=== PATIENT | male | born 1955 | race Caucasian/White ===

== ENCOUNTER → 2018-05-28 08:39 | Outpatient (CLI) | payer OTHER, SELFPAY | PROVIDERS: Family Provider Internal Medicine; PCP Internal Medicine; Visit Provider Internal Medicine Pulmonary Disease | DX: R05 Cough (principal) | CPT/HCPCS: 71250 ==

== ENCOUNTER 2018-07-12 17:26 | Emergency (ER) | payer OTHER, SELFPAY ==
[2018-07-12 17:28] VITALS: BP 160/82; PULSE 84; RESP 18; TEMP 36.7; O2SAT 93; BMI 40.1
[2018-07-12] MEDS: Lidocaine/Epi/Tetracaine 50 ML 1 APPLIC TOPICAL (17:43)
--- NOTE | 2018-07-12 17:54 | RAD_ITS ---
STUDY: X-RAY - LEFT FOOT CLINICAL: Male, 62 years old. Trauma TECHNIQUE: 3 view(s) of the foot. COMPARISON: Previous study of 04/28/2016 FINDINGS: Normal talus, calcaneus, and tarsal bones. Normal visualized subtalar, talonavicular, calcaneocuboid, tarsal and tarsometatarsal articulations. There is cortical thickening of the distal second metatarsal shaft consistent with old injury. Normal metatarsophalangeal joint of the great toe. Normal tibial and fibular sesamoid bones. Normal interphalangeal joint of the great toe. Normal phalanges of the great toe. Normal second through fifth metatarsophalangeal joints. There is a nondisplaced oblique chip fracture of the medial base of the fifth proximal phalanx. The fracture involves the fifth metatarsophalangeal joint space. The soft tissue structures are unremarkable. RAD/Foot min 3 Views IMPRESSION: Chip fracture of the medial base of the fifth proximal phalanx involving the fifth metatarsophalangeal joint space. Cortical thickening of the distal shaft of the second metatarsal consistent with old injury, stable in the interval. Electronically Signed: Eric Osorio MD at 18:17 EDT , Service support ,
--- NOTE | 2018-07-12 19:11 | ED.VISSUMM ---
- ER Visit Summary Date of Service: 07/12/18 Chief Complaint: Left foot injury History of Present Illness: The patient is a 62 M who caught his left small toe on the corner of the coffee table. He has a laceration between his fourth and fifth toes. Physical Examination: Vital signs significant only for a pressure of 160/82. Patient sitting upright in bed no acute distress. Lower extremity examination is significant for a 1 similar laceration to the webspace between the left fourth and fifth toes. Bleeding is well controlled. There is tenderness throughout the fifth toe. He has normal cap refill and sensation. There is no pain over the medical tarsals. Test Results: Left foot x-rays reveal chip fracture to the medial base of the fifth proximal phalanx. Emergency Department Course and Treatment: Let is applied to the wound. Wound is cleansed and Dermabond is applied over the skin. His fourth and fifth toes are charmaine taped. Patient did review his records from [facility] and his tetanus is up-to-date. He will be treated with Keflex to prevent infection. Treatment Plan: [] Disposition: Discharge Impression: 1. Left fifth toe fracture 2. Left foot laceration status post Dermabond This note was generated with icomasoft dictation software. It may contain incorrect words, spelling, and punctuation that were not noted in review of the chart prior to signing ED Disposition - Plan for ED Patient: Disposition: Home or Assisted Living Chief Complaint: Lower Extremity Injury Instructions: ED Fx Foot, ED Laceration Foot Prescriptions: Cephalexin [Keflex] 500 mg PO Q6 #40 capsule Referrals: Bipin Sanchez MD [Primary Care Provider] - 1 Week
[2018-07-12] MEDS: Cephalexin 250 MG Capsule 500 MG PO (19:13)
--- NOTE | 2018-07-12 19:14 | DCINST.ED_ITS ---
ED Disposition - Plan for ED Patient: Disposition: Home or Assisted Living Chief Complaint: Lower Extremity Injury Instructions: ED Fx Foot, ED Laceration Foot Prescriptions: Cephalexin [Keflex] 500 mg PO Q6 #40 capsule Referrals: Bipin Sanchez MD [Primary Care Provider] - 1 Week
[2018-07-12 19:20] VITALS: BP 136/76; PULSE 88; RESP 16; O2SAT 98
== END 2018-07-12 19:20 | disposition home or self-care (01) ==
PROVIDERS: Emergency Provider Emergency Medicine; Family Provider Internal Medicine; PCP Internal Medicine
DX: S92.912A Unspecified fracture of left toe(s), initial encounter for closed fracture (principal); S91.312A Laceration without foreign body, left foot, initial encounter; W22.03XA Walked into furniture, initial encounter; Y93.9 Activity, unspecified; Y92.89 Other specified places as the place of occurrence of the external cause; Y99.9 Unspecified external cause status; I10 Essential (primary) hypertension; E78.00 Pure hypercholesterolemia, unspecified; J44.9 Chronic obstructive pulmonary disease, unspecified; Z87.891 Personal history of nicotine dependence; Z86.718 Personal history of other venous thrombosis and embolism
CPT/HCPCS: 12001; 73630; 99283

== ENCOUNTER → 2018-10-18 07:42 | Outpatient (CLI) | payer OTHER, SELFPAY ==
[2018-10-11 13:53] VITALS: BMI 39.6
--- NOTE | 2018-10-18 07:45 | ECHOD_ITS ---
Reason For Study: ARRHYHTMIA Procedure This was a 2D Doppler, Color Flow transthoracic echocardiogram. Exam performed in department. Left Ventricle Mildly dilated left ventricle. The estimated ejection fraction is 55 %. Paced septal motion. There is mild global hypokinesis of the left ventricle. Right Ventricle Moderately dilated right ventricle. ICD or pacer leads identified within the right ventricle. Normal systolic function. Atria The left atrium is severely enlarged. The right atrium is moderately enlarged. ICD or pacer leads identified within the right atrium. Normal atrial septum. Mitral Valve Mild diffuse mitral valve thickening. Trivial mitral valve insufficiency. Tricuspid Valve Normal tricuspid valve. Mild (1+) tricuspid valve insufficiency. Right ventricular systolic pressure estimated to be 45 mmHg. Mild pulmonary hypertension. Aortic Valve Trisinus/trileaflet aortic valve. Mild focal aortic valve thickening. Pulmonic Valve Normal pulmonic valve. Great Vessels Normal aortic root. Mild atherosclerosis of the aortic arch. Normal inferior vena cava. Inferior vena cava collapse with sniff. Pericardium/Pleural No pericardial effusion. MMode/2D Measurements & Calculations LVIDd: 5.6 cm IVSd: 1.1 cm Ao root diam: 3.8 cm LVIDs: 3.8 cm LVPWd: 1.2 cm RVDd: 4.8 cm FS: 32.0 % LAV(MOD-bp): 116.4 ml LVAd ap4: 44.7 cm2 SV(MOD-sp4): 124.7 ml LAV(MOD-bp) Indexed: 51.9 ml/m2 EDV(MOD-sp4): 183.1 ml LAV(MOD-sp2): 112.3 ml EDV(sp4-el): 187.3 ml LAV(MOD-sp4): 116.9 ml LVAs ap4: 22.8 cm2 ESV(MOD-sp4): 58.3 ml ESV(sp4-el): 60.5 ml EF(MOD-sp4): 68.1 % EF(sp4-el): 67.7 % SV(sp4-el): 126.8 ml LA A4 area: 31.4 cm2 LA dimension(2D): 5.0 cm RA A4 area: 26.2 cm2 Time Measurements MV dec time: 0.20 sec Doppler Measurements & Calculations MV E max el: 112.0 cm/sec Ao V2 max: 167.3 cm/sec LV V1 max: 118.3 cm/sec MV A max el: 98.9 cm/sec Ao max P.2 mmHg LV V1 max P.6 mmHg MV E/A: 1.1 TR max el: 323.3 cm/sec TR max P.8 mmHg Interpretation Summary Mildly dilated left ventricle. The estimated ejection fraction is 55 %. There is mild global hypokinesis of the left ventricle. Moderately dilated right ventricle. The left atrium is severely enlarged. The right atrium is moderately enlarged. Trivial mitral valve insufficiency. Mild (1+) tricuspid valve insufficiency. Right ventricular systolic pressure estimated to be 45 mmHg. Mild pulmonary hypertension. Compared to echo report dated 04/28/2016, LV function has remained the same, but RVSP has increased from 30 to 45 mm Hg. Ordering Physician: Acosta^Epifanio^^^ Referring Physician: BRI URRUTIA Performed By: Marbella Harrison, DYLON, RVT
== END ==
PROVIDERS: Family Provider Internal Medicine; PCP Internal Medicine; Referring Provider Internal Medicine Cardiovascular Disease; Visit Provider Internal Medicine Cardiovascular Disease
DX: G47.33 Obstructive sleep apnea (adult) (pediatric) (principal); I49.5 Sick sinus syndrome; Z95.0 Presence of cardiac pacemaker
CPT/HCPCS: 93306

== ENCOUNTER → 2018-11-01 09:25 | Outpatient (CLI) | payer OTHER, SELFPAY ==
[2018-10-11 13:53] VITALS: BMI 39.6
--- NOTE | 2018-11-01 09:30 | STEWCON_ITS ---
Reason For Study: DYSPNEA, SOB Stress Results Protocol: Stress Echocardiogram Maximum Predicted HR: 156 bpm Target HR: 133 bpm % Maximum Predicted HR: 83 % DurationHeart Rate Stage (mm:ss) (bpm) BP Comment BASELINE 85 168/86DILUTED DEFINITY 3 CC USED DURING STRESS, PO 95% JOSE PROTOCOL0 STAGE 1 3:00 110 160/74PO 83% JOSE PROTOCOL- STAGE 2 2:50 129 164/80PO 86% RECOVERY 94 128/70PO 96% Stress Duration: 5:50 mm:ss Maximum Stress HR: 129 bpm Baseline Echocardiogram Findings The estimated ejection fraction is 65 %. Stress Echo Wall motion Data Resting WM Intermediate WM Stress WM Resting Wall Motion Wall Motion Stress No regional wall motion No regional wall motion abnormalities noted. abnormalities noted. EKG Data The baseline ECG displays normal sinus rhythm. The patient exercised according to the regular Jose protocol for a total duration of 5:50. The maximum heart rate attained was 129 beats per minute. This was 82% of maximum predicted heart rate. The patient exercised into stage 2 of the Jose protocol. During stress, there were no ST or T wave changes noted to suggest ischemia. No arrhythmias noted. Interpretation Summary The estimated ejection fraction is 65 %. Normal, adequate, treadmill echocardiogram. Negative for ischemia by EKG and echocardiographic criteria. No anginal symptoms noted. Rare PVC noted. Appropriate blood pressure response to exercise. Below average exercise capacity for age. Test terminated due to dyspnea. Decreased sensitivity due to poor echo windows requiring Definity agent and left bundle branch block. Final LVEF is 75%. Test terminated due to dyspnea. No complications. The study was technically difficult. Contrast injection was performed. Ordering Physician: Epifanio Shane MD Referring Physician: Epifanio Shane Performed By:
--- OUTSIDE RECORDS SUMMARY | 2018-12-25 16:35 | XMS RPT_ITS ---
:1955 Author Organization OHIP Support Name Relationship Address Phone ALEJANDRA BORGES Unavailable [address] + [place] [address] [facility] Unavailable [address] + [place] [address] KATERINA ALEJANDRA Unavailable [address] + [place] [address] [facility] Unavailable [address] + [place] [address] KATERINA ALEJANDRA Unavailable [address] + [place] [address] [facility] Unavailable [address] + [place] [address] KATERINA, ALEJANDRA Unavailable [address] + [place] [address] [facility] Unavailable [address] + [place] [address] KATERINA, ALEJANDRA Unavailable [address] + [place] [address] [facility] Unavailable [address] + [place] [address] KATERINA, ALEJANDRA Unavailable [address] + [place] [address] [facility] Unavailable [address] + [place] [address] KATERINA ALEJANDRA Unavailable [address] [phone] [place] [address] [facility] Unavailable [address] + [place] [address] KATERINA ALEJANDRA Unavailable [address] + [place] [address] [facility] Unavailable [address] + [place] [address] Care Team Providers Name Role Phone Epifanio Shane Attending Unavailable Bipin Urrutia Referring Unavailable Ceci Sexton Attending Unavailable Bipin Urrutia Referring Unavailable Epifanio Shane Attending Unavailable Epifanio Shane Referring Unavailable Daniel, Bipin Primary Care Unavailable Epifanio Shane Attending Unavailable Epifanio Shane Referring Unavailable Daniel, Bipin Primary Care Unavailable Epifanio Shane Consulting Unavailable Rain Alexander Attending Unavailable Ceci Sexton Attending Unavailable Daniel, Bipin Referring Unavailable Urrutia, Bipin Primary Care Unavailable Sibilia, Jarrett Attending Unavailable SibiliaJarrett Referring Unavailable Urrutia, Bipin Primary Care Unavailable Urrutia, Bipin Primary Care Unavailable Belen Stafford Attending Unavailable CHARLIE, JOSSELYN Iglesias Referring Unavailable URRUTIABIPIN ARNETT Attending Unavailable BIPIN URRUTIA H Referring Unavailable AGUSTO HANNAH Referring Unavailable CAROLYN SPARROW Referring Unavailable AGUSTO HANNAH Attending Unavailable AGUSTO HANNAH Referring Unavailable [place] AGUSTO E Referring Unavailable AGUSTO HANNAH E Referring Unavailable AGUSTO HANNAH E Referring Unavailable DOLLY SEGUNDO ([facility]) Attending Unavailable DANIEL, JAMIE Referring Unavailable CHARLIE, AYMAN A Referring Unavailable CHARLIE, AYMAN A Referring Unavailable CHARLIE, AYMAN A Attending Unavailable CHARLIE, AYMAN A Referring Unavailable CHARLIE, AYMAN A Referring Unavailable CHARLIE, AYMAN A Admitting Unavailable CHARLIE, AYMAN A Attending Unavailable CHARLIE, AYMAN A Referring Unavailable AGUSTO HANNAH E Attending Unavailable CAM[place] AGUSTO E Referring Unavailable AGUSTO HANNAH Attending Unavailable AGUSTO HANNAH Referring Unavailable Bipin Urrutia MD Primary Care Unavailable AGUSTO HANNAH Attending Unavailable AGUSTO HANNAH Referring Unavailable Daniel HONG, Bipin Primary Care Unavailable PROBLEMS PROBLEMS DATE TYPE CONDITION / CODE ATTENDING STATUS SOURCE 10/19/2018 Unknown G47.33 - Obstructive Epifanio Shane Active [place] sleep apnea (adult) Community (pediatric) / Hospital G47.33(ICD-10) Repository 10/19/2018 Unknown I49.5 - Sick sinus Epifanio Shane Active [place] syndrome / Community I49.5(ICD-10) Hospital Repository 10/19/2018 Unknown Z95.0 - Presence of Epifanio Shane Active [place] cardiac pacemaker / Community Z95.0(ICD-10) Hospital Repository 10/11/2018 Unknown I10 - Essential Epifanio Shane Active [place] (primary) Community hypertension / Hospital I10(ICD-10) Repository 10/11/2018 Unknown J44.9 - Chronic Epifanio Shane Active [place] obstructive pulmonary Community disease, unspecified Hospital / J44.9(ICD-10) Repository 10/11/2018 Unknown Z87.898 - Personal Epifanio Shane Active [facility] history of other Community specified conditions Hospital / Z87.898(ICD-10) Repository 10/11/2018 Unknown R06.09 - Other forms Epifanio Shane Active [place] of dyspnea / Community R06.09(ICD-10) Hospital Repository 08/22/2018 Active Syncope and collapse JOSSELYN DAVIS Active [place] / R55(ICD-10) A [facility] [place] Repository 08/22/2018 Active Other mechanical JOSSELYN DAVIS Active [place] complication of A [facility] cardiac electrode, [place] initial encounter / Repository T82.190A(ICD-10) 12/22/2016 Active Atrioventricular NA Active [place] block, complete / Clinic Main I44.2(ICD-10) [place] Repository 07/02/2018 Active Atherosclerotic heart NA Active [place] disease of enterprise [facility] coronary artery [place] without angina Repository pectoris / I25.10(ICD-10) 07/02/2018 Active Essential (primary) NA Active [place] hypertension / Clinic Main I10(ICD-10) [place] Repository 06/21/2018 Active Ventricular NA Active [place] tachycardia / Clinic Main I47.2(ICD-10) [place] Repository 06/21/2018 Active Breakdown NA Active [place] (mechanical) of [facility] cardiac pulse [place] generator (battery), Repository initial encounter / T82.111A(ICD-10) 03/15/2018 Active Unknown / NA Active [place] UNK(Unknown) [facility] [place] Repository 12/21/2017 Admitting Unknown / [place], Active [facility] diagnosis UNK(Unknown) [facility] Repository PROCEDURES PROCEDURES No Procedure Records FoundRESULTS RESULTS ECHOCARDIOGRAM COMPLETE Observed: 10/19/2018 Status: F Source: [place] 4:04 PM [facility] RE[facility] Cardiovascular Services [address] [place] [address] Echo Complete 10/18/18 0801 MR#: [id number] Acct: [id number] Name: MARKELL BORGES Jr. Rep #: [id number] : 1955 63 From: Epifanio Shane MD Attending Dr: Epifanio Shane MD Status: REG CLI Ordering Dr: Epifanio Shane MD Date: 10/18/18 Location: [facility] Sex: M C Admitted: Reason For Study: ARRHYHTMIA Procedure This was a 2D Doppler, Color Flow transthoracic echocardiogram. Exam performed in department. Left Ventricle Mildly dilated left ventricle. The estimated ejection fraction is 55 %. Paced septal motion. There is mild global hypokinesis of the left ventricle. Right Ventricle Moderately dilated right ventricle. ICD or pacer leads identified within the right ventricle. Normal systolic function. Atria The left atrium is severely enlarged. The right atrium is moderately enlarged. ICD or pacer leads identified within the right atrium. Normal atrial septum. Mitral Valve Mild diffuse mitral valve thickening. Trivial mitral valve insufficiency. Tricuspid Valve Normal tricuspid valve. Mild (1+) tricuspid valve insufficiency. Right ventricular systolic pressure estimated to be 45 mmHg. Mild pulmonary hypertension. Aortic Valve Trisinus/trileaflet aortic valve. Mild focal aortic valve thickening. Pulmonic Valve Normal pulmonic valve. Great Vessels Normal aortic root. Mild atherosclerosis of the aortic arch. Normal inferior vena cava. Inferior vena cava collapse with sniff. Pericardium/Pleural No pericardial effusion. MMode/2D Measurements AND Calculations LVIDd: 5.6 cm IVSd: 1.1 cm Ao root diam: 3.8 cm LVIDs: 3.8 cm LVPWd: 1.2 cm RVDd: 4.8 cm FS: 32.0 % LAV(MOD-bp): 116.4 ml LVAd ap4: 44.7 cm2 SV(MOD-sp4): 124.7 ml LAV(MOD-bp) Indexed: 51.9 ml/m2 EDV(MOD-sp4): 183.1 ml LAV(MOD-sp2): 112.3 ml EDV(sp4-el): 187.3 ml LAV(MOD-sp4): 116.9 ml LVAs ap4: 22.8 cm2 ESV(MOD-sp4): 58.3 ml ESV(sp4-el): 60.5 ml EF(MOD-sp4): 68.1 % EF(sp4-el): 67.7 % SV(sp4-el): 126.8 ml LA A4 area: 31.4 cm2 LA dimension(2D): 5.0 cm RA A4 area: 26.2 cm2 Time Measurements MV dec time: 0.20 sec Doppler Measurements AND Calculations MV E max le: 112.0 cm/sec Ao V2 max: 167.3 cm/sec LV V1 max: 118.3 cm/sec MV A max el: 98.9 cm/sec Ao max P.2 mmHg LV V1 max P.6 mmHg MV E/A: 1.1 TR max el: 323.3 cm/sec TR max P.8 mmHg Interpretation Summary Mildly dilated left ventricle. The estimated ejection fraction is 55 %. There is mild global hypokinesis of the left ventricle. Moderately dilated right ventricle. The left atrium is severely enlarged. The right atrium is moderately enlarged. Trivial mitral valve insufficiency. Mild (1+) tricuspid valve insufficiency. Right ventricular systolic pressure estimated to be 45 mmHg. Mild pulmonary hypertension. Compared to echo report dated 04/28/2016, LV function has remained the same, but RVSP has increased from 30 to 45 mm Hg. Ordering Physician: Ac[place] Referring Physician: BIPIN URRUTIA Performed By: Marbella Harrison, DYLON, RVT 10/19/18 1604 Date Epifanio Shane MD CC: Epifanio Shane MD; Bipin Urrutia MD Date Dictated: 10/18/18 0801 Date Transcribed: 10/19/18 1604 School Bus Inspector: Signed PACEMAKER CHECK Observed: 10/12/2018 Status: F Source: [place] 4:00 PM [facility] HOSPITAL REPOSITORY [facility] [address] [place] [address] Pacemaker Check Date of Service: 10/11/18 1400 MR#: [id number] Acct: [id number] Name: MARKELL BORGES Jr. Rep #: [id number] : 1955 From: Ceci Darshan Age/Sex: 63/M Location: [facility] Status: Signed Billing Codes PM Device Codes: PM Dev Prog Eval, Dual 10/11/18 1405 <Electronically signed by Ceci Sexton > Date Ceci Sexton 10/12/18 1600<Electronically signed by Epifanio Shane MD> Cosigner Signature: Date (if applicable) Epifanio Shane MD CC: CARDIOLOGY VISIT Observed: 10/11/2018 Status: F Source: [place] REPORT 2:47 PM [facility] REPOSITORY [facility] [address] [place] [address] OFFICE VISIT Date of Service: 10/11/18 MR#: [id number] Acct: [id number] Name: MARKELL BORGES JR Rep #: [id number] : 1955 Provider: Epifanio Shane MD Age/Sex: 63/M Location[place] [facility] Status: Signed HPI HPI Chief Complaint: Cardiac eval/transfer of care Details: MARKELL BORGES JR, is a 63 M who presents to the office today for cardiac evaluation and transfer of cardiac care. Patient is a former patient of Dr. Fragoso. Patient has a history of hypertension, former smoker about 3 packs/day for 20 years, quit in 1996, positive alcohol use about 10-1/2 ounces per week in the form of 7 cans of beer. Patient has obstructive sleep apnea and is compliant with his BiPAP. He also is a history of reportedly coronary artery disease although he is never had a catheterization, COPD/asthma, and AV block which required permanent pacemaker on 04/30/16, followed by revision of his atrial leads at the [facility] in August 2018. His most recent echocardiogram dated 04/30/16 demonstrated an EF of 55 percent with evidence of inferior, posterior and inferoseptal hypokinesis mildly dilated right ventricle, unable to quantitate RVSP. Previous RVSP in 2011 was 43 mmHg. Patient has never had a catheterization. His most recent stress test on 07/08/16 was a pharmacologic nuclear stress test which was negative for inducible ischemia. On further history the patient states that he has dyspnea on exertion and shortness of breath which he attributes to his COPD/emphysema. He is currently on MDI therapy. Patient states that his dyspnea on exertion has worsened over the last several months, but has no associated angina or chest pain. He is also reportedly had worsening lower extremity edema which she treats with compression stockings. In our office today's blood pressure is 112/62, pulse is 76 and regular. His physical exam demonstrates clear lungs bilaterally, regular rate and rhythm, normal S1/S2, no murmurs are detected. He has 1-2+ bilateral lower extremity edema. EKG dated 08/23/18 shows normal sinus rhythm with first-degree AV block, left anterior hemiblock and intraventricular conduction delay. His lipids as of 04/29/16 showed LDL of 75 and HDL of 59. Repeat lipids are pending. Patient's pacer was interrogated today with results pending Intake Vital Signs10/11/18 Height 5 ft 8 in 10/11/18 Weight: 261 lb 10/11/18 Body Mass Index (BMI) 39.6 10/11/18 Blood Pressure 112/62 10/11/18 Blood Pressure Location Lt brachial Intake Visit Reasons: Switching from [place] / [place] 1:30 Maintenance And Operations Supervisor Required: No Accompanied by: None Is patient in pain?: No Allergies ibuprofen Allergy (Severe, Verified 10/11/18 14:00) ANAPHYLAXIS Medications Albuterol Inhaler [Ventolin Hfa (SP)] 1 - 2 puff INHALATION Q4H PRN PRN 04/28/16 [History Confirmed 10/06/18] Amitriptyline HCl 50 mg PO DAILY 04/28/16 [History Confirmed 10/06/18] Amlodipine [Norvasc] 5 mg PO DAILY 04/28/16 [History Confirmed 10/06/18] Aspirin [Aspirin, Baby] 81 mg PO DAILY@0800 04/28/16 [History Confirmed 10/06/18] Citalopram Hydrobromide [Citalopram HBr] 20 mg PO DAILY 04/28/16 [History Confirmed 10/06/18] Nitroglycerin [Nitrostat] 0.4 mg SUBLINGUAL Q5M PRN 04/28/16 [History Confirmed 10/06/18] [place]-3 Fatty Acids/Dha/Epa [Ovega-3 Softgel] 1 ea PO DAILY 04/28/16 [History Confirmed 10/06/18] Pravastatin [Pravachol] 40 mg PO DAILY 04/28/16 [History Confirmed 10/06/18] buspirone 30 mg tablet 30 mg PO BID tab 10/11/18 [History Confirmed 10/11/18] fluticasone 500 mcg-salmeterol 50 mcg/dose blistr powdr for inhalation 1 inh INHALATION BID 10/11/18 [History Confirmed 10/11/18] furosemide 20 mg tablet 20 mg PO DAILY #30 tab 10/11/18 [Rx Confirmed 10/11/18] montelukast 10 mg tablet 10 mg PO DAILY 10/11/18 [History Confirmed 10/06/18] Ejection fraction %: 55 to 59 PFSH Medical History History of syncope (Chronic) Obstructive sleep apnea (Chronic) COPD with asthma (Chronic) Sick sinus syndrome (Chronic) Hypertension (Chronic) Hyperlipidemia (Chronic) History of DVT (deep vein thrombosis) (Chronic 06/2012) 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) Syncope (Resolved) Surgical History H/O umbilical hernia repair (Chronic 12/11/09) Presence of cardiac pacemaker (Chronic 04/30/16) Family History Mother CVA (cerebral vascular accident), Onset Age: 65 Anxiety Father CAD (coronary artery disease), Onset Age: 61 Brother CAD (coronary artery disease) Obesity Social History Smoking Status: Former smoker quit date: 10/04/96 pack-years: 60 alcohol intake: current alcohol intake frequency: 0-2 drinks per day Alcohol type: beer caffeine: Yes Type: coffee Number of servings: 1 ROS Const Const: Negative for fatigue, frequent falls, weakness, excessive sweating, headache(s) or difficulty sleeping Eyes Eyes: Negative for loss of peripheral vision, transient loss of vision, double vision, blurry vision or tunnel vision ENT ENT: Negative for headache(s), dizziness, Nosebleed/epistaxis or balance problems Cardio Chest Pain: No Palpitations: No Edema: None, Bilateral (wears compression stockings) Muscle aches with walking: None Resp Respiratory: Negative for SOB with activity, SOB at rest, SOB orthopnea\SOB lying down, Cough or paroxysmal nocturnal dyspnea GI GI: Negative nausea, vomiting, heartburn or black,tarry stools : Negative for hematuria Musc Musc: Negative for balance problems, muscle aches/ myalgia, muscle weakness or joint pain Skin Skin: Negative non-healing lesions, rash or unusual bruising Neuro Neuro: Negative for frequent falls, weakness, headache(s), double vision, blurry vision, dizziness, lightheadedness, near syncope, syncope or lack of coordination Isiah Hematologic/Lymphatic: Negative for easy bruising or easy bleeding Endo Endo: Negative for fatigue, excessive sweating or increased thirst/drinking Psych Psych: Positive for anxiety and depression Allergy Allergy/Immunology: Negative for rash, Negative for hives Cardiology Exam Const Appearance: cooperative, healthy appearing and no acute distress Nutritional Appearance: well nourished Orientation: alert, oriented x3 and oriented to person Head Head: normal to inspection, atraumatic and normocephalic Nose: external nose normal Face and Sinus: face symmetric Mouth: oral mucosae normal Eyes General: appearance normal, both eyes and all related structures Eyelids: eyelids normal Conjunctivae: conjunctivae normal Pupils: PERRL and normal by confrontation EOM: EOM intact bilaterally Neck Neck: normal visual inspection and full ROM Carotids: normal carotid upstroke Chest Chest inspection: normal inspection of the chest Auscultation: Bilateral: Clear to Auscultation Cardio Palpation: normal PMI Rate: regular rate Rhythm: regular rhythm Heart sounds: S1 normal and S2 normal GI GI: normal to inspection, no hepatosplenomegaly and bowel sounds present Neuro General: alert, oriented x3, awake, CN's II-XI intact bilaterally and moves all extremities Skin Skin: no rashes or lesions noted Extremities Pulses: Normal: Right Femoral Pulse, Left Femoral Pulse, Right Dorsalis Pedis Pulse, Left Dorsalis Pedis Pulse, Right Posterior Tibial Pulse, Left Posterior Tibial Pulse, Right Radial Pulse, Left Radial Pulse Lower Extremity Edema: None: Bilateral Psych Psychological: normal affect Assessment AND Plan 1. Dyspnea on exertion R06.09 Plan 1. Dyspnea on exertion: Although the patient was a smoker, he reports that his dyspnea on exertion has worsened over the last several months, and his lower extremity edema has also been present for some time. Given his risk factors, dyspnea on exertion, lower extremity edema, evidence of pulmonary hypertension as related to his sleep apnea, I recommended he undergo a treadmill echocardiogram to evaluate for possible ischemic source of his dyspnea on exertion. This will also help assess his blood pressure response to exercise. If this is grossly abnormal, the patient may require diagnostic coronary angiogram. In addition I recommend adding Lasix 20 mg p.o. daily to his baby aspirin and amlodipine to assist with lower extremity edema. I also recommend repeat echocardiogram to monitor and track his pulmonary hypertension. Patient had elevated pulmonary pressures of 43 mmHg by echocardiogram several years ago. 2. Hyperlipidemia: We are awaiting a repeat lipid profile. Continue Pravachol for now. 3. Obstructive sleep apnea: Encouraged the patient to continue using his BiPAP therapy to assist with pulmonary pressures. Patient has been compliant and agrees to do so. 4. Return office in 6 months. This note was generated using a voice recognition system and there may be incorrect words, spelling or punctuation that were not noted when reviewing the office note prior to saving. Plan Detail Other Orders Orders: Other Medications New: Follow Up +6M (Ac[place]) Coding Level of Care Code Off vis,new,level 4 Diagnoses Dyspnea on exertion R06.09 Coding Level of Care Code Off vis,new,level 4 Diagnoses Dyspnea on exertion R06.09 Supplemental Info Supplemental Information Labs LDL Cholesterol 75 mg/dL (0-130) 04/29/16 HDL Cholesterol 59 mg/dL (40-) 04/29/16 Triglycerides 71 mg/dL (-199) 04/29/16 VLDL Cholesterol 14 mg/dL (5-40) 04/29/16 Diagnostics Electrocardiogram 04/28/16 Pacemaker Check 10/11/18 Chest X-Ray 10/20/17 10/11/18 4149 <Electronically signed by Epifanio Shane MD> Date Epifanio Shane MD Cosigner Signature: Date (if applicable) CC: Bipin Urrutia MD PROGRESS Observed: 08/23/2018 Status: COMPLETED Source: [place] 11:02 AM [facility] REPOSITORY HNO ID: [id number] Author: Tor Zamora (Fel) Service: Cardiovascular Medicine Author Type: Fellow Type: Progress Notes Filed: 08/23/2018 11:03 AM Note Text: POD #1 from RA lead extraction/Reimplantation - No issues overnight - Pocket without evidence of hematoma and no superficial bleeding - CXR without evidence of pneumothorax. Device and leads appear in appropriate position with an acceptable amount of slack in the leads - Post implant ECG shows NSR, -VS - Telemetry demonstrates Same - Device check shows acceptable capture thresholds, sensing thresholds and impedance - Plan for D/C today - Wound care instructions outlined in the patient's discharge instructions Tor Zamora MD Fellow, Electrophysiology, PGY-7 Pager: [phone] August 23, 2018 11:03 AM EKG1 Observed: 08/23/2018 Status: F Source: [place] 8:13 AM [facility] REPOSITORY NAME : MARKELL BORGES PID : [id number] : 1955 Gender : Male Race : ORD : Procedure Date : Aug 23 2018 08:13:25 Edit Date : Aug 24 2018 14:34:48 Diagnosis:SINUS RHYTHM WITH 1ST DEGREE AV BLOCK COMPLETE RIGHT BUNDLE BRANCH BLOCK LEFT ANTERIOR FASCICULAR BLOCK BIFASCICULAR BLOCK LEFT VENTRICULAR HYPERTROPHY WITH REPOLARIZATION ABNORMALITY ABNORMAL ECG Confirmed by MD KAMALA, PhD, AARON ([id number]) on 08/24/2018 2:34:45 PM Ventricular Rate : 69 BPM Atrial Rate : 69 BPM P-R Interval : 214 ms QRS Duration : 190 ms Q-T Interval : 444 ms QTC Calculation(Bezet) : 475 ms P Alger : 30 degrees R Alger : -70 degrees T Alger : 60 degrees Test Reason : Location : 549 : Q5NS Overread By : MD KAMALA, PhD,AARON Edited By : MD KAMALA, PhD,AARON Referred By : , Acquired by : [id number], HEMATOCRIT Collected: 08/23/2018 Status: F Source: [place] 4:50 AM [facility] REPOSITORY TYPE CODE TESTS RESULT OUT OF REFERENCE UNITS RANGE LAB HCT 39.0-51.0 % Hematocrit 44.3 Performed By: #### HCT, HGB #### [facility] [address] [place], [place] [address] HEMOGLOBIN Collected: 08/23/2018 Status: F Source: [place] 4:50 AM [facility] REPOSITORY TYPE CODE TESTS RESULT OUT OF REFERENCE UNITS RANGE LAB HGB 13.0-17.0 g/dL Hemoglobin 13.9 Performed By: #### HCT, HGB #### [facility] [address] [place], [place] [address] EKG1 Observed: 08/22/2018 Status: F Source: [place] 12:58 PM [facility] REPOSITORY NAME : MARKELL BORGES PID : [id number] : 1955 Gender : Male Race : ORD : Procedure Date : Aug 22 2018 12:58:03 Edit Date : Aug 24 2018 15:02:37 Diagnosis:SINUS RHYTHM WITH 1ST DEGREE AV BLOCK COMPLETE RIGHT BUNDLE BRANCH BLOCK LEFT AXIS DEVIATION LEFT VENTRICULAR HYPERTROPHY ABNORMAL ECG Confirmed by MD SIMENTAL TAMANNA ([id number]) on 08/24/2018 3:02:34 PM Ventricular Rate : 65 BPM Atrial Rate : 65 BPM P-R Interval : 234 ms QRS Duration : 182 ms Q-T Interval : 432 ms QTC Calculation(Bezet) : 449 ms P Alger : 44 degrees R Alger : -67 degrees T Alger : 23 degrees Test Reason : ADMIT Location : 549 : [place] [address] Overread By : MD SIMENTAL TAMANNA Edited By : MD SIMENTAL TAMANNA Referred By : , Acquired by : [id number], XR CHEST 1V FRONTAL Observed: 08/22/2018 Status: F Source: [place] 11:41 AM [facility] REPOSITORY * * *Final Report* * * DATE OF EXAM: Aug 22 2018 11:41AM JIX [id number] - XR CHEST 1V FRONTAL PORT / PROCEDURE REASON: Shortness of breath * * * * Physician Interpretation * * * * EXAMINATION: CHEST RADIOGRAPH (PORTABLE SINGLE VIEW AP) Exam Date/Time: 08/22/2018 11:41 AM Clinical History: Shortness of breath, MQ: [id number] Comparison: 06/21/2018 RESULT: See impression. IMPRESSION: Lines, tubes, and devices: Stable left-sided dual-chamber pacemaker with leads in the right atrium and right ventricle. Lungs and pleura: No airspace consolidations. No evidence of pulmonary alveolar edema. Minimal upper lobar venous distention in both lungs. Mild atelectasis in the left base. No pleural effusion or pneumothorax. Cardiomediastinal silhouette: Stable cardiomediastinal silhouette. Other: . School Bus Inspector: FARRAH Transcribe Date/Time: Aug 22 2018 1:27P Dictated by : FARZAD JAMES MD This examination was interpreted and the report reviewed and electronically signed by: FARZAD JAMES MD on Aug 22 2018 1:28PM EST [id number] PROCEDURE Observed: 08/22/2018 Status: COMPLETED Source: [place] 10:31 AM [facility] REPOSITORY HNO ID: [id number] Author: Senthil Harris (Fel) Service: Cardiovascular Medicine Author Type: Fellow Type: Procedures Filed: 08/22/2018 10:32 AM Note Text: BRIEF PROCEDURE NOTE: Procedure: RA Lead extraction, implantation of new RA lead Outcome: Successful Access: L Subclavian Vein Complications: None Plan: - Bedrest for 4 hours - Pressure dressings for 24 hours - Please keep pressure dressing in place until seen by our team tomorrow - Please no IV heparin products after device implant (for the next 48-72 hours) - Post-procedure CXR and device check have been ordered - No changes to outpatient medications upon discharge Full report to follow in [facility] (Under Chart Review -> Cardiac) Senthil Harris MD PGY-5 Computer Repair Instructor ANES POST Observed: 08/22/2018 Status: COMPLETED Source: [place] 9:32 AM [facility] REPOSITORY HNO ID: [id number] Author: Cisco Tilley Service: Anesthesiology Author Type: Anesthesiologist Type: Anesthesia PostOp Filed: 08/22/2018 4:43 PM Note Text: POST ANESTHESIA EVALUATION NOTE SERVICE DATE: 08/22/2018 SERVICE TIME: 4:43 PM : 1955 Vitals: 08/22/18 1101 08/22/18 1250 Temp: 37.2 ?C (99 ?F) (!) 63.7 ?C (146.7 ?F) 08/22/18 1215 08/22/18 1230 08/22/18 1250 08/22/18 1300 Arterial BP 1: 135/59 126/47 BP: 112/64 123/67 116/63 116/63 08/22/18 1520 08/22/18 1540 08/22/18 1600 08/22/18 1616 Pulse: 63 80 67 73 08/22/18 1215 08/22/18 1230 08/22/18 1250 08/22/18 1616 Resp: 16 22 20 18 08/22/18 1230 08/22/18 1250 08/22/18 1300 08/22/18 1616 SpO2: 96% 95% 95% 96% Validated Vital Signs: Yes POST ANES STATUS: No apparent anesthetic complications. The patient is appropriately hydrated with stable respiratory and cardiovascular status. Patient has safe and adequate airway control. The patient has appropriate pain relief and no significant post operative nausea or vomiting. The patient has achieved baseline mental status. Intra-Operative Events: No Significant Anesthesia Events Further assessment by Anesthesia Service: None Other Remarks: SIGNATURE: Cisco Tilley MD PATIENT NAME: Markell Borges Jr. DATE: August 22, 2018 TIME: 4:43 PM PAGER/CONTACT #: [phone] Observed: 08/22/2018 Status: F Source: [place] TISSUE CULT / STAIN 9:30 AM [facility] REPOSITORY Sp. Request/Comment: - Specimen received in sterile container. Smear Result - No organisms seen No Polymorphonuclear Leukocytes Culture Result - One colony. Staphylococcus saccharolyticus --> ABNORMAL ALERT Susceptibility testing on Staphylococcus saccharolyticus not performed due to lack of standardized method for this organ ism. --> ABNORMAL ALERT One colony. --> ABNORMAL ALERT Cutibacterium (Propionibacterium) acnes --> ABNORMAL ALERT Susceptibility testing on C. acnes not performed due to predictable susceptibil ity to penicillin. C. acnes is intrinsically resistant to metronidazole. --> ABNORMAL ALERT (NOTE) Identification by MALDI TOF mass spectrometry (MS) was developed and its performance characteristics determined by [facility]'s [facility] [place] ( [facility]). MALDI TOF MS identification of this organism has not been approved by the FDA. [facility] is regul ated under CLIA as qualified to perform high complexity testing. This identification is used for clinical purposes, it should not be regarded as investigational or for research. Positive result called t o and read back by:Dr. Madison Cordova 08/27/18 10:22 Emi Edmond Performed By: #### TISCUL #### [facility] [address] [place], [place] [address] BASIC METABOLIC PANL Collected: 08/22/2018 Status: F Source: [place] 6:30 AM [facility] REPOSITORY TYPE CODE TESTS RESULT OUT OF REFERENCE UNITS RANGE LAB GLU 74-99 mg/dL High Glucose 100 Result Comment: The [place] [employer] (ADA) provides guidance for cutoff values for fasting glucose and random glucose. The ADA defines fasting as no caloric intake for at least 8 hours. Fas ting plasma glucose results between 100 to 125 mg/dL indicate increased risk for diabetes (prediabetes). Fasting plasma glucose results greater than or equal to 126 mg/dL meet the criteria for diagnosis of diabetes. In the absence of unequivocal hyperglycemia, results should be confirmed by repeat testing. In a patient with classic symptoms of hyperglycemia or hyperglycemic crisis, random plasma glucose results greater than or equal to 200 mg/dL meet the criteria for diagnosis of diabetes. Reference: Standards of Medical Care in Diabetes 2016, [place] [employer]. Diabetes Care. 2016.39(Suppl 1). LAB BUN 9-24 mg/dL BUN 17 LAB CRET 0.73-1.22 mg/dL Creatinine 1.19 LAB NA 136-144 mmol/L Sodium 140 LAB K 3.7-5.1 mmol/L Potassium 4.2 LAB CL 97-105 mmol/L Chloride 103 LAB CO2 22-30 mmol/L CO2 27 LAB AGAP 9-18 mmol/L Anion Gap 10 LAB CA 8.5-10.2 mg/dL Calcium, Total 9.1 LAB GFRAA eGFR- Amer. >60 LAB GFRNAA . eGFR-All Other Races >60 Result Comment: eGFR (Estimated GFR) Units of measure: mL/min/1.73 meters squared eGFR is derived from the reexpressed MDRD Study equation using the following parameters: serum creatinine, age, gender and race. The creatinine assay has been calibrated to be traceable to IDMS. An eGFR <60 mL/min/1.73m2 for >3 months is consistent with chronic kidney disease. Refer to KDOQI guidelines for clinical interpretation. In patients with unstable renal function, e.g. those with acute kidney injury, the eGFR may not accurately reflect actual GFR. Performed By: #### BMP, CBC #### [facility] [address] [place], [place] [address] CBC Collected: 08/22/2018 Status: F Source: [place] 6:30 AM [facility] REPOSITORY TYPE CODE TESTS RESULT OUT OF REFERENCE UNITS RANGE LAB WBC 3.70-11.00 k/uL WBC 4.61 LAB RBC 4.20-6.00 m/uL RBC 4.81 LAB HGB 13.0-17.0 g/dL Hemoglobin 14.1 LAB HCT 39.0-51.0 % Hematocrit 45.5 LAB MCV 80.0-100.0 fL MCV 94.6 LAB MCH 26.0-34.0 pG MCH 29.3 LAB MCHC 30.5-36.0 g/dL MCHC 31.0 LAB RDWCV 11.5-15.0 % RDW-CV High 15.5 LAB PLTCT 150-400 k/uL Low Platelet Count 135 Result Comment: Result checked and verified No clot detected. LAB MPV 9.0-12.7 fL MPV 9.9 LAB ABSNUC <0.01 k/uL Absolute nRBC <0.01 Performed By: #### BMP, CBC #### [facility] [address] [id number] TYPE AND SCREEN Collected: 08/22/2018 Status: F Source: [place] 6:30 AM [facility] REPOSITORY TYPE CODE TESTS RESULT OUT OF REFERENCE UNITS RANGE LAB %ABR A ABO/RH(D) POSITIVE LAB % Antibody NEG Screen Performed By: #### TSCR #### [address] [place], [place] [address] SURGICAL PATHOLOGY Observed: 08/19/2018 Status: F Source: [place] 2:52 PM [facility] REPOSITORY Specimen originated from [facility] Specimen #: [id number] Submitting Physician: JOSSELYN DAVIS FINAL DIAGNOSIS Right atrium, lead wire removal - Grossly unremarkable segment of insulated pacemaker lead wire (gross diagnosis only). MANAGER SPECIALTY/dcr 08/23/2018 Ciro Ying ([id number]) (Electronic Signature) SPECIMEN SUBMITTED A: RA LEAD -MEDTRONIC 5076 CLINICAL DATA n/a GROSS DESCRIPTION A. Received in formalin labeled as Medtronic RA lead is a 45 cm piece of insulated pacemaker lead wire with a connector end, screw tip and tissue anchor. No tissue is present. The following is inscribed on the specimen [id number]. No sections are submitted. The specimen is shown to Dr. Ying. MT/dcr 08/23/2018 Gross examination performed at [facility], [address] [place] [address] Date of Report: 08/24/2018 Date of Procedure: 08/19/2018 Date of Receipt: 08/22/2018 Submitted by: JOSSELYN DAVIS Location: F26 Diagnostic interpretation performed at [facility], [address] [place] [address]. CNCNPATED Observed: 08/19/2018 Status: COMPLETED Source: [place] 12:00 AM [facility] REPOSITORY Education (EPSMN) MARKELL BORGES JR. ([id number]) 1955 M Date Time Provider Department 08/19/18 JOSSELYN DAVIS EPSMN Reason for Visit: Patient Education [91] Visit Notes: >> Kelsey (Rn) ERIC Mcclelland WedAug 19, 2018 3:42 PM Status: Signed THE FOLLOWING WAS EVALUATED Motivation To Learn: Interested Family/Significant Other Support: Unable to assess - Family not present Cognitive Ability: Alert and oriented Patient Learns Best By: Verbal Instruction The Following Influencing Factors Were Barriers To This Education Session: None The Following Physical Limitations Were Barriers To This Education Session: None Instruction Provided To: Patient Procedure: Pacemaker Lead Extraction and Reimplant Pre-procedure information reviewed: Patient ID verified Procedure verified Physician verified Explanation of procedure Sedation level during procedure MD medication instructions from EP lab request Hold all medications the morning of the procedure. Travel instructions/restrictions Scheduling information Possible same day discharge versus overnight hospital stay Check out time Family waiting area Physician contact with family after procedure Post Procedure Expectations reviewed: Inpatient hospital stay Post procedure antiarrhythmics and anticoagulation will be discussed with Physician, nurse practitioner or Physician speech and language assistant upon discharge Instructions for transmitting EKG to Monitoring Center 3 month follow up instructions Contact number for information and questions Patient Evaluation: Verbalizes understanding Follow Up Plan: Follow up as directed by MD. Supplemental Material Given: Written Material Patient education regarding radiation exposure. Instructed By Kelsey Mcclelland RN. In Department of CARDIOLOGY. During your visit today, we recorded the following information about you: Allergies As of Date: 08/19/2018 Noted Allergy Reaction IBUPROFEN 08/26/2009 10 - Anaphylaxis Comments: states caused throat to swell up and he became short of breat Date Reviewed: 08/01/2018 Reviewed by: Josselyn Davis - Fully Assessed Prescriptions as of 08/19/2018 Sig: CITALOPRAM 20 MG TABLET TAKE 1 TABLET BY MOUTH EVERY * FLUTICASONE 500 MCG-SALMETERO* Inhale 1 Puff as instructed t* NITROGLYCERIN 0.4 MG SUBLINGU* Dissolve 1 tablet under the t* AMITRIPTYLINE 50 MG TABLET Take 1 tablet by mouth daily * BUSPIRONE 30 MG TABLET TAKE 1 TABLET BY MOUTH TWICE * MONTELUKAST 10 MG TABLET TAKE 1 TABLET BY MOUTH DAILY * IPRATROPIUM-ALBUTEROL 0.5 MG-* Inhale 3 mL as instructed as * AMLODIPINE 5 MG TABLET TAKE 1 TABLET BY MOUTH ONCE D* PRAVASTATIN 40 MG TABLET TAKE 1 TABLET BY MOUTH DAILY * PROAIR HFA 90 MCG/ACTUATION A* INHALE 2 PUFFS INSTRUCTED * COMPOUNDED PRESCRIPTION THIGH HIGH COMPRESSION STOCKI* OMEGA-3 FATTY ACIDS-VITAMIN E* Take 1 capsule by mouth once * ASPIRIN 81 MG TABLET Take 1 tablet by mouth once d* COMPOUNDED PRESCRIPTION BIPAP setting 15/10 cm water * Encounter Status:Closed by KELSEY HAWTHORNE on 08/19/18 CNCO Observed: 08/08/2018 Status: COMPLETED Source: [place] 12:00 AM [facility] REPOSITORY Letter Text DEPARTMENT OF CARDIOLOGY SECTION OF PACING AND ELECTROPHYSIOLOGY Dr. Josselyn Davis [phone] Your Physician has scheduled you for an elective procedure at [facility]. You will be scheduled in the Electrophysiology Laboratory at Desk J2-1 EP PROCEDURE Procedure Date: August 22, 2018 1) It is extremely important that you call [facility] at [phone] or and ask for the EP Scheduling Nurse, Pager #[phone] between the hours of 3:00 p.m. - 5:00 p.m. Wednesday through Wednesday, the day before the procedure date. The scheduling nurse will give you the report-in time for your procedure, discuss fasting instructions, and medication instructions. - If your procedure is Wednesday, please call the Wednesday before. - If your procedure is after a hol, please call the EP Scheduling Nurse the day before the holiday. Arrival time for your procedure is based on an approximate start time. While we attempt to give you an accurate time, emergency circumstances beyond our control may disrupt the existing schedule. We apologize ahead of time for any inconvenience that this may cause you. 2) Do not have anything to eat or drink after midnight the night before your procedure. 3) On the day of your procedure, please report to Desk J1- 1(Admitting) of the [facility] in the [facility] [place], to review your admission paper work. You will then need to proceed to Desk J2-1 on the second floor of the [facility] for your procedure. 4) If you are admitted after your procedure, you will go to a hospital floor after your procedure. You should be discharged at approximately 11:00am the day following your procedure. 5) It is important for you to call as soon as possible if you should need to cancel your scheduled procedure. If you have any further questions regarding your procedure, please contact your physician?s office : Dr. Josselyn Davis [phone] 6) Medication instructions: Continue medication as prescribed 7) If you are female of childbearing age, we will request your permission for a test (blood work) prior to the procedure. 8) If you have any insurance concerns regarding this procedure, please contact our pre-certification office at or [phone] 9) If you are traveling from out of town and need overnight accommodations, please contact our lodging coordinator at ext [phone] or ext [phone] or visit our website at [email or web address] Observed: 08/08/2018 Status: COMPLETED Source: [place] 12:00 AM [facility] REPOSITORY Patient:Markell Borges Jr. MRN: <[id number]> Height:5' 8(1.727 m) Weight:259 lb (117.482 kg) Outpatient Medications as of 08/22/18: citalopram (CELEXA) 20 mg tablet fluticasone-salmeterol (ADVAIR DISKUS) 500-50 mcg/dose dsdv nitroglycerin sublingual (NITROQUICK) 0.4 mg SL tablet amitriptyline (ELAVIL) 50 mg tablet busPIRone HCl 30 mg tablet montelukast (SINGULAIR) 10 mg tablet ipratropium-albuterol (DUONEB) 0.5 mg-3 mg(2.5 mg base)/3 mL nebu amLODIPine (NORVASC) 5 mg tablet pravastatin (PRAVACHOL) 40 mg tablet PROAIR HFA 90 mcg/actuation inhaler COMPOUNDED PRESCRIPTION [place]-3 Fatty Acids-Vitamin E (FISH OIL) 1,000 mg cap Aspirin 81 mg Tab COMPOUNDED PRESCRIPTION Admission/Clinic Administered Medications as of 08/22/18: busPIRone 30 mg tab(s) (BUSPAR) pravastatin 40 mg tab(s) (PRAVACHOL) albuterol HFA 90 mcg/actuation 2 Puff (PROVENTIL HFA, VENTOLIN HFA) ipratropium-albuterol 3 mL nebulizer solution (DUONEB) fluticasone-salmeterol 500-50 mcg/dose 1 Puff (ADVAIR) amLODIPine 5 mg tab(s) (NORVASC) montelukast 10 mg tab(s) (SINGULAIR) citalopram 20 mg tab(s) (CeleXA) amitriptyline 50 mg tab(s) (ELAVIL) nitroglycerin sublingual 0.4 mg tab(s) (NITROQUICK) lactated ringers infusion fentaNYL 50 mcg/mL 25-50 mcg injection (SUBLIMAZE) fentaNYL 50 mcg/mL 50 mcg injection (SUBLIMAZE) hydrALAZINE 5 mg injection (APRESOLINE) albuterol 2.5 mg /3 mL (0.083 %) 2.5 mg (PROVENTIL) Problem List: Hyperlipidemia [E78.5] Panic disorder without agoraphobia [F41.0] 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] Other cirrhosis of liver (HCC) [K74.69] Pacemaker lead malfunction [T82.110A] Pacemaker reprogramming/check [Z45.018] Bifascicular block [I45.2] Allergies: Ibuprofen Date Verified: 08/22/18 Lab Values Lab Value Units Date High Low POTA* 4.2 mmol/L 08/22/2018 5.1 3.7 ISIAH* 45.5 % 08/22/2018 51.0 39.0 Progress Notes ([facility]): Rosalba Kimble LPN 08/08/2018 11:22 AM Signed Patient has been identified by name and date of : Yes Pharmacy phones for refill(s): Pending Prescriptions Disp Refills CITALOPRAM 20 MG TABLET 90 tablet 0 Sig: TAKE 1 TABLET BY MOUTH EVERY DAY JACLYN: Yes Date of last office visit in primary care: 07/07/2018 Follow-up scheduled w/PCP: 01/05/2019 Rosalba Kimble LPN Progress Notes ([facility]): Katerina Ashley RN 08/01/2018 5:16 PM Signed ----- Message from Josselyn Davis sent at 08/01/2018 10:03 AM EDT ----- Please schedule lead extraction with addition of new atrial lead with me. PHYLLIS No need to hold any meds. Thank you AH Katerina Ashley RN 08/01/2018 5:17 PM Signed The date of 08-22-[address] Davis offered AND accepted by patient. PROGRESS Observed: 07/29/2018 Status: COMPLETED Source: [place] 3:03 PM [facility] REPOSITORY HNO ID: [id number] Author: Josselyn Davis Service: (none) Author Type: Physician Type: Progress Notes Filed: 08/01/2018 10:05 AM Note Text: [facility] [place] [facility] Department of Cardiovascular Medicine SECTION OF CARDIAC PACING and ELECTROPHYSIOLOGY OUTPATIENT VISIT DATE July 29, 2018 OUTPATIENT VISIT TYPE ESTABLISHED PRIMARY CARE PHYSICIAN: Bipin Urrutia MD [address] [place] [address] NURSING INTAKE HISTORY: Markell Borges Jr. Is a 62 year old male who presents today for follow up for device management. His medical history is significant for COPD, CAD, DVT, anxiety, sleep apnea, hypertension, and CHB with syncope s/p PPM (04/2016). He underwent PPM implant in April 2016. Overall he reports feeling well. He is unaware of any arrhythmias. He endorses SOB/SERRANO at baseline which he attributes to COPD. He denies palpitations, chest pain, lightheadedness, dizziness, near syncope, or syncope. PAST MEDICAL HISTORY Diagnosis Date - AV block, complete ([facility]) 04/30/2016 - CAD (coronary artery disease) 03/08/2013 - Complete tear of rotator cuff 04/30/2015 right - COPD with asthma ([facility]) 11/03/2005 - Dilated pupil, left, chronic. 08/24/2016 - DVT, lower extremity ([facility]) 06/2012 right, peroneal soleal- provoked- admission for septic knee - Dysmetabolic syndrome X 08/04/2005 - Generalized anxiety disorder 09/2005 - Hyperlipidemia 08/04/2005 - Obesity, unspecified - GENE (obstructive sleep apnea) on BiPAP 06/17/2011 - Other cirrhosis of liver (HCC) 05/30/[address] of chest - Panic disorder without agoraphobia 09/2005 Panic disorder - Septic joint of right knee joint (HCC) 06/07/2012 - Syncope 04/30/2016 Intermittent CHB. S/p DDD-PM 04/30. RV pacing 100% currently. EF 60% - CXR and device interrogation normal - Discharge today - Umbilical hernia 12/2009 - Unspecified asthma(493.90) 07/23/2008 - Unspecified essential hypertension 10/20/2011 PAST SURGICAL HISTORY Procedure Laterality Date - INSER BOOTHE PACER XVENOUS ATRIAL 04/2016 Perm pacemaker insert - PAST SURGICAL HISTORY OF 06/07/2012 I and D of right knee - REPAIR UMBILICAL TRIPP,5+Y/O,REDUC 12/11/2009 SOCIAL HISTORY Social History Substance Use Topics - Smoking status: Former Smoker Packs/day: 3.00 Years: 20.00 Types: Cigarettes Quit date: 10/04/1996 - Smokeless tobacco: Never Used - Alcohol use 10.5 oz/week 7 Cans of Beer (12oz) per week Comment: Recovered since 1996. Still has 1 beer daily FAMILY HISTORY Problem Relation Age of Onset - Stroke Mother 65 - other (anxiety) Mother - Heart Father age 61 - Heart Brother - Obesity Brother - None Brother ALLERGIES: ALLERGIES Allergen Reactions - Ibuprofen Anaphylaxis states caused throat to swell up and he became short of breat MEDICATIONS: fluticasone-salmeterol (ADVAIR DISKUS) 500-50 mcg/dose dsdv Inhale 1 Puff as instructed twice daily. Rinse and gargle mouth with water after use. nitroglycerin sublingual (NITROQUICK) 0.4 mg SL tablet Dissolve 1 tablet under the tongue as needed. for chest pain,every 5 min x3 amitriptyline (ELAVIL) 50 mg tablet Take 1 tablet by mouth daily at bedtime. citalopram (CELEXA) 20 mg tablet Take 1 tablet by mouth once daily. busPIRone HCl 30 mg tablet TAKE 1 TABLET BY MOUTH TWICE DAILY. montelukast (SINGULAIR) 10 mg tablet TAKE 1 TABLET BY MOUTH DAILY AT BEDTIME. ipratropium-albuterol (DUONEB) 0.5 mg-3 mg(2.5 mg base)/3 mL nebu Inhale 3 mL as instructed as needed. amLODIPine (NORVASC) 5 mg tablet TAKE 1 TABLET BY MOUTH ONCE DAILY. pravastatin (PRAVACHOL) 40 mg tablet TAKE 1 TABLET BY MOUTH DAILY AT BEDTIME. PROAIR HFA 90 mcg/actuation inhaler INHALE 2 PUFFS INSTRUCTED FOUR TIMES DAILY NEEDED FOR WHEEZING/SHORTNESS OF BREATH. COMPOUNDED PRESCRIPTION THIGH HIGH COMPRESSION STOCKINGS. 18-30 MM HG PRESSURE. 1 PAIR. Diagnosis: I87.093. [place]-3 Fatty Acids-Vitamin E (FISH OIL) 1,000 mg cap Take 1 capsule by mouth once daily. Aspirin 81 mg Tab Take 1 tablet by mouth once daily. Take with food. COMPOUNDED PRESCRIPTION BIPAP setting 15/10 cm water with heated humidification before titration mask (per patient preference) and lifetime supplies. DX GENE 327.23 Belen Coombs RN PHYSICAL EXAMINATION: BP 158/92 Pulse 80 Ht 172.7 cm (5' 8) Wt 117.5 kg (259 lb) BMI 39.38 kg/m? General: Well appearing, in no acute distress. Skin: No clubbing, no cyanosis. Eyes: Extra ocular movements intact Neck: No jugular venous distention. Lungs: Clear to auscultation bilaterally, no wheezing or rhonchi. Heart: Regular rhythm, PMI not displaced, S1, S2 normal, no S3, no S4, no heaves, no rub and no murmur. Abdomen: Soft, nontender, bowel sounds normal, no palpable organomegaly. Extremities: No peripheral edema . Grade 2/4 distal pulses bilaterally. Neuro: Oriented to person, place and time, alert, cooperative, gait coordinated. CHIEF COMPLAINT: Pacemaker lead malfunction HISTORY OF PRESENT ILLNESS: Mr. Borges is a 62 year old male who presents today for follow- up visit for device management. His medical history is significant for COPD, CAD, DVT, anxiety, sleep apnea, hypertension, and CHB with syncope s/p PPM (04/2016). He underwent PPM implant in April 2016. Overall he reports feeling well. He is unaware of any arrhythmias. He endorses SOB/SERRANO at baseline which he attributes to COPD. He denies palpitations, chest pain, lightheadedness, dizziness, near syncope, or syncope. I personally reviewed and interpreted the following: ECG today shows sinus rhythm with bifascicular block Device check 07/29/18: UNDERLYING RHYTHM: Normal Sinus Rhythm BATTERY STATUS: Normal and shows no significant depletion. COUNTERS SINCE 06/19/18: ATRIAL ARRHYTHMIAS: ATR triggered episodes of atrial high rates with EGMs showing atrial lead noise. Atrial lead polarity switch to unipolar occured. Atrial lead impedance trending showed measurement > 3000ohms on 06/14/18 resulting in polarity switch. Second time atrial lead polarity switch has occurred for high impedance. VENTRICULAR ARRHYTHMIAS: 6 VHR triggered events EGM's showing SVT. Patient did have NSVT recorded event lasting approx 35 beats dated 06/06/18 that was documented on remote transmission. LEAD MEASUREMENTS: Capture and sensing are appropriate. The pacing outputs maintain safety margin. IMPLANT SITE/ SYMPTOMS: The incision and pocket are pain-free (0/10), well healed and without signs of erosion or infection. No arm swelling, syncope, pre-syncope or device related pocket stimulation. OTHER DIAGNOSTICS: RV pacing 4%. PROGRAMMING CHANGES MADE TODAY: Atrial lead polarity switch back to bipolar. IMPRESSION, PLAN AND RECOMMENDATIONS: Details as noted above. History of syncope with heart block status post pacemaker. currently with sinus rhythm with bifascicular block and first degree AV block. No recurrence of syncope. There is evidence of atrial lead malfunction with noise and impedance spikes. He will need a new RA lead. Discussed abandonment vs extraction. His lead is a 5076 and is 2 years old. He is also young. I favor lead extraction and he agrees. The risks and benefits were dicussed in details and he would like to proceed. Will make procedure arrangements with the EP Lab I personally interviewed, confirmed and edited the above information as obtained by others. CONTACT INFORMATION: Josselyn Davis MD CNOV Observed: 07/29/2018 Status: COMPLETED Source: [place] 3:00 PM [facility] REPOSITORY Office Visit (CARDMN) MARKELL BORGES JR. ([id number]) 1955 M Date Time Provider Department 07/29/18 3:00 PM JOSSELYN DAVIS During your visit today, we recorded the following information about you: Pulse Blood pressure Weight Height 80/minute 158/92 117.5 kg 1.727 m Josselyn Davis MD 08/01/2018 10:05 AM Signed [facility] [place] [facility] Department of Cardiovascular Medicine SECTION OF CARDIAC PACING and ELECTROPHYSIOLOGY OUTPATIENT VISIT DATE July 29, 2018 OUTPATIENT VISIT TYPE ESTABLISHED PRIMARY CARE PHYSICIAN: Bipin Urrutia MD [address] [place] [address] NURSING INTAKE HISTORY: Markell Borges Jr. Is a 62 year old male who presents today for follow up for device management. His medical history is significant for COPD, CAD, DVT, anxiety, sleep apnea, hypertension, and CHB with syncope s/p PPM (04/2016). He underwent PPM implant in April 2016. Overall he reports feeling well. He is unaware of any arrhythmias. He endorses SOB/SERRANO at baseline which he attributes to COPD. He denies palpitations, chest pain, lightheadedness, dizziness, near syncope, or syncope. PAST MEDICAL HISTORY Diagnosis Date - AV block, complete ([facility]) 04/30/2016 - CAD (coronary artery disease) 03/08/2013 - Complete tear of rotator cuff 04/30/2015 right - COPD with asthma ([facility]) 11/03/2005 - Dilated pupil, left, chronic. 08/24/2016 - DVT, lower extremity ([facility]) 06/2012 right, peroneal soleal- provoked- admission for septic knee - Dysmetabolic syndrome X 08/04/2005 - Generalized anxiety disorder 09/2005 - Hyperlipidemia 08/04/2005 - Obesity, unspecified - GENE (obstructive sleep apnea) on BiPAP 06/17/2011 - Other cirrhosis of liver ([facility]) 05/30/[address] of chest - Panic disorder without agoraphobia 09/2005 Panic disorder - Septic joint of right knee joint ([facility]) 06/07/2012 - Syncope 04/30/2016 Intermittent CHB. S/p DDD-PM 04/30. RV pacing 100% currently. EF 60% - CXR and device interrogation normal - Discharge today - Umbilical hernia 12/2009 - Unspecified asthma(493.90) 07/23/2008 - Unspecified essential hypertension 10/20/2011 PAST SURGICAL HISTORY Procedure Laterality Date - INSER BOOTHE PACER XVENOUS ATRIAL 04/2016 Perm pacemaker insert - PAST SURGICAL HISTORY OF 06/07/2012 I and D of right knee - REPAIR UMBILICAL TRIPP,5+Y/O,REDUC 12/11/2009 SOCIAL HISTORY Social History Substance Use Topics - Smoking status: Former Smoker Packs/day: 3.00 Years: 20.00 Types: Cigarettes Quit date: 10/04/1996 - Smokeless tobacco: Never Used - Alcohol use 10.5 oz/week 7 Cans of Beer (12oz) per week Comment: Recovered since 1996. Still has 1 beer daily FAMILY HISTORY Problem Relation Age of Onset - Stroke Mother 65 - other (anxiety) Mother - Heart Father age 61 - Heart Brother - Obesity Brother - None Brother ALLERGIES: ALLERGIES Allergen Reactions - Ibuprofen Anaphylaxis states caused throat to swell up and he became short of breat MEDICATIONS: fluticasone-salmeterol (ADVAIR DISKUS) 500-50 mcg/dose dsdv Inhale 1 Puff as instructed twice daily. Rinse and gargle mouth with water after use. nitroglycerin sublingual (NITROQUICK) 0.4 mg SL tablet Dissolve 1 tablet under the tongue as needed. for chest pain,every 5 min x3 amitriptyline (ELAVIL) 50 mg tablet Take 1 tablet by mouth daily at bedtime. citalopram (CELEXA) 20 mg tablet Take 1 tablet by mouth once daily. busPIRone HCl 30 mg tablet TAKE 1 TABLET BY MOUTH TWICE DAILY. montelukast (SINGULAIR) 10 mg tablet TAKE 1 TABLET BY MOUTH DAILY AT BEDTIME. ipratropium-albuterol (DUONEB) 0.5 mg-3 mg(2.5 mg base)/3 mL nebu Inhale 3 mL as instructed as needed. amLODIPine (NORVASC) 5 mg tablet TAKE 1 TABLET BY MOUTH ONCE DAILY. pravastatin (PRAVACHOL) 40 mg tablet TAKE 1 TABLET BY MOUTH DAILY AT BEDTIME. PROAIR HFA 90 mcg/actuation inhaler INHALE 2 PUFFS INSTRUCTED FOUR TIMES DAILY NEEDED FOR WHEEZING/SHORTNESS OF BREATH. COMPOUNDED PRESCRIPTION THIGH HIGH COMPRESSION STOCKINGS. 18-30 MM HG PRESSURE. 1 PAIR. Diagnosis: I87.093. Milbridge-3 Fatty Acids-Vitamin E (FISH OIL) 1,000 mg cap Take 1 capsule by mouth once daily. Aspirin 81 mg Tab Take 1 tablet by mouth once daily. Take with food. COMPOUNDED PRESCRIPTION BIPAP setting 15/10 cm water with heated humidification before titration mask (per patient preference) and lifetime supplies. DX GENE 327.23 Belen Coombs RN PHYSICAL EXAMINATION: BP 158/92 Pulse 80 Ht 172.7 cm (5' 8) Wt 117.5 kg (259 lb) BMI 39.38 kg/m? General: Well appearing, in no acute distress. Skin: No clubbing, no cyanosis. Eyes: Extra ocular movements intact Neck: No jugular venous distention. Lungs: Clear to auscultation bilaterally, no wheezing or rhonchi. Heart: Regular rhythm, PMI not displaced, S1, S2 normal, no S3, no S4, no heaves, no rub and no murmur. Abdomen: Soft, nontender, bowel sounds normal, no palpable organomegaly. Extremities: No peripheral edema . Grade 2/4 distal pulses bilaterally. Neuro: Oriented to person, place and time, alert, cooperative, gait coordinated. CHIEF COMPLAINT: Pacemaker lead malfunction HISTORY OF PRESENT ILLNESS: Mr. Borges is a 62 year old male who presents today for follow- up visit for device management. His medical history is significant for COPD, CAD, DVT, anxiety, sleep apnea, hypertension, and CHB with syncope s/p PPM (04/2016). He underwent PPM implant in April 2016. Overall he reports feeling well. He is unaware of any arrhythmias. He endorses SOB/SERRANO at baseline which he attributes to COPD. He denies palpitations, chest pain, lightheadedness, dizziness, near syncope, or syncope. I personally reviewed and interpreted the following: ECG today shows sinus rhythm with bifascicular block Device check 07/29/18: UNDERLYING RHYTHM: Normal Sinus Rhythm BATTERY STATUS: Normal and shows no significant depletion. COUNTERS SINCE 06/19/18: ATRIAL ARRHYTHMIAS: ATR triggered episodes of atrial high rates with EGMs showing atrial lead noise. Atrial lead polarity switch to unipolar occured. Atrial lead impedance trending showed measurement > 3000ohms on 06/14/18 resulting in polarity switch. Second time atrial lead polarity switch has occurred for high impedance. VENTRICULAR ARRHYTHMIAS: 6 VHR triggered events EGM's showing SVT. Patient did have NSVT recorded event lasting approx 35 beats dated 06/06/18 that was documented on remote transmission. LEAD MEASUREMENTS: Capture and sensing are appropriate. The pacing outputs maintain safety margin. IMPLANT SITE/ SYMPTOMS: The incision and pocket are pain-free (0/10), well healed and without signs of erosion or infection. No arm swelling, syncope, pre-syncope or device related pocket stimulation. OTHER DIAGNOSTICS: RV pacing 4%. PROGRAMMING CHANGES MADE TODAY: Atrial lead polarity switch back to bipolar. IMPRESSION, PLAN AND RECOMMENDATIONS: Details as noted above. History of syncope with heart block status post pacemaker. currently with sinus rhythm with bifascicular block and first degree AV block. No recurrence of syncope. There is evidence of atrial lead malfunction with noise and impedance spikes. He will need a new RA lead. Discussed abandonment vs extraction. His lead is a 5076 and is 2 years old. He is also young. I favor lead extraction and he agrees. The risks and benefits were dicussed in details and he would like to proceed. Will make procedure arrangements with the EP Lab I personally interviewed, confirmed and edited the above information as obtained by others. CONTACT INFORMATION: Josselyn Davis MD Referring Provider: JOSSELYN DAVIS [[id number]] Allergies As of Date: 07/29/2018 Noted Allergy Reaction IBUPROFEN 08/26/2009 10 - Anaphylaxis Comments: states caused throat to swell up and he became short of breat Date Reviewed: 07/29/2018 Reviewed by: Belen (Rn) ERIC Coombs - Fully Assessed Reason for Visit: Permanent Pacemaker [1364] Primary Visit Diagnosis:Pacemaker lead malfunction, initial encounter [T82.110A] Other Visit Diagnoses:AV block, complete (HCC) [I44.2] Pacemaker reprogramming/check [Z45.018] Bifascicular block [I45.2] Prescriptions as of 07/29/2018 Sig: FLUTICASONE 500 MCG-SALMETERO* Inhale 1 Puff as instructed t* NITROGLYCERIN 0.4 MG SUBLINGU* Dissolve 1 tablet under the t* AMITRIPTYLINE 50 MG TABLET Take 1 tablet by mouth daily * CITALOPRAM 20 MG TABLET Take 1 tablet by mouth once d* BUSPIRONE 30 MG TABLET TAKE 1 TABLET BY MOUTH TWICE * MONTELUKAST 10 MG TABLET TAKE 1 TABLET BY MOUTH DAILY * IPRATROPIUM-ALBUTEROL 0.5 MG-* Inhale 3 mL as instructed as * AMLODIPINE 5 MG TABLET TAKE 1 TABLET BY MOUTH ONCE D* PRAVASTATIN 40 MG TABLET TAKE 1 TABLET BY MOUTH DAILY * PROAIR HFA 90 MCG/ACTUATION A* INHALE 2 PUFFS INSTRUCTED * COMPOUNDED PRESCRIPTION THIGH HIGH COMPRESSION STOCKI* OMEGA-3 FATTY ACIDS-VITAMIN E* Take 1 capsule by mouth once * ASPIRIN 81 MG TABLET Take 1 tablet by mouth once d* COMPOUNDED PRESCRIPTION BIPAP setting 15/10 cm water * Problem List As Of Date 07/29/2018 Noted Resolved Hyperlipidemia [E78.5] INVALID FOR* Dysmetabolic syndrome X [E88.81] INVALID FOR*12/03/2014 Panic disorder without agoraphobia [F41.0] Generalized anxiety disorder [F41.1] 12/03/2014 More... 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 Nontraumatic rupture of tendons of biceps (long*INVALID FOR*12/03/2014 Nonspecific elevation of levels of transaminase*INVALID FOR*12/03/2014 Other hammer toe (acquired) [M20.40] INVALID FOR*12/03/2014 More... Skin lesion [L98.9] INVALID FOR*12/03/2014 Umbilical hernia without mention of obstruction*INVALID FOR*08/15/2015 GENE (obstructive sleep apnea) on BiPAP [G47.33] INVALID FOR* Unspecified essential hypertension [I10] INVALID FOR*12/03/2014 Septic prepatellar bursitis of right knee [M71.*INVALID FOR*12/03/2014 History of DVT in adulthood [Z86.718] INVALID FOR*08/24/2016 Hypertension [I10] INVALID FOR*01/28/2016 Shortness of breath [R06.02] INVALID FOR*12/03/2014 Edema [R60.9] INVALID FOR*08/15/2015 CAD (coronary artery disease) [I25.10] INVALID FOR* Complete tear of rotator cuff [M75.120] INVALID FOR* BMI 38.0-38.9,adult [Z68.38] INVALID FOR* Essential hypertension [I10] INVALID FOR* AV block, complete (HCC) [I44.2] INVALID FOR* More... 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 Follow-up and Disposition History Recorded Letter Text Josselyn Davis MD Cardiac Pacing and Electrophysiology [facility] Department of Cardiovascular Medicine [address] [place] [address] August 05, 2018 Bipin Urrutia MD [address] [place] [id number] RE: PATIENT NAME: Markell Borges Jr. DATE OF : 1955 CLINIC NUMBER: [id number] Dear Dr. Urrutia: It was a pleasure to see your patient, Markell Borges Jr., on 07/29/2018 in the Cardiac Pacing and Electrophysiology outpatient clinic. Attached is an office note from the visit. HISTORY OF PRESENT ILLNESS: Mr. Borges is a 62 year old male who presents today for follow- up visit for device management. His medical history is significant for COPD, CAD, DVT, anxiety, sleep apnea, hypertension, and CHB with syncope s/p PPM (04/2016). He underwent PPM implant in April 2016. Overall he reports feeling well. He is unaware of any arrhythmias. He endorses SOB/SERRANO at baseline which he attributes to COPD. He denies palpitations, chest pain, lightheadedness, dizziness, near syncope, or syncope. I personally reviewed and interpreted the following: ECG today shows sinus rhythm with bifascicular block Device check 07/29/18: UNDERLYING RHYTHM: Normal Sinus Rhythm BATTERY STATUS: Normal and shows no significant depletion. COUNTERS SINCE 06/19/18: ATRIAL ARRHYTHMIAS: ATR triggered episodes of atrial high rates with EGMs showing atrial lead noise. Atrial lead polarity switch to unipolar occured. Atrial lead impedance trending showed measurement > 3000ohms on 06/14/18 resulting in polarity switch. Second time atrial lead polarity switch has occurred for high impedance. VENTRICULAR ARRHYTHMIAS: 6 VHR triggered events EGM's showing SVT. Patient did have NSVT recorded event lasting approx 35 beats dated 06/06/18 that was documented on remote transmission. LEAD MEASUREMENTS: Capture and sensing are appropriate. The pacing outputs maintain safety margin. IMPLANT SITE/ SYMPTOMS: The incision and pocket are pain-free (0/10), well healed and without signs of erosion or infection. No arm swelling, syncope, pre-syncope or device related pocket stimulation. OTHER DIAGNOSTICS: RV pacing 4%. PROGRAMMING CHANGES MADE TODAY: Atrial lead polarity switch back to bipolar. IMPRESSION, PLAN AND RECOMMENDATIONS: Details as noted above. History of syncope with heart block status post pacemaker. currently with sinus rhythm with bifascicular block and first degree AV block. No recurrence of syncope. There is evidence of atrial lead malfunction with noise and impedance spikes. He will need a new RA lead. Discussed abandonment vs extraction. His lead is a 5076 and is 2 years old. He is also young. I favor lead extraction and he agrees. The risks and benefits were dicussed in details and he would like to proceed. Will make procedure arrangements with the EP Lab I would like to thank you for allowing me to participate in Markell Borges Jr.'s care. Please feel free to call me with any further questions regarding his arrhythmia. Sincerely, Josselyn Davis MD Electronically signed to expedite mailing Encounter Status:Closed by JOSSELYN DAVIS MD on 08/01/18 ECG COMPLETE W Observed: 07/29/2018 Status: F Source: [facility] 1:28 PM [facility] REPOSITORY NAME : MARKELL BORGES PID : [id number] : 1955 Gender : Male Race : ORD : [id number] Procedure Date : Jul 29 2018 13:28:00 Edit Date : Aug 01 2018 16:50:53 Diagnosis:SINUS RHYTHM WITH 1ST DEGREE AV BLOCK COMPLETE RIGHT BUNDLE BRANCH BLOCK LEFT ANTERIOR FASCICULAR BLOCK BIFASCICULAR BLOCK LEFT VENTRICULAR HYPERTROPHY WITH REPOLARIZATION ABNORMALITY ABNORMAL ECG Confirmed by MD KAMALA, PhD, AARON ([id number]) on 08/01/2018 4:50:52 PM Ventricular Rate : 80 BPM Atrial Rate : 80 BPM P-R Interval : 250 ms QRS Duration : 184 ms Q-T Interval : 416 ms QTC Calculation(Bezet) : 479 ms P Alger : 39 degrees R Alger : -71 degrees T Alger : 65 degrees Test Reason : Location : 314 : J14 Overread By : MD KAMALA, PhD,ARAON Edited By : MD KAMALA, PhD,AARON Referred By : JOSSELYN DAVIS Acquired by : [facility] Observed: 07/13/2018 Status: F Source: [place] SUMMARY 2:49 AM [facility] REPOSIT[facility] Medical Records Department [address] [place] [address] Emergency Department Summary 07/12/18 191 MR#: [id number] Acct: [id number] Name: MARKELL BORGES JR Rep #: [id number] : 1955 62 From: Belen Stafford MD PCP: Bipin Urrutia MD Status: DEP ER - ER Visit Summary Date of Service: 07/12/18 Chief Complaint: Left foot injury History of Present Illness: The patient is a 62 M who caught his left small toe on the corner of the coffee table. He has a laceration between his fourth and fifth toes. Physical Examination: Vital signs significant only for a pressure of 160/82. Patient sitting upright in bed no acute distress. Lower extremity examination is significant for a 1 similar laceration to the webspace between the left fourth and fifth toes. Bleeding is well controlled. There is tenderness throughout the fifth toe. He has normal cap refill and sensation. There is no pain over the medical tarsals. Test Results: Left foot x-rays reveal chip fracture to the medial base of the fifth proximal phalanx. Emergency Department Course and Treatment: Let is applied to the wound. Wound is cleansed and Dermabond is applied over the skin. His fourth and fifth toes are charmaine taped. Patient did review his records from [facility] and his tetanus is up-to-date. He will be treated with Keflex to prevent infection. Treatment Plan: [] Disposition: Discharge Impression: 1. Left fifth toe fracture 2. Left foot laceration status post Dermabond This note was generated with A2B dictation software. It may contain incorrect words, spelling, and punctuation that were not noted in review of the chart prior to signing ED Disposition - Plan for ED Patient: Disposition: Home or Assisted Living Chief Complaint: Lower Extremity Injury Instructions: ED Fx Foot, ED Laceration Foot Prescriptions: Cephalexin [Keflex] 500 mg PO Q6 #40 capsule Referrals: Bipin Urrutia MD [Primary Care Provider] - 1 Week What to do if you have Problems For any increased pain, shortness of breath, bleeding, nausea or vomiting, chest pain, or any unexpected problems, contact your Primary Care Provider. Call [facility] ([phone]) or report to the closest Emergency Room. Call 911 if necessary. 07/13/18248 <Electronically signed by Belen Stafford MD> Date Belen Stafford MD Cosigner Signature (If Indicated): Date CC: Bipin Urrutia MD DISCHARGE INSTRUCTION Observed: 07/12/2018 Status: F Source: [place] 7:14 PM [facility] REPOS[facility]ORY [facility] Medical Records Department [address] [place] [id number] Discharge Instruction 07/12/181910 MR#: [id number] Acct: [id number] Name: MARKELL BORGES JR Rep #: [id number] : 1955 62 From: Belen Stafford MD PCP: Bipin Urrutia MD Status: REG ER ED Disposition - Plan for ED Patient: Disposition: Home or Assisted Living Chief Complaint: Lower Extremity Injury Instructions: ED Fx Foot, ED Laceration Foot Prescriptions: Cephalexin [Keflex] 500 mg PO Q6 #40 capsule Referrals: Bipin Urrutia MD [Primary Care Provider] - 1 Week What to do if you have Problems For any increased pain, shortness of breath, bleeding, nausea or vomiting, chest pain, or any unexpected problems, contact your Primary Care Provider. Call [facility] ([phone]) or report to the closest Emergency Room. Call 911 if necessary. 07/12/181913 <Electronically signed by Belen Stafford MD> Date Belen Stafford MD Cosigner Signature (If Indicated): Date CC: Bipin Urrutia MD FOOT MIN 3 VIEWS Observed: 07/12/2018 Status: F Source: [place] 5:42 PM [facility]POS[facility] Imaging Services [address] [place] [address] Foot min 3 Views MR#: [id number] Acct: [id number] Name: MARKELL BORGES JR Rep #: [id number] : 1955 M 62 From: Eric Osorio MD PCP: Bipin Urrutia MD Status: REG ER Study: Foot min 3 Views Date of Exam: 07/12/18 Exam# [id number] Ordering Dr: Belen Stafford MD STUDY: X-RAY - LEFT FOOT CLINICAL: Male, 62 years old. Trauma TECHNIQUE: 3 view(s) of the foot. COMPARISON: Previous study of 04/28/2016 FINDINGS: Normal talus, calcaneus, and tarsal bones. Normal visualized subtalar, talonavicular, calcaneocuboid, tarsal and tarsometatarsal articulations. There is cortical thickening of the distal second metatarsal shaft consistent with old injury. Normal metatarsophalangeal joint of the great toe. Normal tibial and fibular sesamoid bones. Normal interphalangeal joint of the great toe. Normal phalanges of the great toe. Normal second through fifth metatarsophalangeal joints. There is a nondisplaced oblique chip fracture of the medial base of the fifth proximal phalanx. The fracture involves the fifth metatarsophalangeal joint space. The soft tissue structures are unremarkable. RAD/Foot min 3 Views IMPRESSION: Chip fracture of the medial base of the fifth proximal phalanx involving the fifth metatarsophalangeal joint space. Cortical thickening of the distal shaft of the second metatarsal consistent with old injury, stable in the interval. Electronically Signed: Eric Osorio MD at 18:17 EDT , Service support , CC: Belen Stafford MD; Bipin Urrutia MD School Bus Inspector: Signed PROGRESS Observed: 07/07/2018 Status: COMPLETED Source: [place] 2:42 PM [facility] [place] REPOSITORY HNO ID: [id number] Author: Dolly (Rivet Maker) Older Service: (none) Author Type: Nurse Practitioner Type: Progress Notes Filed: 07/07/2018 3:53 PM Note Text: CC: Patient presents with: Imm/Inj: Flu Vaccine HPI Markell Borges Jr. is a 62 year old male who presents today for routine follow-up. Denies any concerns or issues today. COPD exacerbation recently. Treated by clinical rehab specialist Dr. Bill with Prednisone, nebulizer and antibiotics. Was not hospitalized. Advair dose increased. Wearing bipap nightly. HTN/CAD/Pacmaker: Does not check BP at home. Taking all medications as prescribed, no side effects. Recently evaluated by tv host due to findings of V tach on pacemaker check of which he was asymptomatic. Fractured coil on atrial lead found. Given prescription for Nitro, has not needed. REVIEW OF SYSTEMS General: no fevers, no chills, no night sweats, no change in appetite, no change in energy and no significant changes in weight Cardiovascular: no chest pain, no chest pressure, no palpitations and no swelling GI: Negative for abdominal discomfort, blood in stools or black stools, change in bowel habit : No difficulty urinating, nocturia > 1 time per night or hematuria PAST MEDICAL HISTORY Diagnosis Date - AV block, complete ([facility]) 04/30/2016 - CAD (coronary artery disease) 03/08/2013 - Complete tear of rotator cuff 04/30/2015 right - COPD with asthma ([facility]) 11/03/2005 - Dilated pupil, left, chronic. 08/24/2016 - DVT, lower extremity ([facility]) 06/2012 right, peroneal soleal- provoked- admission for septic knee - Dysmetabolic syndrome X 08/04/2005 - Generalized anxiety disorder 09/2005 - Hyperlipidemia 08/04/2005 - Obesity, unspecified - GENE (obstructive sleep apnea) on BiPAP 06/17/2011 - Other cirrhosis of liver (HCC) 05/30/[address] of chest - Panic disorder without agoraphobia 09/2005 Panic disorder - Septic joint of right knee joint (HCC) 06/07/2012 - Syncope 04/30/2016 Intermittent CHB. S/p DDD-PM 04/30. RV pacing 100% currently. EF 60% - CXR and device interrogation normal - Discharge today - Umbilical hernia 12/2009 - Unspecified asthma(493.90) 07/23/2008 - Unspecified essential hypertension 10/20/2011 PAST SURGICAL HISTORY Procedure Laterality Date - INSER BOOTHE PACER XVENOUS ATRIAL 04/2016 Perm pacemaker insert - PAST SURGICAL HISTORY OF 06/07/2012 I and D of right knee - REPAIR UMBILICAL TRIPP,5+Y/O,REDUC 12/11/2009 ALLERGIES Ibuprofen MEDICATIONS fluticasone-salmeterol (ADVAIR DISKUS) 500-50 mcg/dose dsdv Inhale 1 Puff as instructed twice daily. Rinse and gargle mouth with water after use. nitroglycerin sublingual (NITROQUICK) 0.4 mg SL tablet Dissolve 1 tablet under the tongue as needed. for chest pain,every 5 min x3 amitriptyline (ELAVIL) 50 mg tablet Take 1 tablet by mouth daily at bedtime. citalopram (CELEXA) 20 mg tablet Take 1 tablet by mouth once daily. busPIRone HCl 30 mg tablet TAKE 1 TABLET BY MOUTH TWICE DAILY. montelukast (SINGULAIR) 10 mg tablet TAKE 1 TABLET BY MOUTH DAILY AT BEDTIME. ipratropium-albuterol (DUONEB) 0.5 mg-3 mg(2.5 mg base)/3 mL nebu Inhale 3 mL as instructed as needed. amitriptyline (ELAVIL) 50 mg tablet Take 1 tablet by mouth daily at bedtime. amLODIPine (NORVASC) 5 mg tablet TAKE 1 TABLET BY MOUTH ONCE DAILY. pravastatin (PRAVACHOL) 40 mg tablet TAKE 1 TABLET BY MOUTH DAILY AT BEDTIME. PROAIR HFA 90 mcg/actuation inhaler INHALE 2 PUFFS INSTRUCTED FOUR TIMES DAILY NEEDED FOR WHEEZING/SHORTNESS OF BREATH. COMPOUNDED PRESCRIPTION THIGH HIGH COMPRESSION STOCKINGS. 18-30 MM HG PRESSURE. 1 PAIR. Diagnosis: I87.093. Aspirin 81 mg Tab Take 1 tablet by mouth once daily. Take with food. COMPOUNDED PRESCRIPTION BIPAP setting 15/10 cm water with heated humidification before titration mask (per patient preference) and lifetime supplies. DX GENE 327.23 Milbridge-3 Fatty Acids-Vitamin E (FISH OIL) 1,000 mg cap Take 1 capsule by mouth once daily. FAMILY HISTORY Problem Relation Age of Onset - Stroke Mother 65 - other (anxiety) Mother - Heart Father age 61 - Heart Brother - Obesity Brother - None Brother Social History Substance Use Topics - Smoking status: Former Smoker Packs/day: 3.00 Years: 20.00 Types: Cigarettes Quit date: 10/04/1996 - Smokeless tobacco: Never Used - Alcohol use 10.5 oz/week 7 Cans of Beer (12oz) per week Comment: Recovered since 1996. Still has 1 beer daily PHYSICAL EXAM BP 130/88 Pulse 80 Temp 37.5 ?C (99.5 ?F) (Temporal Artery) Resp 14 Wt 121.6 kg (268 lb) SpO2 93% BMI 41.97 kg/m? General Appearance: well appearing, in no acute distress, alert Neck: Thyroid normal size and symmetric without palpable nodules, Neck supple, No adenopathy Lungs: Lungs clear to auscultation. No wheezing, rhonchi, rales Heart: RRR without murmur, gallop, or rubs. No ectopy Ext: no edema in LE bilaterally, good distal pulses BP CONTROLLED (<130/80) due on 1972 INFLUENZA(1) due on 06/04/2018 FECAL OCCULT BLOOD due on 06/24/2018 STATIN MED ADHERENCE due on 08/04/2018 STEROID INHALER ADHERENCE due on 08/04/2018 ANNUAL PCP TEAM CHRONIC DISEASE VISIT due on 12/22/2018 LDL CHOLESTEROL due on 07/02/2019 DIABETES SCREEN due on 07/02/2021 LIPID SCREEN due on 07/02/2023 DTAP,TDAP,TD(4 - Td) due on 08/15/2025 PROSTATE CANCER SCREENING DISCUSSION Completed HEPATITIS C SCREENING Completed Component Latest Ref Rng AND Units 07/02/2018 Glucose 74 - 99 mg/dL 92 BUN 9 - 24 mg/dL 18 Creatinine 0.73 - 1.22 mg/dL 1.21 Sodium 136 - 144 mmol/L 141 Potassium 3.7 - 5.1 mmol/L 4.4 Chloride 97 - 105 mmol/L 101 CO2 22 - 30 mmol/L 28 Anion Gap 9 - 18 mmol/L 12 Calcium 8.5 - 10.2 mg/dL 8.9 eGFR- >60 eGFR-All Other Races . >60 Cholesterol, Total <200 mg/dL 163 Triglyceride <150 mg/dL 45 HDL Cholesterol >39 mg/dL 79 LDL Cholesterol <100 mg/dL 75 Non HDL Cholesterol <130 mg/dL 84 Fasting Time hrs 12 VLDL Cholesterol <30 mg/dL 9 TC:HDL Ratio <5.10 2.06 LDL:HDL Ratio <2.54 0.95 ASSESSMENT/PLAN: 1. Hyperlipidemia, unspecified hyperlipidemia type - ICD9: 272.4, ICD10: E78.5 (primary diagnosis) - good control - Continue current medication. - Follow up in 6 months. 2. Coronary artery disease involving enterprise heart without angina pectoris, unspecified vessel or lesion type - ICD9: 414.01, ICD10: I25.10 Follow-up with cardiology as advised 3. Essential hypertension - ICD9: 401.9, ICD10: I10 - good control - Continue current medication(s) 4. COPD with asthma (HCC) - ICD9: 493.20, ICD10: J44.9 Stable - Continue current meds - Follow-up with pulmonology as scheduled 5. GENE (obstructive sleep apnea) on BiPAP - ICD9: 327.23, ICD10: G47.33 Stable 6. Need for vaccination - ICD9: V05.9, ICD10: Z23 - INFLUENZA VACCINE QUADRIVALENT AGE 3 YRS PLUS + IM Prescription instructions reviewed with patient as applicable. Potential red flag symptoms discussed with the patient. Reviewed appropriate action plan to take if red flag symptoms occur. Patient agreeable to treatment plan. Dolly Segundo APRN.SUMAN CNOV Observed: 07/07/2018 Status: COMPLETED Source: [place] 2:40 PM [facility] REPOSITORY Office Visit (INTMWS) MARKELL BORGES JR. ([id number]) 1955 M Date Time Provider Department 07/07/18 2:40 PM OLDER, DOLLY (FLAME CUTTING MACHINE OPERATOR HELPER) INTMWS During your visit today, we recorded the following information about you: Temperature Pulse Respiration Blood pressure 99.5 degrees 80/minute 14/minute 130/88 Weight 121.6 kg Shelbie Pablo [facility] 07/07/2018 3:53 PM Signed 62 year old male here for INACTIVATED INFLUENZA VACCINE. 7699-3886 Season Patient is identified by name and date of : Yes [] CONTRAINDICATIONS color enhanced section Age less than 6 months? No Allergy to eggs, chicken, chicken feathers, or chicken dander? No Allergy to thimerosal (a preservative) or formaldehyde, gelatin? No History of severe reaction to any vaccine component or a previous dose of influenza vaccination? No History of Guillain-Midway Syndrome within 6 weeks after a previous influenza vaccine? No Patient is not moderately or severely ill? No Current temperature greater or equal to 100.4F? No History of Bone Marrow Transplant prior 6 months or solid organ transplant in the past 3 months ? No History of fainting after a prior injection or medical procedure? No- ? If patient has fainted in the past, the CDC recommends sitting or lying down for 15 minutes after the vaccination. [] VERIFICATION color enhanced section Was the answer Yes for any of the above contraindications? No contraindications present. Acceptable to proceed with vaccine. Patient/guardian agrees the above answers are true to the best of their knowledge? Yes Flu vaccine information sheet given? Yes See immunization activity in [facility] for details of immunizations adminstered today. Patient age: [age] year old For The 9307-3575 Flu Season 6-35 months old: Fluzone 0.25 ml - IM (Preservative Free) 3 years of age: Fluzone 0.5 ml - IM (Preservative Free) 3 years and older: Fluzone 0.5 ml- IM-(with Preservatives) 65+ years old: 2-49 years old Fluzone High-Dose 0.5 ml - IM (Preservative Free) FLUMIST- intranasal REMEMBER: If patient is less than 9 years of age and this is the first vaccine of Influenza to be received in any flu season, they should receive a second dose in one months time. Dolly Segundo, JAIL MANAGER.FLAME CUTTING MACHINE OPERATOR HELPER 07/07/2018 3:53 PM Signed CC: Patient presents with: Imm/Inj: Flu Vaccine HPI Markell Borges Jr. is a 62 year old male who presents today for routine follow-up. Denies any concerns or issues today. COPD exacerbation recently. Treated by clinical rehab specialist Dr. Bill with Prednisone, nebulizer and antibiotics. Was not hospitalized. Advair dose increased. Wearing bipap nightly. HTN/CAD/Pacmaker: Does not check BP at home. Taking all medications as prescribed, no side effects. Recently evaluated by tv host due to findings of V tach on pacemaker check of which he was asymptomatic. Fractured coil on atrial lead found. Given prescription for Nitro, has not needed. REVIEW OF SYSTEMS General: no fevers, no chills, no night sweats, no change in appetite, no change in energy and no significant changes in weight Cardiovascular: no chest pain, no chest pressure, no palpitations and no swelling GI: Negative for abdominal discomfort, blood in stools or black stools, change in bowel habit : No difficulty urinating, nocturia > 1 time per night or hematuria PAST MEDICAL HISTORY Diagnosis Date - AV block, complete ([facility]) 04/30/2016 - CAD (coronary artery disease) 03/08/2013 - Complete tear of rotator cuff 04/30/2015 right - COPD with asthma ([facility]) 11/03/2005 - Dilated pupil, left, chronic. 08/24/2016 - DVT, lower extremity ([facility]) 06/2012 right, peroneal soleal- provoked- admission for septic knee - Dysmetabolic syndrome X 08/04/2005 - Generalized anxiety disorder 09/2005 - Hyperlipidemia 08/04/2005 - Obesity, unspecified - GENE (obstructive sleep apnea) on BiPAP 06/17/2011 - Other cirrhosis of liver (HCC) 05/30/[address] of chest - Panic disorder without agoraphobia 09/2005 Panic disorder - Septic joint of right knee joint (HCC) 06/07/2012 - Syncope 04/30/2016 Intermittent CHB. S/p DDD-PM 04/30. RV pacing 100% currently. EF 60% - CXR and device interrogation normal - Discharge today - Umbilical hernia 12/2009 - Unspecified asthma(493.90) 07/23/2008 - Unspecified essential hypertension 10/20/2011 PAST SURGICAL HISTORY Procedure Laterality Date - INSER BOOTHE PACER XVENOUS ATRIAL 04/2016 Perm pacemaker insert - PAST SURGICAL HISTORY OF 06/07/2012 I and D of right knee - REPAIR UMBILICAL TRIPP,5+Y/O,REDUC 12/11/2009 ALLERGIES Ibuprofen MEDICATIONS fluticasone-salmeterol (ADVAIR DISKUS) 500-50 mcg/dose dsdv Inhale 1 Puff as instructed twice daily. Rinse and gargle mouth with water after use. nitroglycerin sublingual (NITROQUICK) 0.4 mg SL tablet Dissolve 1 tablet under the tongue as needed. for chest pain,every 5 min x3 amitriptyline (ELAVIL) 50 mg tablet Take 1 tablet by mouth daily at bedtime. citalopram (CELEXA) 20 mg tablet Take 1 tablet by mouth once daily. busPIRone HCl 30 mg tablet TAKE 1 TABLET BY MOUTH TWICE DAILY. montelukast (SINGULAIR) 10 mg tablet TAKE 1 TABLET BY MOUTH DAILY AT BEDTIME. ipratropium-albuterol (DUONEB) 0.5 mg-3 mg(2.5 mg base)/3 mL nebu Inhale 3 mL as instructed as needed. amitriptyline (ELAVIL) 50 mg tablet Take 1 tablet by mouth daily at bedtime. amLODIPine (NORVASC) 5 mg tablet TAKE 1 TABLET BY MOUTH ONCE DAILY. pravastatin (PRAVACHOL) 40 mg tablet TAKE 1 TABLET BY MOUTH DAILY AT BEDTIME. PROAIR HFA 90 mcg/actuation inhaler INHALE 2 PUFFS INSTRUCTED FOUR TIMES DAILY NEEDED FOR WHEEZING/SHORTNESS OF BREATH. COMPOUNDED PRESCRIPTION THIGH HIGH COMPRESSION STOCKINGS. 18-30 MM HG PRESSURE. 1 PAIR. Diagnosis: I87.093. Aspirin 81 mg Tab Take 1 tablet by mouth once daily. Take with food. COMPOUNDED PRESCRIPTION BIPAP setting 15/10 cm water with heated humidification before titration mask (per patient preference) and lifetime supplies. DX GENE 327.23 [place]-3 Fatty Acids-Vitamin E (FISH OIL) 1,000 mg cap Take 1 capsule by mouth once daily. FAMILY HISTORY Problem Relation Age of Onset - Stroke Mother 65 - other (anxiety) Mother - Heart Father age 61 - Heart Brother - Obesity Brother - None Brother Social History Substance Use Topics - Smoking status: Former Smoker Packs/day: 3.00 Years: 20.00 Types: Cigarettes Quit date: 10/04/1996 - Smokeless tobacco: Never Used - Alcohol use 10.5 oz/week 7 Cans of Beer (12oz) per week Comment: Recovered since 1996. Still has 1 beer daily PHYSICAL EXAM BP 130/88 Pulse 80 Temp 37.5 ?C (99.5 ?F) (Temporal Artery) Resp 14 Wt 121.6 kg (268 lb) SpO2 93% BMI 41.97 kg/m? General Appearance: well appearing, in no acute distress, alert Neck: Thyroid normal size and symmetric without palpable nodules, Neck supple, No adenopathy Lungs: Lungs clear to auscultation. No wheezing, rhonchi, rales Heart: RRR without murmur, gallop, or rubs. No ectopy Ext: no edema in LE bilaterally, good distal pulses BP CONTROLLED (<130/80) due on 1972 INFLUENZA(1) due on 06/04/2018 FECAL OCCULT BLOOD due on 06/24/2018 STATIN MED ADHERENCE due on 08/04/2018 STEROID INHALER ADHERENCE due on 08/04/2018 ANNUAL PCP TEAM CHRONIC DISEASE VISIT due on 12/22/2018 LDL CHOLESTEROL due on 07/02/2019 DIABETES SCREEN due on 07/02/2021 LIPID SCREEN due on 07/02/2023 DTAP,TDAP,TD(4 - Td) due on 08/15/2025 PROSTATE CANCER SCREENING DISCUSSION Completed HEPATITIS C SCREENING Completed Component Latest Ref Rng AND Units 07/02/2018 Glucose 74 - 99 mg/dL 92 BUN 9 - 24 mg/dL 18 Creatinine 0.73 - 1.22 mg/dL 1.21 Sodium 136 - 144 mmol/L 141 Potassium 3.7 - 5.1 mmol/L 4.4 Chloride 97 - 105 mmol/L 101 CO2 22 - 30 mmol/L 28 Anion Gap 9 - 18 mmol/L 12 Calcium 8.5 - 10.2 mg/dL 8.9 eGFR- >60 eGFR-All Other Races . >60 Cholesterol, Total <200 mg/dL 163 Triglyceride <150 mg/dL 45 HDL Cholesterol >39 mg/dL 79 LDL Cholesterol <100 mg/dL 75 Non HDL Cholesterol <130 mg/dL 84 Fasting Time hrs 12 VLDL Cholesterol <30 mg/dL 9 TC:HDL Ratio <5.10 2.06 LDL:HDL Ratio <2.54 0.95 ASSESSMENT/PLAN: 1. Hyperlipidemia, unspecified hyperlipidemia type - ICD9: 272.4, ICD10: E78.5 (primary diagnosis) - good control - Continue current medication. - Follow up in 6 months. 2. Coronary artery disease involving enterprise heart without angina pectoris, unspecified vessel or lesion type - ICD9: 414.01, ICD10: I25.10 Follow-up with cardiology as advised 3. Essential hypertension - ICD9: 401.9, ICD10: I10 - good control - Continue current medication(s) 4. COPD with asthma (HCC) - ICD9: 493.20, ICD10: J44.9 Stable - Continue current meds - Follow-up with pulmonology as scheduled 5. GENE (obstructive sleep apnea) on BiPAP - ICD9: 327.23, ICD10: G47.33 Stable 6. Need for vaccination - ICD9: V05.9, ICD10: Z23 - INFLUENZA VACCINE QUADRIVALENT AGE 3 YRS PLUS + IM Prescription instructions reviewed with patient as applicable. Potential red flag symptoms discussed with the patient. Reviewed appropriate action plan to take if red flag symptoms occur. Patient agreeable to treatment plan. DONNA Grace APRN.CNP 07/07/2018 2:58 PM Signed Start Fluticasone nasal spray, follow directions on bottle. Follow-up with ENT if symptoms do not improve in 4 weeks. Referring Provider: BIPIN URRUTIA [[id number]] Allergies As of Date: 07/07/2018 Noted Allergy Reaction IBUPROFEN 08/26/2009 10 - Anaphylaxis Comments: states caused throat to swell up and he became short of breat Date Reviewed: 07/07/2018 Reviewed by: Shelbie Pablo Bi Specialist - Fully Assessed Reason for Visit: Imm/Inj [58] Cmt: Flu Vaccine Primary Visit Diagnosis:Hyperlipidemia, unspecified hyperlipidemia type [E78.5] Other Visit Diagnoses:Coronary artery disease involving enterprise heart without angina pectoris, unspecified vessel or lesion type [I25.10] Essential hypertension [I10] COPD with asthma (HCC) [J44.9] GENE (obstructive sleep apnea) on BiPAP [G47.33] Need for vaccination [Z23] Order(s):INFLUENZA VACCINE QUADRIVALENT AGE 3 YRS PLUS + IM [[id number]] Order #: [id number] Prescriptions as of 07/07/2018 Sig: FLUTICASONE 500 MCG-SALMETERO* Inhale 1 Puff as instructed t* NITROGLYCERIN 0.4 MG SUBLINGU* Dissolve 1 tablet under the t* AMITRIPTYLINE 50 MG TABLET Take 1 tablet by mouth daily * CITALOPRAM 20 MG TABLET Take 1 tablet by mouth once d* BUSPIRONE 30 MG TABLET TAKE 1 TABLET BY MOUTH TWICE * MONTELUKAST 10 MG TABLET TAKE 1 TABLET BY MOUTH DAILY * IPRATROPIUM-ALBUTEROL 0.5 MG-* Inhale 3 mL as instructed as * AMLODIPINE 5 MG TABLET TAKE 1 TABLET BY MOUTH ONCE D* PRAVASTATIN 40 MG TABLET TAKE 1 TABLET BY MOUTH DAILY * PROAIR HFA 90 MCG/ACTUATION A* INHALE 2 PUFFS INSTRUCTED * COMPOUNDED PRESCRIPTION THIGH HIGH COMPRESSION STOCKI* ASPIRIN 81 MG TABLET Take 1 tablet by mouth once d* COMPOUNDED PRESCRIPTION BIPAP setting 15/10 cm water * OMEGA-3 FATTY ACIDS-VITAMIN E* Take 1 capsule by mouth once * Problem List As Of Date 07/07/2018 Noted Resolved Hyperlipidemia [E78.5] INVALID FOR* Dysmetabolic syndrome X [E88.81] INVALID FOR*12/03/2014 Panic disorder without agoraphobia [F41.0] Generalized anxiety disorder [F41.1] 12/03/2014 More... 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 Nontraumatic rupture of tendons of biceps (long*INVALID FOR*12/03/2014 Nonspecific elevation of levels of transaminase*INVALID FOR*12/03/2014 Other hammer toe (acquired) [M20.40] INVALID FOR*12/03/2014 More... Skin lesion [L98.9] INVALID FOR*12/03/2014 Umbilical hernia without mention of obstruction*INVALID FOR*08/15/2015 GENE (obstructive sleep apnea) on BiPAP [G47.33] INVALID FOR* Unspecified essential hypertension [I10] INVALID FOR*12/03/2014 Septic prepatellar bursitis of right knee [M71.*INVALID FOR*12/03/2014 History of DVT in adulthood [Z86.718] INVALID FOR*08/24/2016 Hypertension [I10] INVALID FOR*01/28/2016 Shortness of breath [R06.02] INVALID FOR*12/03/2014 Edema [R60.9] INVALID FOR*08/15/2015 CAD (coronary artery disease) [I25.10] INVALID FOR* Complete tear of rotator cuff [M75.120] INVALID FOR* BMI 38.0-38.9,adult [Z68.38] INVALID FOR* Essential hypertension [I10] INVALID FOR* AV block, complete (HCC) [I44.2] INVALID FOR* More... 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 Other instructions from your clinician: Start Fluticasone nasal spray, follow directions on bottle. Follow-up with ENT if symptoms do not improve in 4 weeks. Medications Discontinued During This Encounter fluticasone-salmeterol (ADVAIR DISKU* 0 04/01/2015 07/07/2018 Class: Med Update Route: INHALATION Sig: Inhale 1 Puff as instructed twice daily. Rinse and gargle mouth after use with water. Disc: Course of therapy completed Cosign accepted by RASHMI ANDRADE MD[[id number]] on 04/01/2015 10:38 AM amitriptyline (ELAVIL) 50 mg tablet 12/22/2017 07/07/2018 Class: Med Update Route: ORAL Sig: Take 1 tablet by mouth daily at bedtime. Disc: Duplicate Entry Disposition: Return in about 6 months (around 01/05/2019) for annual physical. Follow-up and Disposition History Recorded Encounter Status:Closed by DOLLY SEGUNDO CNP on 07/07/18 PROGRESS Observed: 07/07/2018 Status: COMPLETED Source: [place] 2:35 PM [facility] REPOSITORY HNO ID: [id number] Author: Shelbie Pablo Bi Specialist Service: (none) Author Type: (none) Type: Progress Notes Filed: 07/07/2018 3:53 PM Note Text: 62 year old male here for INACTIVATED INFLUENZA VACCINE. 9696-3969 Season Patient is identified by name and date of : Yes [] CONTRAINDICATIONS color enhanced section Age less than 6 months? No Allergy to eggs, chicken, chicken feathers, or chicken dander? No Allergy to thimerosal (a preservative) or formaldehyde, gelatin? No History of severe reaction to any vaccine component or a previous dose of influenza vaccination? No History of Guillain-Midway Syndrome within 6 weeks after a previous influenza vaccine? No Patient is not moderately or severely ill? No Current temperature greater or equal to 100.4F? No History of Bone Marrow Transplant prior 6 months or solid organ transplant in the past 3 months ? No History of fainting after a prior injection or medical procedure? No- ? If patient has fainted in the past, the CDC recommends sitting or lying down for 15 minutes after the vaccination. [] VERIFICATION color enhanced section Was the answer Yes for any of the above contraindications? No contraindications present. Acceptable to proceed with vaccine. Patient/guardian agrees the above answers are true to the best of their knowledge? Yes Flu vaccine information sheet given? Yes See immunization activity in [facility] for details of immunizations adminstered today. Patient age: [age] year old For The 5903-7140 Flu Season 6-35 months old: Fluzone 0.25 ml - IM (Preservative Free) 3 years of age: Fluzone 0.5 ml - IM (Preservative Free) 3 years and older: Fluzone 0.5 ml- IM-(with Preservatives) 65+ years old: 2-49 years old Fluzone High-Dose 0.5 ml - IM (Preservative Free) FLUMIST- intranasal REMEMBER: If patient is less than 9 years of age and this is the first vaccine of Influenza to be received in any flu season, they should receive a second dose in one months time. BASIC METABOLIC PANL Collected: 07/02/2018 Status: F Source: [place] 7:38 AM [facility] REPOSITORY TYPE CODE TESTS RESULT OUT OF REFERENCE UNITS RANGE LAB GLU 74-99 mg/dL Glucose 92 Result Comment: The [place] Diabetes [employer] (ADA) provides guidance for cutoff values for fasting glucose and random glucose. The ADA defines fasting as no caloric intake for at least 8 hours. Fas ting plasma glucose results between 100 to 125 mg/dL indicate increased risk for diabetes (prediabetes). Fasting plasma glucose results greater than or equal to 126 mg/dL meet the criteria for diagnosis of diabetes. In the absence of unequivocal hyperglycemia, results should be confirmed by repeat testing. In a patient with classic symptoms of hyperglycemia or hyperglycemic crisis, random plasma glucose results greater than or equal to 200 mg/dL meet the criteria for diagnosis of diabetes. Reference: Standards of Medical Care in Diabetes 2016, [place] [employer]. Diabetes Care. 2016.39(Suppl 1). LAB BUN 9-24 mg/dL BUN 18 LAB CRET 0.73-1.22 mg/dL Creatinine 1.21 LAB NA 136-144 mmol/L Sodium 141 LAB K 3.7-5.1 mmol/L Potassium 4.4 LAB CL 97-105 mmol/L Chloride 101 LAB CO2 22-30 mmol/L CO2 28 LAB AGAP 9-18 mmol/L Anion Gap 12 LAB CA 8.5-10.2 mg/dL Calcium, Total 8.9 LAB GFRAA eGFR- Amer. >60 LAB GFRNAA . eGFR-All Other Races >60 Result Comment: eGFR (Estimated GFR) Units of measure: mL/min/1.73 meters squared eGFR is derived from the reexpressed MDRD Study equation using the following parameters: serum creatinine, age, gender and race. The creatinine assay has been calibrated to be traceable to IDMS. An eGFR <60 mL/min/1.73m2 for >3 months is consistent with chronic kidney disease. Refer to KDOQI guidelines for clinical interpretation. In patients with unstable renal function, e.g. those with acute kidney injury, the eGFR may not accurately reflect actual GFR. Performed By: #### BMP, LIPB #### [facility] [address] [place], [place] [address] LIPID PANEL, BASIC Collected: 07/02/2018 Status: F Source: [place] 7:38 AM [facility] REPOSITORY TYPE CODE TESTS RESULT OUT OF REFERENCE UNITS RANGE LAB CHOL <200 mg/dL Cholesterol 163 Result Comment: <200 mg/dL, Desirable 200-239 mg/dL, Borderline high >239 mg/dL, High LAB TRIGLY <150 mg/dL Triglyceride 45 Result Comment: <150 mg/dL, Normal 150-199 mg/dL, Borderline high 200-499 mg/dL, High >499 mg/dL, Very high LAB HDL >39 mg/dL HDL-Cholesterol 79 Result Comment: 40-59 mg/dL, Acceptable >59 mg/dL, High: Negative risk factor for coronary heart disease <40 mg/dL, Low: Positive risk factor for coronary heart disease LAB LDL <100 mg/dL LDL-Cholesterol 75 Result Comment: <100 mg/dL, Optimal 100-129 mg/dL, Near optimal/above optimal 130-159 mg/dL, Borderline high 160-189 mg/dL, High >189 mg/dL, Very high Secondary prevention optimal LDL Cholesterol levels are recommended to be < 70 mg/dL LAB NONHDL <130 mg/dL Non HDL Cholesterol 84 Result Comment: <130 mg/dL, Optimal 130-159 mg/dL, Near optimal/above optimal 160-189 mg/dL, Borderline high 190-219 mg/dL, High >219 mg/dL, Very high Secondary prevention optimal non HDL Cholesterol levels are recommended to be < 100 mg/dL LAB FT hrs Fasting Time 12 LAB VLDL <30 mg/dL VLDL Cholesterol 9 LAB TCHDL <5.10 TC:HDL Ratio 2.06 LAB LDLHDL <2.54 LDL:HDL Ratio 0.95 Result Comment: Reference: 1. National Cholesterol Education Program ATP III Guideline At-A-Glance Quick Desk Reference: National Heart, Lung, and Blood [place]. National Institutes of Health. 2001: NIH Publication No. 01-3305. 2. An International Atherosclerosis Society position paper: global recommendations for the management of dyslipidemia: executive summary, Atherosclerosis. 2014: 232(2):410-413. Performed By: #### BMP, LIPB #### [facility] [address] [place], [place] [address] BMP PLUS [facility] Collected: 06/21/2018 Status: F Source: [place] 1:54 PM [facility] REPOSITORY TYPE CODE TESTS RESULT OUT OF REFERENCE UNITS RANGE LAB NA 128-145 mmol/L Sodium 139 LAB K 3.6-5.1 mmol/L Potassium 4.0 LAB CL 98-108 mmol/L Chloride 101 LAB CO2 18-33 mmol/L CO2 30 LAB CRET 0.6-1.2 mg/dL Creatinine 1.00 LAB BUN 7-22 mg/dL BUN 12 LAB GLU 73-118 mg/dL Glucose 97 LAB CA 8.0-10.3 mg/dL Calcium, Total 9.0 LAB MG 1.6-2.3 mg/dL Magnesium 2.0 LAB AGAP 9-18 mmol/L Low Anion Gap 8 LAB GFRAA eGFR- >60 Amer. LAB GFRNAA . eGFR-All Other Races >60 Result Comment: eGFR (Estimated GFR) Units of measure: mL/min/1.73 meters squared eGFR is derived from the reexpressed MDRD Study equation using the following parameters: serum creatinine, age, gender and race. The creatinine assay has been calibrated to be traceable to IDMS. An eGFR <60 mL/min/1.73m2 for >3 months is consistent with chronic kidney disease. Refer to KDOQI guidelines for clinical interpretation. In patients with unstable renal function, e.g. those with acute kidney injury, the eGFR may not accurately reflect actual GFR. PROGRESS Observed: 06/21/2018 Status: COMPLETED Source: [place] 1:50 PM [facility] REPOSITORY HNO ID: [id number] Author: Dayanara JohnRt) Jeferson Jones Service: (none) Author Type: Cotton Picking Machine Operator Type: Progress Notes Filed: 06/21/2018 1:50 PM Note Text: Radiology Service Progress Note PATIENT NAME: Markell Borges JrZay DATE OF SERVICE: June 21, 2018 TIME: 1:50 PM PATIENT IDENTITY VERIFICATION COMPLETED USING TWO (2) METHODS: ID Band . PATIENT GENDER DATA: Male PATIENT RELEVANT IMPLANT DATA REVIEWED: Not Applicable RADIOLOGY DEPARTMENT: General X-ray: Exam(s) Completed: Chest X-Ray PERIPHERAL IV DATA: Not applicable SIGNED BY: RT Levy June 21, 2018 1:50 PM XR CHEST 2V FRONTAL/LAT Observed: 06/21/2018 Status: F Source: [place] 1:49 PM [facility] REPOSITORY * * *Final Report* * * DATE OF EXAM: Jun 21 2018 1:49PM WRX [id number] - XR CHEST 2V FRONTAL/LAT / PROCEDURE REASON: multiple diagnoses * * * * Physician Interpretation * * * * EXAMINATION: CHEST RADIOGRAPH (2 VIEW FRONTAL and LATERAL) CLINICAL HISTORY: Ventricular tachycardia Breakdown (mechanical) of cardiac pulse generator (battery), initial encounter MQ: [id number]_5 Comparison: 11/29/2016. RESULT: Lines, tubes, and devices: Unchanged left pacemaker/pacing device. Lungs and pleura: No consolidation. No lung mass. No pleural effusion. Cardiomediastinal silhouette: Normal cardiomediastinal silhouette. Other: No acute osseous pathology. IMPRESSION: No acute radiographic abnormality. No significant change. School Bus Inspector: PSCConchis Transcribe Date/Time: Jun 21 2018 4:10P Dictated by : SAVAGE LEON MD This examination was interpreted and the report reviewed and electronically signed by: SAVAGE LEON MD on Jun 21 2018 4:10PM EST [id number] PROGRESS Observed: 06/21/2018 Status: COMPLETED Source: [place] 1:32 PM [facility] REPOSITORY HNO ID: [id number] Author: Agusto Hannah Service: (none) Author Type: Physician Type: Progress Notes Filed: 06/21/2018 5:37 PM Note Text: PERTINENT CARDIAC HISTORY ASHD - single vessel by stress, medical rx HTN HL RBBB GENE - BiPAP Syncope - AV block, PPM / DVT - post op PAF - rare, C-V 1, monitor by PM check ADHERENCE TO GUIDELINES AMADEO-I or ARB for HF with prior LVEF<40 (NQF 0081) - N/A ASA or Plavix for ASHD (NQF 0067) - met Beta ana for ASHD with prior PA or prior LVEF<40 (NQF 0070) - N/A Beta ana for HF with prior LVEF<40 (NQF 0083) - N/A AMADEO-I or ARB for ASHD with DM or prior LVEF<40 (NQF 0066) - N/A Statin therapy for ASHD or FHL or DM - met BMI documented and plan if >25 (NQF 0421) - lifestyle recommendation form Tobacco use screening and referral (NQF 0028) - lifestyle recommendation form Recommendation for whole food, plant based diet - lifestyle recommendation form CLINICAL IMPRESSION/PLAN: Markell Borges Jr. has stable exercise tolerance and no indication of progressive coronary disease. His most recent stress test negative for ischemia. The episode of nonsustained VT is likely benign. He apparently has a fractured coil on his atrial lead. He is now pacing and sensing unipolar. He will be referred back to Dr. Davis for evaluation. I've asked him to continue his calcium ana. His blood pressure was slightly high today and I've asked him to check his vital signs daily and contact me next week. Up titration of his calcium ana may help. It is not clear whether this is an RVOT focus of his tachycardia. It may be responsive to a higher dose of calcium ana. He has significant obstructive airways disease and probably cannot tolerate long-acting beta ana. He uses his rescue inhaler fairly frequently. Basic profile and magnesium will be done today. X-ray will be done to assess lead integrity , but has relatively low sensitivity. I will see him as scheduled. If he has increased palpitations or progressive exercise intolerance, he has been advised to contact me promptly. I gave him a new prescription for nitroglycerin today. Written and verbal health teaching given to patient, patient verbalizes understanding and agrees with treatment plan. DIAGNOSIS FOR VISIT: Pacemaker malfunction NSVT HISTORY OF PRESENT ILLNESS Markell Borges Jr. returns for discussion of recent findings on his pacemaker check. Last month, he was noted to have had a switch in his atrial lead polarity due to noise. The lead was set back to bipolar, but has flipped again to unipolar because of a high impedance. In addition, he was noted to have 2 runs of nonsustained ventricular tachycardia, up to 37 beats at a rate of up to 190. These occurred in the morning when he was working and were apparently asymptomatic. He's had no recent chest discomfort. He reports stable exercise tolerance. He has been very active. He denies edema, syncope, TIAs, amaurosis and claudication. He has had rare sensation of palpitations, lasting seconds and not correlated with the observed arrhythmia. 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 In addition, he has been coughing a lot lately due to an episode of pneumonia. ALLERGIES: ALLERGIES Allergen Reactions - Ibuprofen Anaphylaxis states caused throat to swell up and he became short of breat CURRENT OUTPATIENT MEDICATIONS: amitriptyline (ELAVIL) 50 mg tablet Take 1 tablet by mouth daily at bedtime. citalopram (CELEXA) 20 mg tablet Take 1 tablet by mouth once daily. busPIRone HCl 30 mg tablet TAKE 1 TABLET BY MOUTH TWICE DAILY. montelukast (SINGULAIR) 10 mg tablet TAKE 1 TABLET BY MOUTH DAILY AT BEDTIME. ipratropium-albuterol (DUONEB) 0.5 mg-3 mg(2.5 mg base)/3 mL nebu Inhale 3 mL as instructed as needed. amitriptyline (ELAVIL) 50 mg tablet Take 1 tablet by mouth daily at bedtime. amLODIPine (NORVASC) 5 mg tablet TAKE 1 TABLET BY MOUTH ONCE DAILY. pravastatin (PRAVACHOL) 40 mg tablet TAKE 1 TABLET BY MOUTH DAILY AT BEDTIME. PROAIR HFA 90 mcg/actuation inhaler INHALE 2 PUFFS INSTRUCTED FOUR TIMES DAILY NEEDED FOR WHEEZING/SHORTNESS OF BREATH. COMPOUNDED PRESCRIPTION THIGH HIGH COMPRESSION STOCKINGS. 18-30 MM HG PRESSURE. 1 PAIR. Diagnosis: I87.093. fluticasone-salmeterol (ADVAIR DISKUS) 250-50 mcg/dose dsdv Inhale 1 Puff as instructed twice daily. Rinse and gargle mouth after use with water. Milbridge-3 Fatty Acids-Vitamin E (FISH OIL) 1,000 mg cap Take 1 capsule by mouth once daily. Aspirin 81 mg Tab Take 1 tablet by mouth once daily. Take with food. COMPOUNDED PRESCRIPTION BIPAP setting 15/10 cm water with heated humidification before titration mask (per patient preference) and lifetime supplies. DX GENE 327.23 PHYSICAL EXAMINATION: VITAL SIGNS: BP 154/89 Pulse 80 Ht 5' 7 (1.70m) Wt 270 lb (122.5kg) BMI 42.28 kg/(m2). Chest: Clear to auscultation. Trachea is midline. Air entry is equal. Cardiac: Regular rhythm. S1 and S2 are normal. PMI is nondisplaced. There are no murmurs, rubs or gallops. Carotids are brisk without bruits. JVP is less than 10 cm. Abdomen: Soft and nontender. There are no pulsatile masses or bruits. No liver enlargement. Bowel sounds are active. Extremities: No edema. Pulses are intact and symmetrical. Remote pacemaker evaluation is as noted. I reviewed the electrograms and agree that this was a run of nonsustained V. tach. Stress test done 07/19 showed no evidence of ischemia. Ejection fraction is normal. Electronically Signed: Agusto Hannah MD June 21, 2018 1:32 PM CC: Bipin Urrutia MD CNOV Observed: 06/21/2018 Status: COMPLETED Source: [place] 1:00 PM [facility] REPOSITORY Office Visit ([facility]) MARKELL BORGES JR. ([id number]) 1955 M Date Time Provider Department 06/21/18 1:00 PM AGUSTO HANNAH [facility] During your visit today, we recorded the following information about you: Pulse Blood pressure Weight Height 80/minute 154/89 122.5 kg 1.702 m Agusto Hannah MD 06/21/2018 5:37 PM Signed PERTINENT CARDIAC HISTORY ASHD - single vessel by stress, medical rx HTN HL RBBB GENE - BiPAP Syncope - AV block, PPM 04/18 DVT - post op PAF - rare, C-V 1, monitor by PM check ADHERENCE TO GUIDELINES AMADEO-I or ARB for HF with prior LVEF<40 (NQF 0081) - N/A ASA or Plavix for ASHD (NQF 0067) - met Beta ana for ASHD with prior PA or prior LVEF<40 (NQF 0070) - N/A Beta ana for HF with prior LVEF<40 (NQF 0083) - N/A AMADEO-I or ARB for ASHD with DM or prior LVEF<40 (NQF 0066) - N/A Statin therapy for ASHD or FHL or DM - met BMI documented and plan if >25 (NQF 0421) - lifestyle recommendation form Tobacco use screening and referral (NQ 0028) - lifestyle recommendation form Recommendation for whole food, plant based diet - lifestyle recommendation form CLINICAL IMPRESSION/PLAN: Markell Borges Jr. has stable exercise tolerance and no indication of progressive coronary disease. His most recent stress test negative for ischemia. The episode of nonsustained VT is likely benign. He apparently has a fractured coil on his atrial lead. He is now pacing and sensing unipolar. He will be referred back to Dr. Davis for evaluation. I've asked him to continue his calcium ana. His blood pressure was slightly high today and I've asked him to check his vital signs daily and contact me next week. Up titration of his calcium ana may help. It is not clear whether this is an RVOT focus of his tachycardia. It may be responsive to a higher dose of calcium ana. He has significant obstructive airways disease and probably cannot tolerate long-acting beta ana. He uses his rescue inhaler fairly frequently. Basic profile and magnesium will be done today. X-ray will be done to assess lead integrity , but has relatively low sensitivity. I will see him as scheduled. If he has increased palpitations or progressive exercise intolerance, he has been advised to contact me promptly. I gave him a new prescription for nitroglycerin today. Written and verbal health teaching given to patient, patient verbalizes understanding and agrees with treatment plan. DIAGNOSIS FOR VISIT: Pacemaker malfunction NSVT HISTORY OF PRESENT ILLNESS Markell Borges Jr. returns for discussion of recent findings on his pacemaker check. Last month, he was noted to have had a switch in his atrial lead polarity due to noise. The lead was set back to bipolar, but has flipped again to unipolar because of a high impedance. In addition, he was noted to have 2 runs of nonsustained ventricular tachycardia, up to 37 beats at a rate of up to 190. These occurred in the morning when he was working and were apparently asymptomatic. He's had no recent chest discomfort. He reports stable exercise tolerance. He has been very active. He denies edema, syncope, TIAs, amaurosis and claudication. He has had rare sensation of palpitations, lasting seconds and not correlated with the observed arrhythmia. 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 In addition, he has been coughing a lot lately due to an episode of pneumonia. ALLERGIES: ALLERGIES Allergen Reactions - Ibuprofen Anaphylaxis states caused throat to swell up and he became short of breat CURRENT OUTPATIENT MEDICATIONS: amitriptyline (ELAVIL) 50 mg tablet Take 1 tablet by mouth daily at bedtime. citalopram (CELEXA) 20 mg tablet Take 1 tablet by mouth once daily. busPIRone HCl 30 mg tablet TAKE 1 TABLET BY MOUTH TWICE DAILY. montelukast (SINGULAIR) 10 mg tablet TAKE 1 TABLET BY MOUTH DAILY AT BEDTIME. ipratropium-albuterol (DUONEB) 0.5 mg-3 mg(2.5 mg base)/3 mL nebu Inhale 3 mL as instructed as needed. amitriptyline (ELAVIL) 50 mg tablet Take 1 tablet by mouth daily at bedtime. amLODIPine (NORVASC) 5 mg tablet TAKE 1 TABLET BY MOUTH ONCE DAILY. pravastatin (PRAVACHOL) 40 mg tablet TAKE 1 TABLET BY MOUTH DAILY AT BEDTIME. PROAIR HFA 90 mcg/actuation inhaler INHALE 2 PUFFS INSTRUCTED FOUR TIMES DAILY NEEDED FOR WHEEZING/SHORTNESS OF BREATH. COMPOUNDED PRESCRIPTION THIGH HIGH COMPRESSION STOCKINGS. 18-30 MM HG PRESSURE. 1 PAIR. Diagnosis: I87.093. fluticasone-salmeterol (ADVAIR DISKUS) 250-50 mcg/dose dsdv Inhale 1 Puff as instructed twice daily. Rinse and gargle mouth after use with water. Milbridge-3 Fatty Acids-Vitamin E (FISH OIL) 1,000 mg cap Take 1 capsule by mouth once daily. Aspirin 81 mg Tab Take 1 tablet by mouth once daily. Take with food. COMPOUNDED PRESCRIPTION BIPAP setting 15/10 cm water with heated humidification before titration mask (per patient preference) and lifetime supplies. DX GENE 327.23 PHYSICAL EXAMINATION: VITAL SIGNS: BP 154/89 Pulse 80 Ht 5' 7 (1.70m) Wt 270 lb (122.5kg) BMI 42.28 kg/(m2). Chest: Clear to auscultation. Trachea is midline. Air entry is equal. Cardiac: Regular rhythm. S1 and S2 are normal. PMI is nondisplaced. There are no murmurs, rubs or gallops. Carotids are brisk without bruits. JVP is less than 10 cm. Abdomen: Soft and nontender. There are no pulsatile masses or bruits. No liver enlargement. Bowel sounds are active. Extremities: No edema. Pulses are intact and symmetrical. Remote pacemaker evaluation is as noted. I reviewed the electrograms and agree that this was a run of nonsustained V. tach. Stress test done 07/19 showed no evidence of ischemia. Ejection fraction is normal. Electronically Signed: Agusto Hannah MD June 21, 2018 1:32 PM CC: MD Agusto Redd MD 06/21/2018 1:33 PM Signed LIFESTYLE CHANGE A healthy lifestyle is the most important component of your overall treatment plan. 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 EAT A WHOLE FOOD, PLANT BASED DIET The nutrition your body gets is more important than the medicine you take. What matters most is the overall way you eat. We encourage you to minimize the use of animal products (which include dairy and all meats except fatty fish) and use whole, unprocessed plant foods to provide your protein, vitamins and other nutrients. We have a lot of information to share with you on this topic. This is not a diet. It is a way of life that you will keep with you. EXERCISE REGULARLY It is not important to spend hours in the gym, lifting weights and perspiring heavily. A total of 2-3 hours per week of aerobic (causing you to be moderately short of breath) exercise is sufficient to improve your health. Talk to us before you begin a new exercise program, if you have heart disease or experience shortness of breath or chest pain. REDUCE STRESS Chronic emotional and physical stress leads to disease. Ways of reducing stress include meditation, visualization, prayer, yoga and other forms of relaxation therapy. Consistency is the burton. Find a technique that works for you and do it every day. CULTIVATE RELATIONSHIPS Loneliness and isolation have a major negative impact on health. Seek out others who can love, care for and nurture you. Avoid hurtful relationships. MAINTAIN IDEAL BODY WEIGHT The best way to do this is to do all the things above. Our bodies naturally find the right weight if we keep moving and feed ourselves the right food. If your BMI is greater than 25, we strongly recommend a referral to a weight management program. Please speak to us or your family physician about available programs. AVOID NICOTINE IN ALL FORMS This includes all tobacco products, whether chewed, smoked, vaped, or rubbed on the skin. Smoking cessation programs, which can make use of tobacco substitutes, medications to suppress cravings and behavior management, are available. Please contact your family physician about programs in your area. Referring Provider: AGUSTO HANNAH [[id number]] Allergies As of Date: 06/21/2018 Noted Allergy Reaction IBUPROFEN 08/26/2009 10 - Anaphylaxis Comments: states caused throat to swell up and he became short of breat Date Reviewed: 12/22/2017 Reviewed by: Rosalba Kimble LPN - Fully Assessed Primary Visit Diagnosis:NSVT (nonsustained ventricular tachycardia) ([facility]) [I47.2] Other Visit Diagnosis:Malfunction of cardiac pacemaker, initial encounter [T82.111A] Order(s):[facility] [[id number]] Order #: [id number] FUTURE XR CHEST 2V FRONTAL/LAT [[id number]] Order #: [id number] FUTURE nitroglycerin sublingual (NITROQUICK) 0.4 mg SL tabletDissolve 1 tablet under the tongue as needed. for chest pain,every 5 min x3Disp: 1 Bottle of 25Rfl: 3 Prescriptions as of 06/21/2018 Sig: NITROGLYCERIN 0.4 MG SUBLINGU* Dissolve 1 tablet under the t* AMITRIPTYLINE 50 MG TABLET Take 1 tablet by mouth daily * CITALOPRAM 20 MG TABLET Take 1 tablet by mouth once d* BUSPIRONE 30 MG TABLET TAKE 1 TABLET BY MOUTH TWICE * MONTELUKAST 10 MG TABLET TAKE 1 TABLET BY MOUTH DAILY * IPRATROPIUM-ALBUTEROL 0.5 MG-* Inhale 3 mL as instructed as * AMITRIPTYLINE 50 MG TABLET Take 1 tablet by mouth daily * AMLODIPINE 5 MG TABLET TAKE 1 TABLET BY MOUTH ONCE D* PRAVASTATIN 40 MG TABLET TAKE 1 TABLET BY MOUTH DAILY * PROAIR HFA 90 MCG/ACTUATION A* INHALE 2 PUFFS INSTRUCTED * COMPOUNDED PRESCRIPTION THIGH HIGH COMPRESSION STOCKI* FLUTICASONE 250 MCG-SALMETERO* Inhale 1 Puff as instructed t* OMEGA-3 FATTY ACIDS-VITAMIN E* Take 1 capsule by mouth once * ASPIRIN 81 MG TABLET Take 1 tablet by mouth once d* COMPOUNDED PRESCRIPTION BIPAP setting 15/10 cm water * Problem List As Of Date 06/21/2018 Noted Resolved Hyperlipidemia [E78.5] INVALID FOR* Dysmetabolic syndrome X [E88.81] INVALID FOR*12/03/2014 Panic disorder without agoraphobia [F41.0] Generalized anxiety disorder [F41.1] 12/03/2014 More... 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 Nontraumatic rupture of tendons of biceps (long*INVALID FOR*12/03/2014 Nonspecific elevation of levels of transaminase*INVALID FOR*12/03/2014 Other hammer toe (acquired) [M20.40] INVALID FOR*12/03/2014 More... Skin lesion [L98.9] INVALID FOR*12/03/2014 Umbilical hernia without mention of obstruction*INVALID FOR*08/15/2015 GENE (obstructive sleep apnea) on BiPAP [G47.33] INVALID FOR* Unspecified essential hypertension [I10] INVALID FOR*12/03/2014 Septic prepatellar bursitis of right knee [M71.*INVALID FOR*12/03/2014 History of DVT in adulthood [Z86.718] INVALID FOR*08/24/2016 Hypertension [I10] INVALID FOR*01/28/2016 Shortness of breath [R06.02] INVALID FOR*12/03/2014 Edema [R60.9] INVALID FOR*08/15/2015 CAD (coronary artery disease) [I25.10] INVALID FOR* Complete tear of rotator cuff [M75.120] INVALID FOR* BMI 38.0-38.9,adult [Z68.38] INVALID FOR* Essential hypertension with goal blood pressure*INVALID FOR* AV block, complete (HCC) [I44.2] INVALID FOR* More... 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 Other instructions from your clinician: LIFESTYLE CHANGE A healthy lifestyle is the most important component of your overall treatment plan. Please give serious thought to the following areas and commit to making intermediate changes. EAT A WHOLE FOOD, PLANT BASED DIET The nutrition your body gets is more important than the medicine you take. What matters most is the overall way you eat. We encourage you to minimize the use of animal products (which include dairy and all meats except fatty fish) and use whole, unprocessed plant foods to provide your protein, vitamins and other nutrients. We have a lot of information to share with you on this topic. This is not a diet. It is a way of life that you will keep with you. EXERCISE REGULARLY It is not important to spend hours in the gym, lifting weights and perspiring heavily. A total of 2-3 hours per week of aerobic (causing you to be moderately short of breath) exercise is sufficient to improve your health. Talk to us before you begin a new exercise program, if you have heart disease or experience shortness of breath or chest pain. REDUCE STRESS Chronic emotional and physical stress leads to disease. Ways of reducing stress include meditation, visualization, prayer, yoga and other forms of relaxation therapy. Consistency is the burton. Find a technique that works for you and do it every day. CULTIVATE RELATIONSHIPS Loneliness and isolation have a major negative impact on health. Seek out others who can love, care for and nurture you. Avoid hurtful relationships. MAINTAIN IDEAL BODY WEIGHT The best way to do this is to do all the things above. Our bodies naturally find the right weight if we keep moving and feed ourselves the right food. If your BMI is greater than 25, we strongly recommend a referral to a weight management program. Please speak to us or your family physician about available programs. AVOID NICOTINE IN ALL FORMS This includes all tobacco products, whether chewed, smoked, vaped, or rubbed on the skin. Smoking cessation programs, which can make use of tobacco substitutes, medications to suppress cravings and behavior management, are available. Please contact your family physician about programs in your area. Prescriptions ordered this encounter Disp Refills Start End NITROGLYCERIN 0.4 MG SUBLINGUAL TABL* 1 [place]* 3 06/21/2018 Route: SUBLINGUAL Sig: Dissolve 1 tablet under the tongue as needed. for chest pain,every 5 min x3 Follow-up and Disposition History Recorded Encounter Status:Closed by AGUSTO HANNAH MD on 06/21/18 PROGRESS Observed: 06/13/2018 Status: COMPLETED Source: [place] 10:19 AM [facility] REPOSITORY HNO ID: [id number] Author: Meg Espinoza [facility] Service: (none) Author Type: (none) Type: Progress Notes Filed: 06/13/2018 10:19 AM Note Text: Reminder mailed to patient. PROGRESS Observed: 06/13/2018 Status: COMPLETED Source: [place] 10:18 AM [facility] REPOSITORY HNO ID: [id number] Author: Meg Espinoza [facility] Service: (none) Author Type: (none) Type: Progress Notes Filed: 06/13/2018 10:19 AM Note Text: [facility] CARE GAP REGISTRY DOCUMENTATION (OUTSIDE TEAMLET) Provider Action/FYI: PSR Action/FYI: Send appointment/lab reminder for upcoming appointment (labs ordered) Patient identified by name and date of . Last BP/Labs: Blood Pressure: Last 3 Encounter BP Readings: Date: BP: 12/22/2017 148/85 12/21/2017 148/86 06/24/2017 122/78 Lipids: Cholesterol, Total (mg/dL) Date Value 06/19/2017 165 06/27/2016 145 HDL Cholesterol (mg/dL) Date Value 06/19/2017 78 06/27/2016 66 LDL Cholesterol (mg/dL) Date Value 06/19/2017 79 06/27/2016 71 Triglyceride (mg/dL) Date Value 06/19/2017 42 06/27/2016 38 HGB A1C: Lab Results Component Value Date HBA1C 4.8 06/19/2017 HBA1C 5.0 05/01/2016 TSH: TSH (uU/mL) Date Value 05/01/2016 0.951 ) ? Patient has the following care gap registry disease diagnosis:Asthma ? HTN ? COPD ? CAD ? Patient has the following open care gaps: Health Maintenance Due: BP CONTROLLED (<130/80) due on 1972 INFLUENZA(1) due on 06/04/2018 LDL CHOLESTEROL due on 06/19/2018 - ordered ? Last office visit: 12/22/2017 ? Future office visit:upcoming appointment 07/07/2018 with labs prior ? Send appointment/lab reminder to patient Meg Espinoza [facility] CNPTOUTREACH Observed: 06/13/2018 Status: COMPLETED Source: [place] 12:00 AM [facility] [place] REPOSITORY Patient Outreach ([facility]) MARKELL BORGES JR. ([id number]) 1955 M Date Time Provider Department 06/13/18 MEG ESPINOZA ([facility]) [facility] During your visit today, we recorded the following information about you: Meg Espinoza Bi Specialist 06/13/2018 10:19 AM Signed [facility] CARE GAP REGISTRY DOCUMENTATION (OUTSIDE TEAMLET) Provider Action/FYI: PSR Action/FYI: Send appointment/lab reminder for upcoming appointment (labs ordered) Patient identified by name and date of . Last BP/Labs: Blood Pressure: Last 3 Encounter BP Readings: Date: BP: 12/22/2017 148/85 12/21/2017 148/86 06/24/2017 122/78 Lipids: Cholesterol, Total (mg/dL) Date Value 06/19/2017 165 06/27/2016 145 HDL Cholesterol (mg/dL) Date Value 06/19/2017 78 06/27/2016 66 LDL Cholesterol (mg/dL) Date Value 06/19/2017 79 06/27/2016 71 Triglyceride (mg/dL) Date Value 06/19/2017 42 06/27/2016 38 HGB A1C: Lab Results Component Value Date HBA1C 4.8 06/19/2017 HBA1C 5.0 05/01/2016 TSH: TSH (uU/mL) Date Value 05/01/2016 0.951 ) ? Patient has the following care gap registry disease diagnosis:Asthma ? HTN ? COPD ? CAD ? Patient has the following open care gaps: Health Maintenance Due: BP CONTROLLED (<130/80) due on 1972 INFLUENZA(1) due on 06/04/2018 LDL CHOLESTEROL due on 06/19/2018 - ordered ? Last office visit: 12/22/2017 ? Future office visit:upcoming appointment 07/07/2018 with labs prior ? Send appointment/lab reminder to patient Meg Espinoza Bi Specialist 06/13/2018 10:19 AM Signed Reminder mailed to patient. Allergies As of Date: 06/13/2018 Noted Allergy Reaction IBUPROFEN 08/26/2009 10 - Anaphylaxis Comments: states caused throat to swell up and he became short of breat Date Reviewed: 12/22/2017 Reviewed by: Rosalba Kimble LPN - Fully Assessed Reason for Visit: PHMA/Care Gap Outreach [[id number]] Prescriptions as of 06/13/2018 Sig: AMITRIPTYLINE 50 MG TABLET Take 1 tablet by mouth daily * CITALOPRAM 20 MG TABLET Take 1 tablet by mouth once d* BUSPIRONE 30 MG TABLET TAKE 1 TABLET BY MOUTH TWICE * MONTELUKAST 10 MG TABLET TAKE 1 TABLET BY MOUTH DAILY * IPRATROPIUM-ALBUTEROL 0.5 MG-* Inhale 3 mL as instructed as * AMITRIPTYLINE 50 MG TABLET Take 1 tablet by mouth daily * AMLODIPINE 5 MG TABLET TAKE 1 TABLET BY MOUTH ONCE D* PRAVASTATIN 40 MG TABLET TAKE 1 TABLET BY MOUTH DAILY * PROAIR HFA 90 MCG/ACTUATION A* INHALE 2 PUFFS INSTRUCTED * COMPOUNDED PRESCRIPTION THIGH HIGH COMPRESSION STOCKI* FLUTICASONE 250 MCG-SALMETERO* Inhale 1 Puff as instructed t* OMEGA-3 FATTY ACIDS-VITAMIN E* Take 1 capsule by mouth once * ASPIRIN 81 MG TABLET Take 1 tablet by mouth once d* COMPOUNDED PRESCRIPTION BIPAP setting 15/10 cm water * Problem List As Of Date 06/13/2018 Noted Resolved Hyperlipidemia [E78.5] INVALID FOR* Dysmetabolic syndrome X [E88.81] INVALID FOR*12/03/2014 Panic disorder without agoraphobia [F41.0] Generalized anxiety disorder [F41.1] 12/03/2014 More... 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 Nontraumatic rupture of tendons of biceps (long*INVALID FOR*12/03/2014 Nonspecific elevation of levels of transaminase*INVALID FOR*12/03/2014 Other hammer toe (acquired) [M20.40] INVALID FOR*12/03/2014 More... Skin lesion [L98.9] INVALID FOR*12/03/2014 Umbilical hernia without mention of obstruction*INVALID FOR*08/15/2015 GENE (obstructive sleep apnea) on BiPAP [G47.33] INVALID FOR* Unspecified essential hypertension [I10] INVALID FOR*12/03/2014 Septic prepatellar bursitis of right knee [M71.*INVALID FOR*12/03/2014 History of DVT in adulthood [Z86.718] INVALID FOR*08/24/2016 Hypertension [I10] INVALID FOR*01/28/2016 Shortness of breath [R06.02] INVALID FOR*12/03/2014 Edema [R60.9] INVALID FOR*08/15/2015 CAD (coronary artery disease) [I25.10] INVALID FOR* Complete tear of rotator cuff [M75.120] INVALID FOR* BMI 38.0-38.9,adult [Z68.38] INVALID FOR* Essential hypertension with goal blood pressure*INVALID FOR* AV block, complete (HCC) [I44.2] INVALID FOR* More... 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 Encounter Status:Closed by MEG ESPINOZA CMA on 06/13/18 CHEST WITHOUT Observed: 05/28/2018 Status: F Source: [place] 8:46 AM [facility] REPOSITORY [facility] Imaging Services [address] [place], [place] [address] [address] Chest without Contrast MR#: [id number] Acct: [id number] Name: MARKELL BORGES JR Rep #: [id number] : 1955 M 62 From: Blanquita Pacheco MD PCP: Bipin Urrutia MD Status: REG CLI Study: Chest without Contrast Date of Exam: 05/28/18 Exam# [id number] Ordering Dr: Jarrett Bill MD STUDY: CT CHEST WITHOUT CONTRAST REASON FOR EXAM: Male, 62 years old. Cough, COPD RADIATION DOSAGE (If Supplied By Facility): CTDIvol = ( 20.14 ) mGy, DLP = ( 739.82 ) mGycm TECHNIQUE: Transaxial 2.5 mm imaging was performed without the administration of intravenous contrast material. Multiplanar coronal and sagittal images were reformatted. This examination is limited for the evaluation of gastrointestinal, solid organs and vascular structures due to the lack of intravenous contrast. Individualized dose optimization techniques were used for this CT. COMPARISON: CT chest 04/28/2016 FINDINGS: Anterior chest wall left subclavian approach pacer with lead tips in the right atrium and right ventricle, mild streak artifact. The lungs are hyperexpanded, there is a focal septated pulmonary cyst in the medial right middle lobe without change. Minimal peripheral right middle, lower lateral interstitial changes, mild left lower lobe peribronchial thickening and minimal opacification, likely stable atelectasis/scarring in the lingula. There is no demonstrated pleural abnormality. Normal heart and pericardium. There are calcifications of the coronary arteries. Normal mediastinum. Normal hilar regions. Normal unenhanced pulmonary arteries. There is minimal atherosclerotic calcification of the aortic arch and descending thoracic aorta. Age-appropriate osseous structures. Hepatic cirrhosis with splenorenal and gastrosplenic varices. CT/Chest without Contrast IMPRESSION: Mild interstitial inflammation more focal in the left lower lobe with peribronchial cuffing. Cirrhosis and varices. Atherosclerosis. Electronically Signed: Blanquita Pacheco MD at 4:56 EDT , Service support , CC: Jarrett Bill MD; Bipin Urrutia MD School Bus Inspector: Signed CNCO Observed: 05/23/2018 Status: COMPLETED Source: [place] 12:00 AM [facility] REPOSITORY Letter Text Markell Borges Jr. [address] [facility] [address] 05/23/2018 [facility] #: [id number] Dear , Due to a change in the provider's schedule it has been necessary to reschedule your Appointment. Your original appointment was scheduled for July 07, 2018 at 2:40 PM with Bipin Urrutia M.D. Your new appointment is now scheduled on July 07, 2018 at 2:40 PM with EMMA Grace. If this new appointment is not convenient for you, please contact our office at [phone]. Thank you for choosing the [facility] as your Healthcare Provider . Sincerely, Internal Medicine Appointment Office PACEMAKER CHECK Observed: 01/25/2018 Status: F Source: [place] 8:48 AM [facility] REPOSITORY [facility] [address] [place] [address] Pacemaker Check Date of Service: 01/12/18 1442 MR#: [id number] Acct: [id number] Name: MARKELL BORGES JR Rep #: [id number] : 1955 From: Ceci Sexton Age/Sex: 62/M Location: [facility] Status: Signed Comments Summary Comments: Dual Chamber Pacemaker Evaluation: New enrollee from Dr. Hannah's office. Interrogation shows 10 MS episodes, 3.1% and 8 SVT episodes and 13 NSVT episodes since 06/15/16. Presenting rhythm shows NSR @ 70 bpm. ARCHEOLOGIST CLASSICAL=<1%. Battery longevity approx 8.5 yrs. Lead impedances, sensing and pace/sense thresholds remain stable. No parameter changes made, Counters cleared. Pt has PPM followed remotely at [facility]. Scheduled for 1 yrs f/u appt. Report faxed to Dr. Hannah. MV sensor ATR only. Device or Lead Warnings or Advisories: Notification for intermittent oversensing of MV sensor signal that may cause presyncope or syncope due to periods of paing inhibition if pt PPM dependent. Device Device Date Interviewed: 01/12/18 Follow-up Location: in office Interview Reason: scheduled follow up Duster Tender: Property Place Name: Robinson Model: [id number] Serial #: [id number] Implant Date: 04/30/16 Year(s): 1 Patient Characteristics Atrial Indication: sick sinus syndrome Underlying rhythm: Sinus rhythm Pacemaker Dependent: No Device Characteristics Device: Dual Chamber Type: Pacemaker Remote Follow-Up: No Device Physical Exam Yes Incision well healed Leads Lead #1 Duster Tender Lead 1: Guidant Position Lead 1: RA Lead #2 Duster Tender Lead 2: Guidant Position Lead 2: RV Diagnostics Pacing % RA Pacin % RV Pacin Mode Switching Total # Episodes: 10 % Mode switched: 3.1 Arrhythmias Non-Sust Episodes: 13 Measurements Battery Magnet Rate (bmp): 100 Battery Status: SAUL Predicted Remaining Longevity (months or years): 8.5 years RA Measurements Signal Amplitude (mV): 4.7 Impedance (Ohms): 592 Threshold Voltage: 0.7 @ PW(ms): 0.5 RV Measurements Signal Amplitude (mV): 11.3 Impedance (Ohms): 528 Threshold Voltage: 0.7 @ PW(ms): 0.5 Billing Codes PM Device Codes: PM Dev Prog Eval, Dual Assessment AND Plan Problems 1. Presence of cardiac pacemaker Z95.0 2. Sick sinus syndrome I49.5 3. Syncope R55 01/24/18 1017 <Electronically signed by Ceci Sexton > Date Ceci Sexton 01/25/18 0848<Electronically signed by Fabrizio Maria MD> Cosignanna Signature: Date (if applicable) Fabrizio Maria MD CC: PROGRESS Observed: 12/22/2017 Status: COMPLETED Source: [place] 9:09 AM [facility] REPOSITORY O ID: [id number] Author: Bipin Urrutia Service: (none) Author Type: Physician Type: Progress Notes Filed: 12/22/2017 9:41 AM Note Text: This note was created using 51fanliter. Subjective Markell Borges Jr. is a 62 year old male was here for an annual physical. He had a white coat syndrome component to his blood pressure. His home readings were in the normotensive to stage 1 range. He just saw cardiology and no medication changes were made. PAST MEDICAL HISTORY Diagnosis Date - AV block, complete ([facility]) 04/30/2016 - CAD (coronary artery disease) 03/08/2013 - Complete tear of rotator cuff 04/30/2015 right - COPD with asthma ([facility]) 11/03/2005 - Dilated pupil, left, chronic. 08/24/2016 - DVT, lower extremity ([facility]) 06/2012 right, peroneal soleal- provoked- admission for septic knee - Dysmetabolic syndrome X 08/04/2005 - Generalized anxiety disorder 09/2005 - Hyperlipidemia 08/04/2005 - Obesity, unspecified - GENE (obstructive sleep apnea) on BiPAP 06/17/2011 - Panic disorder without agoraphobia 09/2005 Panic disorder - Septic joint of right knee joint ([facility]) 06/07/2012 - Syncope 04/30/2016 Intermittent CHB. S/p DDD-PM 04/30. RV pacing 100% currently. EF 60% - CXR and device interrogation normal - Discharge today - Umbilical hernia 12/2009 - Unspecified asthma(493.90) 07/23/2008 - Unspecified essential hypertension 10/20/2011 PAST SURGICAL HISTORY Procedure Laterality Date - INSER BOOTHE PACER XVENOUS ATRIAL 04/2016 Perm pacemaker insert - PAST SURGICAL HISTORY OF 06/07/2012 I and D of right knee - REPAIR UMBILICAL TRIPP,5+Y/O,REDUC 12/11/2009 FAMILY HISTORY Problem Relation Age of Onset - Stroke Mother 65 - anxiety [OTHER] Mother - Heart Father age 61 - Heart Brother - Obesity Brother - None Brother Social History Marital status: Spouse name: Alejandra Years of education: Number of children: 2 Occupational History Occupation Employer Comment [employer]* Social History Main Topics Smoking status: Former Smoker Packs/day: 3.00 Years: 20.00 Types: Cigarettes Quit date: 10/04/1996 Smokeless status: Never Used Alcohol use: Yes 10.5 oz/week 7 Cans of Beer (12oz) per week Comment: Recovered since 1996. 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 pravastatin (PRAVACHOL) 40 mg tablet TAKE 1 TABLET BY MOUTH DAILY AT BEDTIME. citalopram (CELEXA) 20 mg tablet TAKE 1 TABLET BY MOUTH ONCE DAILY. amitriptyline (ELAVIL) 50 mg tablet TAKE 1-2 TABLETS BY MOUTH DAILY AT BEDTIME. montelukast (SINGULAIR) 10 mg tablet Take 1 tablet by mouth daily at bedtime. busPIRone HCl 30 mg tablet Take 1 tablet by mouth twice daily. PROAIR HFA 90 mcg/actuation inhaler INHALE 2 PUFFS INSTRUCTED FOUR TIMES DAILY NEEDED FOR WHEEZING/SHORTNESS OF BREATH. COMPOUNDED PRESCRIPTION THIGH HIGH COMPRESSION STOCKINGS. 18-30 MM HG PRESSURE. 1 PAIR. Diagnosis: I87.093. fluticasone-salmeterol (ADVAIR DISKUS) 250-50 mcg/dose dsdv Inhale 1 Puff as instructed twice daily. Rinse and gargle mouth after use with water. Milbridge-3 Fatty Acids-Vitamin E (FISH OIL) 1,000 mg cap Take 1 capsule by mouth once daily. Aspirin 81 mg Tab Take 1 tablet by mouth once daily. Take with food. COMPOUNDED PRESCRIPTION BIPAP setting 15/10 cm water with heated humidification before titration mask (per patient preference) and lifetime supplies. DX GENE 327.23 ipratropium-albuterol (DUONEB) 0.5 mg-3 mg(2.5 mg base)/3 mL nebu Inhale 3 mL as instructed as needed. No current facility-administered medications for this visit. Review of Systems Constitutional: Negative. HENT: Negative. Eyes: Negative. Respiratory: Negative. Cardiovascular: Positive for leg swelling. Negative for chest pain and palpitations. Gastrointestinal: Negative. Genitourinary: Negative. Musculoskeletal: Positive for arthralgias and myalgias. Knees. Neurological: Negative. Psychiatric/Behavioral: Negative. Negative for dysphoric mood and sleep disturbance. The patient is not nervous/anxious. Objective BP 148/85 (BP Site: Left Arm, BP Position: Sitting, BP Cuff Size: Regular Adult) Pulse 76 Temp 36.5 ?C (97.7 ?F) (Left Tympanic) Resp 20 Ht 171.5 cm (5' 7.5) Wt 121.1 kg (267 lb) BMI 41.2 kg/m2 Physical Exam Constitutional: He appears well-nourished. No distress. HENT: Head: Normocephalic. Nose: Nose normal. Mouth/Throat: Oropharynx is clear and moist. Eyes: Conjunctivae and EOM are normal. Pupils are equal, round, and reactive to light. Neck: No JVD present. Carotid bruit is not present. Cardiovascular: Normal rate, regular rhythm, S1 normal and S2 normal. Pulmonary/Chest: No respiratory distress. He has wheezes. He has no rales. He exhibits no tenderness. Abdominal: Soft. He exhibits no mass. There is no tenderness. Musculoskeletal: He exhibits edema. He exhibits no tenderness or deformity. Right shoulder: He exhibits decreased range of motion. Trace edema. Lymphadenopathy: He has no cervical adenopathy. Neurological: He is alert. No cranial nerve deficit. He exhibits normal muscle tone. Coordination normal. Psychiatric: He has a normal mood and affect. His behavior is normal. Thought content normal. Assessment and Plan ASSESSMENT/PLAN: 1. Routine general medical examination at a health care facility - ICD9: V70.0, ICD10: Z00.00 (primary diagnosis) - Colon cancer screening reviewed and colonoscopy recommended. Patient prefers IFOBT for now. - Recommended regular aerobic exercise. - Discussed need and benefit for weight loss. BMI 41.20 kg/(m2) - Wellness form signed and given to patient. 2. Essential hypertension with goal blood pressure less than 140/90 - ICD9: 401.9, ICD10: I10 - suboptimal control - Continue current medication(s) - Encouraged dietary sodium restriction/DASH diet - Recommended regular aerobic exercise. - Discussed need and benefit for weight loss. - BP recheck ordered. 3. Hyperlipidemia, unspecified hyperlipidemia type - ICD9: 272.4, ICD10: E78.5 - to be determined upon return of lab results - Continue current medication. 4. Panic disorder without agoraphobia - ICD9: 300.01, ICD10: F41.0 Controlled. He was only taking one amitriptyline at bedtime. 5. COPD with asthma ([facility]) - ICD9: 493.20, ICD10: J44.9 Mild persistent Asthma stable - Continue current meds 6. GENE (obstructive sleep apnea) on BiPAP - ICD9: 327.23, ICD10: G47.33 Controlled, compliant with BiPAP 7. BMI 40.0-44.9, adult ([facility]) - ICD9: V85.41, ICD10: Z68.41 Discussed low carb diet. 8. Hearing loss due to cerumen impaction, right - ICD9: 389.8, 380.4, ICD10: H61.21 - PERS [facility]TH MGMT EAR WAX REMOVA 9. Screening for colon cancer - ICD9: V76.51, ICD10: Z12.11 - FECAL OCCULT BLOOD TEST Bipin Urrutia MD CNOV Observed: 12/22/2017 Status: COMPLETED Source: [place] 8:40 AM [facility] REPOSITORY Office Visit (INTMWS) MARKELL BORGES JR. ([id number]) 1955 M Date Time Provider Department 12/22/17 8:40 AM BIPIN URRUTIA IN[facility] During your visit today, we recorded the following information about you: Temperature Pulse Respiration Blood pressure 97.7 degrees 76/minute 20/minute 148/85 Weight Height 121.1 kg 1.715 m Bipin Urrutia MD 12/22/2017 9:41 AM Signed This note was created using [email or web address]. Subjective Markell Borges Jr. is a 62 year old male was here for an annual physical. He had a white coat syndrome component to his blood pressure. His home readings were in the normotensive to stage 1 range. He just saw cardiology and no medication changes were made. PAST MEDICAL HISTORY Diagnosis Date - AV block, complete ([facility]) 04/30/2016 - CAD (coronary artery disease) 03/08/2013 - Complete tear of rotator cuff 04/30/2015 right - COPD with asthma ([facility]) 11/03/2005 - Dilated pupil, left, chronic. 08/24/2016 - DVT, lower extremity ([facility]) 06/2012 right, peroneal soleal- provoked- admission for septic knee - Dysmetabolic syndrome X 08/04/2005 - Generalized anxiety disorder 09/2005 - Hyperlipidemia 08/04/2005 - Obesity, unspecified - GENE (obstructive sleep apnea) on BiPAP 06/17/2011 - Panic disorder without agoraphobia 09/2005 Panic disorder - Septic joint of right knee joint (HCC) 06/07/2012 - Syncope 04/30/2016 Intermittent CHB. S/p DDD-PM 04/30. RV pacing 100% currently. EF 60% - CXR and device interrogation normal - Discharge today - Umbilical hernia 12/2009 - Unspecified asthma(493.90) 07/23/2008 - Unspecified essential hypertension 10/20/2011 PAST SURGICAL HISTORY Procedure Laterality Date - INSER BOOTHE PACER XVENOUS ATRIAL 04/2016 Perm pacemaker insert - PAST SURGICAL HISTORY OF 06/07/2012 I and D of right knee - REPAIR UMBILICAL TRIPP,5+Y/O,REDUC 12/11/2009 FAMILY HISTORY Problem Relation Age of Onset - Stroke Mother 65 - anxiety [OTHER] Mother - Heart Father age 61 - Heart Brother - Obesity Brother - None Brother Social History Marital status: Spouse name: Alejandra Years of education: Number of children: 2 Occupational History Occupation Employer Comment [employer]* Social History Main Topics Smoking status: Former Smoker Packs/day: 3.00 Years: 20.00 Types: Cigarettes Quit date: 10/04/1996 Smokeless status: Never Used Alcohol use: Yes 10.5 oz/week 7 Cans of Beer (12oz) per week Comment: Recovered since 1996. 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 pravastatin (PRAVACHOL) 40 mg tablet TAKE 1 TABLET BY MOUTH DAILY AT BEDTIME. citalopram (CELEXA) 20 mg tablet TAKE 1 TABLET BY MOUTH ONCE DAILY. amitriptyline (ELAVIL) 50 mg tablet TAKE 1-2 TABLETS BY MOUTH DAILY AT BEDTIME. montelukast (SINGULAIR) 10 mg tablet Take 1 tablet by mouth daily at bedtime. busPIRone HCl 30 mg tablet Take 1 tablet by mouth twice daily. PROAIR HFA 90 mcg/actuation inhaler INHALE 2 PUFFS INSTRUCTED FOUR TIMES DAILY NEEDED FOR WHEEZING/SHORTNESS OF BREATH. COMPOUNDED PRESCRIPTION THIGH HIGH COMPRESSION STOCKINGS. 18-30 MM HG PRESSURE. 1 PAIR. Diagnosis: I87.093. fluticasone-salmeterol (ADVAIR DISKUS) 250-50 mcg/dose dsdv Inhale 1 Puff as instructed twice daily. Rinse and gargle mouth after use with water. Milbridge-3 Fatty Acids-Vitamin E (FISH OIL) 1,000 mg cap Take 1 capsule by mouth once daily. Aspirin 81 mg Tab Take 1 tablet by mouth once daily. Take with food. COMPOUNDED PRESCRIPTION BIPAP setting 15/10 cm water with heated humidification before titration mask (per patient preference) and lifetime supplies. DX GENE 327.23 ipratropium-albuterol (DUONEB) 0.5 mg-3 mg(2.5 mg base)/3 mL nebu Inhale 3 mL as instructed as needed. No current facility-administered medications for this visit. Review of Systems Constitutional: Negative. HENT: Negative. Eyes: Negative. Respiratory: Negative. Cardiovascular: Positive for leg swelling. Negative for chest pain and palpitations. Gastrointestinal: Negative. Genitourinary: Negative. Musculoskeletal: Positive for arthralgias and myalgias. Knees. Neurological: Negative. Psychiatric/Behavioral: Negative. Negative for dysphoric mood and sleep disturbance. The patient is not nervous/anxious. Objective BP 148/85 (BP Site: Left Arm, BP Position: Sitting, BP Cuff Size: Regular Adult) Pulse 76 Temp 36.5 ?C (97.7 ?F) (Left Tympanic) Resp 20 Ht 171.5 cm (5' 7.5ANDquot;) Wt 121.1 kg (267 lb) BMI 41.2 kg/m2 Physical Exam Constitutional: He appears well-nourished. No distress. HENT: Head: Normocephalic. Nose: Nose normal. Mouth/Throat: Oropharynx is clear and moist. Eyes: Conjunctivae and EOM are normal. Pupils are equal, round, and reactive to light. Neck: No JVD present. Carotid bruit is not present. Cardiovascular: Normal rate, regular rhythm, S1 normal and S2 normal. Pulmonary/Chest: No respiratory distress. He has wheezes. He has no rales. He exhibits no tenderness. Abdominal: Soft. He exhibits no mass. There is no tenderness. Musculoskeletal: He exhibits edema. He exhibits no tenderness or deformity. Right shoulder: He exhibits decreased range of motion. Trace edema. Lymphadenopathy: He has no cervical adenopathy. Neurological: He is alert. No cranial nerve deficit. He exhibits normal muscle tone. Coordination normal. Psychiatric: He has a normal mood and affect. His behavior is normal. Thought content normal. Assessment and Plan ASSESSMENT/PLAN: 1. Routine general medical examination at a health care facility - ICD9: V70.0, ICD10: Z00.00 (primary diagnosis) - Colon cancer screening reviewed and colonoscopy recommended. Patient prefers IFOBT for now. - Recommended regular aerobic exercise. - Discussed need and benefit for weight loss. BMI 41.20 kg/(m2) - Wellness form signed and given to patient. 2. Essential hypertension with goal blood pressure less than 140/90 - ICD9: 401.9, ICD10: I10 - suboptimal control - Continue current medication(s) - Encouraged dietary sodium restriction/DASH diet - Recommended regular aerobic exercise. - Discussed need and benefit for weight loss. - BP recheck ordered. 3. Hyperlipidemia, unspecified hyperlipidemia type - ICD9: 272.4, ICD10: E78.5 - to be determined upon return of lab results - Continue current medication. 4. Panic disorder without agoraphobia - ICD9: 300.01, ICD10: F41.0 Controlled. He was only taking one amitriptyline at bedtime. 5. COPD with asthma (HCC) - ICD9: 493.20, ICD10: J44.9 Mild persistent Asthma stable - Continue current meds 6. GENE (obstructive sleep apnea) on BiPAP - ICD9: 327.23, ICD10: G47.33 Controlled, compliant with BiPAP 7. BMI 40.0-44.9, adult (HCC) - ICD9: V85.41, ICD10: Z68.41 Discussed low carb diet. 8. Hearing loss due to cerumen impaction, right - ICD9: 389.8, 380.4, ICD10: H61.21 - PERS HLTH MGMT EAR WAX REMOVA 9. Screening for colon cancer - ICD9: V76.51, ICD10: Z12.11 - FECAL OCCULT BLOOD TEST Bipin Urrutia MD Referring Provider: BIIPN URRUTIA [[id number]] Allergies As of Date: 12/22/2017 Noted Allergy Reaction IBUPROFEN 08/26/2009 10 - Anaphylaxis Comments: states caused throat to swell up and he became short of breat Date Reviewed: 12/22/2017 Reviewed by: Rosalba Kimble LPN - Fully Assessed Reason for Visit: Yearly Exam [187] Primary Visit Diagnosis:Routine general medical examination at a health care facility [Z00.00] Other Visit Diagnoses:Essential hypertension with goal blood pressure less than 140/90 [I10] Hyperlipidemia, unspecified hyperlipidemia type [E78.5] Panic disorder without agoraphobia [F41.0] COPD with asthma (HCC) [J44.9] GENE (obstructive sleep apnea) on BiPAP [G47.33] BMI 40.0-44.9, adult (HCC) [Z68.41] Hearing loss due to cerumen impaction, right [H61.21] Screening for colon cancer [Z12.11] Order(s):amitriptyline (ELAVIL) 50 mg tabletTake 1 tablet by mouth daily at bedtime.Disp: Rfl: [facility]ERS [facility] MGMT EAR WAX REMOVA [[id number]] Order #: [id number] FECAL OCCULT BLOOD TEST [SQIFOBT] Order #: [id number] FUTURE Prescriptions as of 12/22/2017 Sig: AMITRIPTYLINE 50 MG TABLET Take 1 tablet by mouth daily * AMLODIPINE 5 MG TABLET TAKE 1 TABLET BY MOUTH ONCE D* PRAVASTATIN 40 MG TABLET TAKE 1 TABLET BY MOUTH DAILY * CITALOPRAM 20 MG TABLET TAKE 1 TABLET BY MOUTH ONCE D* MONTELUKAST 10 MG TABLET Take 1 tablet by mouth daily * BUSPIRONE 30 MG TABLET Take 1 tablet by mouth twice * PROAIR HFA 90 MCG/ACTUATION A* INHALE 2 PUFFS INSTRUCTED * COMPOUNDED PRESCRIPTION THIGH HIGH COMPRESSION STOCKI* FLUTICASONE 250 MCG-SALMETERO* Inhale 1 Puff as instructed t* OMEGA-3 FATTY ACIDS-VITAMIN E* Take 1 capsule by mouth once * ASPIRIN 81 MG TABLET Take 1 tablet by mouth once d* COMPOUNDED PRESCRIPTION BIPAP setting 15/10 cm water * IPRATROPIUM-ALBUTEROL 0.5 MG-* Inhale 3 mL as instructed as * Medication notes this encounter OMEGA-3 FATTY ACIDS-VITAMIN E 1,000 MG CAPSULE >> Rosalba Matt Womacker SORTING SUPERVISOR 12/22/2017 8:53 AM >> SHYANNE ROSALBA E SORTING SUPERVISOR WedDec 22, 2017 8:53 AM Taking 1 tablet twice daily. GUAIFENESIN ER 600 MG TABLET, EXTENDED RELEASE 12 HR >> Rosalba E Shyanne SORTING SUPERVISOR 12/22/2017 8:53 AM >> SHYANNE, ROSALBA E SORTING SUPERVISOR WedDec 22, 2017 8:53 AM Not taking. PREDNISONE 20 MG TABLET >> Rosalba E Shyanne SORTING SUPERVISOR 12/22/2017 8:53 AM >> SHYANNE, ROSALBA E SORTING SUPERVISOR WedDec 22, 2017 8:53 AM Course completed. Problem List As Of Date 12/22/2017 Noted Resolved Hyperlipidemia [E78.5] INVALID FOR* Dysmetabolic syndrome X [E88.81] INVALID FOR*12/03/2014 Panic disorder without agoraphobia [F41.0] Generalized anxiety disorder [F41.1] 12/03/2014 More... 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 Nontraumatic rupture of tendons of biceps (long*INVALID FOR*12/03/2014 Nonspecific elevation of levels of transaminase*INVALID FOR*12/03/2014 Other hammer toe (acquired) [M20.40] INVALID FOR*12/03/2014 More... Skin lesion [L98.9] INVALID FOR*12/03/2014 Umbilical hernia without mention of obstruction*INVALID FOR*08/15/2015 GENE (obstructive sleep apnea) on BiPAP [G47.33] INVALID FOR* Unspecified essential hypertension [I10] INVALID FOR*12/03/2014 Septic prepatellar bursitis of right knee [M71.*INVALID FOR*12/03/2014 History of DVT in adulthood [Z86.718] INVALID FOR*08/24/2016 Hypertension [I10] INVALID FOR*01/28/2016 Shortness of breath [R06.02] INVALID FOR*12/03/2014 Edema [R60.9] INVALID FOR*08/15/2015 CAD (coronary artery disease) [I25.10] INVALID FOR* Complete tear of rotator cuff [M75.120] INVALID FOR* BMI 38.0-38.9,adult [Z68.38] INVALID FOR* Essential hypertension with goal blood pressure*INVALID FOR* AV block, complete (HCC) [I44.2] INVALID FOR* More... 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 [H57.04] INVALID FOR* Post-phlebitic dermatosis of both lower legs [I*INVALID FOR* Prescriptions ordered this encounter Disp Refills Start End AMITRIPTYLINE 50 MG TABLET 12/22/2017 Class: Med Update Route: ORAL Sig: Take 1 tablet by mouth daily at bedtime. Medications Discontinued During This Encounter guaiFENesin (MUCINEX) 600 mg 12 hr t* 28 t* 0 10/11/2017 12/22/2017 Route: ORAL Sig: Take 2 tablets by mouth twice daily. Disc: Reason for discontinue is not on file. predniSONE (DELTASONE) 20 mg tablet 10 t* 0 10/11/2017 12/22/2017 Sig: Take (2) two tablets by mouth daily for 5 days. Disc: Reason for discontinue is not on file. amitriptyline (ELAVIL) 50 mg tablet 180 * 3 06/08/2017 12/22/2017 Sig: TAKE 1-2 TABLETS BY MOUTH DAILY AT BEDTIME. Disc: Reason for discontinue is not on file. Disposition: Return in about 6 months (around 06/24/2018). Follow-up and Disposition History Recorded Encounter Status:Closed by BIPIN URRUTIA MD on 12/22/17 PROGRESS Observed: 12/21/2017 Status: COMPLETED Source: [facility] 9:02 AM CLINIC OTHER CAMPUS REPOSITORY O ID: [id number] Author: Agusto Hannah Service: (none) Author Type: Physician Type: Progress Notes Filed: 12/21/2017 1:05 PM Note Text: PERTINENT CARDIAC HISTORY ASHD - single vessel by stress, medical rx HTN HL RBBB GENE - BiPAP Syncope - AV block, PPM 04/18 DVT - post op PAF - rare, C-V 1, monitor by PM check ADHERENCE TO GUIDELINES AMADEO-I or ARB for HF with prior LVEF<40 (NQF 0081) - N/A ASA or Plavix for ASHD (NQF 0067) - met Beta ana for ASHD with prior PA or prior LVEF<40 (NQF 0070) - N/A Beta ana for HF with prior LVEF<40 (NQF 0083) - N/A AMADEO-I or ARB for ASHD with DM or prior LVEF<40 (NQF 0066) - N/A Statin therapy for ASHD or FHL or DM - met BMI documented and plan if >25 (NQF 0421) - lifestyle recommendation form Tobacco use screening and referral (NQF 0028) - lifestyle recommendation form Recommendation for whole food, plant based diet - lifestyle recommendation form CLINICAL IMPRESSION/PLAN: Markell Borges Jr. has stable ischemic heart disease. His blood pressure at home has been well-controlled. he's been advised to watch this closely. AMADEO inhibitor can be added if he requires additional antihypertensive therapy. He will undergo pacemaker clinic check at [facility]. He will continue his remote checks through [facility]. We discussed the potential indication for anticoagulation. We will continue to monitor for atrial fibrillation. He had intolerable side effects to warfarin but is willing to consider a DOAC when the time comes. For now, his Chads-Vasc score is 1 and his episodes of atrial fib are quite rare. I will see him in 8 months or as needed. Written and verbal health teaching given to patient, patient verbalizes understanding and agrees with treatment plan. This note was generated using A2B voice recognition system, and there may be some incorrect words, spellings, and punctuation that were not noted in checking the note before saving. DIAGNOSIS FOR VISIT: ASHD Hypertension HISTORY OF PRESENT ILLNESS Markell Borges Jr. returns for follow-up of his coronary disease and hypertension. He reports stable exercise tolerance. 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 He's had minimal edema. He denies syncope, palpitations, TIAs, amaurosis and claudication. blood pressures at home have been in the 120/80 range. ALLERGIES: ALLERGIES Allergen Reactions - Ibuprofen Anaphylaxis states caused throat to swell up and he became short of breat CURRENT OUTPATIENT MEDICATIONS: amLODIPine (NORVASC) 5 mg tablet TAKE 1 TABLET BY MOUTH ONCE DAILY. pravastatin (PRAVACHOL) 40 mg tablet TAKE 1 TABLET BY MOUTH DAILY AT BEDTIME. citalopram (CELEXA) 20 mg tablet TAKE 1 TABLET BY MOUTH ONCE DAILY. amitriptyline (ELAVIL) 50 mg tablet TAKE 1-2 TABLETS BY MOUTH DAILY AT BEDTIME. montelukast (SINGULAIR) 10 mg tablet Take 1 tablet by mouth daily at bedtime. busPIRone HCl 30 mg tablet Take 1 tablet by mouth twice daily. PROAIR HFA 90 mcg/actuation inhaler INHALE 2 PUFFS INSTRUCTED FOUR TIMES DAILY NEEDED FOR WHEEZING/SHORTNESS OF BREATH. COMPOUNDED PRESCRIPTION THIGH HIGH COMPRESSION STOCKINGS. 18-30 MM HG PRESSURE. 1 PAIR. Diagnosis: I87.093. fluticasone-salmeterol (ADVAIR DISKUS) 250-50 mcg/dose dsdv Inhale 1 Puff as instructed twice daily. Rinse and gargle mouth after use with water. [place]-3 Fatty Acids-Vitamin E (FISH OIL) 1,000 mg cap Take 1 capsule by mouth once daily. Aspirin 81 mg Tab Take 1 tablet by mouth once daily. Take with food. COMPOUNDED PRESCRIPTION BIPAP setting 15/10 cm water with heated humidification before titration mask (per patient preference) and lifetime supplies. DX GENE 327.23 guaiFENesin (MUCINEX) 600 mg 12 hr tablet Take 2 tablets by mouth twice daily. predniSONE (DELTASONE) 20 mg tablet Take (2) two tablets by mouth daily for 5 days. PHYSICAL EXAMINATION: VITAL SIGNS: BP 148/86 Pulse 82 Ht 5' 8 (1.73m) Wt 270 lb 6.4 oz (122.7kg) BMI 41.12 kg/(m2). Chest: Clear to percussion and auscultation. Trachea is midline. Air entry is equal. Cardiac: Regular rhythm. S1 and S2 are normal. PMI is nondisplaced. There is a soft systolic ejection murmur. Carotids are brisk without bruits. JVP is less than 10 cm. Abdomen: Soft and nontender. There are no pulsatile masses or bruits. No liver enlargement. Bowel sounds are active. Extremities: Trace edema. Pulses are intact and symmetrical. EKG shows sinus rhythm with first degree AV block. There is right bundle branch block and left anterior fascicular block. Recent labs were reviewed. LDL was 79. Renal function is normal. Most recent pacemaker check showed evidence of one episode of atrial fibrillation lasting 4 hours. There was no documented ventricular arrhythmia. Electronically Signed: Agusto Hannah MD December 21, 2017 9:02 AM CC: Bipin Urruita MD CNOV Observed: 12/21/2017 Status: COMPLETED Source: [facility] 8:30 AM CLINIC OTHER CAMPUS REPOSITORY Office Visit (AGCARDWST) MARKELL BORGES JR. ([id number]) 1955 M Date Time Provider Department 12/21/17 8:30 AM AGUSTO HANNAH During your visit today, we recorded the following information about you: Pulse Blood pressure Weight Height 82/minute 148/86 122.7 kg 1.727 m Agusto Hannah MD 12/21/2017 1:05 PM Signed PERTINENT CARDIAC HISTORY ASHD - single vessel by stress, medical rx HTN HL RBBB GENE - BiPAP Syncope - AV block, PPM 04/18 DVT - post op PAF - rare, C-V 1, monitor by PM check ADHERENCE TO GUIDELINES AMADEO-I or ARB for HF with prior LVEFANDlt;40 (NQF 0081) - N/A ASA or Plavix for ASHD (NQF 0067) - met Beta ana for ASHD with prior PA or prior LVEFANDlt;40 (NQF 0070) - N/A Beta ana for HF with prior LVEFANDlt;40 (NQF 0083) - N/A AMADEO-I or ARB for ASHD with DM or prior LVEFANDlt;40 (NQF 0066) - N/A Statin therapy for ASHD or FHL or DM - met BMI documented and plan if ANDgt;25 (NQF 0421) - lifestyle recommendation form Tobacco use screening and referral (NQF 0028) - lifestyle recommendation form Recommendation for whole food, plant based diet - lifestyle recommendation form CLINICAL IMPRESSION/PLAN: Markell Borges Jr. has stable ischemic heart disease. His blood pressure at home has been well-controlled. he's been advised to watch this closely. AMADEO inhibitor can be added if he requires additional antihypertensive therapy. He will undergo pacemaker clinic check at [facility]. He will continue his remote checks through main campus. We discussed the potential indication for anticoagulation. We will continue to monitor for atrial fibrillation. He had intolerable side effects to warfarin but is willing to consider a DOAC when the time comes. For now, his Chads-Vasc score is 1 and his episodes of atrial fib are quite rare. I will see him in 8 months or as needed. Written and verbal health teaching given to patient, patient verbalizes understanding and agrees with treatment plan. This note was generated using A2B voice recognition system, and there may be some incorrect words, spellings, and punctuation that were not noted in checking the note before saving. DIAGNOSIS FOR VISIT: ASHD Hypertension HISTORY OF PRESENT ILLNESS Markell Borges Jr. returns for follow-up of his coronary disease and hypertension. He reports stable exercise tolerance. 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 He's had minimal edema. He denies syncope, palpitations, TIAs, amaurosis and claudication. blood pressures at home have been in the 120/80 range. ALLERGIES: ALLERGIES Allergen Reactions - Ibuprofen Anaphylaxis states caused throat to swell up and he became short of breat CURRENT OUTPATIENT MEDICATIONS: amLODIPine (NORVASC) 5 mg tablet TAKE 1 TABLET BY MOUTH ONCE DAILY. pravastatin (PRAVACHOL) 40 mg tablet TAKE 1 TABLET BY MOUTH DAILY AT BEDTIME. citalopram (CELEXA) 20 mg tablet TAKE 1 TABLET BY MOUTH ONCE DAILY. amitriptyline (ELAVIL) 50 mg tablet TAKE 1-2 TABLETS BY MOUTH DAILY AT BEDTIME. montelukast (SINGULAIR) 10 mg tablet Take 1 tablet by mouth daily at bedtime. busPIRone HCl 30 mg tablet Take 1 tablet by mouth twice daily. PROAIR HFA 90 mcg/actuation inhaler INHALE 2 PUFFS INSTRUCTED FOUR TIMES DAILY NEEDED FOR WHEEZING/SHORTNESS OF BREATH. COMPOUNDED PRESCRIPTION THIGH HIGH COMPRESSION STOCKINGS. 18-30 MM HG PRESSURE. 1 PAIR. Diagnosis: I87.093. fluticasone-salmeterol (ADVAIR DISKUS) 250-50 mcg/dose dsdv Inhale 1 Puff as instructed twice daily. Rinse and gargle mouth after use with water. Milbridge-3 Fatty Acids-Vitamin E (FISH OIL) 1,000 mg cap Take 1 capsule by mouth once daily. Aspirin 81 mg Tab Take 1 tablet by mouth once daily. Take with food. COMPOUNDED PRESCRIPTION BIPAP setting 15/10 cm water with heated humidification before titration mask (per patient preference) and lifetime supplies. DX GENE 327.23 guaiFENesin (MUCINEX) 600 mg 12 hr tablet Take 2 tablets by mouth twice daily. predniSONE (DELTASONE) 20 mg tablet Take (2) two tablets by mouth daily for 5 days. PHYSICAL EXAMINATION: VITAL SIGNS: BP 148/86 Pulse 82 Ht 5' 8ANDquot; (1.73m) Wt 270 lb 6.4 oz (122.7kg) BMI 41.12 kg/(m2). Chest: Clear to percussion and auscultation. Trachea is midline. Air entry is equal. Cardiac: Regular rhythm. S1 and S2 are normal. PMI is nondisplaced. There is a soft systolic ejection murmur. Carotids are brisk without bruits. JVP is less than 10 cm. Abdomen: Soft and nontender. There are no pulsatile masses or bruits. No liver enlargement. Bowel sounds are active. Extremities: Trace edema. Pulses are intact and symmetrical. EKG shows sinus rhythm with first degree AV block. There is right bundle branch block and left anterior fascicular block. Recent labs were reviewed. LDL was 79. Renal function is normal. Most recent pacemaker check showed evidence of one episode of atrial fibrillation lasting 4 hours. There was no documented ventricular arrhythmia. Electronically Signed: Agusto Hannah MD December 21, 2017 9:02 AM CC: MD Agusto Redd MD 12/21/2017 9:06 AM Signed LIFESTYLE CHANGE A healthy lifestyle is the most important component of your overall treatment plan. Please give serious thought to the following areas and commit to making intermediate changes. EAT A WHOLE FOOD, PLANT BASED DIET The nutrition your body gets is more important than the medicine you take. What matters most is the overall way you eat. We encourage you to minimize the use of animal products (which include dairy and all meats except fatty fish) and use whole, unprocessed plant foods to provide your protein, vitamins and other nutrients. We have a lot of information to share with you on this topic. We also hold Shared Medical Appointments, where you can come visit with Dr. Hannah in the company of other patients and spend over an hour talking about the challenges of changing the way you eat. This is not a ANDquot;dietANDquot;. It is a way of life that you will keep with you. EXERCISE REGULARLY It is not important to spend hours in the gym, lifting weights and perspiring heavily. A total of 2-3 hours per week of aerobic (causing you to be moderately short of breath) exercise is sufficient to improve your health. Talk to us before you begin a new exercise program, if you have heart disease or experience shortness of breath or chest pain. REDUCE STRESS Chronic emotional and physical stress leads to disease. Ways of reducing stress include meditation, visualization, prayer, yoga and other forms of relaxation therapy. Consistency is the burton. Find a technique that works for you and do it every day. CULTIVATE RELATIONSHIPS Loneliness and isolation have a major negative impact on health. Seek out others who can love, care for and nurture you. Avoid hurtful relationships. MAINTAIN IDEAL BODY WEIGHT The best way to do this is to do all the things above. Our bodies naturally find the right weight if we keep moving and feed ourselves the right food. If your BMI is greater than 25, we strongly recommend a referral to a weight management program. Please speak to us or your family physician about available programs. AVOID NICOTINE IN ALL FORMS This includes all tobacco products, whether chewed, smoked, vaped, or rubbed on the skin. Smoking cessation programs, which can make use of tobacco substitutes, medications to suppress cravings and behavior management, are available. Please contact your family physician about programs in your area. Referring Provider: AGUSTO HANNAH [[id number]] Allergies As of Date: 12/21/2017 Noted Allergy Reaction IBUPROFEN 08/26/2009 10 - Anaphylaxis Comments: states caused throat to swell up and he became short of breat Date Reviewed: 12/21/2017 Reviewed by: Berenice Tavares - Fully Assessed Reason for Visit: Follow Up [171] Primary Visit Diagnosis:ASHD (arteriosclerotic heart disease) [I25.10] Other Visit Diagnosis:Essential hypertension [I10] Order(s):ECG B/O W INTERP (MED OFFICE) [ECG06] Order #: [id number] CONSULT TO DEVICE CLINIC () [1773376] Order #: [id number]: 1 LIPID PANEL BASIC [SQLIPB] Order #: [id number] FUTURE BASIC METABOLIC PNL [SQBMP] Order #: [id number] FUTURE Prescriptions as of 12/21/2017 Sig: AMLODIPINE 5 MG TABLET TAKE 1 TABLET BY MOUTH ONCE D* PRAVASTATIN 40 MG TABLET TAKE 1 TABLET BY MOUTH DAILY * CITALOPRAM 20 MG TABLET TAKE 1 TABLET BY MOUTH ONCE D* AMITRIPTYLINE 50 MG TABLET TAKE 1-2 TABLETS BY MOUTH KIERSTEN* MONTELUKAST 10 MG TABLET Take 1 tablet by mouth daily * BUSPIRONE 30 MG TABLET Take 1 tablet by mouth twice * PROAIR HFA 90 MCG/ACTUATION A* INHALE 2 PUFFS INSTRUCTED * COMPOUNDED PRESCRIPTION THIGH HIGH COMPRESSION STOCKI* FLUTICASONE 250 MCG-SALMETERO* Inhale 1 Puff as instructed t* OMEGA-3 FATTY ACIDS-VITAMIN E* Take 1 capsule by mouth once * ASPIRIN 81 MG TABLET Take 1 tablet by mouth once d* COMPOUNDED PRESCRIPTION BIPAP setting 15/10 cm water * GUAIFENESIN ER 600 MG TABLET,* Take 2 tablets by mouth twice* PREDNISONE 20 MG TABLET Take (2) two tablets by mouth* Medication notes this encounter GUAIFENESIN ER 600 MG TABLET, EXTENDED RELEASE 12 HR >> Berenice Tavares MA 12/21/2017 8:41 AM >> BERENICE TAVARES MA Dec 21, 2017 8:41 AM Not taking PREDNISONE 20 MG TABLET >> Berenice Tavares MA 12/21/2017 8:41 AM >> BERENICE TAVARES MA Dec 21, 2017 8:41 AM Course of therapy completed. Problem List As Of Date 12/21/2017 Noted Resolved Hyperlipidemia [E78.5] INVALID FOR* Dysmetabolic syndrome X [E88.81] INVALID FOR*12/03/2014 Panic disorder without agoraphobia [F41.0] Generalized anxiety disorder [F41.1] 12/03/2014 More... 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 Nontraumatic rupture of tendons of biceps (long*INVALID FOR*12/03/2014 Nonspecific elevation of levels of transaminase*INVALID FOR*12/03/2014 Other hammer toe (acquired) [M20.40] INVALID FOR*12/03/2014 More... Skin lesion [L98.9] INVALID FOR*12/03/2014 Umbilical hernia without mention of obstruction*INVALID FOR*08/15/2015 GENE (obstructive sleep apnea) on BiPAP [G47.33] INVALID FOR* Unspecified essential hypertension [I10] INVALID FOR*12/03/2014 Septic prepatellar bursitis of right knee [M71.*INVALID FOR*12/03/2014 History of DVT in adulthood [Z86.718] INVALID FOR*08/24/2016 Hypertension [I10] INVALID FOR*01/28/2016 Shortness of breath [R06.02] INVALID FOR*12/03/2014 Edema [R60.9] INVALID FOR*08/15/2015 CAD (coronary artery disease) [I25.10] INVALID FOR* Complete tear of rotator cuff [M75.120] INVALID FOR* BMI 38.0-38.9,adult [Z68.38] INVALID FOR* Essential hypertension with goal blood pressure*INVALID FOR* AV block, complete (HCC) [I44.2] INVALID FOR* More... 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 EAT A WHOLE FOOD, PLANT BASED DIET The nutrition your body gets is more important than the medicine you take. What matters most is the overall way you eat. We encourage you to minimize the use of animal products (which include dairy and all meats except fatty fish) and use whole, unprocessed plant foods to provide your protein, vitamins and other nutrients. We have a lot of information to share with you on this topic. We also hold Shared Medical Appointments, where you can come visit with Dr. Hannah in the company of other patients and spend over an hour talking about the challenges of changing the way you eat. This is not a diet. It is a way of life that you will keep with you. EXERCISE REGULARLY It is not important to spend hours in the gym, lifting weights and perspiring heavily. A total of 2-3 hours per week of aerobic (causing you to be moderately short of breath) exercise is sufficient to improve your health. Talk to us before you begin a new exercise program, if you have heart disease or experience shortness of breath or chest pain. REDUCE STRESS Chronic emotional and physical stress leads to disease. Ways of reducing stress include meditation, visualization, prayer, yoga and other forms of relaxation therapy. Consistency is the burton. Find a technique that works for you and do it every day. CULTIVATE RELATIONSHIPS Loneliness and isolation have a major negative impact on health. Seek out others who can love, care for and nurture you. Avoid hurtful relationships. MAINTAIN IDEAL BODY WEIGHT The best way to do this is to do all the things above. Our bodies naturally find the right weight if we keep moving and feed ourselves the right food. If your BMI is greater than 25, we strongly recommend a referral to a weight management program. Please speak to us or your family physician about available programs. AVOID NICOTINE IN ALL FORMS This includes all tobacco products, whether chewed, smoked, vaped, or rubbed on the skin. Smoking cessation programs, which can make use of tobacco substitutes, medications to suppress cravings and behavior management, are available. Please contact your family physician about programs in your area. Follow-up and Disposition History Recorded Encounter Status:Closed by AGUSTO HANNAH MD on 12/21/17 ALLERGIES ALLERGIES DATE TYPE / CODE NAME / CODE REACTION SEVERITY SOURCE 10/11/2018 Drug ibuprofen/[id number] Anaphylaxis [facility] Allergy/416 2377(RXNORM) [facility] 177154([facility] ED CT) Repository 08/26/2009 DRUG IBUPROFEN ANAPHYLAXIS [facility] INGREDI/419 [facility] [id number](SN Repository ED CT) [id number] IBUPROFEN [facility] [facility] Repository ENCOUNTERS ENCOUNTERS ADMIT/DISCHARGE ACCOUNT NUMBER ADMITTING ENCOUNTER LOCATION SOURCE CLASS 10/18/2018 [id number] Ambulatory BMSBuilding: [place] BMS.CF[facility] Repository 10/18/2018 [id number] Ambulatory General acute hospital ding:[facility] Repository 10/11/2018/10/11/19 [id number] Ambulatory BMSBuilding: [place] 19 BMS.[facility] Repository 10/11/2018/10/11/19 [id number] Ambulatory BMSBuilding: [place] 19 BMS[facility] Repository 08/23/2018/08/24/20 [id number] Ambulatory [address] [place] Repository 08/23/2018 [id number] Ambulatory [facility] MEDICAL Repository CENTERBuildi ng:[facility] 08/22/2018/08/23/20 [id number] CHARLIE, Ambulatory [address] [place] Repository 08/22/2018/08/22/20 [id number] Ambulatory [address] [place] Repository 07/29/2018/07/29/20 [id number] Ambulatory [address] [place] Repository 07/29/2018/07/29/20 [id number] Ambulatory [address] [place] Repository 07/29/2018/07/29/20 [id number] Ambulatory [address] [facility] [place] Repository 07/12/2018/07/12/20 [id number] Emergency [address] ding:ED Repository 07/07/2018/07/08/20 [id number] Ambulatory [address] [place] Repository 07/02/2018/07/02/20 [id number] Ambulatory [address] [place] Repository 06/21/2018/06/22/20 [id number] Ambulatory [address] [place] Repository 06/21/2018/06/21/20 [id number] Ambulatory [address] [place] Repository 06/21/2018/06/22/20 [id number] Ambulatory [address] [place] Repository 05/28/2018 [id number] Ambulatory General acute hospital ding:[facility] Repository 05/26/2018/05/26/20 [id number] Ambulatory [address] [place] Repository 03/15/2018/03/15/20 [id number] Ambulatory [address] [place] Repository 01/12/2018/01/13/20 [id number] Ambulatory BMSBuilding: [place] [facility] BMS.[facility] Repository 01/12/2018 [id number] Ambulatory BMSBuilding: [place] BMS.[facility] Repository 12/22/2017/12/23/19 [id number] Ambulatory [address] Repository 12/21/2017/12/22/19 [id number] Ambulatory [address] [place] Repository 12/21/2017/12/22/19 [id number] Ambulatory [address] MEDICAL Repository CENTERBuildi ng:CAGWS 12/14/2017/12/15/19 [id number] Ambulatory [address] Repository PAYERS PAYERS ENCOUNTER GUARANTOR PAYER SUBSCRIBER SOURCE 10/18/2018 MARKELL A BORGES Primary MARKELL A BORGES [place] Jr.2029 DAVID Insurance:MEDICAL Jr.: [facility] [id number] Hospital [address]Nyu: (330) Number: Repository [phone] () [id number] Date:[id number] [address]WP: 10/18/2018 Secondary NOT GIVENUNK Shanna Insurance:SELF PAY [facility] Number: Effective Repository Date:2018-10-18 10/18/2018 MARKELL BORGES Primary MARKELL BORGES [place] Jr.2030 DAVID Insurance:MEDICAL Jr.: [facility] [id number] [facility] [address]Jsr: (330) Number: Repository [phone] () [id number] Date:3547-90-87RQKe[place] [id number]: 10/18/2018 Secondary NOT GIVENUNK Shanna Insurance:SELF PAY [facility] Number: Effective Repository Date:2018-10-11 10/11/2018 MARKELL BORGES Primary MARKELL BORGES [place] [id number] DAVID Insurance:MEDICAL JRDOB: [facility] [id number] Hospital [address]Qzt: (330) Number: Repository [phone] () [id number] Date:[id number] [address]RP: 10/11/2018 Secondary NOT GIVENUNK Shanna Insurance:SELF PAY [facility] Number: Effective Repository Date:2018-10-11 10/11/2018 MARKELL A BORGES Primary MARKELL A BORGES [place] Jr.2030 DAVID Insurance:MEDICAL Jr.: [facility] [id number] Hospital [address]Dvi: (807) Number: Repository [phone] () [id number] Date:[id number] [address]EU: 10/11/2018 Secondary NOT GIVENUNK Shanna Insurance:SELF PAY [facility] Number: Effective Repository Date:2018-10-11 08/23/2018 MARKELL LAURENON Primary Insurance:[facility] MARKELL Kelsie KATERINA [facility] JR.: [facility] JR.: Health System Number: [id number] Repository [place] [id number] [place] Date: [address]Yzy: () 07/12/2018 MARKELL A BORGES Primary MARKELL A BORGES [place] [id number] DAVID Insurance:MEDICAL JRDOB: [facility] [id number] Hospital [address]Mrf: (330) Number: Repository [phone] () [id number] Date:[id number] [address]OT: 07/12/2018 Secondary NOT GIVENUNK Shanna Insurance:SELF PAY [facility] Number: Effective Repository Date:2018-07-12 05/28/2018 MARKELL A BORGES Primary MARKELL A BORGES [place] [id number] DAVID Insurance:MEDICAL JRDOB: [facility] [id number] [facility] [address]Jkw: (490) Number: Repository [phone] () [id number] Date:[id number] [address] [address]XD: 05/28/2018 Secondary NOT GIVENUNK [place] Insurance:SELF PAY [facility] Number: Effective Repository Date:2018-05-17 01/12/2018 MARKELL A BORGES Primary MARKELL A BORGES [place] [id number] DAVID Insurance:MEDICAL JRDOB: [facility] [id number] Hospital [address]Wwh: (343) Number: Repository [phone] () [id number] Date:1261-10-75ZV[address] [address]JT: 01/12/2018 Secondary NOT GIVENUNK Shanna Insurance:SELF PAY [facility] Number: Effective Repository Date:2018-01-12 01/12/2018 MARKELL A BORGES Primary MARKELL A KATERINA [place] [id number] DAVID Insurance:MEDICAL JRDOB: [facility] [id number] Hospital [address]Lez: (049) Number: Repository [phone] () [id number] Date:[id number] [address]YG: 01/12/2018 Secondary NOT GIVENUNK Shanna Insurance:SELF PAY [facility] Number: Effective Repository Date:2018-01-12 12/21/2017 MARKELL A BORGES Primary Insurance:MMO MARKELL BORGES [facility] [place] Number: [id number] Repository DAVID [id number] [place] Date: [address]Qgu: ()
== END ==
PROVIDERS: Family Provider Internal Medicine; PCP Internal Medicine; Referring Provider Internal Medicine Cardiovascular Disease; Visit Provider Internal Medicine Cardiovascular Disease
DX: I10 Essential (primary) hypertension (principal); J44.9 Chronic obstructive pulmonary disease, unspecified; Z87.898 Personal history of other specified conditions
CPT/HCPCS: 93017; 93350; Q9957; C8928

== ENCOUNTER → 2019-01-25 12:02 | Outpatient (CLI) | payer OTHER, SELFPAY ==
[2018-10-11 13:53] VITALS: BMI 39.6
[2019-01-25 14:10] LABS: Hemoglobin 13.7 g/dl (13.0-16.5); Mean Corp Hgb Conc 31.9 g/gl (32-36); Mean Corpuscular Hgb 29.8 pg (27.0-32.0); Mean Corpuscular Volume 93.5 fL (80-94); Mean Platelet Vol. 9.4 fl (6.2-12.0); Platelet Count 135 K/mm3 (150-450); RBC Distribution Width CV 15.9 % (11.6-14.6); RBC Distribution Width SD 54.8 fl (35.1-43.9); White Blood Count 4.8 K/mm3 (4.4-11.0)
[2019-01-25 14:14] LABS: Scan Indicated on CBC? Y/N NO
[2019-01-25 14:23] LABS: AST(SGOT) 51 U/L (15-37); Alanine Aminotransfer ALT/SGPT 61 U/L (16-61); Albumin, Serum 3.8 g/dL (3.2-5.0); Alkaline Phosphatase 118 U/L (45-117); Bilirubin, Direct 0.28 mg/dL (0.00-0.30); Ferritin 64 ng/mL (26-388); GGTP 110 U/L (15-85); Globulin 3.6 g/dL (2.2-4.2); Protein, Total 7.4 g/dL (6.4-8.2)
[2019-01-25 14:27] LABS: Prothrombin Time (Protime)PT. 13.4 SECONDS (11.7-14.9)
[2019-01-25 14:28] LABS: Partial Thromboplast Time 35.7 Seconds (24.1-36.2)
[2019-01-26 08:59] LABS: AFP, Tumor Marker 2.1 ng/mL (0.0-8.3); HEPATITIS B SURFACE AG Negative (Negative); Hep C Antibodies <0.1 s/co ratio (0.0-0.9)
== END ==
PROVIDERS: Family Provider Internal Medicine; PCP Internal Medicine; Referring Provider Internal Medicine Gastroenterology; Visit Provider Internal Medicine Gastroenterology
DX: K74.60 Unspecified cirrhosis of liver (principal)
CPT/HCPCS: 36415; 80076; 82105; 82728; 82977; 85027; 85610; 85730; 86803; 87340

== ENCOUNTER → 2019-07-03 08:02 | Outpatient (CLI) | payer OTHER, SELFPAY ==
[2019-04-25 13:01] VITALS: BMI 38.2
--- NOTE | 2019-07-03 08:21 | RAD_ITS ---
STUDY: X-RAY CHEST REASON FOR EXAM: Male, 63 years old. Sniff test. TECHNIQUE: PA and lateral views of the chest. COMPARISON: Comparison is made with prior study dated October 20, 2017. FINDINGS: There is elevation of the right hemidiaphragm. This is new as compared to prior study. Mild right basilar atelectasis. There is no demonstrated pleural abnormality. There is mild cardiac enlargement. A left-sided dual-chamber pacemaker is seen. Normal mediastinum and mario. Normal visualized pulmonary arteries. There is atherosclerotic calcification of the aortic arch with tortuosity. Normal visualized thoracic spine. Normal visualized ribs, clavicles, and shoulders. There is no demonstrated abnormality of the visualized soft tissue structures of the upper abdomen. RAD/Chest PA and Lateral IMPRESSION: Elevation of the right hemidiaphragm. Mild right basilar atelectasis. This is new as compared to prior study. Electronically Signed: Felipe Workman, at 9:22 EDT , Service support ,
--- NOTE | 2019-07-03 08:23 | RAD_ITS ---
PROCEDURE: Sniff test. DATE OF EXAMINATION: July 03, 2019. INDICATION: Male, 63 years old. Diaphragmatic paralysis. FLUOROSCOPY TIME (if supplied): (0:20) minutes/seconds There is no movement of the right hemidiaphragm. There is elevation of the right hemidiaphragm. RAD/Chest Sniff Test Fluoro Only IMPRESSION: Elevation of the right hemidiaphragm. No movement of the right hemidiaphragm during inspiration and expiration. Electronically Signed: Felipe Workman, at 12:48 EDT , Service support ,
== END ==
PROVIDERS: Family Provider Internal Medicine; PCP Internal Medicine; Referring Provider Internal Medicine Pulmonary Disease; Visit Provider Internal Medicine Pulmonary Disease
DX: J44.9 Chronic obstructive pulmonary disease, unspecified (principal); J98.6 Disorders of diaphragm
CPT/HCPCS: 71046; 76000

== ENCOUNTER → 2019-11-14 12:55 | Outpatient (CLI) | payer MEDICARE, OTHER, SELFPAY ==
[2019-11-06 09:22] VITALS: BMI 38.6
--- NOTE | 2019-11-14 12:56 | ECHOD_ITS ---
Reason For Study: DYSPNEA/SOB Procedure This was a 2D Doppler, Color Flow transthoracic echocardiogram. Exam performed in department. Left Ventricle Moderately dilated left ventricle. The estimated ejection fraction is 65 %. Stage 1 diastolic dysfunction. Paced septal motion. No regional wall motion abnormalities noted. Right Ventricle Mildly dilated right ventricle. ICD or pacer leads identified within the right ventricle. Normal systolic function. Atria The left atrium is severely enlarged. Normal right atrium. ICD or pacer leads identified within the right atrium. Normal atrial septum. Mitral Valve The mitral valve is structurally normal. No prolapse or stenosis seen. Trivial mitral valve insufficiency. Tricuspid Valve Normal tricuspid valve. Mild (1+) eccentric tricuspid valve insufficiency. Right ventricular systolic pressure estimated to be 55 mmHg. Moderate pulmonary hypertension. Aortic Valve Normal aortic valve. Trisinus/trileaflet aortic valve. Pulmonic Valve Normal pulmonic valve. Great Vessels Normal aortic root. Normal arch. Normal inferior vena cava. Inferior vena cava collapse with sniff. Pericardium/Pleural No pericardial effusion. MMode/2D Measurements & Calculations LVIDd: 5.7 cm IVSd: 1.1 cm Ao root diam: 3.6 cm LVIDs: 3.4 cm LVPWd: 1.1 cm RVDd: 4.1 cm FS: 40.0 % LAV(MOD-bp): 104.2 ml LA A4 area: 29.6 cm2 LA dimension(2D): 4.8 cm LAV(MOD-bp) Indexed: 46.4 ml/m2 LAV(MOD-sp2): 92.9 ml LAV(MOD-sp4): 110.2 ml RA A4 area: 17.1 cm2 Time Measurements MV dec time: 0.21 sec Doppler Measurements & Calculations MV E max el: 102.7 cm/sec Ao V2 max: 158.2 cm/sec LV V1 max: 91.8 cm/sec MV A max el: 105.9 cm/sec Ao max P.0 mmHg LV V1 max P.4 mmHg MV E/A: 0.97 Ao V2 mean: 107.5 cm/sec Ao mean P.2 mmHg Ao V2 VTI: 27.3 cm PA V2 max: 140.9 cm/sec TR max le: 343.0 cm/sec TR max P.1 mmHg Interpretation Summary The estimated ejection fraction is 65 %. Moderately dilated left ventricle. Stage 1 diastolic dysfunction. Mildly dilated right ventricle. The left atrium is severely enlarged. Trivial mitral valve insufficiency. Mild (1+) eccentric tricuspid valve insufficiency. Right ventricular systolic pressure estimated to be 55 mmHg. Moderate pulmonary hypertension. Compared to echo report dated 10/18/2018, LV function has remained the same, but RVSP has increased from 45 to 55 mmHg. Ordering Physician: Epifanio Shane Referring Physician: Bipin Fuentes Performed By: Belkys Grimes RDCS, RVT
== END ==
PROVIDERS: PCP Internal Medicine; Referring Provider Internal Medicine Cardiovascular Disease; Visit Provider Internal Medicine Cardiovascular Disease
DX: I51.7 Cardiomegaly (principal); R06.09 Other forms of dyspnea; R06.02 Shortness of breath
CPT/HCPCS: 93306

== ENCOUNTER → 2019-11-21 10:22 | Outpatient (CLI) | payer MEDICARE, OTHER, SELFPAY ==
[2019-11-06 09:22] VITALS: BMI 38.6
--- NOTE | 2019-11-21 10:24 | STEWCON_ITS ---
Reason For Study: Dyspnea Stress Results Protocol: Wesley Protocol WITH DEFINITY Maximum Predicted HR: 155 bpm Target HR: 132 bpm % Maximum Predicted HR: 80 % Heart Stage Duration Rate BP Comment (mm:ss) (bpm) Baseline 88 158/82No Chest Pain; 6 ML Diluted Definity Given Wesley Protocol Stage I 3:00 110 174/80No Chest Pain; Mild Dyspnea Wesley Protocol Stage II 3:00 124 180/72No Chest Pain; Moderate to Severe Dyspnea No Chest Pain; No Dyspnea; SPO2 88% Upon Returning for Images; Recovery 95 142/80Increased to 93% After Sitting and Taking Deep Breaths Stress Duration: 6:00 mm:ss Maximum Stress HR: 124 bpm METS: 7 Baseline Echocardiogram Findings The estimated ejection fraction is 65 %. Stress Echo Wall motion Data Resting WM Intermediate WM Stress WM Resting Wall Motion Wall Motion Stress No regional wall motion Infero-Basal: Mildly hypokinetic. abnormalities noted. Posterior-Basal: Mildly hypokinetic. EKG Data The baseline ECG displays normal sinus rhythm. The patient exercised according to the regular Wesley protocol for a total duration of 6:00. The maximum heart rate attained was 127 beats per minute. This was 81% of maximum predicted heart rate. The patient exercised into stage 3 of the Wesley protocol. During stress, there were no ST or T wave changes noted to suggest ischemia. No arrhythmias noted. No clinical angina was noted. Interpretation Summary The estimated ejection fraction is 65 %. Infero-Basal: Mildly hypokinetic Posterior-Basal: Mildly hypokinetic Abnormal, adequate, treadmill echocardiogram. Positive for ischemia by echocardiographic criteria. Patient appeared to develop mild inferior posterior basal hypokinesis superimposed on severe dyspnea at peak exercise. Although the patient did not reach target heart rate, his rate pressure product of 21,240 demonstrated an adequate test. Final LVEF of 65%. Patient had baseline left bundle branch block making EKG and echocardiographic interpretation somewhat problematic. Test terminated due to severe dyspnea. No complications. The study was technically difficult. Contrast injection was performed. Ordering Physician: Epifanio Shane Referring Physician: Bipin Sanchez Performed By: Marbella Harrison, DYLON, RVT
== END ==
PROVIDERS: PCP Internal Medicine; Referring Provider Internal Medicine Cardiovascular Disease; Visit Provider Internal Medicine Cardiovascular Disease
DX: R06.00 Dyspnea, unspecified (principal); R06.02 Shortness of breath; G47.33 Obstructive sleep apnea (adult) (pediatric); Z95.0 Presence of cardiac pacemaker
CPT/HCPCS: 93017; 93350; Q9957; A4216; C8928

== ENCOUNTER → 2019-11-23 12:07 | Outpatient (CLI) | payer MEDICARE, OTHER, SELFPAY ==
[2019-11-23 08:50] VITALS: BMI 38.1
[2019-11-23 12:38] LABS: Absolute Neutrophil Count 3.5 X10^3/uL (2.0-7.7); Basophil# 0.03 X10^3/uL; Basophil% 0.6 % (0-1); Eosinophils% 1.8 % (0-5); Hematocrit 48.4 % (40-54); Hemoglobin 15.2 g/dL (13.0-16.5); Lymphocyte % 22.2 % (19-41); Mean Corp Hgb Conc 31.4 g/dL (32-36); Mean Corpuscular Hgb 28.8 pg (27.0-32.0); Mean Corpuscular Volume 91.8 fL (80-94); Mean Platelet Vol. 9.5 fl (6.2-12.0); Monocyte# 0.54 X10^3/uL; NRBC Flagged by Analyzer 0 % (0-5); Neutrophil # 3.53 X10^3/uL (2.7-7.7); Neutrophil % 65.2 % (47-70); Platelet Count 148 K/mm3 (150-450); RBC Distribution Width CV 15.7 % (11.6-14.6); RBC Distribution Width SD 52.8 fl (35.1-43.9); Red Blood Count 5.27 M/mm3 (4.6-6.2); White Blood Count 5.4 K/mm3 (4.4-11.0)
[2019-11-26 03:06] LABS: Alternaria tenuis <0.10 kU/L (Class 0); Ash, White <0.10 kU/L (Class 0); Aspergillus fumigatus <0.10 kU/L (Class 0); Bermuda Grass <0.10 kU/L (Class 0); Birch <0.10 kU/L (Class 0); Black Walnut <0.10 kU/L (Class 0); Cat Hair / Dander,Stand <0.10 kU/L (Class 0); Cedar, Mountain <0.10 kU/L (Class 0); Cladosporium herbarum <0.10 kU/L (Class 0); Cockroach, American <0.10 kU/L (Class 0); Cottonwood <0.10 kU/L (Class 0); D farinae Mite <0.10 kU/L (Class 0); D pteronyssinus <0.10 kU/L (Class 0); Dog Epithelia <0.10 kU/L (Class 0); Elm, American White <0.10 kU/L (Class 0); Immunoglobulin E 50 IU/mL (6-495); Maple/Box Elder <0.10 kU/L (Class 0); Mulberry, White <0.10 kU/L (Class 0); Oak, White <0.10 kU/L (Class 0); Pecan <0.10 kU/L (Class 0); Penicillium Notatum <0.10 kU/L (Class 0); Pigweed, Rough <0.10 kU/L (Class 0); Ragweed, Short/Common <0.10 kU/L (Class 0); Russian Thistle <0.10 kU/L (Class 0); Sheep Sorrel <0.10 kU/L (Class 0); Sycamore, American <0.10 kU/L (Class 0); Timothy Grass <0.10 kU/L (Class 0)
[2019-11-26 09:10] LABS: Mouse Urine <0.10 kU/L (Class 0)
[2019-11-26 16:20] LABS: Immunoglobulin E 42 IU/mL (6-495)
== END ==
PROVIDERS: PCP Internal Medicine; Referring Provider Internal Medicine Critical Care Medicine; Visit Provider Internal Medicine Critical Care Medicine
DX: J45.909 Unspecified asthma, uncomplicated (principal); I50.30 Unspecified diastolic (congestive) heart failure
CPT/HCPCS: 36415; 82785; 85025; 86003

== ENCOUNTER 2019-11-29 07:00 | Day surgery (SDC) | payer MEDICARE, OTHER, SELFPAY ==
[2019-11-06 09:22] VITALS: BMI 38.6
--- NOTE | 2019-11-22 10:17 | RAD_ITS ---
HISTORY: for heart cath, SOB, COPD ADDITIONAL HISTORY: None provided. COMPARISON: 07/03/2019 TECHNIQUE: Frontal and lateral chest radiographs. Number of images including paperwork: 2 FINDINGS: LUNGS AND PLEURA: No consolidation, mass or pleural effusion. Minimal right basilar atelectasis versus scarring. Elevated right hemidiaphragm. CARDIAC SILHOUETTE: Stable. MEDIASTINUM AND MINDI: Aortic calcification and tortuosity. UPPER ABDOMEN: Unremarkable. SKELETON AND SOFT TISSUES: No acute findings. Degenerative changes. OTHER DEVICES AND HARDWARE: Pacemaker with left-sided generator. RAD/Chest PA and Lateral IMPRESSION: Minimal right basilar atelectasis versus scarring. at 0516 Reported and signed by: Adri Solorzano MD Electronically Signed: Adri Solorzano MD at 5:15 EST Tel , Service support ,
[2019-11-22 11:28] LABS: Hematocrit 48.5 % (40-54); Hemoglobin 15.2 g/dL (13.0-16.5); Mean Corp Hgb Conc 31.3 g/dL (32-36); Mean Corpuscular Hgb 28.8 pg (27.0-32.0); Mean Platelet Vol. 9.3 fl (6.2-12.0); Platelet Count 141 K/mm3 (150-450); RBC Distribution Width CV 15.9 % (11.6-14.6); RBC Distribution Width SD 53.2 fl (35.1-43.9); Red Blood Count 5.27 M/mm3 (4.6-6.2); White Blood Count 5.6 K/mm3 (4.4-11.0)
[2019-11-22 11:49] LABS: Prothrombin Time (Protime)PT. 13.4 SECONDS (11.7-14.9)
[2019-11-22 11:50] LABS: Partial Thromboplast Time 33.7 Seconds (24.1-36.2)
[2019-11-22 11:52] LABS: AST(SGOT) 49 U/L (15-37); Alanine Aminotransfer ALT/SGPT 67 U/L (16-61); Albumin, Serum 3.6 g/dL (3.2-5.0); Alkaline Phosphatase 127 U/L (45-117); Anion Gap 3 (5-15); BUN 21 mg/dL (7-18); BUN/Creat Ratio 20.2 RATIO (10-20); Calcium,Total 8.9 mg/dL (8.5-10.1); Chloride 102 mmol/L (98-107); Creatinine, Serum 1.04 mg/dL (0.70-1.30); EST Glomerular Filtration Rate 76 mL/min (>60); Est Glom Filt Rate - Afr Amer 92 mL/min (>60); Globulin 4.3 g/dL (2.2-4.2); Glucose 76 mg/dL (74-106); Potassium 3.8 mmol/L (3.5-5.1); Protein, Total 7.9 g/dL (6.4-8.2); Sodium Level 138 mmol/L (136-145)
[2019-11-23 08:50] VITALS: BMI 38.1
[2019-11-28 08:00] VITALS: BMI 38.6
--- NOTE | 2019-11-28 12:55 | PCM.HP.BLA ---
History and Physical Date of Admission: 11/29/19 History of Present Illness Details: Details: AILYN BORGES JR, is a 64 M who presents to the office today for cardiac f/u. Patient is a former patient of Dr. Fragoso. Patient has a history of hypertension, former smoker about 3 packs/day for 20 years, quit in 1996, positive alcohol use about 10 to 12 ounces per week in the form of 7 cans of beer. Patient has obstructive sleep apnea and is compliant with his BiPAP. He also is a history of reportedly coronary artery disease although he is never had a catheterization, COPD/asthma, and AV block which required permanent pacemaker on 04/30/16, followed by revision of his atrial leads at the [facility] in August 2018. His most recent echocardiogram dated 04/30/16 demonstrated an EF of 55 percent with evidence of inferior, posterior and inferoseptal hypokinesis mildly dilated right ventricle, unable to quantitate RVSP. Previous RVSP in 2011 was 43 mmHg. Patient has never had a catheterization. His previous stress test on 07/08/16 was a pharmacologic nuclear stress test which was negative for inducible ischemia. On further history the patient states that he had dyspnea on exertion and shortness of breath which he attributes to his COPD/emphysema. He is currently on MDI therapy. Patient was supposed be referred to Dr. Gupta, but apparently never made the appointment. Patient wishes to consolidate his cardio pulmonary care. He is compliant with his BiPAP. He reports that his last pulmonary function tests were done about a year ago. In order to better evaluate his dyspnea on exertion he underwent a stress echocardiogram on 11/01/18 which was negative for inducible ischemia. Echocardiogram dated 10/18/18 was as follows: Interpretation Summary Mildly dilated left ventricle. The estimated ejection fraction is 55 %. There is mild global hypokinesis of the left ventricle. Moderately dilated right ventricle. The left atrium is severely enlarged. The right atrium is moderately enlarged. Trivial mitral valve insufficiency. Mild (1+) tricuspid valve insufficiency. Right ventricular systolic pressure estimated to be 45 mmHg. Mild pulmonary hypertension. Compared to echo report dated 04/28/2016, LV function has remained the same, but RVSP has increased from 30 to 45 mm Hg. From a cardiac standpoint he denies any exertional chest pain. Patient does continue to complain of dyspnea on exertion and shortness of breath which may be slightly worse than 1 year ago. The patient verbally retired early from his job. He does not formally exercise. He gets his pacemaker remotely checked with [facility]. In our office on 11/06/2019 blood pressure is 140/70, pulse is 80 and regular. His physical exam demonstrates clear lungs bilaterally, regular rate and rhythm, normal S1/S2, no murmurs are detected. He has 1-2+ bilateral lower extremity edema. EKG dated 08/23/18 shows normal sinus rhythm with first-degree AV block, left anterior hemiblock and intraventricular conduction delay. His lipids as of 04/29/16 showed LDL of 75 and HDL of 59. Repeat lipids are pending. He underwent a stress echocardiogram on 11/21/2019 that was considered to be an abnormal, adequate, tried echocardiogram positive for ischemia by echocardiographic criteria. Patient appeared to develop mild inferior posterior basal hypokinesis superimposed on severe dyspnea at peak exercise. Because of this, he will proceed with left heart catheterization. 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) Syncope (Resolved) Surgical History H/O umbilical hernia repair (Chronic 12/11/09) Presence of cardiac pacemaker (Chronic 04/30/16) Family History Mother CVA (cerebral vascular accident), Onset Age: 65 Anxiety Father CAD (coronary artery disease), Onset Age: 61 Brother CAD (coronary artery disease) Obesity Social History (Updated 11/06/19 @ 09:45 by Epifanio Shane MD) Smoking Status: Former smoker quit date: 10/04/96 pack-years: 60 alcohol intake: current alcohol intake frequency: 0-2 drinks per day Alcohol type: beer caffeine: Yes Type: coffee Number of servings: 1 ROS Const Const: Negative for fatigue, weakness, body ache, fever(s), headache(s), chills, frequent falls, night sweats, daytime sleepiness, difficulty sleeping, excessive sweating, weight gain, weight loss, increased appetite, poor appetite, anorexia or other Eyes Eyes: Negative for blind spots, loss of peripheral vision, transient loss of vision, blurry vision, change in vision, double vision, floaters, tunnel vision or other ENT ENT: Negative for headache(s), dizziness, hearing loss, tinnitus, Nosebleed/epistaxis, balance problems, post nasal drip, lip swelling, tongue swelling, bleeding gums, hoarseness, neck pain, dry mouth or other Cardio Chest Pain: No Resp Respiratory: Negative for SOB with activity, SOB at rest, SOB orthopnea\SOB lying down, Coughing up blood/hemoptysis, chest congestion, pain on inspiration, snoring, stridor, wheezing, crackles, paroxysmal nocturnal dyspnea or other GI GI: Negative nausea, vomiting, heartburn, constipation, belching, bloating, cramping, vomiting blood/hematemesis, bright, red blood in stools, black,tarry stools, loose stools, Difficulty Swallowing or other : Negative for hematuria, frequent nighttime urination/ nocturia, erectile dysfunction or abnormal vaginal bleeding Musc Musc: Negative for muscle aches/ myalgia, muscle weakness, joint pain or balance problems Skin Skin: Negative redness, non-healing lesions, rash, unusual bruising, skin ulcer, wounds, jaundice or other Neuro Neuro: Negative for dizziness, lightheadedness, near syncope, syncope, orthostatic symptoms, frequent falls, headache(s), weakness, confusion, memory loss, restless legs, blurry vision, double vision, vertigo, seizures, lack of coordination or other Isiah Hematologic/Lymphatic: Negative for easy bleeding, easy bruising, enlarged lymph nodes or other Endo Endo: Negative for fatigue, cold intolerance, heat intolerance, excessive sweating, flushing, increased thirst/drinking, increased hunger, hair loss, hair growth or other Psych Psych: Negative for anxiety, depression, thoughts of harming anyone, thoughts of harming yourself, visual hallucinations, panic attacks or audible hallucinations Allergy Allergy/Immunology: Negative for throat swelling, Negative for tongue swelling, Negative for hives, Negative for rash, Negative for lip swelling Cardiology Exam Const Appearance: cooperative, healthy appearing and no acute distress Nutritional Appearance: well nourished Orientation: alert, oriented x3 and oriented to person Head Head: normal to inspection, normocephalic and atraumatic Nose: external nose normal Face and Sinus: face symmetric Mouth: oral mucosae normal Eyes General: appearance normal, both eyes and all related structures Eyelids: eyelids normal Conjunctivae: conjunctivae normal Pupils: PERRL and normal by confrontation EOM: EOM intact bilaterally Neck Neck: normal visual inspection and full ROM Carotids: normal carotid upstroke Chest Chest inspection: normal inspection of the chest Auscultation: Bilateral: Clear to Auscultation Cardio Palpation: normal PMI Rate: regular rate Rhythm: regular rhythm Heart sounds: S1 normal and S2 normal GI GI: normal to inspection, no hepatosplenomegaly and bowel sounds present Neuro General: alert, awake, oriented x3, CN's II-XI intact bilaterally and moves all extremities Skin Skin: no rashes or lesions noted Extremities Pulses: Normal: Right Femoral Pulse, Left Femoral Pulse, Right Dorsalis Pedis Pulse, Left Dorsalis Pedis Pulse, Right Posterior Tibial Pulse, Left Posterior Tibial Pulse, Right Radial Pulse, Left Radial Pulse Lower Extremity Edema: None: Bilateral Psych Psychological: normal affect Assessment & Plan 1. Secondary pulmonary hypertension RVSP went from 30 to 45 mm hg per echo Oct 2018 Plan 1. Pulmonary hypertension: The patient has dyspnea on exertion which may be slightly worse than a year ago. I recommended the patient have a repeat echocardiogram to monitor his pulmonary pressures, as well as a treadmill echocardiogram to determine if he has any concomitant coronary occlusive disease that may explain his dyspnea on exertion. If this is grossly abnormal, the patient may require diagnostic coronary angiogram. In the meantime we will continue baby aspirin, amlodipine, Lasix. 2. Presence of cardiac pacemaker Z95.0 [employer] model L101 [employer] CAL[employer], serial number [id number] Plan 2. Status post pacemaker: The patient will follow-up with [facility] going forward. 3. Hyperlipidemia E78.5 Plan 3. Hyperlipidemia: We are awaiting a repeat lipid profile with Dr. Sanchez. Continue Pravachol and omega-3 fatty acid. 4. COPD with asthma J44.9 Plan 4. COPD: The patient wishes to consolidate his cardiopulmonary care here at [facility], and I recommended he be referred to Dr. Gupta for evaluation of his COPD and monitoring and treatment of his obstructive sleep apnea with BiPAP therapy. Patient is currently on inhaler therapy. He may require repeat pulmonary function test for an up-to-date analysis of his pulmonary function. 5. Return office in 6 months. This note was generated using a voice recognition system and there may be incorrect words, spelling or punctuation that were not noted when reviewing the office note prior to saving.
--- NOTE | 2019-11-29 08:31 | PCM.HP.BLA ---
Problem List (1) Abnormal stress echo Status: Acute (2) CHD (coronary heart disease) Status: Acute (3) Dyspnea on exertion Status: Acute (4) Secondary pulmonary hypertension Status: Chronic Comment: RVSP went from 30 to 45 mm hg per echo Oct 2018 (5) Presence of cardiac pacemaker Status: Resolved Comment: Epoqe model L101 Robinson CALERO, serial number [id number] History and Physical Date of Admission: 11/29/19 [facility] Medical Records Department [address] [place] [address] History and Physical 11/28/19 1255 MR#: [id number] Acct: [id number] Name: AILYN BORGES Jr. Rep #: [id number] : 1955 64 From: Yung BYRNES PCP: Bipin Sanchez MD Status: REG SD Y Location: [facility] History and Physical Date of Admission: 11/29/19 History of Present Illness Details: Details: AILYN BORGES JR, is a 64 M who presents to the office today for cardiac f/u. Patient is a former patient of Dr. Fragoso. Patient has a history of hypertension, former smoker about 3 packs/day for 20 years, quit in 1996, positive alcohol use about 10 to 12 ounces per week in the form of 7 cans of beer. Patient has obstructive sleep apnea and is compliant with his BiPAP. He also is a history of reportedly coronary artery disease although he is never had a catheterization, COPD/asthma, and AV block which required permanent pacemaker on 04/30/16, followed by revision of his atrial leads at the [facility] in August 2018. His most recent echocardiogram dated 04/30/16 demonstrated an EF of 55 percent with evidence of inferior, posterior and inferoseptal hypokinesis mildly dilated right ventricle, unable to quantitate RVSP. Previous RVSP in 2011 was 43 mmHg. Patient has never had a catheterization. His previous stress test on 07/08/16 was a pharmacologic nuclear stress test which was negative for inducible ischemia. On further history the patient states that he had dyspnea on exertion and shortness of breath which he attributes to his COPD/emphysema. He is currently on MDI therapy. Patient was supposed be referred to Dr. Gupta, but apparently never made the appointment. Patient wishes to consolidate his cardio pulmonary care. He is compliant with his BiPAP. He reports that his last pulmonary function tests were done about a year ago. In order to better evaluate his dyspnea on exertion he underwent a stress echocardiogram on 11/01/18 which was negative for inducible ischemia. Echocardiogram dated 10/18/18 was as follows: Interpretation Summary Mildly dilated left ventricle. The estimated ejection fraction is 55 %. There is mild global hypokinesis of the left ventricle. Moderately dilated right ventricle. The left atrium is severely enlarged. The right atrium is moderately enlarged. Trivial mitral valve insufficiency. Mild (1+) tricuspid valve insufficiency. Right ventricular systolic pressure estimated to be 45 mmHg. Mild pulmonary hypertension. Compared to echo report dated 04/28/2016, LV function has remained the same, but RVSP has increased from 30 to 45 mm Hg. From a cardiac standpoint he denies any exertional chest pain. Patient does continue to complain of dyspnea on exertion and shortness of breath which may be slightly worse than 1 year ago. The patient verbally retired early from his job. He does not formally exercise. He gets his pacemaker remotely checked with [facility]. In our office on 11/06/2019 blood pressure is 140/70, pulse is 80 and regular. His physical exam demonstrates clear lungs bilaterally, regular rate and rhythm, normal S1/S2, no murmurs are detected. He has 1-2+ bilateral lower extremity edema. EKG dated 08/23/18 shows normal sinus rhythm with first-degree AV block, left anterior hemiblock and intraventricular conduction delay. His lipids as of 04/29/16 showed LDL of 75 and HDL of 59. Repeat lipids are pending. He underwent a stress echocardiogram on 11/21/2019 that was considered to be an abnormal, adequate, tried echocardiogram positive for ischemia by echocardiographic criteria. Patient appeared to develop mild inferior posterior basal hypokinesis superimposed on severe dyspnea at peak exercise. Because of this, he will proceed with left heart catheterization. 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) Syncope (Resolved) Surgical History H/O umbilical hernia repair (Chronic 12/11/09) Presence of cardiac pacemaker (Chronic 04/30/16) Family History Mother CVA (cerebral vascular accident), Onset Age: 65 Anxiety Father CAD (coronary artery disease), Onset Age: 61 Brother CAD (coronary artery disease) Obesity Social History (Updated 11/06/19 @ 09:45 by Epifanio Shane MD) Smoking Status: Former smoker quit date: 10/04/96 pack-years: 60 alcohol intake: current alcohol intake frequency: 0-2 drinks per day Alcohol type: beer caffeine: Yes Type: coffee Number of servings: 1 ROS Const Const: Negative for fatigue, weakness, body ache, fever(s), headache(s), chills, frequent falls, night sweats, daytime sleepiness, difficulty sleeping, excessive sweating, weight gain, weight loss, increased appetite, poor appetite, anorexia or other Eyes Eyes: Negative for blind spots, loss of peripheral vision, transient loss of vision, blurry vision, change in vision, double vision, floaters, tunnel vision or other ENT ENT: Negative for headache(s), dizziness, hearing loss, tinnitus, Nosebleed/epistaxis, balance problems, post nasal drip, lip swelling, tongue swelling, bleeding gums, hoarseness, neck pain, dry mouth or other Cardio Chest Pain: No Resp Respiratory: Negative for SOB with activity, SOB at rest, SOB orthopnea\SOB lying down, Coughing up blood/hemoptysis, chest congestion, pain on inspiration, snoring, stridor, wheezing, crackles, paroxysmal nocturnal dyspnea or other GI GI: Negative nausea, vomiting, heartburn, constipation, belching, bloating, cramping, vomiting blood/hematemesis, bright, red blood in stools, black,tarry stools, loose stools, Difficulty Swallowing or other : Negative for hematuria, frequent nighttime urination/ nocturia, erectile dysfunction or abnormal vaginal bleeding Musc Musc: Negative for muscle aches/ myalgia, muscle weakness, joint pain or balance problems Skin Skin: Negative redness, non-healing lesions, rash, unusual bruising, skin ulcer, wounds, jaundice or other Neuro Neuro: Negative for dizziness, lightheadedness, near syncope, syncope, orthostatic symptoms, frequent falls, headache(s), weakness, confusion, memory loss, restless legs, blurry vision, double vision, vertigo, seizures, lack of coordination or other Isiah Hematologic/Lymphatic: Negative for easy bleeding, easy bruising, enlarged lymph nodes or other Endo Endo: Negative for fatigue, cold intolerance, heat intolerance, excessive sweating, flushing, increased thirst/drinking, increased hunger, hair loss, hair growth or other Psych Psych: Negative for anxiety, depression, thoughts of harming anyone, thoughts of harming yourself, visual hallucinations, panic attacks or audible hallucinations Allergy Allergy/Immunology: Negative for throat swelling, Negative for tongue swelling, Negative for hives, Negative for rash, Negative for lip swelling Cardiology Exam Const Appearance: cooperative, healthy appearing and no acute distress Nutritional Appearance: well nourished Orientation: alert, oriented x3 and oriented to person Head Head: normal to inspection, normocephalic and atraumatic Nose: external nose normal Face and Sinus: face symmetric Mouth: oral mucosae normal Eyes General: appearance normal, both eyes and all related structures Eyelids: eyelids normal Conjunctivae: conjunctivae normal Pupils: PERRL and normal by confrontation EOM: EOM intact bilaterally Neck Neck: normal visual inspection and full ROM Carotids: normal carotid upstroke Chest Chest inspection: normal inspection of the chest Auscultation: Bilateral: Clear to Auscultation Cardio Palpation: normal PMI Rate: regular rate Rhythm: regular rhythm Heart sounds: S1 normal and S2 normal GI GI: normal to inspection, no hepatosplenomegaly and bowel sounds present Neuro General: alert, awake, oriented x3, CN's II-XI intact bilaterally and moves all extremities Skin Skin: no rashes or lesions noted Extremities Pulses: Normal: Right Femoral Pulse, Left Femoral Pulse, Right Dorsalis Pedis Pulse, Left Dorsalis Pedis Pulse, Right Posterior Tibial Pulse, Left Posterior Tibial Pulse, Right Radial Pulse, Left Radial Pulse Lower Extremity Edema: None: Bilateral Psych Psychological: normal affect Assessment & Plan 1. Secondary pulmonary hypertension RVSP went from 30 to 45 mm hg per echo Oct 2018 Plan 1. Pulmonary hypertension: The patient has dyspnea on exertion which may be slightly worse than a year ago. I recommended the patient have a repeat echocardiogram to monitor his pulmonary pressures, as well as a treadmill echocardiogram to determine if he has any concomitant coronary occlusive disease that may explain his dyspnea on exertion. If this is grossly abnormal, the patient may require diagnostic coronary angiogram. In the meantime we will continue baby aspirin, amlodipine, Lasix. 2. Presence of cardiac pacemaker Z95.0 [employer] model L101 Robinson CALERO, serial number [id number] Plan 2. Status post pacemaker: The patient will follow-up with [facility] going forward. 3. Hyperlipidemia E78.5 Plan 3. Hyperlipidemia: We are awaiting a repeat lipid profile with Dr. Sanchez. Continue Pravachol and omega-3 fatty acid. 4. COPD with asthma J44.9 Plan 4. COPD: The patient wishes to consolidate his cardiopulmonary care here at [facility], and I recommended he be referred to Dr. Gupta for evaluation of his COPD and monitoring and treatment of his obstructive sleep apnea with BiPAP therapy. Patient is currently on inhaler therapy. He may require repeat pulmonary function test for an up-to-date analysis of his pulmonary function. 5. Return office in 6 months. This note was generated using a voice recognition system and there may be incorrect words, spelling or punctuation that were not noted when reviewing the office note prior to saving. 11/29/19 0759 <Electronically signed by Yung BYRNES> Date Yung BYRNES Cosigner Signature: Date (if applicable) CC: FITZ Lopez; Epifanio Shane MD; Bipin Sanchez MD ~ ISied Interventional cardiology addendum: Patient seen and examined prior to catheterization. The risk/benefits of the procedure were thoroughly explained to patient including specific attention to lack of onsite surgical backup, the patient agrees to proceed. Cardiac catheterization to follow.
--- NOTE | 2019-11-29 09:15 | CL.D_ITS ---
Patient Name: AILYN BORGES Study Date: 11/29/2019 Performing: Epifanio Shane MD Ht: 68.11 inches 173 cm : 1955 Wt: 253.53 lbs 115 kg Age: 64 Gender: male BSA: 2.26 PROCEDURE(S) PERFORMED SA24-UCA/LHC/COR/LV CLINICAL PROFILE AND INDICATIONS Indications: Suspected CAD, LV Dysfunction Heart Failure: NYHA Class: 2, Newly Diagnosed: Yes, Heart Failure Type: Systolic Stress/Imaging Date: 11/21/2019Stress Echocardiogram: Positive Low Risk Angina Classification Anginal Classification w/in 2 Weeks: Anginal Equivalent Dyspnea CAD Presentations: Other: Dyspnea on exertion Comorbidities/Risk Factors: Hypertension Dyslipidemia Prior CHF Chronic Lung Disease CONCLUSIONS Non obstructive coronary arteries Global LV systolic dysfunction- Mild LVEF: by LV gram 45-50 % Normal Left Ventricular End Diastolic Pressure The patient has pulmonary hypertension which is mild. Pt's SERRANO is most likely predominantly from pulmonary component False positive stress test. RECOMMENDATIONS Management as per referring Health And Wellness Coach d/c plavix, cont baby asa, start coreg 3.125 mg po bid, start imdur 30mg po daily. BP CHECK in 2 wee ks. Manual sheath removal. BP Check in 2 weeks. DESCRIPTION OF PROCEDURE The patient arrived to the procedure lab. The risks and benefits of the procedure as well as a full d escription of our services here and current unavailability of surgical backup were fully explained to the patient and/or their significant other prior to the catheterization. The Timeout was completed, verifying the correct patient and procedure. The patient's procedural site was prepped and draped in the usual fashion. Local anesthetic was given subcutaneously to right groin region with Lidocaine 2%. Using a modified Seldinger technique, arterial access was obtained via the right femoral artery, a 4 Fr sheath was inserted Venous access was obtained via the right femoral vein, a 7Fr sheath was insert ed. A 7Fr thermal dilution catheter was inserted and right heart pressures were recorded, it was then advanced to PA position for cardiac outputs. Thermal dilution cardiac outputs were then recorded. O2 saturations were then obtained. Simultaneous pressures were then recorded. The Thermal dilution catheter was then removed. Left Ventriculography was performed in BENITEZ projection using a 4 F r. Pigtail catheter. LV to AO pullback pressures were then recorded. Left Coronary Artery selective a ngiography was performed in multiple views using a 4 Fr. JL5 catheter. Right Coronary Artery selectiv e angiography was then performed in multiple views using a 4 Fr. 3DRC catheter.The arterial sheath wa s pulled and manual compression applied until hemostasis is achieved. CORONARY ANGIOGRAPHY DOMINANCE: Right Dominant LEFT HEART ASSESSMENT Left Ventricular Ejection Fraction: by LV Gram 45 % Global Hypokinesis - Mild Depressed Left Ventricular systolic function LVEDP: 10 mmHg Normal Left Ventricular End Diastolic Pressure RIGHT HEART ASSESSMENT Thermal CO: 8.7 Thermal CI: 3.85 Abraham CO: 13.22 Abraham CI: 5.85 PW: PA: RV: 45/2 9 RA: 05/12 6 PVR: 120 SVR: 837 Pulmonary Hypertension Mild LEFT MAIN: Angiographically normal LEFT ANTERIOR DESCENDING ARTERY: MID LAD: Mild luminal irregularities less than 30% CIRCUMFLEX ARTERY: Mild luminal irregularities less than 30% RIGHT CORONARY ARTERY: MID RCA: Mild luminal irregularities less than 30% COMPLICATIONS No Complications PROCEDURE MEDICATIONS Versed 1 mg IV Versed 1 mg IV Baby Aspirin (81mg) 1 Tabs PO @ 11/29/2019 07:17:44 Nitro Paste 1 in on left deltoid 11/29/2019 09:08:36 Plavix 75 mg PO 11/29/2019 07:17:48 SUMMARY OF HEMODYNAMIC DATA Time AIR REST ECG 07:29:52 RA 05/12 (6) SV 08:47:08 RV 45/2, 9 08:47:19 PW (13) PV 08:47:53 PA (26) PA 08:48:11 LV 120/-7, 11 08:52:25 LV 121/-6, 11 08:52:57 PW (13) 08:52:57 LV 119/-7, 11 08:53:05 PW (14) 08:53:05 LV 117/-7, 10 08:53:27 RV 44/3, 10 08:53:27 LV 121/-6, 11 08:53:36 RV 44/4, 12 08:53:36 LV 121/-2, 14 08:54:52 LV 123/-4, 13 08:54:58 LVp 126/-4, 13 08:55:04 AOp 127/65 (91) 08:55:09 AO 121/75 (97) SA 08:56:35 Type SV CO (l/m) CI (l/m/ HR Time AIR REST Thermal 100.00 8.70 3.85 87 07:29:52 Abraham 152.00 13.22 5.85 87 07:29:52 Label % O2 Pres/Loc Time AIR REST AO 76 PV 09:04:16 PA 65 PA 09:04:22 Signed By Epifanio Shane MD On 11/29/2019 09:15:26 Epifanio Shane MD
[2019-11-29 09:31] LABS: Blood Gas Specimen Type VEN; VBG BASE EXCESS 4 mmol/L (-1.0-3.5); VBG Bicarbonate 30 mmol/L (22-26); VBG Oxygen Content 32 mmol/L (23-33); VBG PO2 37 mmHg (25-40); VBG SO2 65 % (50-70); VBG pCO2 55.4 mmHg (41-51); VBG pH 7.34 (7.32-7.42)
[2019-11-29 09:31] LABS: Blood Gas Specimen Type VEN; VBG BASE EXCESS 6 mmol/L (-1.0-3.5); VBG Bicarbonate 31 mmol/L (22-26); VBG Oxygen Content 33 mmol/L (23-33); VBG PO2 38 mmHg (25-40); VBG SO2 68 % (50-70); VBG pCO2 55.3 mmHg (41-51); VBG pH 7.36 (7.32-7.42)
[2019-11-29 09:31] LABS: Base Excess -8 mmol/L (-2 to +2); Bicarbonate 20.9 mmol/L (22-26); Blood Gas Specimen Type ART; PO2 53 mmHG (75-100); SO2 76 % (95-99); Total Carbon Dioxide 23 mmol/L; pCO2 58.9 mmHg (35-45); pH 7.16 (7.35-7.45)
== END 2019-11-29 13:50 | disposition home or self-care (01) ==
PROVIDERS: PCP Internal Medicine; Referring Provider Internal Medicine Cardiovascular Disease; Visit Provider Internal Medicine Cardiovascular Disease
DX: I27.29 Other secondary pulmonary hypertension (principal); R94.39 Abnormal result of other cardiovascular function study; I25.10 Atherosclerotic heart disease of native coronary artery without angina pectoris; I11.0 Hypertensive heart disease with heart failure; I50.9 Heart failure, unspecified; G47.33 Obstructive sleep apnea (adult) (pediatric); Z87.891 Personal history of nicotine dependence; Z95.0 Presence of cardiac pacemaker; J44.9 Chronic obstructive pulmonary disease, unspecified; E78.5 Hyperlipidemia, unspecified; Z86.718 Personal history of other venous thrombosis and embolism; Z72.89 Other problems related to lifestyle
CPT/HCPCS: 36415; 71046; 80048; 80076; 82803; 85027; 85610; 85730; 93460; 99152; 99153; J7040; Q9967; C1751; C1769; C1894

== ENCOUNTER → 2020-03-08 12:26 | Outpatient (CLI) | payer MEDICARE, OTHER, SELFPAY ==
[2019-11-28 08:00] VITALS: BMI 38.6
[2020-03-08 14:13] VITALS: PULSE 86; PULSE 89; PULSE 90; PULSE 91; PULSE 93; O2SAT 83; O2SAT 88; O2SAT 89; O2SAT 90; O2SAT 92; O2SAT 95
--- NOTE | 2020-03-08 14:20 | CPS ---
had to quit work could not breathe adequately with a mask on. We had to remove his mask to improve his SPO2 with mask on it was 88-90% with mask off 93-95%. Started to walk him at 2 mins had to put on @2 LPM O2. Resumed walking at 3 1/2 mins and finished his walk with 2 LPM. Notified office that I sent him home and they will get ahold of him later.
--- NOTE | 2020-03-11 07:41 | PCM.PSN.6M ---
PSN 6 Minute Walk Test - 6 Minute Walk Test 6 Minute Walk Test: 6 Minute Walk Test PSN:6-Minute Walk Test Start: 03/08/20 13:04 Freq: Status: Active Protocol: RESP.6MINW Document 03/08/20 14:13 FR (Rec: 03/08/20 14:30 FR [id number]) 6 Minute Walk Test Date Performed 03/08/20 Time Performed 12:30 Height 5 ft 8 in Weight: 255 lb Weight in Pounds 255.[address]: Stevie SANCHEZ/ Assistive device used: None Pre-test Oxygen Delivery Method Room Air Pulse Ox (%) 95 Pulse Rate (60-100 beats/min) 86 Dyspnea Whitney Scale (0-10) 2 Exertion Whitney Scale (6-20) 8 1st minute Oxygen Delivery Method Room Air Pulse Ox (%) 89 Pulse Rate (60-100 beats/min) 89 2nd minute Oxygen Delivery Method Room Air Pulse Ox (%) 83 Pulse Rate (60-100 beats/min) 91 Reported Symptoms Increased Work of Breathing 3rd minute Oxygen Flow Rate (L/min) (L/min) 2 Oxygen Delivery Method Nasal Cannula Pulse Ox (%) 92 Pulse Rate (60-100 beats/min) 90 4th minute Oxygen Flow Rate (L/min) (L/min) 2 Oxygen Delivery Method Nasal Cannula Pulse Ox (%) 90 Pulse Rate (60-100 beats/min) 90 5th minute Oxygen Flow Rate (L/min) (L/min) 2 Oxygen Delivery Method Nasal Cannula Pulse Ox (%) 90 Pulse Rate (60-100 beats/min) 93 Reported Symptoms Increased Work of Breathing 6th minute Oxygen Flow Rate (L/min) (L/min) 2 Oxygen Delivery Method Nasal Cannula Pulse Ox (%) 88 Pulse Rate (60-100 beats/min) 90 Dyspnea Whitney Scale (0-10) 4 Exertion Whitney Scale (6-20) 10 Reported Symptoms Increased Work of Breathing Post-test Oxygen Flow Rate (L/min) (L/min) 2 Oxygen Delivery Method Nasal Cannula Pulse Ox (%) 95 Pulse Rate (60-100 beats/min) 86 Full Laps Walked 18 Partial Lap, Number of Tiles Walked 18 Total Distance Walked (ft) 1080 03/08/20 14:20 Cardiopulmonary Services by Melina Fang had to quit work could not breathe adequately with a mask on. We had to remove his mask to improve his SPO2 with mask on it was 88-90% with mask off 93-95%. Started to walk him at 2 mins had to put on @2 LPM O2. Resumed walking at 3 1/2 mins and finished his walk with 2 LPM. Notified office that I sent him home and they will get ahold of him later. Initialized on 03/08/20 14:20 - END OF NOTE - Interpretation Interpretation: The patient ambulated 1080 feet over the course of 6 minutes beginning on room air without assistive devices or breaks. Pretesting oxygen saturation was noted to be 95% on room air. With ambulation, the cata oxygen saturation was 83%. The patient was subsequently placed on 2 L/min of supplemental oxygen and was able to complete the remainder of the test while maintaining appropriate saturations. - Recommendations Recommendations: 2 L/min of supplemental oxygen should be utilized with exertion.
== END ==
PROVIDERS: PCP Internal Medicine; Referring Provider Nurse Practitioner Acute Care; Visit Provider Nurse Practitioner Acute Care
DX: J44.9 Chronic obstructive pulmonary disease, unspecified (principal)
CPT/HCPCS: 94618

== ENCOUNTER → 2020-03-11 12:52 | Outpatient (CLI) | payer MEDICARE, OTHER, SELFPAY ==
[2019-11-28 08:00] VITALS: BMI 38.6
--- NOTE | 2020-03-11 15:07 | PFTCOMP_ITS ---
COMPLETE PULMONARY FUNCTION TEST INTERPRETATION Brief HPI: Patient is a 64 year old male, currently under the care of Dr. Mishra, who presents to [facility] for complete pulmonary function tests secondary to diagnosis of COPD. Respiratory therapist reports good effort and reproducible results. Interpretation: Forced expiration spirometry shows a mild large airways obstructive ventilatory defect with an FEV1 of 75% predicted. There is no significant bronchodilator response by strict ATS criteria. Spirograms are of good quality and plateau slowly, indicating slowly emptying areas of the lungs. The respiratory flow volume loop shows decreased expiratory flow rates at all lung volumes consistent with airway obstruction. Lung volumes by body plethysmography show a normal total lung capacity at 4.44 L, 120% predicted. FRC and RV are elevated out of proportion. Lung volume measurements are consistent with hyperinflation and air-trapping. Diffusion capacity by carbon monoxide is decreased at 68% predicted. The airway resistance is normal. No previous pulmonary function tests were available for review. Impression: Irreversible mild large airways obstructive ventilatory defect with a symmetric reduction diffusing capacity, resulting in air trapping with hyperinflation.
== END ==
PROVIDERS: PCP Internal Medicine; Referring Provider Nurse Practitioner Acute Care; Visit Provider Nurse Practitioner Acute Care
DX: J44.9 Chronic obstructive pulmonary disease, unspecified (principal)
CPT/HCPCS: 94060; 94726; 94729

== ENCOUNTER 2020-08-22 10:15 | Inpatient (IN) | payer MEDICARE, OTHER, SELFPAY ==
[2020-07-30 08:16] VITALS: BMI 40.8
[2020-08-22] VITALS (16 sets, daily range): BP systolic 118–150; BP diastolic 67–89; PULSE 65–86; RESP 14–20; TEMP 36.8–37.9; O2SAT 88–97; BMI 39.5
--- NOTE | 2020-08-22 10:37 | EKG12_ITS ---
Test Reason : SOB Blood Pressure : / mmHG Vent. Rate : 074 BPM Atrial Rate : 074 BPM P-R Int : 228 ms QRS Dur : 190 ms QT Int : 420 ms P-R-T Axes : 034 -63 070 degrees QTc Int : 466 ms Sinus rhythm with 1st degree A-V block Right bundle branch block Left anterior fascicular block Bifascicular block Left ventricular hypertrophy with repolarization abnormality Abnormal ECG Confirmed by RAE HONG, ISRRAEL ([id number]), assistant production editor YESSENIA PINZON ([id number]) on 08/23/2020 10:51:52 AM Referred By: GERALD Confirmed By:ISRRAEL MCBRIDE MD
--- NOTE | 2020-08-22 10:37 | RAD_ITS ---
STUDY: X-RAY CHEST REASON FOR EXAM: Male, 65 years old. COUGH, INCREASED SOB, FEVER, HEADACHE TECHNIQUE: Single AP portable view of the chest. COMPARISON: Comparison is made with prior study dated 11/22/2019. FINDINGS: EKG electrodes are seen. Elevation of the right hemidiaphragm. Atelectasis and/or infiltrate at the right lung base with blunting of the right costophrenic angle. Increased markings in the left perihilar region as well as in the left upper lobe suggestive of early infiltrate. There is moderate cardiac enlargement. A left-sided dual-chamber pacemaker is seen. Normal mediastinum and mario. Normal visualized pulmonary arteries. Normal visualized aortic arch and descending thoracic aorta. Normal visualized thoracic spine. Normal visualized ribs, clavicles, and shoulders. There is no demonstrated abnormality of the visualized soft tissue structures of the upper abdomen. RAD/Chest 1 View (Portable) IMPRESSION: Atelectasis and/or infiltrate at the right lung base with blunting of the right costophrenic angle. Findings suggestive of early left perihilar infiltrate and left upper lobe. Follow-up is recommended. Electronically Signed: Felipe Workman, at 11:28 EST , Service support ,
[2020-08-22] MEDS: dexAMETHasone 10 MG/ML Vial IV (10:52)
--- NOTE | 2020-08-22 10:52 | ED.DCSUM_ITS ---
- ER Visit Summary Date of Service: 08/22/20 Chief Complaint: Shortness of breath History of Present Illness: The patient is a 65 M who presents with shortness of breath that has been getting worse over the past week. Patient was recently diagnosed with COVID-19. Patient states he has a salty taste in his mouth but denies any loss of smell. Patient admits to some cough with clear sputum. Patient states his breathing is worse with any exertion and with any panicking. Patient states his chest feels raw.Patient states he has been increasing his oxygen at home from 2 L to 4 L with no improvement. Patient states he has been taking his inhalers and aerosols at home with no improvement. Physical Examination: Vital signs are stable. Patient has a temperature of 100.3 here. Patient is in no acute distress. Oral mucosa is pink and moist. Neck is supple. Trachea is midline. There is no JVD. Heart was regular rate and rhythm. Lungs showed diffuse wheezing and bibasilar rales. There is good respiratory effort noted. Abdomen is soft. Bowel sounds are normal. There is no tenderness. Cranial nerves II through XII are intact. There are no focal motor or sensory deficits. Extremities are intact. There is no calf tenderness or edema. Test Results: EKG shows normal sinus rhythm with a rate of 74. There is a right bundle branch block and a left anterior fascicular block. This was unchanged compared to previous EKG dated 08/23/2018. Portable chest x-ray was obtained. There is a right pleural effusion. There is also infiltrate in the right lung base and left perihilar and left upper lobe infiltrates are also noted. There is no cardiomegaly. Bony thorax is normal. This was interpreted by myself. Radiologist also interpreted the x-rays and agrees. CBC shows a white blood cell count of 4.0. Platelets were 112. Comprehensive metabolic profile was essentially within normal limits. BNP was normal at 22. Troponin was normal. Emergency Department Course and Treatment: Patient was given a dose of Decadron here in the emergency department. Patient was given albuterol inhaler with 6 puffs. Patient was given a dose of Lasix here. Case was discussed with the hospitalist. He will admit the patient to the Covid unit. Patient understood and was agreeable with the plan. All questions were answered. Disposition: Admit to hospital Impression: 1. Right pleural effusion 2. COVID-19 3. Pneumonia This note was generated with [employer] dictation software. It may contain incorrect words, spelling, and punctuation that were not noted in review of the chart prior to signing ED Disposition - Plan for ED Patient: Disposition: Acute Care Hospital [facility] Diagnosis: Pleural effusion, right, COVID-19, Pneumonia Referrals: Bipin Sanchez MD [Primary Care Provider] -
[2020-08-22 11:00] LABS: Absolute Lymphocyte Count 0.79 X10^3/uL (0.83-4.51); Absolute Neutrophil Count 2.8 X10^3/uL (2.0-7.7); Hemoglobin 13.5 g/dL (13.0-16.5); Lymphocyte # 0.79 X10^3/ul (4.0); Mean Corp Hgb Conc 32.1 g/dL (32-36); Mean Corpuscular Hgb 30.4 pg (27.0-32.0); Mean Corpuscular Volume 94.6 fL (80-94); Mean Platelet Vol. 9.5 fl (6.2-12.0); Monocyte# 0.34 X10^3/uL; Monocyte% 8.6 % (0-10); NRBC Flagged by Analyzer 0 % (0-5); Neutrophil # 2.81 X10^3/uL (2.7-7.7); Neutrophil % 71.1 % (47-70); Platelet Count 112 K/mm3 (150-450); RBC Distribution Width CV 14.8 % (11.6-14.6); RBC Distribution Width SD 52.1 fl (35.1-43.9); Red Blood Count 4.44 M/mm3 (4.6-6.2)
[2020-08-22 11:17] LABS: ALB/GLOB Ratio 0.7 RATIO (0.9-2.4); AST(SGOT) 41 U/L (15-37); Alanine Aminotransfer ALT/SGPT 60 U/L (16-61); Alkaline Phosphatase 93 U/L (45-117); Anion Gap 2 (5-15); BUN 17 mg/dL (7-18); BUN/Creat Ratio 18.6 RATIO (10-20); Calcium,Total 8.4 mg/dL (8.5-10.1); Chloride 102 mmol/L (98-107); Creatinine, Serum 0.92 mg/dL (0.70-1.30); EST Glomerular Filtration Rate 88 mL/min (>60); Est Glom Filt Rate - Afr Amer 106 mL/min (>60); Estimated Creatinine Clearance 76.41 ml/min; Globulin 4.2 g/dL (2.2-4.2); Glucose 95 mg/dL (74-106); Potassium 3.6 mmol/L (3.5-5.1); Protein, Total 7.2 g/dL (6.4-8.2); Sodium Level 137 mmol/L (136-145)
[2020-08-22 11:30] LABS: Lactic Acid 0.9 mmol/L (0.4-1.9)
--- NOTE | 2020-08-22 12:00 | HP.PCM_ITS ---
Problem List (1) Dyspnea on exertion Status: Acute (2) Pleural effusion, right Status: Acute (3) COVID-19 Status: Acute (4) Pneumonia Status: Acute (5) Atherosclerosis of [place] coronary artery of [place] heart without angina pectoris Status: Chronic Comment: Nonobstructive in November 2019; (6) BMI 38.0-38.9,adult Status: Chronic (7) History of right and left heart catheterization Status: Chronic Comment: Non obstructive coronary arteries; Global LV systolic dysfunction- Mild LVEF: by LV gram 45-50 %; Normal Left Ventricular End Diastolic Pressure The patient has pulmonary hypertension which is mild. Pt's SERRANO is most likely predominantly from pulmonary component False positive stress test. 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 (16) History of incision and drainage Status: Chronic Comment: right knee, septic (17) H/O umbilical hernia repair Status: Resolved (18) Dysmetabolic syndrome X Status: Chronic (19) Panic disorder without agoraphobia Status: Chronic (20) Generalized anxiety disorder Status: Chronic (21) Obesity Status: Chronic (22) Obstructive sleep apnea Status: Chronic (23) COPD with asthma Status: Chronic (24) Sick sinus syndrome Status: Chronic (25) Presence of cardiac pacemaker Status: Resolved Comment: [employer] model L101 [employer] CALERO, serial number [id number] (26) Hypertension Status: Chronic Qualifiers: Hypertension type: essential hypertension Qualified Code(s): I10 - Essential (primary) hypertension (27) COPD (chronic obstructive pulmonary disease) Status: Chronic (28) History of rotator cuff tear Status: Chronic (29) Hyperlipidemia Status: Chronic Qualifiers: Hyperlipidemia type: unspecified Qualified Code(s): E78.5 - Hyperlipidemia, unspecified (30) History of DVT (deep vein thrombosis) Status: Chronic Comment: right, peroneal soleal-provoked- admission for septic knee History of Present Illness Date of Admission: 08/22/20 Chief Complaint: Shortness of breath The patient is a 65 year old M diagnosed with Covid on 08/16/2020 he was being managed at home on oxygen. Patient however was found to have oxygen saturation of 75% at home by his COVID-19 team from [facility] patient reports increasing fatigue since being diagnosed with COVID-19. He has noticed easy fatigability as well as progressive shortness of breath with minimal activity. He was sent to the ED in view of his significant low oxygen saturation. Imaging studies obtained in the ED demonstrated Atelectasis and/or infiltrate at the right lung base with blunting of the right costophrenic angle. Findings suggestive of early left perihilar infiltrate and left upper lobe. Assessment of acute COVID-19 infection with superimposed pneumonia made admitted to a monitored bed for further management Past Medical History Past Medical History (Chronic Problems): Chronic Problems (Last Reviewed 08/22/20 @ 14:[address] Joaquin Mccall MD) Atherosclerosis of [place] coronary artery of [place] heart without angina pectoris (Chronic) Nonobstructive in November 2019; BMI 38.0-38.9,adult (Chronic) History of right and left heart catheterization (Chronic 11/29/19) Non obstructive coronary arteries; Global LV systolic dysfunction- Mild LVEF: by LV gram 45-50 %; Normal Left Ventricular End Diastolic Pressure The patient has pulmonary hypertension which is mild. Pt's SERRANO is most likely predominantly from pulmonary component False positive stress test. Per R&LHC done 11/29/2019 per DJN @ [facility] CHD (coronary heart disease) (Chronic) Asthma (Chronic) 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) Bilateral enlargement of atria (Chronic) Per echo Oct 2018 Nonrheumatic tricuspid (valve) insufficiency (Chronic) Mild (1+) per echo Oct 2018 Secondary pulmonary hypertension (Chronic) RVSP went from 30 to 45 mm hg per echo Oct 2018 History of syncope (Chronic) Pt discovered to have complete heart block and pacemaker was placed. History of incision and drainage (Chronic 06/07/12) right knee, septic Dysmetabolic syndrome X (Chronic) Panic disorder without agoraphobia (Chronic) Generalized anxiety disorder (Chronic) Obesity (Chronic) Obstructive sleep apnea (Chronic) COPD with asthma (Chronic) Sick sinus syndrome (Chronic) Hypertension (Chronic) COPD (chronic obstructive pulmonary disease) (Chronic) History of rotator cuff tear (Chronic) Hyperlipidemia (Chronic) History of DVT (deep vein thrombosis) (Chronic 06/2012) right, peroneal soleal-provoked- admission for septic knee Medical History: Medical History (Last Reviewed 08/22/20 @ 14:[address] 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 Obstructive sleep apnea (Chronic) G47.33 COPD with asthma (Chronic) J44.9 Sick sinus syndrome (Chronic) I49.5 Hypertension (Chronic) I10 Hyperlipidemia (Chronic) E78.5 History of DVT (deep vein thrombosis) (Chronic) Onset Date: 06/2012 Z86.718 right, peroneal soleal-provoked- admission for septic knee Syncope (Resolved) R55 Allergies ibuprofen Allergy (Severe, Verified 08/22/20 10:16) ANAPHYLAXIS isosorbide Adverse Reaction (Intermediate, Verified 08/22/20 10:16) severe headaches/migraine Home Medications: Ambulatory Orders Medication Instructions Recorded Amitriptyline HCl 50 mg PO DAILY 04/28/16 Aspirin [Aspirin, Baby] 81 mg PO DAILY@0800 04/28/16 Citalopram Hydrobromide 20 mg PO DAILY 04/28/16 [Citalopram HBr] Nitroglycerin (INPATIENT USE) 0.4 mg SUBLINGUAL Q5M PRN 04/28/16 [Nitrostat] Armona-3 Fatty Acids/Dha/Epa 1 ea PO DAILY 04/28/16 [Ovega-3 Softgel] Pravastatin [Pravachol] 40 mg PO DAILY 04/28/16 furosemide 20 mg tablet 20 mg PO DAILY #30 tab 10/11/18 montelukast 10 mg tablet 10 mg PO DAILY 10/11/18 carvedilol 3.125 mg tablet 3.125 mg PO BID #60 tab 11/29/19 budesonide-formoterol HFA 160 2 puff INHALATION BID #3 ea 12/26/19 mcg-4.5 mcg/actuation aerosol inhaler azelastine 137 mcg (0.1 %) nasal 2 spray INTRANASAL BID #30 ml 03/26/20 spray aerosol fluticasone propionate 50 2 spray INTRANASAL QDAY #1 ea 03/26/20 mcg/actuation nasal spray,suspension albuterol sulfate 2.5 mg INHALATION Q6H PRN #3 ml 06/19/20 albuterol sulfate 90 mcg/actuation 1 - 2 puff INHALATION Q6H PRN #18 g 06/24/20 aerosol inhaler amlodipine 5 mg tablet 5 mg PO DAILY tab 06/27/20 buspirone 30 mg tablet 15 mg PO BID tab 06/27/20 Surgical History: Surgical History (Last Reviewed 07/30/20 @ 08:36 by Annia Gao TIPPING MACHINE OPERATOR, TIPPING MACHINE OPERATOR-C) History of right and left heart catheterization (Chronic) Onset Date: 11/29/19 Z98.890 Non obstructive coronary arteries; Global LV systolic dysfunction- Mild LVEF: by LV gram 45-50 %; Normal Left Ventricular End Diastolic Pressure The patient has pulmonary hypertension which is mild. Pt's SERRANO is most likely predominantly from pulmonary component False positive stress test. Per R&LHC done 11/29/2019 per [facility] @ [facility] H/O umbilical hernia repair (Resolved) Onset Date: 12/11/09 Z98.890, Z87.19 Presence of cardiac pacemaker (Resolved) Onset Date: 04/30/16 Z95.0 [employer] model L101 [employer] CALERO, serial number [id number] Surgical History: - - hernia surgery Smoking Status: Former smoker - *Family History Maternal Family History: Family History (Last Reviewed 08/22/20 @ 14:[address] Joaquin Mccall MD) Mother CVA (cerebral vascular accident), Onset Age: 65 Anxiety Father CAD (coronary artery disease), Onset Age: 61 Myocardial infarction Brother CAD (coronary artery disease) Obesity History Items: Stroke Paternal Family History: Family History (Last Reviewed 08/22/20 @ 14:[address] Joaquin Mccall MD) Mother CVA (cerebral vascular accident), Onset Age: 65 Anxiety Father CAD (coronary artery disease), Onset Age: 61 Myocardial infarction Brother CAD (coronary artery disease) Obesity History Items: Heart Disease Review of Systems Constitutional: Reports: Anorexia, Fever, Malaise, Weakness, Fatigue HEENT: Reports: Head Aches. Denies: Sinus Congestion, Sinus Drainage Cardiovascular: Denies: Chest Pain, Orthopnea, Palpitations, Paroxysmal Noc. Dyspnea Respiratory: Reports: Cough, Shortness of Breath Gastrointestinal: Denies: Abdominal Pain, Hematemesis, Hematochezia, Nausea, Melena, Vomiting Genitourinary: Denies: Dysuria, Frequency, Hematuria, Urgency Musculoskeletal: Denies: Joint Pain, Joint Tenderness Skin: Denies: Rash Neurological: Denies: Focal weakness, Numbness, Tingling Psychiatric: Denies: Homicidal Ideations, Suicidal Ideations Hematologic/ Lymphatic: Denies: Easy Bruising, Easy Bleeding VTE Information - Inpt Only VTE Present on Admission: No VTE Mechan Device Prophylaxis: None VTE Pharm Prophylaxis ordered?: Yes Patient Problems: Active and Suspected Problems (Last Reviewed 08/22/20 @ 14:[address] Joaquin Mccall MD) Pleural effusion, right (Acute) COVID-19 (Acute) Pneumonia (Acute) Dyspnea on exertion (Acute) Objective: GENERAL: cooperative dyspneic at rest HEENT: Atraumatic; EYES; Anicteric, Normal Conjunctiva NECK; supple, normal thyroid, RESPIRATORY: Diminished to auscultation CARDIOVASCULAR: Regular S1 S2, GI: soft, normoactive bowel sounds, : No Renal angle tenderness; EXTREMITIES: No edema, no clubbing, MUSCULOSKELETAL: no muscle waisting NEURO: Awake; no lateralizing signs. SKIN: No Rash PSYCH; Flat affect - Physical Exam Vitals/I&O's: Vital Signs Temp Pulse Resp BP Pulse Ox 99.8 F H 71 17 135/72 H 93 08/22/20 11:57 08/22/20 11:57 08/22/20 11:57 08/22/20 11:57 08/22/20 11:57 Oxygen Flow Rate (L/min) 4 Oxygen Delivery Method Nasal Cannula Weight: 117.934 kg Body Mass Index (BMI) 39.5 Laboratory Results 08/22/20 10:42: WBC 4.0 L, RBC 4.44 L, Hgb 13.5, Hct 42.0, MCV 94.6 H, MCH 30.4, MCHC 32.1, RDW Std Deviation 52.1 H, RDW Coeff of Leigh 14.8 H, Plt Count 112 L, MPV 9.5, Immature Gran % (Auto) 0.300, Neut % (Auto) 71.1 H, Lymph % (Auto) 20.0, [place] % (Auto) 8.6, Eos % (Auto) 0.0, Baso % (Auto) 0.0, Absolute Neuts (auto) 2.8, Absolute Lymphs (auto) 0.79 L, Nucleated RBC % 0 08/22/20 10:42: Sodium 137, Potassium 3.6, Chloride 102, Carbon Dioxide 33.0 H, Anion Gap 2 L, BUN 17, Creatinine 0.92, Estim Creat Clear Calc 76.41, Est GFR (MDRD) Af Amer 106, Est GFR (MDRD) Non-Af 88, BUN/Creatinine Ratio 18.6, Glucose 95, Calcium 8.4 L, Total Bilirubin 0.70, AST 41 H, ALT 60, Alkaline Phosphatase 93, Troponin I 0.016, Total Protein 7.2, Albumin 3.0 L, Globulin 4.2, Albumin/Globulin Ratio 0.7 L 08/22/20 10:42: Lactic Acid 0.9 08/22/20 10:42: B-Natriuretic Peptide 22.0 Assessment/Plan All Active Problems (Last Reviewed 08/22/20 @ 14:[address] Joaquin Mccall MD) Pleural effusion, right (Acute) COVID-19 (Acute) Pneumonia (Acute) Dyspnea on exertion (Acute) H/O umbilical hernia repair (Resolved 12/11/09) Presence of cardiac pacemaker (Resolved 04/30/16) Syncope (Resolved) Patient is a 65-year-old gentleman diagnosed with COVID-19 infection a week prior to his admission who presented with progressive shortness of breath 1. Acute hypoxic respiratory insufficiency secondary to COVID-19 pneumonia ?Patient has been admitted to a monitored bed currently being managed with aerosol treatments as needed, supplemental oxygen titrated to keep saturation greater than 90 and Decadron. Consult was placed to pulmonary medicine and ID. Decision to start remdesivir deferred. As part of patient's subsequent management ordered D-dimer, lactic acid, procalcitonin, further management decision to depend on results of patient's initial diagnostic work-up 2. Hypertension - Blood pressure controlled, home medications continued with dose adjustment as needed 3. History of pacemaker placement ?Secondary to sick sinus syndrome 4. Dyslipidemia -Patient is on statin therapy, continued at home dose 5. Obesity with BMI of 39.5 ?Weight loss advised 6. Obstructive sleep apnea ?Per history 7. Overlap syndrome with asthma and COPD ?Aerosol treatment as needed 8. DVT prophylaxis ?Lovenox Inpatient E&M: [id number] Init Hosp L3
[2020-08-22] MEDS: Furosemide 40 MG/4 ML Vial IV (12:06)
[2020-08-22 13:07] LABS: LDH 316 U/L (87-241)
[2020-08-22 13:08] LABS: D-Dimer Quantitative (DVT/PE) 2.72 FEU/ug/m (0.27-0.49)
[2020-08-22 13:13] LABS: Fibrinogen 527 mg/dl (203-444)
[2020-08-22 13:16] LABS: Procalcitonin 0.04 ng/mL (0.00-0.09)
--- NOTE | 2020-08-22 14:43 | CT_ITS ---
STUDY: CTA CHEST REASON FOR EXAM: Male, 65 years old. ELEVATED D DIMER. COVID +. INCREASE SOB RADIATION DOSAGE (If Supplied By Facility): CTDIvol = ( 12.58 ) mGy, DLP = ( 561.54 ) mGycm TECHNIQUE: The examination was performed with the intravenous administration of IV 100mL Isovue-370. Post-processing of the angiographic images was performed, with multiplanar reformation and 3D reconstruction. Individualized dose optimization techniques were used for this CT. COMPARISON: Comparison is made with prior study dated 04/28/2016. FINDINGS: Small intraluminal filling defects in branches of the right and left upper lobe pulmonary arteries suggestive of pulmonary emboli. Normal thoracic aorta and visualized great vessels. There is no demonstrated aortic dissection. There are calcifications of the coronary arteries. There are visualized mediastinal lymph nodes, which are within normal size limits, and with normal morphology. Normal hilar regions. Normal visualized trachea and bronchi. Elevation of the right hemidiaphragm. Infiltrate seen in the left upper lobe. Patchy infiltrate in the anterior aspect of the right upper lobe and right middle lobe as well as dense consolidation in the medial segment of the right lower lobe. Increased markings in the left lower lobe. Normal chest wall structures. There are degenerative changes of thoracic spine. There is evidence of cirrhosis of the liver with the marked degree of splenomegaly. CT/CTA Chest W/WO Contrast IMPRESSION: Emboli in branches on the right and left upper lobe pulmonary artery. Bilateral pulmonary infiltrates worse in the right lower lobe. Shrunken lobular liver with cirrhosis. Marked degree of splenomegaly. Electronically Signed: Felipe Workman, at 15:08 EST , Service support ,
[2020-08-22] MEDS: 0.9% Saline Lock 10 ML Syringe IV (15:19)
[2020-08-22] MEDS: Enoxaparin 120 MG/0.8 ML Syringe SC (16:46)
[2020-08-22] MEDS: Albuterol Sulfate 8 gm Inhaler (60 puffs) 2 PUFF INHALATION (18:21)
[2020-08-22] MEDS: Budesonide Respules 0.5 MG/2 ML AMPUL.NEB. INHALATION (20:05)
[2020-08-22] MEDS: Fluticasone 0.05% 1 SPRAY NASAL.SRY 2 SPRAY NASAL (20:45)
[2020-08-22] MEDS: Carvedilol 3.125 MG TABLET PO (20:46)
[2020-08-22] MEDS: busPIRone 15 MG TABLET PO (20:46)
[2020-08-22] MEDS: Azelastine HCl NASAL.SRY 2 SPRAY NASAL (20:47)
[2020-08-22] MEDS: Montelukast 10 MG Tablet PO (20:53)
[2020-08-22] MEDS: Amitriptyline 25 MG Tablet 50 MG PO (20:53)
[2020-08-22] MEDS: Citalopram 20 MG Tablet PO (20:53)
[2020-08-23] VITALS (15 sets, daily range): BP systolic 113–167; BP diastolic 73–101; PULSE 52–84; RESP 16–20; TEMP 36.6–37.4; O2SAT 92–93
[2020-08-23 06:03] LABS: Absolute Lymphocyte Count 0.57 X10^3/uL (0.83-4.51); Absolute Neutrophil Count 1.9 X10^3/uL (2.0-7.7); Basophil# 0.01 X10^3/uL; Basophil% 0.4 % (0-1); Lymphocyte # 0.57 X10^3/ul (4.0); Lymphocyte % 20.3 % (19-41); Mean Corp Hgb Conc 31.8 g/dL (32-36); Mean Corpuscular Volume 94.4 fL (80-94); Mean Platelet Vol. 9.4 fl (6.2-12.0); Monocyte# 0.31 X10^3/uL; NRBC Flagged by Analyzer 0 % (0-5); Neutrophil # 1.91 X10^3/uL (2.7-7.7); Neutrophil % 67.9 % (47-70); POSITIVE DIFFERENTIAL YES; Platelet Count 124 K/mm3 (150-450); RBC Distribution Width CV 14.4 % (11.6-14.6); RBC Distribution Width SD 50.4 fl (35.1-43.9); Red Blood Count 4.66 M/mm3 (4.6-6.2); White Blood Count 2.8 K/mm3 (4.4-11.0)
[2020-08-23 06:04] LABS: Differential Indicated SCAN CRITERIA MET
[2020-08-23 06:20] LABS: International Normalized Ratio 1.1; Prothrombin Time (Protime)PT. 13.8 SECONDS (11.7-14.9)
[2020-08-23 06:28] LABS: Differential Comment SCANNED
[2020-08-23 06:37] LABS: AST(SGOT) 41 U/L (15-37); Alanine Aminotransfer ALT/SGPT 58 U/L (16-61); Albumin, Serum 3.1 g/dL (3.2-5.0); Alkaline Phosphatase 94 U/L (45-117); Anion Gap 8 (5-15); BUN 20 mg/dL (7-18); BUN/Creat Ratio 29.2 RATIO (10-20); Bilirubin, Direct 0.28 mg/dL (0.00-0.30); Calcium,Total 8.6 mg/dL (8.5-10.1); Chloride 98 mmol/L (98-107); Creatinine, Serum 0.68 mg/dL (0.70-1.30); EST Glomerular Filtration Rate 123 mL/min (>60); Est Glom Filt Rate - Afr Amer 149 mL/min (>60); Globulin 3.9 g/dL (2.2-4.2); Glucose 98 mg/dL (74-106); Magnesium 2.4 mg/dL (1.6-2.6); Phosphorus 3.6 mg/dL (2.5-4.9); Sodium Level 137 mmol/L (136-145)
--- NOTE | 2020-08-23 06:41 | CON.PCM_ITS ---
Reason for Consult Date of Consultation: 08/23/20 Reason for Consultation: Acute on chronic hypoxemic respiratory failure History of Present Illness: The patient is a 65-year-old male, with a history as outlined below, who presented to the emergency department on August 22 with worsening shortness of breath, malaise and fatigue. The patient does report that his is positive for coronavirus. The patient was apparently tested for coronavirus the day before yesterday and found to be positive. His symptoms apparently began at the end of last week. The patient's medical history is significant for asthma/COPD overlap syndrome, obstructive sleep apnea, and chronic hypoxemic respiratory failure with a baseline 2 L/min oxygen requirement. The patient currently follows in the pulmonary medicine clinic. On presentation to the emergency department, the patient was noted to have a low-grade fever but was hemodynamically stable. He was maintaining appropriate oxygen saturations on 4 L/min via nasal cannula. D-dimer was elevated to 2.72. Lactate was within normal limits. AST was mildly increased to 41. Troponin was negative. Procalcitonin was within normal limits. CTA chest demonstrated bilateral upper lobe pulmonary emboli along with patchy groundglass infiltrates bilaterally. The patient received aerosol treatments, Lasix, Decadron and remdesivir. He was admitted to the coronavirus cohort unit for further management. Past Medical History Past Medical History (Chronic Problems): Chronic Problems (Last Reviewed 08/22/20 @ 14:[address] Joaquin Mccall MD) Atherosclerosis of [place] coronary artery of [place] heart without angina pectoris (Chronic) Nonobstructive in November 2019; BMI 38.0-38.9,adult (Chronic) History of right and left heart catheterization (Chronic 11/29/19) Non obstructive coronary arteries; Global LV systolic dysfunction- Mild LVEF: by LV gram 45-50 %; Normal Left Ventricular End Diastolic Pressure The patient has pulmonary hypertension which is mild. Pt's SERRANO is most likely predominantly from pulmonary component False positive stress test. Per R&LHC done 11/29/2019 [address] GI[facility]PPE @ 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 History of incision and drainage (Chronic 06/07/12) right knee, septic Dysmetabolic syndrome X (Chronic) Panic disorder without agoraphobia (Chronic) Generalized anxiety disorder (Chronic) Obesity (Chronic) Obstructive sleep apnea (Chronic) COPD with asthma (Chronic) Sick sinus syndrome (Chronic) Hypertension (Chronic) COPD (chronic obstructive pulmonary disease) (Chronic) History of rotator cuff tear (Chronic) Hyperlipidemia (Chronic) History of DVT (deep vein thrombosis) (Chronic 06/2012) right, peroneal soleal-provoked- admission for septic knee Medical History: Medical History (Last Reviewed 08/22/20 @ 14:[address] 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 Obstructive sleep apnea (Chronic) G47.33 COPD with asthma (Chronic) J44.9 Sick sinus syndrome (Chronic) I49.5 Hypertension (Chronic) I10 Hyperlipidemia (Chronic) E78.5 History of DVT (deep vein thrombosis) (Chronic) Onset Date: 06/2012 Z86.718 right, peroneal soleal-provoked- admission for septic knee Syncope (Resolved) R55 Allergies ibuprofen Allergy (Severe, Verified 08/22/20 10:16) ANAPHYLAXIS isosorbide Adverse Reaction (Intermediate, Verified 08/22/20 10:16) severe headaches/migraine Home Medications: Ambulatory Orders Medication Instructions Recorded Amitriptyline HCl 50 mg PO DAILY 04/28/16 Aspirin [Aspirin, Baby] 81 mg PO DAILY@0800 04/28/16 Citalopram Hydrobromide 20 mg PO DAILY 04/28/16 [Citalopram HBr] Nitroglycerin (INPATIENT USE) 0.4 mg SUBLINGUAL Q5M PRN 04/28/16 [Nitrostat] Purvis-3 Fatty Acids/Dha/Epa 1 ea PO DAILY 04/28/16 [Ovega-3 Softgel] Pravastatin [Pravachol] 40 mg PO DAILY 04/28/16 furosemide 20 mg tablet 20 mg PO DAILY #30 tab 10/11/18 montelukast 10 mg tablet 10 mg PO DAILY 10/11/18 carvedilol 3.125 mg tablet 3.125 mg PO BID #60 tab 11/29/19 budesonide-formoterol HFA 160 2 puff INHALATION BID #3 ea 12/26/19 mcg-4.5 mcg/actuation aerosol inhaler azelastine 137 mcg (0.1 %) nasal 2 spray INTRANASAL BID #30 ml 03/26/20 spray aerosol fluticasone propionate 50 2 spray INTRANASAL QDAY #1 ea 03/26/20 mcg/actuation nasal spray,suspension albuterol sulfate 2.5 mg INHALATION Q6H PRN #3 ml 06/19/20 albuterol sulfate 90 mcg/actuation 1 - 2 puff INHALATION Q6H PRN #18 g 06/24/20 aerosol inhaler amlodipine 5 mg tablet 5 mg PO DAILY tab 06/27/20 buspirone 30 mg tablet 15 mg PO BID tab 06/27/20 Budesonide/Formoterol Fumarate 08/22/20 [Symbicort 160-4.5 Mcg Inhaler] Prednisone 20 mg PO DAILY 08/22/20 Surgical History: Surgical History (Last Reviewed 07/30/20 @ 08:36 by Annia Gao [employer]VERSE [employer]SEMBLER, TRAVERSE R[employer] ASSEMBLER-C) History of right and left heart catheterization (Chronic) Onset Date: 11/29/19 Z98.890 Non obstructive coronary arteries; Global LV systolic dysfunction- Mild LVEF: by LV gram 45-50 %; Normal Left Ventricular End Diastolic Pressure The patient has pulmonary hypertension which is mild. Pt's SERRANO is most likely predominantly from pulmonary component False positive stress test. Per R&LHC done 11/29/2019 per [facility]PE @ [facility] [place] H/O umbilical hernia repair (Resolved) Onset Date: 12/11/09 Z98.890, Z87.19 Presence of cardiac pacemaker (Resolved) Onset Date: 04/30/16 Z95.0 [employer] model L101 [employer] CALERO, serial number [id number] Surgical History: - - hernia surgery Smoking Status: Former smoker - *Family History Maternal Family History: Family History (Last Reviewed 08/22/20 @ 14:[address] Joaquin Mccall MD) Mother CVA (cerebral vascular accident), Onset Age: 65 Anxiety Father CAD (coronary artery disease), Onset Age: 61 Myocardial infarction Brother CAD (coronary artery disease) Obesity History Items: Stroke Paternal Family History: Family History (Last Reviewed 08/22/20 @ 14:[address] Joaquin Mccall MD) Mother CVA (cerebral vascular accident), Onset Age: 65 Anxiety Father CAD (coronary artery disease), Onset Age: 61 Myocardial infarction Brother CAD (coronary artery disease) Obesity History Items: Heart Disease Review of Systems Constitutional: Reports: Malaise, Weakness, Fatigue Eyes: Denies: Blurred vision, Double vision HEENT: Denies: Head Aches, Sinus Congestion, Sinus Drainage Cardiovascular: Denies: Chest Pain, Palpitations Respiratory: Reports: Cough, Shortness of Breath Gastrointestinal: Denies: Abdominal Pain, Nausea, Vomiting Genitourinary: Denies: Dysuria Musculoskeletal: Denies: Joint Pain, Joint Tenderness Skin: Denies: Rash, Wounds Psychiatric: Denies: Anxiety, Depression, Homicidal Ideations, Suicidal Ideations Hematologic/ Lymphatic: Denies: Easy Bruising, Easy Bleeding Patient Problems: Active and Suspected Problems (Last Reviewed 08/22/20 @ 14:[address] Joaquin Mccall MD) Pleural effusion, right (Acute) COVID-19 (Acute) Pneumonia (Acute) Dyspnea on exertion (Acute) Objective: The patient's most recent lab work, culture data and imaging studies have all been personally reviewed. Surface echocardiogram from November 2019 revealed a moderately dilated LV with an ejection fraction of 65% and stage I diastolic dysfunction. Right ventricular systolic pressure was estimated to be 55 mmHg. Strep and urine Legionella antigens were negative. Blood cultures are pending. - Physical Exam Vitals/I&O's: Vital Signs Temp Pulse Resp BP Pulse Ox 97.9 F 76 19 H 167/101 H 92 08/23/20 02:22 08/23/20 05:19 08/23/20 02:22 08/23/20 02:22 08/23/20 02:22 Oxygen Flow Rate (L/min) 5 Oxygen Delivery Method Bi-pap Weight: 259 lb 15.999 oz Body Mass Index (BMI) 39.5 Intake and Output for Last 24 Hours 08/21/20 08/22/20 08/23/20 23:59 23:59 23:59 Intake Total 1450 / 1850 650 / 650 Output Total 950 / 1400 900 / 900 Balance 500 / 450 -250 / -250 General: Alert, Cooperative, No apparent distress HEENT: Atraumatic, PERRLA, Normocephalic Oral: No Gingival or Mucosal Lesions/ Ulcerations Neck: Supple, No Nodes, Trachea Midline Lungs: Diminished, Rales Cardiovascular: Regular rate, Regular Rhythm Abdomen: Bowel Sounds Present, Soft, Non Tender, Obese Extremities: No clubbing, No cyanosis, No edema Skin: No breakdown Musculoskeletal: No Tenderness to Palpation of Joints or Extremities, No Muscle Wasting Lymphatic: No Cervical, Supraclavicular, or Inguinal Adenopathy Neurological: Cranial nerves II-XII grossly intact, Neuro grossly intact Psych/Mental Status: Alert and oriented to time, place, person, mood and affect Labs (Last 48 Hours) 08/22/20 08/22/20 08/22/20 10:42 10:42 10:42 WBC 4.0 L RBC 4.44 L Hgb 13.5 Hct 42.0 MCV 94.6 H MCH 30.4 MCHC 32.1 RDW Std Deviation 52.1 H RDW Coeff of Leigh 14.8 H Plt Count 112 L MPV 9.5 Immature Gran % (Auto) 0.300 Neut % (Auto) 71.1 H Lymph % (Auto) 20.0 [place] % (Auto) 8.6 Eos % (Auto) 0.0 Baso % (Auto) 0.0 Absolute Neuts (auto) 2.8 Absolute Lymphs (auto) 0.79 L Nucleated RBC % 0 Differential Comment Diff Path Review PT INR Fibrinogen D-Dimer Quant (PE/DVT) Sodium 137 Potassium 3.6 Chloride 102 Carbon Dioxide 33.0 H Anion Gap 2 L BUN 17 Creatinine 0.92 Estim Creat Clear Calc 76.41 Est GFR (MDRD) Af Amer 106 Est GFR (MDRD) Non-Af 88 BUN/Creatinine Ratio 18.6 Glucose 95 Lactic Acid 0.9 Calcium 8.4 L Phosphorus Magnesium Total Bilirubin 0.70 Direct Bilirubin AST 41 H ALT 60 Alkaline Phosphatase 93 Lactate Dehydrogenase Troponin I 0.016 C-React Prot Ext Range B-Natriuretic Peptide Total Protein 7.2 Albumin 3.0 L Globulin 4.2 Albumin/Globulin Ratio 0.7 L Procalcitonin 08/22/20 08/22/20 08/22/20 10:42 10:42 10:42 WBC RBC Hgb Hct MCV MCH MCHC RDW Std Deviation RDW Coeff of Leigh Plt Count MPV Immature Gran % (Auto) Neut % (Auto) Lymph % (Auto) [place] % (Auto) Eos % (Auto) Baso % (Auto) Absolute Neuts (auto) Absolute Lymphs (auto) Nucleated RBC % Differential Comment Diff Path Review PT INR Fibrinogen 527 H D-Dimer Quant (PE/DVT) Sodium Potassium Chloride Carbon Dioxide Anion Gap BUN Creatinine Estim Creat Clear Calc Est GFR (MDRD) Af Amer Est GFR (MDRD) Non-Af BUN/Creatinine Ratio Glucose Lactic Acid Calcium Phosphorus Magnesium Total Bilirubin Direct Bilirubin AST ALT Alkaline Phosphatase Lactate Dehydrogenase 316 H Troponin I C-React Prot Ext Range 46.60 H B-Natriuretic Peptide 22.0 Total Protein Albumin Globulin Albumin/Globulin Ratio Procalcitonin 08/22/20 08/22/20 08/23/20 10:42 10:42 05:20 WBC RBC Hgb Hct MCV MCH MCHC RDW Std Deviation RDW Coeff of Leigh Plt Count MPV Immature Gran % (Auto) Neut % (Auto) Lymph % (Auto) [place] % (Auto) Eos % (Auto) Baso % (Auto) Absolute Neuts (auto) Absolute Lymphs (auto) Nucleated RBC % Differential Comment Diff Path Review PT INR Fibrinogen D-Dimer Quant (PE/DVT) 2.72 H* Sodium 137 Potassium 4.0 Chloride 98 Carbon Dioxide 31.0 Anion Gap 8 BUN 20 H Creatinine 0.68 L Estim Creat Clear Calc 70.30 Est GFR (MDRD) Af Amer 149 Est GFR (MDRD) Non-Af 123 BUN/Creatinine Ratio 29.2 H Glucose 98 Lactic Acid Calcium 8.6 Phosphorus 3.6 Magnesium 2.4 Total Bilirubin 0.80 Direct Bilirubin 0.28 AST 41 H ALT 58 Alkaline Phosphatase 94 Lactate Dehydrogenase Troponin I C-React Prot Ext Range B-Natriuretic Peptide Total Protein 7.0 Albumin 3.1 L Globulin 3.9 Albumin/Globulin Ratio Procalcitonin 0.04 08/23/20 08/23/20 05:20 05:20 WBC 2.8 L RBC 4.66 Hgb 14.0 Hct 44.0 MCV 94.4 H MCH 30.0 MCHC 31.8 L RDW Std Deviation 50.4 H RDW Coeff of Leigh 14.4 Plt Count 124 L MPV 9.4 Immature Gran % (Auto) 0.400 Neut % (Auto) 67.9 Lymph % (Auto) 20.3 [place] % (Auto) 11.0 H Eos % (Auto) 0.0 Baso % (Auto) 0.4 Absolute Neuts (auto) 1.9 L Absolute Lymphs (auto) 0.57 L Nucleated RBC % 0 Differential Comment SCANNED Diff Path Review February foll PT 13.8 INR 1.1 Fibrinogen D-Dimer Quant (PE/DVT) Sodium Potassium Chloride Carbon Dioxide Anion Gap BUN Creatinine Estim Creat Clear Calc Est GFR (MDRD) Af Amer Est GFR (MDRD) Non-Af BUN/Creatinine Ratio Glucose Lactic Acid Calcium Phosphorus Magnesium Total Bilirubin Direct Bilirubin AST ALT Alkaline Phosphatase Lactate Dehydrogenase Troponin I C-React Prot Ext Range B-Natriuretic Peptide Total Protein Albumin Globulin Albumin/Globulin Ratio Procalcitonin Microbiology 08/22/20 Unknown Urine, Random Legionella Antigen - Final 08/22/20 Unknown Urine, Random Streptococcus pneumoniae Antigen (M - Final Clinical Impression(s) from Imaging Studies Chest X-Ray 08/22/20 10:37 IMPRESSION: Atelectasis and/or infiltrate at the right lung base with blunting of the right costophrenic angle. Findings suggestive of early left perihilar infiltrate and left upper lobe. Follow-up is recommended. Electronically Signed: Felipe Workman, at 11:28 EST , Service support , Chest CTA 08/22/20 14:43 IMPRESSION: Emboli in branches on the right and left upper lobe pulmonary artery. Bilateral pulmonary infiltrates worse in the right lower lobe. Shrunken lobular liver with cirrhosis. Marked degree of splenomegaly. Electronically Signed: Felipe Workman, at 15:08 EST , Service support , Current Medications Acetaminophen (Acetaminophen 325 Mg Tablet) 650 mg PO Q6H PRN PRN PRN Reason: Pain Score 1-10/Temp > 100.7 F Al Hydroxide/Mg Hydroxide (Mag Hydrox/Al Hydrox/Simeth 30 Ml Udc) 30 ml PO Q6H PRN PRN PRN Reason: Gastric Burning Albuterol Sulfate (Albuterol Sulfate 8 Gm Inhaler (60 Puffs)) 2 puff INHALATION Q2H PRN PRN PRN Reason: Shortness of Breath/Wheezing Last Admin: 08/22/20 18:21 Dose: 2 puff Documented by: Amitriptyline HCl (Amitriptyline 25 Mg Tablet) 50 mg PO QHS [facility] Amlodipine Besylate (Amlodipine 5 Mg Tablet) 5 mg PO DAILY [facility] Aspirin (Aspirin 81 Mg Tab.Chew) 81 mg PO DAILY [facility] Azelastine HCl (Azelastine Hcl Nasal.Sry) 2 spray NASAL BID [facility] Last Admin: 08/22/20 20:47 Dose: 2 spray Documented by: Budesonide (Budesonide Respules 0.5 Mg/2 Ml Ampul.Neb.) 0.5 mg INHALATION Q12H.RT [facility] Last Admin: 08/22/20 20:05 Dose: 0.5 mg Documented by: Buspirone HCl (Buspirone 15 Mg Tablet) 15 mg PO BID [facility] Last Admin: 08/22/20 20:46 Dose: 15 mg Documented by: Carvedilol (Carvedilol 3.125 Mg Tablet) 3.125 mg PO BID [facility] Last Admin: 08/22/20 20:46 Dose: 3.125 mg Documented by: Chlordiazepoxide (Chlordiazepoxide 25 Mg Capsule) 25 mg PO 4X/DAY PRN PRN PRN Reason: ANXIETY/AGITATION Citalopram Hydrobromide (Citalopram 20 Mg Tablet) 20 mg PO QHS [facility] Dexamethasone (Dexamethasone 4 Mg Tablet) 6 mg PO DAILY [facility] Stop: 08/31/20 10:01 Enoxaparin Sodium (Enoxaparin 120 Mg/0.8 Ml Syringe) 120 mg SC BID [facility] Last Admin: 08/22/20 16:46 Dose: 120 mg Documented by: Fluticasone Propionate (Fluticasone 0.05% 1 [place] Nasal.Sry) 2 spray NASAL QHS [facility] Furosemide (Furosemide 20 Mg Tablet) 20 mg PO DAILY [facility] Guaifenesin (Guaifenesin 10 Ml Udc (200mg/10ml)) 20 ml PO Q4H PRN PRN PRN Reason: COUGH Remdesivir 100 mg/ Sodium (Chloride) 250 mls @ 125 mls/hr IV DAILY [facility]; Protocol Stop: 08/26/20 11:59 Melatonin (Melatonin 3 Mg Tablet) 3 mg PO QHS PRN PRN PRN Reason: INSOMNIA Montelukast Sodium (Montelukast 10 Mg Tablet) 10 mg PO QHS [facility] Nitroglycerin (Nitroglycerin (Inpatient Use) 0.4 Mg Tab.Subl) 0.4 mg SUBLINGUAL Q5M PRN PRN Reason: CARDIAC/CHEST PAIN Ondansetron HCl (Ondansetron 4 Mg/2 Ml Vial) 4 mg IV Q8H PRN PRN PRN Reason: NAUSEA/VOMITING Oxycodone HCl (Oxycodone 5 Mg Tablet) 5 mg PO Q4H PRN PRN PRN Reason: Pain Score 4-5 Oxycodone HCl (Oxycodone 5 Mg Tablet) 10 mg PO Q4H PRN PRN PRN Reason: Pain Score 6-10 Pravastatin Sodium (Pravastatin 40 Mg Tablet) 40 mg PO DAILY [facility] Senna/Docusate Sodium (Senna/Docusate Sodium 1 Tablet) 2 tablet PO BID PRN PRN PRN Reason: Constipation Sodium Chloride (0.9% Saline Lock 10 Ml Syringe) 10 - 40 ml IV UD PRN PRN Reason: SALINE FLUSH Last Admin: 08/22/20 15:19 Dose: 10 ml Documented by: Assessment/Plan All Active Problems (Last Reviewed 08/22/20 @ 14:[address] Joaquin Mccall MD) Pleural effusion, right (Acute) COVID-19 (Acute) Pneumonia (Acute) Dyspnea on exertion (Acute) H/O umbilical hernia repair (Resolved 12/11/09) Presence of cardiac pacemaker (Resolved 04/30/16) Syncope (Resolved) RECOMMENDATIONS: 1. Continue Decadron 6 mg daily x10 days. 2. Continue remdesivir and monitor liver/renal function accordingly. 3. Continue nocturnal CPAP therapy per home regimen. 4. Continue therapeutic Lovenox given pulmonary emboli noted on CTA chest. 5. Wean supplemental oxygen to maintain saturations at or above 90%. 6. Encourage incentive spirometer use and mobilize patient as tolerated. IMPRESSIONS: 1. Acute on chronic hypoxemic respiratory failure secondary to COVID-19 pneumonia/pulmonary emboli The patient presented to the hospital with Covid-like symptoms of approximately 1 weeks duration. He just recently tested positive for coronavirus infection. He does have a baseline supplemental oxygen requirement of 2 L/min. The patient has already been started on Decadron and remdesivir, which I agree with continuing. The patient did have small pulmonary emboli noted on CTA chest, for which he will be continued on therapeutic Lovenox. Plan to continue nocturnal Pap therapy per home regimen. Wean supplemental oxygen to maintain saturations at or above 90%. Encourage incentive spirometer use and mobilize patient as tolerated. 2. History of asthma/COPD overlap syndrome/obstructive sleep apnea Continue bronchodilator therapy per home regimen. Continue nocturnal CPAP therapy per home regimen as well. 3. Obesity/hypertension/hyperlipidemia Complicates care, management, recovery and prognosis. Continue home medications as indicated. This note was generated with [employer] dictation software. It may contain incorrect words, spelling, and punctuation that were not noted in checking the note before signing. Inpatient E&M: 90180 Init Hosp L3
[2020-08-23] MEDS: Budesonide Respules 0.5 MG/2 ML AMPUL.NEB. INHALATION ×2 (07:10→20:37)
[2020-08-23] MEDS: Enoxaparin 120 MG/0.8 ML Syringe SC ×2 (08:46→21:21)
[2020-08-23] MEDS: dexAMETHasone 4 MG Tablet 6 MG PO (08:46)
[2020-08-23] MEDS: Furosemide 20 MG Tablet PO (08:47)
[2020-08-23] MEDS: Carvedilol 3.125 MG TABLET PO ×2 (08:47→21:21)
[2020-08-23] MEDS: busPIRone 15 MG TABLET PO ×2 (08:47→21:21)
[2020-08-23] MEDS: Azelastine HCl NASAL.SRY 2 SPRAY NASAL ×2 (08:47→21:22)
[2020-08-23] MEDS: Aspirin 81 MG TAB.CHEW PO (08:47)
[2020-08-23] MEDS: Pravastatin 40 MG Tablet PO (08:47)
[2020-08-23] MEDS: amLODIPine 5 MG Tablet PO (08:47)
--- NOTE | 2020-08-23 11:03 | CASEMGMT ---
Addendum entered by Sabra Be 08/28/20 08:39: Pt states is on 2liters at home previous to COVID thru [employer]. Pt will need to be tested on this at discharge. S[place] ERIC GORMAN Original Note: ERIC GORMAN assessment: Phone interview with patient for initial transition planning/care coordination assessment d/t COVID positive. ERIC GORMAN introduced self and role at [facility], pt voices understanding and consents to assessment at this time. Pt is A/Ox4 at this time and answers all questions appropriately at this time. Pt states no concerns with getting supplies at home at this time. Care providers, pharmacy, and demographics verified at this time. Presentation: Pt sent in by [facility] COVID team for sat of 75%. pt states had to turn 2liters home oxygen up to 4liters. Admitting dx: COVID 19 pna, resp failure PCP: Daniel Specialists: huan Mishra; Crow, cardio Preferred Pharmacy: [facility] mail order-Pt would prefer meds still sent to [facility] at this time. Insurance: [facility] A/B, MMO Prescription Benefit: [employer] Living Will/HPOA: Pt states has LW/HPOA and states it's on file at [facility] at this time. After reviewing LW/HPOA, pt's LW is on file but the provided HPOA is actually his 's HPOA paperwork. Pt and Nate SW updated at this time, voice understanding. Pt states his , Alejandra Mcpherson, is his HPOA. LNOK: Alejandra Mcpherson, /HPOA; Yung Mcpherson, son Living Arrangements: Pt states livew with 1 story home and states no concerns at home at this time. Pt states is independent with ADL's but helps, if needed. Transportation: Pt states drives self and states no transportation concerns at this time. DME/HHC: Pt states has the following DME: cane(does not use), bipap, nebulizer, Pt states no preference for DME company, if qualifies for home oxygen at discharge. Pt states no hx of HHC or SNF in the past. Pt states no concerns with going home at time of discharge. Pt is retired. Pt states does not smoke cigarettes but does drink 1-2 ETOH beverages daily. Pt states no further concerns/needs at this time. CM to follow for PT/OT evals, home oxygen need, and any further discharge planning/needs. Advised pt to ask for CM if any further questions/concerns/needs arise, voices understanding. Pt Goal: Home Plan: Home, pending PT/OT evals, home oxygen testing. SStkadi REYES CM
[2020-08-23] MEDS: 0.9% Saline Lock 10 ML Syringe IV (11:41)
[2020-08-23] MEDS: Albuterol Sulfate 8 gm Inhaler (60 puffs) 2 PUFF INHALATION ×3 (11:46→19:22)
[2020-08-23 13:53] LABS: Pathologist Review Reviewed
--- NOTE | 2020-08-23 14:45 | PCM.PN.HOSP ---
Patient Problems: Active and Suspected Problems (Last Reviewed 08/22/20 @ 14:[address] Joaquin Mccall MD) Pleural effusion, right (Acute) COVID-19 (Acute) Pneumonia (Acute) Dyspnea on exertion (Acute) Subjective: Doing well, no issues overnight. Oxygen saturations stable on 5 L nasal cannula Vitals/I&O's: Vital Signs Temp Pulse Resp BP Pulse Ox 98.4 F 75 16 131/74 H 93 08/23/20 10:17 08/23/20 10:17 08/23/20 10:17 08/23/20 10:17 08/23/20 10:17 Oxygen Flow Rate (L/min) 5 Oxygen Delivery Method Nasal Cannula Weight: 259 lb 15.999 oz Body Mass Index (BMI) 39.5 Intake and Output for Last 24 Hours 08/21/20 08/22/20 08/23/20 23:59 23:59 23:59 Intake Total 1450 / 1850 900 / 900 Output Total 950 / 1400 1400 / 1400 Balance 500 / 450 -500 / -500 General: Alert, Oriented x3, Cooperative, No apparent distress HEENT: Atraumatic, PERRLA, EOMI, Normocephalic Oral: Moist Mucosa Neck: Supple, No JVD Lungs: No rhonchi, No wheeze, Diminished, Rales - On the left greater than the right Cardiovascular: Regular rate, Regular Rhythm, Normal S1, Normal S2, No murmurs Abdomen: Soft, Non Tender, Non-Distended, No Hepato-splenomegaly Extremities: No edema, Capillary Refill Less than 3 Seconds Skin: No rashes, No breakdown Neurological: Neuro grossly intact, Sensory exam intact to light touch and pain Psych/Mental Status: Normal Affect, Appropriate Microbiology Past 72 Hours 08/22/20 Unknown Urine, Random Legionella Antigen - Final 08/22/20 Unknown Urine, Random Streptococcus pneumoniae Antigen (M - Final Laboratory Results 08/23/20 05:20: Sodium 137, Potassium 4.0, Chloride 98, Carbon Dioxide 31.0, Anion Gap 8, BUN 20 H, Creatinine 0.68 L, Estim Creat Clear Calc 70.30, Est GFR (MDRD) Af Amer 149, Est GFR (MDRD) Non-Af 123, BUN/Creatinine Ratio 29.2 H, Glucose 98, Calcium 8.6, Phosphorus 3.6, Magnesium 2.4, Total Bilirubin 0.80, Direct Bilirubin 0.28, AST 41 H, ALT 58, Alkaline Phosphatase 94, Total Protein 7.0, Albumin 3.1 L, Globulin 3.9 08/23/20 05:20: WBC 2.8 L, RBC 4.66, Hgb 14.0, Hct 44.0, MCV 94.4 H, MCH 30.0, MCHC 31.8 L, RDW Std Deviation 50.4 H, RDW Coeff of Leigh 14.4, Plt Count 124 L, MPV 9.4, Immature Gran % (Auto) 0.400, Neut % (Auto) 67.9, Lymph % (Auto) 20.3, [place] % (Auto) 11.0 H, Eos % (Auto) 0.0, Baso % (Auto) 0.4, Absolute Neuts (auto) 1.9 L, Absolute Lymphs (auto) 0.57 L, Nucleated RBC % 0, Differential Comment SCANNED, Diff Path Review Reviewed 08/23/20 05:20: PT 13.8, INR 1.1 Current Medications Acetaminophen (Acetaminophen 325 Mg Tablet) 650 mg PO Q6H PRN PRN PRN Reason: Pain Score 1-10/Temp > 100.7 F Al Hydroxide/Mg Hydroxide (Mag Hydrox/Al Hydrox/Simeth 30 Ml Udc) 30 ml PO Q6H PRN PRN PRN Reason: Gastric Burning Albuterol Sulfate (Albuterol Sulfate 8 Gm Inhaler (60 Puffs)) 2 puff INHALATION Q2H PRN PRN PRN Reason: Shortness of Breath/Wheezing Last Admin: 08/23/20 11:46 Dose: 2 puff Documented by: Amitriptyline HCl (Amitriptyline 25 Mg Tablet) 50 mg PO QHS [facility] Amlodipine Besylate (Amlodipine 5 Mg Tablet) 5 mg PO DAILY [facility] Last Admin: 08/23/20 08:47 Dose: 5 mg Documented by: Aspirin (Aspirin 81 Mg Tab.Chew) 81 mg PO DAILY [facility] Last Admin: 08/23/20 08:47 Dose: 81 mg Documented by: Azelastine HCl (Azelastine Hcl Nasal.Sry) 2 spray NASAL BID [facility] Last Admin: 08/23/20 08:47 Dose: 2 spray Documented by: Budesonide (Budesonide Respules 0.5 Mg/2 Ml Ampul.Neb.) 0.5 mg INHALATION Q12H.RT [facility] Last Admin: 08/23/20 07:10 Dose: 0.5 mg Documented by: Buspirone HCl (Buspirone 15 Mg Tablet) 15 mg PO BID [facility] Last Admin: 08/23/20 08:47 Dose: 15 mg Documented by: Carvedilol (Carvedilol 3.125 Mg Tablet) 3.125 mg PO BID [facility] Last Admin: 08/23/20 08:47 Dose: 3.125 mg Documented by: Chlordiazepoxide (Chlordiazepoxide 25 Mg Capsule) 25 mg PO 4X/DAY PRN PRN PRN Reason: ANXIETY/AGITATION Citalopram Hydrobromide (Citalopram 20 Mg Tablet) 20 mg PO QHS [facility] Dexamethasone (Dexamethasone 4 Mg Tablet) 6 mg PO DAILY [facility] Stop: 08/31/20 10:01 Last Admin: 08/23/20 08:46 Dose: 6 mg Documented by: Enoxaparin Sodium (Enoxaparin 120 Mg/0.8 Ml Syringe) 120 mg SC BID [facility] Last Admin: 08/23/20 08:46 Dose: 120 mg Documented by: Fluticasone Propionate (Fluticasone 0.05% 1 [place] Nasal.Sry) 2 spray NASAL QHS [facility] Furosemide (Furosemide 20 Mg Tablet) 20 mg PO DAILY [facility] Last Admin: 08/23/20 08:47 Dose: 20 mg Documented by: Guaifenesin (Guaifenesin 10 Ml Udc (200mg/10ml)) 20 ml PO Q4H PRN PRN PRN Reason: COUGH Remdesivir 100 mg/ Sodium (Chloride) 250 mls @ 125 mls/hr IV DAILY [facility]; Protocol Stop: 08/26/20 11:59 Last Infusion: 08/23/20 13:40 Dose: Infused Documented by: Melatonin (Melatonin 3 Mg Tablet) 3 mg PO QHS PRN PRN PRN Reason: INSOMNIA Montelukast Sodium (Montelukast 10 Mg Tablet) 10 mg PO QHS [facility] Nitroglycerin (Nitroglycerin (Inpatient Use) 0.4 Mg Tab.Subl) 0.4 mg SUBLINGUAL Q5M PRN PRN Reason: CARDIAC/CHEST PAIN Ondansetron HCl (Ondansetron 4 Mg/2 Ml Vial) 4 mg IV Q8H PRN PRN PRN Reason: NAUSEA/VOMITING Oxycodone HCl (Oxycodone 5 Mg Tablet) 5 mg PO Q4H PRN PRN PRN Reason: Pain Score 4-5 Oxycodone HCl (Oxycodone 5 Mg Tablet) 10 mg PO Q4H PRN PRN PRN Reason: Pain Score 6-10 Pravastatin Sodium (Pravastatin 40 Mg Tablet) 40 mg PO DAILY [facility] Last Admin: 08/23/20 08:47 Dose: 40 mg Documented by: Senna/Docusate Sodium (Senna/Docusate Sodium 1 Tablet) 2 tablet PO BID PRN PRN PRN Reason: Constipation Sodium Chloride (0.9% Saline Lock 10 Ml Syringe) 10 - 40 ml IV UD PRN PRN Reason: SALINE FLUSH Last Admin: 08/23/20 11:41 Dose: 10 ml Documented by: Medical Necessity - Tobacco Use Smoking Status: Former smoker Assessment/Plan All Active Problems (Last Reviewed 08/22/20 @ 14:[address] Joaquin Mccall MD) Pleural effusion, right (Acute) COVID-19 (Acute) Pneumonia (Acute) Dyspnea on exertion (Acute) H/O umbilical hernia repair (Resolved 12/11/09) Presence of cardiac pacemaker (Resolved 04/30/16) Syncope (Resolved) 1. Acute hypoxic respiratory failure secondary to COVID-19 pneumonia/PE/history of COPD overlap syndrome/GENE -Continue with nebulizers as necessary -Decadron and remdesivir -Baseline oxygen is 2 L nasal cannula, he is currently on 5 which we will continue -Continue with therapeutic Lovenox, can transition to Eliquis on discharge 2. HTN/HLD/history of pacemaker placed for sick sinus syndrome -Blood pressure is stable -Continue with Norvasc, Coreg, Lasix -Continue with statin 3. Anxiety/depression -Stable -Continue with amitriptyline, BuSpar, Celexa, Librium DVT: Therapeutic Lovenox Inpatient E&M: [id number] [facility] Hosp L2
--- NOTE | 2020-08-23 16:34 | CON.PCM_ITS ---
Problem List (1) COVID-19 Status: Acute Reason for Consult: francisco jid Consulted by: Dr. Covarrubias History of Present Illness: The patient is a 65 year old M with sx starting around 08/13. got covid, likely from work, then he got it with headache, fever, cough, salty taste in his mouth, aches, and congestion. No one else lives at home. Came to ED, CT showed bilat PE, admitted on remdesivir, dex, lovenox, O2. Feeling about the same today. Full ROS performed and neg except as noted above. - Medical History Past Medical History (Chronic Problems): Chronic Problems (Last Reviewed 08/22/20 @ 14:[address] Joaquin Mccall MD) Atherosclerosis of [place] coronary artery of [place] heart without angina pectoris (Chronic) Nonobstructive in November 2019; BMI 38.0-38.9,adult (Chronic) History of right and left heart catheterization (Chronic 11/29/19) Non obstructive coronary arteries; Global LV systolic dysfunction- Mild LVEF: by LV gram 45-50 %; Normal Left Ventricular End Diastolic Pressure The patient has pulmonary hypertension which is mild. Pt's SERRANO is most likely predominantly from pulmonary component False positive stress test. Per R&LHC done 11/29/[address] [facility] @ 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 History of incision and drainage (Chronic 06/07/12) right knee, septic Dysmetabolic syndrome X (Chronic) Panic disorder without agoraphobia (Chronic) Generalized anxiety disorder (Chronic) Obesity (Chronic) Obstructive sleep apnea (Chronic) COPD with asthma (Chronic) Sick sinus syndrome (Chronic) Hypertension (Chronic) COPD (chronic obstructive pulmonary disease) (Chronic) History of rotator cuff tear (Chronic) Hyperlipidemia (Chronic) History of DVT (deep vein thrombosis) (Chronic 06/2012) right, peroneal soleal-provoked- admission for septic knee Allergies/Adverse Reactions: Allergies ibuprofen Allergy (Severe, Verified 08/22/20 10:16) ANAPHYLAXIS isosorbide Adverse Reaction (Intermediate, Verified 08/22/20 10:16) severe headaches/migraine Home Medications: Ambulatory Orders Medication Instructions Recorded Amitriptyline HCl 50 mg PO DAILY 04/28/16 Aspirin [Aspirin, Baby] 81 mg PO DAILY@0800 04/28/16 Citalopram Hydrobromide 20 mg PO DAILY 04/28/16 [Citalopram HBr] Nitroglycerin (INPATIENT USE) 0.4 mg SUBLINGUAL Q5M PRN 04/28/16 [Nitrostat] [place]-3 Fatty Acids/Dha/Epa 1 ea PO DAILY 04/28/16 [[place]vega-3 Softgel] Pravastatin [Pravachol] 40 mg PO DAILY 04/28/16 furosemide 20 mg tablet 20 mg PO DAILY #30 tab 10/11/18 montelukast 10 mg tablet 10 mg PO DAILY 10/11/18 carvedilol 3.125 mg tablet 3.125 mg PO BID #60 tab 11/29/19 budesonide-formoterol HFA 160 2 puff INHALATION BID #3 ea 12/26/19 mcg-4.5 mcg/actuation aerosol inhaler azelastine 137 mcg (0.1 %) nasal 2 spray INTRANASAL BID #30 ml 03/26/20 spray aerosol fluticasone propionate 50 2 spray INTRANASAL QDAY #1 ea 03/26/20 mcg/actuation nasal spray,suspension albuterol sulfate 2.5 mg INHALATION Q6H PRN #3 ml 06/19/20 albuterol sulfate 90 mcg/actuation 1 - 2 puff INHALATION Q6H PRN #18 g 06/24/20 aerosol inhaler amlodipine 5 mg tablet 5 mg PO DAILY tab 06/27/20 buspirone 30 mg tablet 15 mg PO BID tab 06/27/20 Budesonide/Formoterol Fumarate 08/22/20 [Symbicort 160-4.5 Mcg Inhaler] Prednisone 20 mg PO DAILY 08/22/20 - Social History SMOKING STATUS:: Former smoker Vital Signs Temp Pulse Resp BP Pulse Ox 99.3 F H 77 18 135/76 H 92 08/23/20 15:35 08/23/20 15:35 08/23/20 15:35 08/23/20 15:35 08/23/20 15:35 Oxygen Flow Rate (L/min) 5 Oxygen Delivery Method Nasal Cannula Weight: 117.934 kg Body Mass Index (BMI) 39.5 Microbiology Past 72 Hours 08/22/20 Unknown Legionella Antigen - Final Urine, Random 08/22/20 Unknown Streptococcus pneumoniae Antigen (M - Final Urine, Random Laboratory Tests Past 24 Hrs 08/23/20 08/23/20 08/23/20 05:20 05:20 05:20 WBC 2.8 L RBC 4.66 Hgb 14.0 Hct 44.0 MCV 94.4 H MCH 30.0 MCHC 31.8 L RDW Std Deviation 50.4 H RDW Coeff of Leigh 14.4 Plt Count 124 L MPV 9.4 Immature Gran % (Auto) 0.400 Neut % (Auto) 67.9 Lymph % (Auto) 20.3 [place] % (Auto) 11.0 H Eos % (Auto) 0.0 Baso % (Auto) 0.4 Absolute Neuts (auto) 1.9 L Absolute Lymphs (auto) 0.57 L Nucleated RBC % 0 Differential Comment SCANNED Diff Path Review Reviewed PT 13.8 INR 1.1 Sodium 137 Potassium 4.0 Chloride 98 Carbon Dioxide 31.0 Anion Gap 8 BUN 20 H Creatinine 0.68 L Estim Creat Clear Calc 70.30 Est GFR (MDRD) Af Amer 149 Est GFR (MDRD) Non-Af 123 BUN/Creatinine Ratio 29.2 H Glucose 98 Calcium 8.6 Phosphorus 3.6 Magnesium 2.4 Total Bilirubin 0.80 Direct Bilirubin 0.28 AST 41 H ALT 58 Alkaline Phosphatase 94 Total Protein 7.0 Albumin 3.1 L Globulin 3.9 - Other Studies Radiology: [] reviewed Other Studies: [] Route of nutrition/ use of supplements: [] Nutritional Intake: [] IV Site: [] [place] Catheter: [] - Physical Exam General: Alert, Oriented x3, Cooperative HEENT: Atraumatic, PERRLA, EOMI Neck: Supple, No Nodes Lungs: Diminished, Rhonchi Cardiovascular: Regular rate, Regular Rhythm Abdomen: Soft, Non Tender, Non-Distended Extremities: No edema Skin: No rashes IV Site: Peripheral, without redness Musculoskeletal: No Tenderness to Palpation of Joints or Extremities Neurological: Cranial nerves II-XII grossly intact - Assessment/Plan Antibiotics: [] Assessment/Plan: [] Active and Suspected Problems (Last Reviewed 08/22/20 @ 14:[address] Joaquin Mccall MD) Pleural effusion, right (Acute) COVID-19 (Acute) Pneumonia (Acute) Dyspnea on exertion (Acute) covid with hypoxia and PEs - sx started around 08/13, has been sick, recovering. On dex, remdesivir, full dose lovenox. Reviewed EUA and risks/benefits of convalescent plasma, will start. Will follow, thank you
[2020-08-23] MEDS: chlordiazePOXIDE 25 MG Capsule PO (19:24)
[2020-08-23] MEDS: Citalopram 20 MG Tablet PO (21:21)
[2020-08-23] MEDS: Amitriptyline 25 MG Tablet 50 MG PO (21:21)
[2020-08-23] MEDS: Montelukast 10 MG Tablet PO (21:22)
[2020-08-23] MEDS: Fluticasone 0.05% 1 SPRAY NASAL.SRY 2 SPRAY NASAL (21:23)
[2020-08-24] VITALS (18 sets, daily range): BP systolic 103–161; BP diastolic 59–103; PULSE 70–93; RESP 9–22; TEMP 36.6–37.3; O2SAT 91–96
[2020-08-24] MEDS: Albuterol Sulfate 8 gm Inhaler (60 puffs) 2 PUFF INHALATION (04:04)
[2020-08-24] MEDS: Budesonide Respules 0.5 MG/2 ML AMPUL.NEB. INHALATION ×2 (07:16→19:36)
[2020-08-24 07:50] LABS: Hemoglobin 14.4 g/dL (13.0-16.5); Mean Corpuscular Hgb 29.6 pg (27.0-32.0); Mean Corpuscular Volume 98.8 fL (80-94); Mean Platelet Vol. 9.7 fl (6.2-12.0); Platelet Count 125 K/mm3 (150-450); RBC Distribution Width CV 14.6 % (11.6-14.6); RBC Distribution Width SD 53.4 fl (35.1-43.9); Red Blood Count 4.86 M/mm3 (4.6-6.2); White Blood Count 4.2 K/mm3 (4.4-11.0)
--- NOTE | 2020-08-24 07:55 | PCM.PN.PUL ---
Patient Problems: Active and Suspected Problems (Last Reviewed 08/22/20 @ 14:[address] Joaquin Mccall MD) Pleural effusion, right (Acute) COVID-19 (Acute) Pneumonia (Acute) Dyspnea on exertion (Acute) Subjective: The patient was seen and examined at the bedside this morning. Events from the last 24 hours have been reviewed. The patient is currently afebrile, hemodynamically stable and maintaining appropriate oxygen saturations on 5 L/min via nasal cannula. The patient did receive convalescent plasma and remains on remdesivir and Decadron. He continues to have shortness of breath and a nonproductive cough. He did utilize his CPAP per home regimen last night. Objective: The patient's most recent lab work, culture data and imaging studies have all been personally reviewed. Strep and urine Legionella antigens were negative. Blood cultures have shown no growth to date. - Physical Exam Vitals/I&O's: Vital Signs Temp Pulse Resp BP Pulse Ox 98.7 F 86 9 L 140/78 H 91 08/24/20 04:19 08/24/20 07:07 08/24/20 07:07 08/24/20 04:19 08/24/20 07:07 Oxygen Flow Rate (L/min) 5 Oxygen Delivery Method Nasal Cannula Weight: 259 lb 15.999 oz Body Mass Index (BMI) 39.5 Intake and Output for Last 24 Hours 08/22/20 08/23/20 08/24/20 23:59 23:59 23:59 Intake Total 1450 / 1850 900 / 1100 200 / 200 Output Total 950 / 1400 2200 / 2500 300 / 300 Balance 500 / 450 -1300 / -1400 -100 / -100 General: Alert, Oriented x3, Cooperative, No apparent distress, - - Sitting in bedside recliner. HEENT: Atraumatic, PERRLA, Normocephalic Oral: No Gingival or Mucosal Lesions/ Ulcerations Neck: Supple, No Nodes, Trachea Midline Lungs: No rhonchi, No wheeze, No rales, Diminished Cardiovascular: Regular rate, Regular Rhythm Abdomen: Bowel Sounds Present, Soft, Non Tender, Obese Extremities: No clubbing, No cyanosis, No edema Skin: - - Scattered ecchymoses over extremities Musculoskeletal: No Tenderness to Palpation of Joints or Extremities, No Muscle Wasting Lymphatic: No Cervical, Supraclavicular, or Inguinal Adenopathy Neurological: Cranial nerves II-XII grossly intact, Neuro grossly intact Psych/Mental Status: Alert and oriented to time, place, person, mood and affect Labs (Last 48 Hours) 08/22/20 08/22/20 08/22/20 10:42 10:42 10:42 WBC 4.0 L RBC 4.44 L Hgb 13.5 Hct 42.0 MCV 94.6 H MCH 30.4 MCHC 32.1 RDW Std Deviation 52.1 H RDW Coeff of Leigh 14.8 H Plt Count 112 L MPV 9.5 Immature Gran % (Auto) 0.300 Neut % (Auto) 71.1 H Lymph % (Auto) 20.0 Gray % (Auto) 8.6 Eos % (Auto) 0.0 Baso % (Auto) 0.0 Absolute Neuts (auto) 2.8 Absolute Lymphs (auto) 0.79 L Nucleated RBC % 0 Differential Comment Diff Path Review PT INR Fibrinogen D-Dimer Quant (PE/DVT) Sodium 137 Potassium 3.6 Chloride 102 Carbon Dioxide 33.0 H Anion Gap 2 L BUN 17 Creatinine 0.92 Estim Creat Clear Calc 76.41 Est GFR (MDRD) Af Amer 106 Est GFR (MDRD) Non-Af 88 BUN/Creatinine Ratio 18.6 Glucose 95 Lactic Acid 0.9 Calcium 8.4 L Phosphorus Magnesium Total Bilirubin 0.70 Direct Bilirubin AST 41 H ALT 60 Alkaline Phosphatase 93 Lactate Dehydrogenase Troponin I 0.016 C-React Prot Ext Range B-Natriuretic Peptide Total Protein 7.2 Albumin 3.0 L Globulin 4.2 Albumin/Globulin Ratio 0.7 L Procalcitonin Blood Type 08/22/20 08/22/20 08/22/20 10:42 10:42 10:42 WBC RBC Hgb Hct MCV MCH MCHC RDW Std Deviation RDW Coeff of Leigh Plt Count MPV Immature Gran % (Auto) Neut % (Auto) Lymph % (Auto) Gray % (Auto) Eos % (Auto) Baso % (Auto) Absolute Neuts (auto) Absolute Lymphs (auto) Nucleated RBC % Differential Comment Diff Path Review PT INR Fibrinogen 527 H D-Dimer Quant (PE/DVT) Sodium Potassium Chloride Carbon Dioxide Anion Gap BUN Creatinine Estim Creat Clear Calc Est GFR (MDRD) Af Amer Est GFR (MDRD) Non-Af BUN/Creatinine Ratio Glucose Lactic Acid Calcium Phosphorus Magnesium Total Bilirubin Direct Bilirubin AST ALT Alkaline Phosphatase Lactate Dehydrogenase 316 H Troponin I C-React Prot Ext Range 46.60 H B-Natriuretic Peptide 22.0 Total Protein Albumin Globulin Albumin/Globulin Ratio Procalcitonin Blood Type 08/22/20 08/22/20 08/23/20 10:42 10:42 05:20 WBC RBC Hgb Hct MCV MCH MCHC RDW Std Deviation RDW Coeff of Leigh Plt Count MPV Immature Gran % (Auto) Neut % (Auto) Lymph % (Auto) Gray % (Auto) Eos % (Auto) Baso % (Auto) Absolute Neuts (auto) Absolute Lymphs (auto) Nucleated RBC % Differential Comment Diff Path Review PT INR Fibrinogen D-Dimer Quant (PE/DVT) 2.72 H* Sodium 137 Potassium 4.0 Chloride 98 Carbon Dioxide 31.0 Anion Gap 8 BUN 20 H Creatinine 0.68 L Estim Creat Clear Calc 70.30 Est GFR (MDRD) Af Amer 149 Est GFR (MDRD) Non-Af 123 BUN/Creatinine Ratio 29.2 H Glucose 98 Lactic Acid Calcium 8.6 Phosphorus 3.6 Magnesium 2.4 Total Bilirubin 0.80 Direct Bilirubin 0.28 AST 41 H ALT 58 Alkaline Phosphatase 94 Lactate Dehydrogenase Troponin I C-React Prot Ext Range B-Natriuretic Peptide Total Protein 7.0 Albumin 3.1 L Globulin 3.9 Albumin/Globulin Ratio Procalcitonin 0.04 Blood Type 08/23/20 08/23/20 08/23/20 05:20 05:20 05:29 WBC 2.8 L RBC 4.66 Hgb 14.0 Hct 44.0 MCV 94.4 H MCH 30.0 MCHC 31.8 L RDW Std Deviation 50.4 H RDW Coeff of Leigh 14.4 Plt Count 124 L MPV 9.4 Immature Gran % (Auto) 0.400 Neut % (Auto) 67.9 Lymph % (Auto) 20.3 Gray % (Auto) 11.0 H Eos % (Auto) 0.0 Baso % (Auto) 0.4 Absolute Neuts (auto) 1.9 L Absolute Lymphs (auto) 0.57 L Nucleated RBC % 0 Differential Comment SCANNED Diff Path Review Reviewed PT 13.8 INR 1.1 Fibrinogen D-Dimer Quant (PE/DVT) Sodium Potassium Chloride Carbon Dioxide Anion Gap BUN Creatinine Estim Creat Clear Calc Est GFR (MDRD) Af Amer Est GFR (MDRD) Non-Af BUN/Creatinine Ratio Glucose Lactic Acid Calcium Phosphorus Magnesium Total Bilirubin Direct Bilirubin AST ALT Alkaline Phosphatase Lactate Dehydrogenase Troponin I C-React Prot Ext Range B-Natriuretic Peptide Total Protein Albumin Globulin Albumin/Globulin Ratio Procalcitonin Blood Type A POSITIVE 08/24/20 08/24/20 06:30 06:30 WBC Pending RBC Pending Hgb Pending Hct Pending MCV Pending MCH Pending MCHC Pending RDW Std Deviation Pending RDW Coeff of Leigh Pending Plt Count Pending MPV Immature Gran % (Auto) Neut % (Auto) Lymph % (Auto) Gray % (Auto) Eos % (Auto) Baso % (Auto) Absolute Neuts (auto) Absolute Lymphs (auto) Nucleated RBC % Differential Comment Diff Path Review PT INR Fibrinogen D-Dimer Quant (PE/DVT) Sodium Pending Potassium Pending Chloride Pending Carbon Dioxide Pending Anion Gap Pending BUN Pending Creatinine Pending Estim Creat Clear Calc Est GFR (MDRD) Af Amer Pending Est GFR (MDRD) Non-Af Pending BUN/Creatinine Ratio Pending Glucose Pending Lactic Acid Calcium Pending Phosphorus Magnesium Total Bilirubin Pending Direct Bilirubin AST Pending ALT Pending Alkaline Phosphatase Pending Lactate Dehydrogenase Troponin I C-React Prot Ext Range B-Natriuretic Peptide Total Protein Pending Albumin Pending Globulin Albumin/Globulin Ratio Procalcitonin Blood Type Microbiology 08/22/20 10:49 Blood Culture (Wb) - Right Hand Blood Culture - Preliminary No growth in 48 hours. 08/22/20 10:42 Blood Culture (Wb) - Anticubital Left Blood Culture - Preliminary No growth in 48 hours. 08/22/20 Unknown Urine, Random Legionella Antigen - Final 08/22/20 Unknown Urine, Random Streptococcus pneumoniae Antigen (M - Final Clinical Impression(s) from Imaging Studies Chest X-Ray 08/22/20 10:37 IMPRESSION: Atelectasis and/or infiltrate at the right lung base with blunting of the right costophrenic angle. Findings suggestive of early left perihilar infiltrate and left upper lobe. Follow-up is recommended. Electronically Signed: Felipe Workman, at 11:28 EST , Service support , Chest CTA 08/22/20 14:43 IMPRESSION: Emboli in branches on the right and left upper lobe pulmonary artery. Bilateral pulmonary infiltrates worse in the right lower lobe. Shrunken lobular liver with cirrhosis. Marked degree of splenomegaly. Electronically Signed: Felipe Workman, at 15:08 EST , Service support , Current Medications Acetaminophen (Acetaminophen 325 Mg Tablet) 650 mg PO Q6H PRN PRN PRN Reason: Pain Score 1-10/Temp > 100.7 F Al Hydroxide/Mg Hydroxide (Mag Hydrox/Al Hydrox/Simeth 30 Ml Udc) 30 ml PO Q6H PRN PRN PRN Reason: Gastric Burning Albuterol Sulfate (Albuterol Sulfate 8 Gm Inhaler (60 Puffs)) 2 puff INHALATION Q2H PRN PRN PRN Reason: Shortness of Breath/Wheezing Last Admin: 08/24/20 04:04 Dose: 2 puff Documented by: Amitriptyline HCl (Amitriptyline 25 Mg Tablet) 50 mg PO QHS [facility] Last Admin: 08/23/20 21:21 Dose: 50 mg Documented by: Amlodipine Besylate (Amlodipine 5 Mg Tablet) 5 mg PO DAILY [facility] Last Admin: 08/23/20 08:47 Dose: 5 mg Documented by: Aspirin (Aspirin 81 Mg Tab.Chew) 81 mg PO DAILY [facility] Last Admin: 08/23/20 08:47 Dose: 81 mg Documented by: Azelastine HCl (Azelastine Hcl Nasal.Sry) 2 spray NASAL BID [facility] Last Admin: 08/23/20 21:22 Dose: 2 spray Documented by: Budesonide (Budesonide Respules 0.5 Mg/2 Ml Ampul.Neb.) 0.5 mg INHALATION Q12H.RT [facility] Last Admin: 08/24/20 07:16 Dose: 0.5 mg Documented by: Buspirone HCl (Buspirone 15 Mg Tablet) 15 mg PO BID [facility] Last Admin: 08/23/20 21:21 Dose: 15 mg Documented by: Carvedilol (Carvedilol 3.125 Mg Tablet) 3.125 mg PO BID [facility] Last Admin: 08/23/20 21:21 Dose: 3.125 mg Documented by: Chlordiazepoxide (Chlordiazepoxide 25 Mg Capsule) 25 mg PO 4X/DAY PRN PRN PRN Reason: ANXIETY/AGITATION Last Admin: 08/23/20 19:24 Dose: 25 mg Documented by: Citalopram Hydrobromide (Citalopram 20 Mg Tablet) 20 mg PO QHS [facility] Last Admin: 08/23/20 21:21 Dose: 20 mg Documented by: Dexamethasone (Dexamethasone 4 Mg Tablet) 6 mg PO DAILY [facility] Stop: 08/31/20 10:01 Last Admin: 08/23/20 08:46 Dose: 6 mg Documented by: Enoxaparin Sodium (Enoxaparin 120 Mg/0.8 Ml Syringe) 120 mg SC BID [facility] Last Admin: 08/23/20 21:21 Dose: 120 mg Documented by: Fluticasone Propionate (Fluticasone 0.05% 1 [place] Nasal.Sry) 2 spray NASAL QHS [facility] Last Admin: 08/23/20 21:23 Dose: 2 spray Documented by: Furosemide (Furosemide 20 Mg Tablet) 20 mg PO DAILY [facility] Last Admin: 08/23/20 08:47 Dose: 20 mg Documented by: Guaifenesin (Guaifenesin 10 Ml Udc (200mg/10ml)) 20 ml PO Q4H PRN PRN PRN Reason: COUGH Remdesivir 100 mg/ Sodium (Chloride) 250 mls @ 125 mls/hr IV DAILY [facility]; Protocol Stop: 08/26/20 11:59 Last Infusion: 08/23/20 13:40 Dose: Infused Documented by: Melatonin (Melatonin 3 Mg Tablet) 3 mg PO QHS PRN PRN PRN Reason: INSOMNIA Montelukast Sodium (Montelukast 10 Mg Tablet) 10 mg PO QHS [facility] Last Admin: 08/23/20 21:22 Dose: 10 mg Documented by: Nitroglycerin (Nitroglycerin (Inpatient Use) 0.4 Mg Tab.Subl) 0.4 mg SUBLINGUAL Q5M PRN PRN Reason: CARDIAC/CHEST PAIN Ondansetron HCl (Ondansetron 4 Mg/2 Ml Vial) 4 mg IV Q8H PRN PRN PRN Reason: NAUSEA/VOMITING Oxycodone HCl (Oxycodone 5 Mg Tablet) 5 mg PO Q4H PRN PRN PRN Reason: Pain Score 4-5 Oxycodone HCl (Oxycodone 5 Mg Tablet) 10 mg PO Q4H PRN PRN PRN Reason: Pain Score 6-10 Pravastatin Sodium (Pravastatin 40 Mg Tablet) 40 mg PO DAILY [facility] Last Admin: 08/23/20 08:47 Dose: 40 mg Documented by: Senna/Docusate Sodium (Senna/Docusate Sodium 1 Tablet) 2 tablet PO BID PRN PRN PRN Reason: Constipation Sodium Chloride (0.9% Saline Lock 10 Ml Syringe) 10 - 40 ml IV UD PRN PRN Reason: SALINE FLUSH Last Admin: 08/23/20 11:41 Dose: 10 ml Documented by: Medical Necessity - Tobacco Use Smoking Status: Former smoker Assessment/Plan All Active Problems (Last Reviewed 08/22/20 @ 14:[address] Joaquin Mccall MD) Pleural effusion, right (Acute) COVID-19 (Acute) Pneumonia (Acute) Dyspnea on exertion (Acute) H/O umbilical hernia repair (Resolved 12/11/09) Presence of cardiac pacemaker (Resolved 04/30/16) Syncope (Resolved) RECOMMENDATIONS: 1. Continue Decadron 6 mg daily x10 days. 2. Continue remdesivir and monitor liver/renal function accordingly. 3. Continue nocturnal CPAP therapy per home regimen. 4. Continue therapeutic Lovenox given pulmonary emboli noted on CTA chest. 5. Wean supplemental oxygen to maintain saturations at or above 90%. 6. Encourage incentive spirometer use and mobilize patient as tolerated. IMPRESSIONS: 1. Acute on chronic hypoxemic respiratory failure secondary to COVID-19 pneumonia/pulmonary emboli The patient presented to the hospital with Covid-like symptoms of approximately 1 weeks duration. He just recently tested positive for coronavirus infection. He does have a baseline supplemental oxygen requirement of 2 L/min. The patient received convalescent plasma. In addition, the patient has already been started on Decadron and remdesivir, which I agree with continuing. The patient did have small pulmonary emboli noted on CTA chest, for which he will be continued on therapeutic Lovenox. Plan to continue nocturnal Pap therapy per home regimen. Wean supplemental oxygen to maintain saturations at or above 90%. Encourage incentive spirometer use and mobilize patient as tolerated. 2. History of asthma/COPD overlap syndrome/obstructive sleep apnea Continue bronchodilator therapy per home regimen. Continue nocturnal CPAP therapy per home regimen as well. 3. Obesity/hypertension/hyperlipidemia Complicates care, management, recovery and prognosis. Continue home medications as indicated. This note was generated with [employer] software. It may contain incorrect words, spelling, and punctuation that were not noted in checking the note before signing. Inpatient E&M: 85908 Subs Hosp L2
[2020-08-24] MEDS: Carvedilol 3.125 MG TABLET PO ×2 (09:22→21:02)
[2020-08-24] MEDS: Pravastatin 40 MG Tablet PO (09:22)
[2020-08-24] MEDS: busPIRone 15 MG TABLET PO ×2 (09:22→21:02)
[2020-08-24] MEDS: Aspirin 81 MG TAB.CHEW PO (09:22)
[2020-08-24] MEDS: dexAMETHasone 4 MG Tablet 6 MG PO (09:23)
[2020-08-24] MEDS: amLODIPine 5 MG Tablet PO (09:23)
[2020-08-24] MEDS: Furosemide 20 MG Tablet PO (09:23)
[2020-08-24] MEDS: Enoxaparin 120 MG/0.8 ML Syringe SC ×2 (09:25→21:01)
[2020-08-24] MEDS: Azelastine HCl NASAL.SRY 2 SPRAY NASAL ×2 (09:27→21:02)
[2020-08-24 11:03] LABS: Magnesium 2.3 mg/dL (1.6-2.6); Phosphorus 2.9 mg/dL (2.5-4.9)
--- NOTE | 2020-08-24 11:13 | PCM.PN.HOSP ---
Patient Problems: Active and Suspected Problems (Last Reviewed 08/22/20 @ 14:[address] Joaquin Mccall MD) Pleural effusion, right (Acute) COVID-19 (Acute) Pneumonia (Acute) Dyspnea on exertion (Acute) Subjective: Doing well, no issues overnight. He is still on 5 L nasal cannula his baseline is 2 L. He is only able to draw 750 on the incentive spirometer Vitals/I&O's: Vital Signs Temp Pulse Resp BP Pulse Ox 98.3 F 73 18 111/59 L 93 08/24/20 10:45 08/24/20 10:45 08/24/20 10:45 08/24/20 10:45 08/24/20 10:45 Oxygen Flow Rate (L/min) 5 Oxygen Delivery Method Nasal Cannula Weight: 259 lb 15.999 oz Body Mass Index (BMI) 39.5 Intake and Output for Last 24 Hours 08/22/20 08/23/20 08/24/20 23:59 23:59 23:59 Intake Total 1450 / 1850 900 / 1100 200 / 200 Output Total 950 / 1400 2200 / 2500 300 / 300 Balance 500 / 450 -1300 / -1400 -100 / -100 General: Alert, Oriented x3, Cooperative, No apparent distress HEENT: Atraumatic, PERRLA, EOMI, Normocephalic Oral: Moist Mucosa Neck: Supple, No JVD Lungs: No rhonchi, No wheeze, Diminished, no rales Cardiovascular: Regular rate, Regular Rhythm, Normal S1, Normal S2, No murmurs Abdomen: Soft, Non Tender, Non-Distended, No Hepato-splenomegaly Extremities: No edema, Capillary Refill Less than 3 Seconds Skin: No rashes, No breakdown Neurological: Neuro grossly intact, Sensory exam intact to light touch and pain Psych/Mental Status: Normal Affect, Appropriate Microbiology Past 72 Hours 08/22/20 10:49 Blood Culture (Wb) - Right Hand Blood Culture - Preliminary No growth in 48 hours. 08/22/20 10:42 Blood Culture (Wb) - Anticubital Left Blood Culture - Preliminary No growth in 48 hours. 08/22/20 Unknown Urine, Random Legionella Antigen - Final 08/22/20 Unknown Urine, Random Streptococcus pneumoniae Antigen (M - Final Laboratory Results 08/23/20 05:20: Diff Path Review Reviewed 08/23/20 05:29: Blood Type A POSITIVE 08/24/20 06:30: WBC 4.2 L, RBC 4.86, Hgb 14.4, Hct 48.0, MCV 98.8 H, MCH 29.6, MCHC 30.0 L D, RDW Std Deviation 53.4 H, RDW Coeff of Leigh 14.6, Plt Count 125 L, MPV 9.7 08/24/20 06:30: Sodium Cancelled, Potassium Cancelled, Chloride Cancelled, Carbon Dioxide Cancelled, Anion Gap Cancelled, BUN Cancelled, Creatinine Cancelled, Estim Creat Clear Calc Cancelled, Est GFR (MDRD) Af Amer Cancelled, Est GFR (MDRD) Non-Af Cancelled, BUN/Creatinine Ratio Cancelled, Glucose Cancelled, Calcium Cancelled, Total Bilirubin Cancelled, AST Cancelled, ALT Cancelled, Alkaline Phosphatase Cancelled, Total Protein Cancelled, Albumin Cancelled, Globulin Cancelled, Albumin/Globulin Ratio Cancelled 08/24/20 10:10: Phosphorus 2.9, Magnesium 2.3 08/24/20 10:10: Sodium Pending, Potassium Pending, Chloride Pending, Carbon Dioxide Pending, Anion Gap Pending, BUN Pending, Creatinine Pending, Est GFR (MDRD) Af Amer Pending, Est GFR (MDRD) Non-Af Pending, BUN/Creatinine Ratio Pending, Glucose Pending, Calcium Pending, Total Bilirubin Pending, AST Pending, ALT Pending, Alkaline Phosphatase Pending, Total Protein Pending, Albumin Pending Current Medications Acetaminophen (Acetaminophen 325 Mg Tablet) 650 mg PO Q6H PRN PRN PRN Reason: Pain Score 1-10/Temp > 100.7 F Al Hydroxide/Mg Hydroxide (Mag Hydrox/Al Hydrox/Simeth 30 Ml Udc) 30 ml PO Q6H PRN PRN PRN Reason: Gastric Burning Albuterol Sulfate (Albuterol Sulfate 8 Gm Inhaler (60 Puffs)) 2 puff INHALATION Q2H PRN PRN PRN Reason: Shortness of Breath/Wheezing Last Admin: 08/24/20 04:04 Dose: 2 puff Documented by: Amitriptyline HCl (Amitriptyline 25 Mg Tablet) 50 mg PO QHS [facility] Last Admin: 08/23/20 21:21 Dose: 50 mg Documented by: Amlodipine Besylate (Amlodipine 5 Mg Tablet) 5 mg PO DAILY [facility] Last Admin: 08/24/20 09:23 Dose: 5 mg Documented by: Aspirin (Aspirin 81 Mg Tab.Chew) 81 mg PO DAILY [facility] Last Admin: 08/24/20 09:22 Dose: 81 mg Documented by: Azelastine HCl (Azelastine Hcl Nasal.Sry) 2 spray NASAL BID [facility] Last Admin: 08/24/20 09:27 Dose: 2 spray Documented by: Budesonide (Budesonide Respules 0.5 Mg/2 Ml Ampul.Neb.) 0.5 mg INHALATION Q12H.RT [facility] Last Admin: 08/24/20 07:16 Dose: 0.5 mg Documented by: Buspirone HCl (Buspirone 15 Mg Tablet) 15 mg PO BID [facility] Last Admin: 08/24/20 09:22 Dose: 15 mg Documented by: Carvedilol (Carvedilol 3.125 Mg Tablet) 3.125 mg PO BID [facility] Last Admin: 08/24/20 09:22 Dose: 3.125 mg Documented by: Chlordiazepoxide (Chlordiazepoxide 25 Mg Capsule) 25 mg PO 4X/DAY PRN PRN PRN Reason: ANXIETY/AGITATION Last Admin: 08/23/20 19:24 Dose: 25 mg Documented by: Citalopram Hydrobromide (Citalopram 20 Mg Tablet) 20 mg PO QHS [facility] Last Admin: 08/23/20 21:21 Dose: 20 mg Documented by: Dexamethasone (Dexamethasone 4 Mg Tablet) 6 mg PO DAILY [facility] Stop: 08/31/20 10:01 Last Admin: 08/24/20 09:23 Dose: 6 mg Documented by: Enoxaparin Sodium (Enoxaparin 120 Mg/0.8 Ml Syringe) 120 mg SC BID [facility] Last Admin: 08/24/20 09:25 Dose: 120 mg Documented by: Fluticasone Propionate (Fluticasone 0.05% 1 [place] Nasal.Sry) 2 spray NASAL QHS [facility] Last Admin: 08/23/20 21:23 Dose: 2 spray Documented by: Furosemide (Furosemide 20 Mg Tablet) 20 mg PO DAILY [facility] Last Admin: 08/24/20 09:23 Dose: 20 mg Documented by: Guaifenesin (Guaifenesin 10 Ml Udc (200mg/10ml)) 20 ml PO Q4H PRN PRN PRN Reason: COUGH Remdesivir 100 mg/ Sodium (Chloride) 250 mls @ 125 mls/hr IV DAILY [facility]; Protocol Stop: 08/26/20 11:59 Last Infusion: 08/23/20 13:40 Dose: Infused Documented by: Melatonin (Melatonin 3 Mg Tablet) 3 mg PO QHS PRN PRN PRN Reason: INSOMNIA Montelukast Sodium (Montelukast 10 Mg Tablet) 10 mg PO QHS [facility] Last Admin: 08/23/20 21:22 Dose: 10 mg Documented by: Nitroglycerin (Nitroglycerin (Inpatient Use) 0.4 Mg Tab.Subl) 0.4 mg SUBLINGUAL Q5M PRN PRN Reason: CARDIAC/CHEST PAIN Ondansetron HCl (Ondansetron 4 Mg/2 Ml Vial) 4 mg IV Q8H PRN PRN PRN Reason: NAUSEA/VOMITING Oxycodone HCl (Oxycodone 5 Mg Tablet) 5 mg PO Q4H PRN PRN PRN Reason: Pain Score 4-5 Oxycodone HCl (Oxycodone 5 Mg Tablet) 10 mg PO Q4H PRN PRN PRN Reason: Pain Score 6-10 Pravastatin Sodium (Pravastatin 40 Mg Tablet) 40 mg PO DAILY [facility] Last Admin: 08/24/20 09:22 Dose: 40 mg Documented by: Senna/Docusate Sodium (Senna/Docusate Sodium 1 Tablet) 2 tablet PO BID PRN PRN PRN Reason: Constipation Sodium Chloride (0.9% Saline Lock 10 Ml Syringe) 10 - 40 ml IV UD PRN PRN Reason: SALINE FLUSH Last Admin: 08/23/20 11:41 Dose: 10 ml Documented by: STROKE Vital Signs/Narrative: Vital Signs Temp Pulse Resp BP Pulse Ox 08/24/20 10:45 98.3 F 73 18 111/59 L 93 08/24/20 08:45 97.8 F 82 18 108/64 92 Medical Necessity - Tobacco Use Smoking Status: Former smoker Assessment/Plan All Active Problems (Last Reviewed 08/22/20 @ 14:[address] Joaquin Mccall MD) Pleural effusion, right (Acute) COVID-19 (Acute) Pneumonia (Acute) Dyspnea on exertion (Acute) H/O umbilical hernia repair (Resolved 12/11/09) Presence of cardiac pacemaker (Resolved 04/30/16) Syncope (Resolved) 1. Acute hypoxic respiratory failure secondary to COVID-19 pneumonia/PE/history of COPD overlap syndrome/GENE -Continue with nebulizers as necessary -Decadron and remdesivir, and convalescent plasma -Baseline oxygen is 2 L nasal cannula, he is currently on 5 which we will continue -Continue with therapeutic Lovenox, can transition to Eliquis on discharge 2. HTN/HLD/history of pacemaker placed for sick sinus syndrome -Blood pressure is stable -Continue with Norvasc, Coreg, Lasix -Continue with statin 3. Anxiety/depression -Stable -Continue with amitriptyline, BuSpar, Celexa, Librium DVT: Therapeutic Lovenox Inpatient E&M: [id number] [facility] Hosp L2
[2020-08-24 11:22] LABS: ALB/GLOB Ratio 0.7 RATIO (0.9-2.4); AST(SGOT) 38 U/L (15-37); Alanine Aminotransfer ALT/SGPT 54 U/L (16-61); Albumin, Serum 2.9 g/dL (3.2-5.0); Alkaline Phosphatase 83 U/L (45-117); Anion Gap 3 (5-15); BUN 26 mg/dL (7-18); BUN/Creat Ratio 24.8 RATIO (10-20); Calcium,Total 9.1 mg/dL (8.5-10.1); Chloride 101 mmol/L (98-107); Creatinine, Serum 1.05 mg/dL (0.70-1.30); EST Glomerular Filtration Rate 75 mL/min (>60); Est Glom Filt Rate - Afr Amer 91 mL/min (>60); Estimated Creatinine Clearance 66.95 ml/min; Globulin 4.3 g/dL (2.2-4.2); Glucose 128 mg/dL (74-106); Potassium 3.8 mmol/L (3.5-5.1); Protein, Total 7.2 g/dL (6.4-8.2); Sodium Level 137 mmol/L (136-145)
[2020-08-24] MEDS: 0.9% Saline Lock 10 ML Syringe IV (12:22)
[2020-08-24] MEDS: chlordiazePOXIDE 25 MG Capsule PO (17:45)
[2020-08-24] MEDS: Montelukast 10 MG Tablet PO (21:02)
[2020-08-24] MEDS: Amitriptyline 25 MG Tablet 50 MG PO (21:02)
[2020-08-24] MEDS: Citalopram 20 MG Tablet PO (21:02)
[2020-08-24] MEDS: Fluticasone 0.05% 1 SPRAY NASAL.SRY 2 SPRAY NASAL (21:03)
[2020-08-25] VITALS (13 sets, daily range): BP systolic 101–148; BP diastolic 63–99; PULSE 70–99; RESP 16–22; TEMP 35.9–37.1; O2SAT 91–95
[2020-08-25 06:52] LABS: Hemoglobin 13.5 g/dL (13.0-16.5); Mean Corp Hgb Conc 32.1 g/dL (32-36); Mean Corpuscular Hgb 30.3 pg (27.0-32.0); Mean Corpuscular Volume 94.2 fL (80-94); Platelet Count 163 K/mm3 (150-450); RBC Distribution Width CV 14.3 % (11.6-14.6); RBC Distribution Width SD 50.2 fl (35.1-43.9); Red Blood Count 4.46 M/mm3 (4.6-6.2); White Blood Count 4.4 K/mm3 (4.4-11.0)
[2020-08-25] MEDS: Budesonide Respules 0.5 MG/2 ML AMPUL.NEB. INHALATION ×2 (07:16→19:29)
[2020-08-25 07:22] LABS: Scan Indicated on CBC? Y/N NO
[2020-08-25 07:25] LABS: ALB/GLOB Ratio 0.6 RATIO (0.9-2.4); AST(SGOT) 38 U/L (15-37); Alanine Aminotransfer ALT/SGPT 51 U/L (16-61); Albumin, Serum 2.7 g/dL (3.2-5.0); Alkaline Phosphatase 78 U/L (45-117); Anion Gap 3 (5-15); BUN 25 mg/dL (7-18); BUN/Creat Ratio 29.8 RATIO (10-20); Calcium,Total 8.7 mg/dL (8.5-10.1); Chloride 102 mmol/L (98-107); Creatinine, Serum 0.84 mg/dL (0.70-1.30); EST Glomerular Filtration Rate 97 mL/min (>60); Est Glom Filt Rate - Afr Amer 118 mL/min (>60); Estimated Creatinine Clearance 83.69 ml/min; Globulin 4.2 g/dL (2.2-4.2); Glucose 90 mg/dL (74-106); Potassium 4.1 mmol/L (3.5-5.1); Protein, Total 6.9 g/dL (6.4-8.2); Sodium Level 138 mmol/L (136-145)
--- NOTE | 2020-08-25 08:45 | PCM.PN.PUL ---
Patient Problems: Active and Suspected Problems (Last Reviewed 08/22/20 @ 14:[address] Joaquin Mccall MD) Pleural effusion, right (Acute) COVID-19 (Acute) Pneumonia (Acute) Dyspnea on exertion (Acute) Subjective: The patient was seen and examined at the bedside this morning. Events from the last 24 hours have been reviewed. The patient is currently afebrile, hemodynamically stable and maintaining appropriate oxygen saturations on 6 L/min via nasal cannula. The patient did receive convalescent plasma and remains on remdesivir, therapeutic Lovenox and Decadron. Renal and liver function are stable. He has remained compliant with the use of nocturnal Pap therapy. Objective: The patient's most recent lab work, culture data and imaging studies have all been personally reviewed. Strep and urine Legionella antigens were negative. Blood cultures have shown no growth to date. - Physical Exam Vitals/I&O's: Vital Signs Temp Pulse Resp BP Pulse Ox 96.7 F L 70 20 H 142/99 H 91 08/25/20 02:56 08/25/20 07:43 08/25/20 07:15 08/25/20 02:56 08/25/20 07:15 Oxygen Flow Rate (L/min) 6 Oxygen Delivery Method Nasal Cannula Weight: 259 lb 15.999 oz Body Mass Index (BMI) 39.5 Intake and Output for Last 24 Hours 08/23/20 08/24/20 08/25/20 23:59 23:59 23:59 Intake Total 900 / 1100 1530 / 1530 Output Total 2200 / 2500 500 / 500 Balance -1300 / -1400 1030 / 1030 General: Alert, Oriented x3, Cooperative, No apparent distress HEENT: Atraumatic, PERRLA, Normocephalic Oral: Moist Mucosa, No Gingival or Mucosal Lesions/ Ulcerations Neck: Supple, No Nodes, Trachea Midline Lungs: No rhonchi, No wheeze, No rales, Diminished, - - No conversational dyspnea or accessory muscle use. Cardiovascular: Regular rate, Regular Rhythm, No murmurs Abdomen: Bowel Sounds Present, Soft, Non Tender, Obese Extremities: No clubbing, No cyanosis, Edema Skin: - - Scattered upper extremity ecchymoses and venous stasis dermatitis of the lower extremities. Musculoskeletal: No Muscle Wasting Lymphatic: No Cervical, Supraclavicular, or Inguinal Adenopathy Neurological: Cranial nerves II-XII grossly intact, Neuro grossly intact Psych/Mental Status: Alert and oriented to time, place, person, mood and affect Labs (Last 48 Hours) 08/23/20 08/23/20 08/24/20 05:20 05:29 06:30 WBC 4.2 L RBC 4.86 Hgb 14.4 Hct 48.0 MCV 98.8 H MCH 29.6 MCHC 30.0 L D RDW Std Deviation 53.4 H RDW Coeff of Leigh 14.6 Plt Count 125 L MPV 9.7 Diff Path Review Reviewed Sodium Potassium Chloride Carbon Dioxide Anion Gap BUN Creatinine Estim Creat Clear Calc Est GFR (MDRD) Af Amer Est GFR (MDRD) Non-Af BUN/Creatinine Ratio Glucose Calcium Phosphorus Magnesium Total Bilirubin AST ALT Alkaline Phosphatase Total Protein Albumin Globulin Albumin/Globulin Ratio Blood Type A POSITIVE 08/24/20 08/24/20 08/24/20 06:30 10:10 10:10 WBC RBC Hgb Hct MCV MCH MCHC RDW Std Deviation RDW Coeff of Leigh Plt Count MPV Diff Path Review Sodium Cancelled 137 Potassium Cancelled 3.8 Chloride Cancelled 101 Carbon Dioxide Cancelled 33.0 H Anion Gap Cancelled 3 L BUN Cancelled 26 H Creatinine Cancelled 1.05 Estim Creat Clear Calc Cancelled 66.95 Est GFR (MDRD) Af Amer Cancelled 91 Est GFR (MDRD) Non-Af Cancelled 75 BUN/Creatinine Ratio Cancelled 24.8 H Glucose Cancelled 128 H Calcium Cancelled 9.1 Phosphorus 2.9 Magnesium 2.3 Total Bilirubin Cancelled 0.70 AST Cancelled 38 H ALT Cancelled 54 Alkaline Phosphatase Cancelled 83 Total Protein Cancelled 7.2 Albumin Cancelled 2.9 L Globulin Cancelled 4.3 H Albumin/Globulin Ratio Cancelled 0.7 L Blood Type 08/25/20 08/25/20 05:40 05:40 WBC 4.4 RBC 4.46 L Hgb 13.5 Hct 42.0 MCV 94.2 H MCH 30.3 MCHC 32.1 D RDW Std Deviation 50.2 H RDW Coeff of Leigh 14.3 Plt Count 163 MPV 10.0 Diff Path Review Sodium 138 Potassium 4.1 Chloride 102 Carbon Dioxide 33.0 H Anion Gap 3 L BUN 25 H Creatinine 0.84 Estim Creat Clear Calc 83.69 Est GFR (MDRD) Af Amer 118 Est GFR (MDRD) Non-Af 97 BUN/Creatinine Ratio 29.8 H Glucose 90 Calcium 8.7 Phosphorus Magnesium Total Bilirubin 0.70 AST 38 H ALT 51 Alkaline Phosphatase 78 Total Protein 6.9 Albumin 2.7 L Globulin 4.2 Albumin/Globulin Ratio 0.6 L Blood Type Microbiology 08/22/20 10:49 Blood Culture (Wb) - Right Hand Blood Culture - Preliminary No growth in 48 hours. 08/22/20 10:42 Blood Culture (Wb) - Anticubital Left Blood Culture - Preliminary No growth in 48 hours. Clinical Impression(s) from Imaging Studies Chest X-Ray 08/22/20 10:37 IMPRESSION: Atelectasis and/or infiltrate at the right lung base with blunting of the right costophrenic angle. Findings suggestive of early left perihilar infiltrate and left upper lobe. Follow-up is recommended. Electronically Signed: Felipe Workman, at 11:28 EST , Service support , Chest CTA 08/22/20 14:43 IMPRESSION: Emboli in branches on the right and left upper lobe pulmonary artery. Bilateral pulmonary infiltrates worse in the right lower lobe. Shrunken lobular liver with cirrhosis. Marked degree of splenomegaly. Electronically Signed: Felipe Workman, at 15:08 EST , Service support , Current Medications Acetaminophen (Acetaminophen 325 Mg Tablet) 650 mg PO Q6H PRN PRN PRN Reason: Pain Score 1-10/Temp > 100.7 F Al Hydroxide/Mg Hydroxide (Mag Hydrox/Al Hydrox/Simeth 30 Ml Udc) 30 ml PO Q6H PRN PRN PRN Reason: Gastric Burning Albuterol Sulfate (Albuterol Sulfate 8 Gm Inhaler (60 Puffs)) 2 puff INHALATION Q2H PRN PRN PRN Reason: Shortness of Breath/Wheezing Last Admin: 08/24/20 04:04 Dose: 2 puff Documented by: Amitriptyline HCl (Amitriptyline 25 Mg Tablet) 50 mg PO QHS [facility] Last Admin: 08/24/20 21:02 Dose: 50 mg Documented by: Amlodipine Besylate (Amlodipine 5 Mg Tablet) 5 mg PO DAILY [facility] Last Admin: 08/24/20 09:23 Dose: 5 mg Documented by: Aspirin (Aspirin 81 Mg Tab.Chew) 81 mg PO DAILY [facility] Last Admin: 08/24/20 09:22 Dose: 81 mg Documented by: Azelastine HCl (Azelastine Hcl Nasal.Sry) 2 spray NASAL BID [facility] Last Admin: 08/24/20 21:02 Dose: 2 spray Documented by: Budesonide (Budesonide Respules 0.5 Mg/2 Ml Ampul.Neb.) 0.5 mg INHALATION Q12H.RT [facility] Last Admin: 08/25/20 07:16 Dose: 0.5 mg Documented by: Buspirone HCl (Buspirone 15 Mg Tablet) 15 mg PO BID [facility] Last Admin: 08/24/20 21:02 Dose: 15 mg Documented by: Carvedilol (Carvedilol 3.125 Mg Tablet) 3.125 mg PO BID [facility] Last Admin: 08/24/20 21:02 Dose: 3.125 mg Documented by: Chlordiazepoxide (Chlordiazepoxide 25 Mg Capsule) 25 mg PO 4X/DAY PRN PRN PRN Reason: ANXIETY/AGITATION Last Admin: 08/24/20 17:45 Dose: 25 mg Documented by: Citalopram Hydrobromide (Citalopram 20 Mg Tablet) 20 mg PO QHS [facility] Last Admin: 08/24/20 21:02 Dose: 20 mg Documented by: Dexamethasone (Dexamethasone 4 Mg Tablet) 6 mg PO DAILY [facility] Stop: 08/31/20 10:01 Last Admin: 08/24/20 09:23 Dose: 6 mg Documented by: Enoxaparin Sodium (Enoxaparin 120 Mg/0.8 Ml Syringe) 120 mg SC BID [facility] Last Admin: 08/24/20 21:01 Dose: 120 mg Documented by: Fluticasone Propionate (Fluticasone 0.05% 1 [place] Nasal.Sry) 2 spray NASAL QHS [facility] Last Admin: 08/24/20 21:03 Dose: 2 spray Documented by: Furosemide (Furosemide 20 Mg Tablet) 20 mg PO DAILY [facility] Last Admin: 08/24/20 09:23 Dose: 20 mg Documented by: Guaifenesin (Guaifenesin 10 Ml Udc (200mg/10ml)) 20 ml PO Q4H PRN PRN PRN Reason: COUGH Remdesivir 100 mg/ Sodium (Chloride) 250 mls @ 125 mls/hr IV DAILY [facility]; Protocol Stop: 08/26/20 11:59 Last Infusion: 08/24/20 15:17 Dose: Infused Documented by: Melatonin (Melatonin 3 Mg Tablet) 3 mg PO QHS PRN PRN PRN Reason: INSOMNIA Montelukast Sodium (Montelukast 10 Mg Tablet) 10 mg PO QHS [facility] Last Admin: 08/24/20 21:02 Dose: 10 mg Documented by: Nitroglycerin (Nitroglycerin (Inpatient Use) 0.4 Mg Tab.Subl) 0.4 mg SUBLINGUAL Q5M PRN PRN Reason: CARDIAC/CHEST PAIN Ondansetron HCl (Ondansetron 4 Mg/2 Ml Vial) 4 mg IV Q8H PRN PRN PRN Reason: NAUSEA/VOMITING Oxycodone HCl (Oxycodone 5 Mg Tablet) 5 mg PO Q4H PRN PRN PRN Reason: Pain Score 4-5 Oxycodone HCl (Oxycodone 5 Mg Tablet) 10 mg PO Q4H PRN PRN PRN Reason: Pain Score 6-10 Pravastatin Sodium (Pravastatin 40 Mg Tablet) 40 mg PO DAILY [facility] Last Admin: 08/24/20 09:22 Dose: 40 mg Documented by: Senna/Docusate Sodium (Senna/Docusate Sodium 1 Tablet) 2 tablet PO BID PRN PRN PRN Reason: Constipation Sodium Chloride (0.9% Saline Lock 10 Ml Syringe) 10 - 40 ml IV UD PRN PRN Reason: SALINE FLUSH Last Admin: 08/24/20 12:22 Dose: 10 ml Documented by: Medical Necessity - Tobacco Use Smoking Status: Former smoker Assessment/Plan All Active Problems (Last Reviewed 08/22/20 @ 14:[address] Joaquin Mccall MD) Pleural effusion, right (Acute) COVID-19 (Acute) Pneumonia (Acute) Dyspnea on exertion (Acute) H/O umbilical hernia repair (Resolved 12/11/09) Presence of cardiac pacemaker (Resolved 04/30/16) Syncope (Resolved) RECOMMENDATIONS: 1. Continue Decadron 6 mg daily x10 days. 2. Continue remdesivir and monitor liver/renal function accordingly. 3. Continue nocturnal CPAP therapy per home regimen. 4. Continue therapeutic Lovenox given pulmonary emboli noted on CTA chest. 5. Wean supplemental oxygen to maintain saturations at or above 90%. 6. Encourage incentive spirometer use and mobilize patient as tolerated. 7. Attempt gentle diuresis as tolerated by hemodynamics and renal function. IMPRESSIONS: 1. Acute on chronic hypoxemic respiratory failure secondary to COVID-19 pneumonia/pulmonary emboli The patient presented to the hospital with Covid-like symptoms of approximately 1 weeks duration. He just recently tested positive for coronavirus infection. He does have a baseline supplemental oxygen requirement of 2 L/min. The patient received convalescent plasma. In addition, the patient has already been started on Decadron and remdesivir, which I agree with continuing. The patient did have small pulmonary emboli noted on CTA chest, for which he will be continued on therapeutic Lovenox. Plan to continue nocturnal Pap therapy per home regimen. Wean supplemental oxygen to maintain saturations at or above 90%. Encourage incentive spirometer use and mobilize patient as tolerated. The patient will also be given an additional dose of IV Lasix today as well. 2. History of asthma/COPD overlap syndrome/obstructive sleep apnea Continue bronchodilator therapy per home regimen. Continue nocturnal CPAP therapy per home regimen as well. 3. Obesity/hypertension/hyperlipidemia Complicates care, management, recovery and prognosis. Continue home medications as indicated. This note was generated with [employer] dictation software. It may contain incorrect words, spelling, and punctuation that were not noted in checking the note before signing. Inpatient E&M: 42003 Subs Hosp L2
[2020-08-25] MEDS: Furosemide 40 MG/4 ML Vial IV (10:40)
[2020-08-25] MEDS: Furosemide 20 MG Tablet PO (10:42)
[2020-08-25] MEDS: Aspirin 81 MG TAB.CHEW PO (10:42)
[2020-08-25] MEDS: Carvedilol 3.125 MG TABLET PO ×2 (10:42→21:03)
[2020-08-25] MEDS: busPIRone 15 MG TABLET PO ×2 (10:42→21:04)
[2020-08-25] MEDS: amLODIPine 5 MG Tablet PO (10:42)
[2020-08-25] MEDS: Pravastatin 40 MG Tablet PO (10:42)
[2020-08-25] MEDS: Enoxaparin 120 MG/0.8 ML Syringe SC ×2 (10:43→21:03)
[2020-08-25] MEDS: dexAMETHasone 4 MG Tablet 6 MG PO (10:43)
[2020-08-25] MEDS: Azelastine HCl NASAL.SRY 2 SPRAY NASAL ×2 (10:46→21:05)
--- NOTE | 2020-08-25 10:53 | PCM.PN.HOSP ---
Patient Problems: Active and Suspected Problems (Last Reviewed 08/22/20 @ 14:[address] Joaquin Mccall MD) Pleural effusion, right (Acute) COVID-19 (Acute) Pneumonia (Acute) Dyspnea on exertion (Acute) Subjective: Feels improved from when he came in. No issues overnight Vitals/I&O's: Vital Signs Temp Pulse Resp BP Pulse Ox 97.6 F L 72 16 101/63 92 08/25/20 10:48 08/25/20 10:48 08/25/20 10:48 08/25/20 10:48 08/25/20 10:48 Oxygen Flow Rate (L/min) 6 Oxygen Delivery Method Nasal Cannula Weight: 259 lb 15.999 oz Body Mass Index (BMI) 39.5 Intake and Output for Last 24 Hours 08/23/20 08/24/20 08/25/20 23:59 23:59 23:59 Intake Total 900 / 1100 1530 / 1530 Output Total 2200 / 2500 500 / 500 Balance -1300 / -1400 1030 / 1030 General: Alert, Oriented x3, Cooperative, No apparent distress HEENT: Atraumatic, PERRLA, EOMI, Normocephalic Oral: Moist Mucosa Neck: Supple, No JVD Lungs: No rhonchi, No wheeze, Diminished, no rales Cardiovascular: Regular rate, Regular Rhythm, Normal S1, Normal S2, No murmurs Abdomen: Soft, Non Tender, Non-Distended, No Hepato-splenomegaly Extremities: No edema, Capillary Refill Less than 3 Seconds Skin: No rashes, No breakdown Neurological: Neuro grossly intact, Sensory exam intact to light touch and pain Psych/Mental Status: Normal Affect, Appropriate Microbiology Past 72 Hours 08/22/20 10:49 Blood Culture (Wb) - Right Hand Blood Culture - Preliminary No growth in 48 hours. 08/22/20 10:42 Blood Culture (Wb) - Anticubital Left Blood Culture - Preliminary No growth in 48 hours. 08/22/20 Unknown Urine, Random Legionella Antigen - Final 08/22/20 Unknown Urine, Random Streptococcus pneumoniae Antigen (M - Final Laboratory Results 08/24/20 10:10: Phosphorus 2.9, Magnesium 2.3 08/24/20 10:10: Sodium 137, Potassium 3.8, Chloride 101, Carbon Dioxide 33.0 H, Anion Gap 3 L, BUN 26 H, Creatinine 1.05, Estim Creat Clear Calc 66.95, Est GFR (MDRD) Af Amer 91, Est GFR (MDRD) Non-Af 75, BUN/Creatinine Ratio 24.8 H, Glucose 128 H, Calcium 9.1, Total Bilirubin 0.70, AST 38 H, ALT 54, Alkaline Phosphatase 83, Total Protein 7.2, Albumin 2.9 L, Globulin 4.3 H, Albumin/Globulin Ratio 0.7 L 08/25/20 05:40: WBC 4.4, RBC 4.46 L, Hgb 13.5, Hct 42.0, MCV 94.2 H, MCH 30.3, MCHC 32.1 D, RDW Std Deviation 50.2 H, RDW Coeff of Leigh 14.3, Plt Count 163, MPV 10.0 08/25/20 05:40: Sodium 138, Potassium 4.1, Chloride 102, Carbon Dioxide 33.0 H, Anion Gap 3 L, BUN 25 H, Creatinine 0.84, Estim Creat Clear Calc 83.69, Est GFR (MDRD) Af Amer 118, Est GFR (MDRD) Non-Af 97, BUN/Creatinine Ratio 29.8 H, Glucose 90, Calcium 8.7, Total Bilirubin 0.70, AST 38 H, ALT 51, Alkaline Phosphatase 78, Total Protein 6.9, Albumin 2.7 L, Globulin 4.2, Albumin/Globulin Ratio 0.6 L Current Medications Acetaminophen (Acetaminophen 325 Mg Tablet) 650 mg PO Q6H PRN PRN PRN Reason: Pain Score 1-10/Temp > 100.7 F Al Hydroxide/Mg Hydroxide (Mag Hydrox/Al Hydrox/Simeth 30 Ml Udc) 30 ml PO Q6H PRN PRN PRN Reason: Gastric Burning Albuterol Sulfate (Albuterol Sulfate 8 Gm Inhaler (60 Puffs)) 2 puff INHALATION Q2H PRN PRN PRN Reason: Shortness of Breath/Wheezing Last Admin: 08/24/20 04:04 Dose: 2 puff Documented by: Amitriptyline HCl (Amitriptyline 25 Mg Tablet) 50 mg PO QHS [facility] Last Admin: 08/24/20 21:02 Dose: 50 mg Documented by: Amlodipine Besylate (Amlodipine 5 Mg Tablet) 5 mg PO DAILY [facility] Last Admin: 08/25/20 10:42 Dose: 5 mg Documented by: Aspirin (Aspirin 81 Mg Tab.Chew) 81 mg PO DAILY [facility] Last Admin: 08/25/20 10:42 Dose: 81 mg Documented by: Azelastine HCl (Azelastine Hcl Nasal.Sry) 2 spray NASAL BID [facility] Last Admin: 08/25/20 10:46 Dose: 2 spray Documented by: Budesonide (Budesonide Respules 0.5 Mg/2 Ml Ampul.Neb.) 0.5 mg INHALATION Q12H.RT [facility] Last Admin: 08/25/20 07:16 Dose: 0.5 mg Documented by: Buspirone HCl (Buspirone 15 Mg Tablet) 15 mg PO BID [facility] Last Admin: 08/25/20 10:42 Dose: 15 mg Documented by: Carvedilol (Carvedilol 3.125 Mg Tablet) 3.125 mg PO BID [facility] Last Admin: 08/25/20 10:42 Dose: 3.125 mg Documented by: Chlordiazepoxide (Chlordiazepoxide 25 Mg Capsule) 25 mg PO 4X/DAY PRN PRN PRN Reason: ANXIETY/AGITATION Last Admin: 08/24/20 17:45 Dose: 25 mg Documented by: Citalopram Hydrobromide (Citalopram 20 Mg Tablet) 20 mg PO QHS [facility] Last Admin: 08/24/20 21:02 Dose: 20 mg Documented by: Dexamethasone (Dexamethasone 4 Mg Tablet) 6 mg PO DAILY [facility] Stop: 08/31/20 10:01 Last Admin: 08/25/20 10:43 Dose: 6 mg Documented by: Enoxaparin Sodium (Enoxaparin 120 Mg/0.8 Ml Syringe) 120 mg SC BID [facility] Last Admin: 08/25/20 10:43 Dose: 120 mg Documented by: Fluticasone Propionate (Fluticasone 0.05% 1 [place] Nasal.Sry) 2 spray NASAL QHS [facility] Last Admin: 08/24/20 21:03 Dose: 2 spray Documented by: Furosemide (Furosemide 20 Mg Tablet) 20 mg PO DAILY [facility] Last Admin: 08/25/20 10:42 Dose: 20 mg Documented by: Guaifenesin (Guaifenesin 10 Ml Udc (200mg/10ml)) 20 ml PO Q4H PRN PRN PRN Reason: COUGH Remdesivir 100 mg/ Sodium (Chloride) 250 mls @ 125 mls/hr IV DAILY [facility]; Protocol Stop: 08/26/20 11:59 Last Admin: 08/25/20 10:38 Dose: 125 mls/hr Documented by: Melatonin (Melatonin 3 Mg Tablet) 3 mg PO QHS PRN PRN PRN Reason: INSOMNIA Montelukast Sodium (Montelukast 10 Mg Tablet) 10 mg PO QHS [facility] Last Admin: 08/24/20 21:02 Dose: 10 mg Documented by: Nitroglycerin (Nitroglycerin (Inpatient Use) 0.4 Mg Tab.Subl) 0.4 mg SUBLINGUAL Q5M PRN PRN Reason: CARDIAC/CHEST PAIN Ondansetron HCl (Ondansetron 4 Mg/2 Ml Vial) 4 mg IV Q8H PRN PRN PRN Reason: NAUSEA/VOMITING Oxycodone HCl (Oxycodone 5 Mg Tablet) 5 mg PO Q4H PRN PRN PRN Reason: Pain Score 4-5 Oxycodone HCl (Oxycodone 5 Mg Tablet) 10 mg PO Q4H PRN PRN PRN Reason: Pain Score 6-10 Pravastatin Sodium (Pravastatin 40 Mg Tablet) 40 mg PO DAILY [facility] Last Admin: 08/25/20 10:42 Dose: 40 mg Documented by: Senna/Docusate Sodium (Senna/Docusate Sodium 1 Tablet) 2 tablet PO BID PRN PRN PRN Reason: Constipation Sodium Chloride (0.9% Saline Lock 10 Ml Syringe) 10 - 40 ml IV UD PRN PRN Reason: SALINE FLUSH Last Admin: 08/24/20 12:22 Dose: 10 ml Documented by: STROKE Vital Signs/Narrative: Vital Signs Temp Pulse Resp BP Pulse Ox 08/25/20 10:48 97.6 F L 72 16 101/63 92 08/25/20 07:43 70 08/25/20 07:15 79 20 H 91 Medical Necessity - Tobacco Use Smoking Status: Former smoker Assessment/Plan All Active Problems (Last Reviewed 08/22/20 @ 14:[address] Joaquin Mccall MD) Pleural effusion, right (Acute) COVID-19 (Acute) Pneumonia (Acute) Dyspnea on exertion (Acute) H/O umbilical hernia repair (Resolved 12/11/09) Presence of cardiac pacemaker (Resolved 04/30/16) Syncope (Resolved) 1. Acute hypoxic respiratory failure secondary to COVID-19 pneumonia/PE/history of COPD overlap syndrome/GENE -Continue with nebulizers as necessary -Decadron and remdesivir, and convalescent plasma -Baseline oxygen is 2 L nasal cannula, he is currently on 6 which we will continue -Continue with therapeutic Lovenox, can transition to Eliquis on discharge 2. HTN/HLD/history of pacemaker placed for sick sinus syndrome -Blood pressure is stable -Continue with Norvasc, Coreg, Lasix -Continue with statin 3. Anxiety/depression -Stable -Continue with amitriptyline, BuSpar, Celexa, Librium DVT: Therapeutic Lovenox Inpatient E&M: 80776 Subs Hosp L2
[2020-08-25] MEDS: 0.9% Saline Lock 10 ML Syringe IV (13:36)
[2020-08-25] MEDS: chlordiazePOXIDE 25 MG Capsule PO (21:03)
[2020-08-25] MEDS: Amitriptyline 25 MG Tablet 50 MG PO (21:04)
[2020-08-25] MEDS: Montelukast 10 MG Tablet PO (21:04)
[2020-08-25] MEDS: Citalopram 20 MG Tablet PO (21:04)
[2020-08-25] MEDS: Fluticasone 0.05% 1 SPRAY NASAL.SRY 2 SPRAY NASAL (21:05)
[2020-08-26] VITALS (13 sets, daily range): BP systolic 104–148; BP diastolic 60–97; PULSE 70–100; RESP 9–20; TEMP 36.3–36.8; O2SAT 90–95
[2020-08-26 06:00] LABS: Hematocrit 44.8 % (40-54); Hemoglobin 14.2 g/dL (13.0-16.5); Mean Corp Hgb Conc 31.7 g/dL (32-36); Mean Corpuscular Hgb 30.2 pg (27.0-32.0); Mean Corpuscular Volume 95.3 fL (80-94); Mean Platelet Vol. 9.8 fl (6.2-12.0); Platelet Count 148 K/mm3 (150-450); RBC Distribution Width SD 49.6 fl (35.1-43.9); White Blood Count 4.4 K/mm3 (4.4-11.0)
[2020-08-26 06:37] LABS: ALB/GLOB Ratio 0.7 RATIO (0.9-2.4); AST(SGOT) 37 U/L (15-37); Alanine Aminotransfer ALT/SGPT 60 U/L (16-61); Albumin, Serum 2.6 g/dL (3.2-5.0); Alkaline Phosphatase 79 U/L (45-117); Anion Gap 6 (5-15); BUN 30 mg/dL (7-18); Calcium,Total 8.3 mg/dL (8.5-10.1); Chloride 103 mmol/L (98-107); Globulin 3.9 g/dL (2.2-4.2); Glucose 84 mg/dL (74-106); Potassium 3.9 mmol/L (3.5-5.1); Protein, Total 6.5 g/dL (6.4-8.2); Sodium Level 139 mmol/L (136-145)
[2020-08-26] MEDS: Budesonide Respules 0.5 MG/2 ML AMPUL.NEB. INHALATION ×2 (07:16→20:20)
--- NOTE | 2020-08-26 08:56 | PN_ITS ---
Patient Problems: Active and Suspected Problems (Last Reviewed 08/22/20 @ 14:[address] Joaquin Mccall MD) Pleural effusion, right (Acute) COVID-19 (Acute) Pneumonia (Acute) Dyspnea on exertion (Acute) Reason for Visit: Follow-up on acute COVID-19 pneumonia/hypoxia Subjective: Patient was seen and examined. Denied any new complaints. Remains on 5 L of oxygen. Objective: Physical exam: General: Alert, Oriented x3, Cooperative, No apparent distress HEENT: Atraumatic, PERRLA, EOMI, Normocephalic Oral: Moist Mucosa Neck: Supple, No JVD Lungs: No rhonchi, No wheeze, Diminished, no rales Cardiovascular: Regular rate, Regular Rhythm, Normal S1, Normal S2, No murmurs Abdomen: Soft, Non Tender, Non-Distended, No Hepato-splenomegaly Extremities: No edema, Capillary Refill Less than 3 Seconds Skin: No rashes, No breakdown Neurological: Neuro grossly intact, Sensory exam intact to light touch and pain Psych/Mental Status: Normal Affect, Appropriate Vitals/I&O's: Vital Signs Temp Pulse Resp BP Pulse Ox 98.2 F 71 9 L 148/97 H 95 08/26/20 04:49 08/26/20 07:50 08/26/20 07:16 08/26/20 04:49 08/26/20 04:52 Oxygen Flow Rate (L/min) 6 Oxygen Delivery Method Nasal Cannula Weight: 117.934 kg Body Mass Index (BMI) 39.5 Intake and Output for Last 24 Hours 08/24/20 08/25/20 08/26/20 23:59 23:59 23:59 Intake Total 1530 / 1530 1000 / 1200 600 / 600 Output Total 500 / 500 300 / 300 Balance 1030 / 1030 700 / 900 600 / 600 Microbiology Past 72 Hours 08/22/20 10:49 Blood Culture (Wb) - Right Hand Blood Culture - Preliminary No growth in 48 hours. 08/22/20 10:42 Blood Culture (Wb) - Anticubital Left Blood Culture - Preliminary No growth in 48 hours. Laboratory Results 08/26/20 05:20: WBC 4.4, RBC 4.70, Hgb 14.2, Hct 44.8, MCV 95.3 H, MCH 30.2, MCHC 31.7 L, RDW Std Deviation 49.6 H, RDW Coeff of Leigh 14.0, Plt Count 148 L, MPV 9.8 08/26/20 05:20: Sodium 139, Potassium 3.9, Chloride 103, Carbon Dioxide 30.0, Anion Gap 6, BUN 30 H, Creatinine 0.81, Estim Creat Clear Calc 86.79, Est GFR (MDRD) Af Amer 123, Est GFR (MDRD) Non-Af 102, BUN/Creatinine Ratio 37.2 H, Glucose 84, Calcium 8.3 L, Total Bilirubin 0.70, AST 37, ALT 60, Alkaline Phosphatase 79, Total Protein 6.5, Albumin 2.6 L, Globulin 3.9, Albumin/Globulin Ratio 0.7 L Current Medications Acetaminophen (Acetaminophen 325 Mg Tablet) 650 mg PO Q6H PRN PRN PRN Reason: Pain Score 1-10/Temp > 100.7 F Al Hydroxide/Mg Hydroxide (Mag Hydrox/Al Hydrox/Simeth 30 Ml Udc) 30 ml PO Q6H PRN PRN PRN Reason: Gastric Burning Albuterol Sulfate (Albuterol Sulfate 8 Gm Inhaler (60 Puffs)) 2 puff INHALATION Q2H PRN PRN PRN Reason: Shortness of Breath/Wheezing Last Admin: 08/24/20 04:04 Dose: 2 puff Documented by: Amitriptyline HCl (Amitriptyline 25 Mg Tablet) 50 mg PO QHS [facility] Last Admin: 08/25/20 21:04 Dose: 50 mg Documented by: Amlodipine Besylate (Amlodipine 5 Mg Tablet) 5 mg PO DAILY [facility] Last Admin: 08/25/20 10:42 Dose: 5 mg Documented by: Aspirin (Aspirin 81 Mg Tab.Chew) 81 mg PO DAILY [facility] Last Admin: 08/25/20 10:42 Dose: 81 mg Documented by: Azelastine HCl (Azelastine Hcl Nasal.Sry) 2 spray NASAL BID [facility] Last Admin: 08/25/20 21:05 Dose: 2 spray Documented by: Budesonide (Budesonide Respules 0.5 Mg/2 Ml Ampul.Neb.) 0.5 mg INHALATION Q12H.RT [facility] Last Admin: 08/26/20 07:16 Dose: 0.5 mg Documented by: Buspirone HCl (Buspirone 15 Mg Tablet) 15 mg PO BID [facility] Last Admin: 08/25/20 21:04 Dose: 15 mg Documented by: Carvedilol (Carvedilol 3.125 Mg Tablet) 3.125 mg PO BID [facility] Last Admin: 08/25/20 21:03 Dose: 3.125 mg Documented by: Chlordiazepoxide (Chlordiazepoxide 25 Mg Capsule) 25 mg PO 4X/DAY PRN PRN PRN Reason: ANXIETY/AGITATION Last Admin: 08/25/20 21:03 Dose: 25 mg Documented by: Citalopram Hydrobromide (Citalopram 20 Mg Tablet) 20 mg PO QHS [facility] Last Admin: 08/25/20 21:04 Dose: 20 mg Documented by: Dexamethasone (Dexamethasone 4 Mg Tablet) 6 mg PO DAILY [facility] Stop: 08/31/20 10:01 Last Admin: 08/25/20 10:43 Dose: 6 mg Documented by: Enoxaparin Sodium (Enoxaparin 120 Mg/0.8 Ml Syringe) 120 mg SC BID [facility] Last Admin: 08/25/20 21:03 Dose: 120 mg Documented by: Fluticasone Propionate (Fluticasone 0.05% 1 [place] Nasal.Sry) 2 spray NASAL QHS [facility] Last Admin: 08/25/20 21:05 Dose: 2 spray Documented by: Furosemide (Furosemide 20 Mg Tablet) 20 mg PO DAILY [facility] Last Admin: 08/25/20 10:42 Dose: 20 mg Documented by: Guaifenesin (Guaifenesin 10 Ml Udc (200mg/10ml)) 20 ml PO Q4H PRN PRN PRN Reason: COUGH Remdesivir 100 mg/ Sodium (Chloride) 250 mls @ 125 mls/hr IV DAILY [facility]; Protocol Stop: 08/26/20 11:59 Last Infusion: 08/25/20 12:38 Dose: Infused Documented by: Melatonin (Melatonin 3 Mg Tablet) 3 mg PO QHS PRN PRN PRN Reason: INSOMNIA Montelukast Sodium (Montelukast 10 Mg Tablet) 10 mg PO QHS [facility] Last Admin: 08/25/20 21:04 Dose: 10 mg Documented by: Nitroglycerin (Nitroglycerin (Inpatient Use) 0.4 Mg Tab.Subl) 0.4 mg SUBLINGUAL Q5M PRN PRN Reason: CARDIAC/CHEST PAIN Ondansetron HCl (Ondansetron 4 Mg/2 Ml Vial) 4 mg IV Q8H PRN PRN PRN Reason: NAUSEA/VOMITING Oxycodone HCl (Oxycodone 5 Mg Tablet) 5 mg PO Q4H PRN PRN PRN Reason: Pain Score 4-5 Oxycodone HCl (Oxycodone 5 Mg Tablet) 10 mg PO Q4H PRN PRN PRN Reason: Pain Score 6-10 Pravastatin Sodium (Pravastatin 40 Mg Tablet) 40 mg PO DAILY [facility] Last Admin: 08/25/20 10:42 Dose: 40 mg Documented by: Senna/Docusate Sodium (Senna/Docusate Sodium 1 Tablet) 2 tablet PO BID PRN PRN PRN Reason: Constipation Sodium Chloride (0.9% Saline Lock 10 Ml Syringe) 10 - 40 ml IV UD PRN PRN Reason: SALINE FLUSH Last Admin: 08/25/20 13:36 Dose: 10 ml Documented by: STROKE Vital Signs/Narrative: Vital Signs Pulse Resp 08/26/20 07:50 71 08/26/20 07:16 78 9 L Medical Necessity - Tobacco Use Smoking Status: Former smoker Assessment/Plan All Active Problems (Last Reviewed 08/22/20 @ 14:[address] Joaquin Mccall MD) Pleural effusion, right (Acute) COVID-19 (Acute) Pneumonia (Acute) Dyspnea on exertion (Acute) H/O umbilical hernia repair (Resolved 12/11/09) Presence of cardiac pacemaker (Resolved 04/30/16) Syncope (Resolved) 1. Acute hypoxic respiratory failure secondary to acute COVID-19 pneumonia/PE Continue with breathing treatments, PO steroids, encourage use of incentive spirometer. Wean off oxygen for SPO2 more than 94% 2. Acute COVID-19 pneumonia with hypoxia Continue on p.o. Decadron, patient completed remdesivir 3. Acute PE secondary to COVID-19 Continue on Lovenox subcu therapeutic dosing 3. Hypertension, controlled, Continue on Norvasc, Coreg, Lasix 4. Status post pacemaker for sick sinus syndrome, bradycardia stable 5. Anxiety/depression, stable, continue on amitriptyline, Celexa, Librium as needed 6. DVT prophylaxis?on therapeutic Lovenox Inpatient E&M: 44636 [facility] Hosp L2
[2020-08-26] MEDS: Aspirin 81 MG TAB.CHEW PO (11:27)
[2020-08-26] MEDS: amLODIPine 5 MG Tablet PO (11:27)
[2020-08-26] MEDS: Enoxaparin 120 MG/0.8 ML Syringe SC ×2 (11:27→21:52)
[2020-08-26] MEDS: Furosemide 20 MG Tablet PO (11:28)
[2020-08-26] MEDS: Carvedilol 3.125 MG TABLET PO ×2 (11:28→21:44)
[2020-08-26] MEDS: busPIRone 15 MG TABLET PO ×2 (11:28→21:44)
[2020-08-26] MEDS: 0.9% Saline Lock 10 ML Syringe IV ×2 (11:28→21:52)
[2020-08-26] MEDS: dexAMETHasone 4 MG Tablet 6 MG PO (11:28)
[2020-08-26] MEDS: Pravastatin 40 MG Tablet PO (11:29)
[2020-08-26] MEDS: Azelastine HCl NASAL.SRY 2 SPRAY NASAL ×2 (11:29→21:47)
--- NOTE | 2020-08-26 16:08 | PN_ITS ---
Patient Problems: Active and Suspected Problems (Last Reviewed 08/22/20 @ 14:[address] Joaquin Mccall MD) Pleural effusion, right (Acute) COVID-19 (Acute) Pneumonia (Acute) Dyspnea on exertion (Acute) Subjective: Patient did okay overnight. Patient feels subjectively improved compared to previous. Patient is not reporting any current chest pain, but is requiring 5 to 6 L nasal cannula to maintain saturations. This is significantly up from his baseline of 2 L/min. Patient remains compliant with nocturnal Pap therapy with all sleep. - Physical Exam Vitals/I&O's: Vital Signs Temp Pulse Resp BP Pulse Ox 36.3 C L 70 18 117/71 93 08/26/20 14:55 08/26/20 14:55 08/26/20 14:55 08/26/20 14:55 08/26/20 14:55 Oxygen Flow Rate (L/min) 5 Oxygen Delivery Method Bi-pap Weight: 117.934 kg Body Mass Index (BMI) 39.5 Intake and Output for Last 24 Hours 08/24/20 08/25/20 08/26/20 23:59 23:59 23:59 Intake Total 1530 / 1530 1000 / 1200 850 / 850 Output Total 500 / 500 300 / 300 Balance 1030 / 1030 700 / 900 850 / 850 General: Alert, Oriented x3, Cooperative, No apparent distress, - - Obese. Speaking in full sentences. HEENT: Atraumatic, PERRLA, EOMI, Normocephalic, - - No scleral icterus or injection noted Oral: Moist Mucosa, No Gingival or Mucosal Lesions/ Ulcerations Neck: Supple, No JVD, No Nodes, Trachea Midline Lungs: No rhonchi, No wheeze, No rales, Diminished Cardiovascular: Regular rate, Regular Rhythm, Normal S1, Normal S2, No murmurs, No rub noted, No Gallop Abdomen: Bowel Sounds Present, Soft, Non Tender, Non-Distended, Obese Extremities: No clubbing, No cyanosis, Edema Skin: - - No areas of induration appreciated. Scattered ecchymosis noted of bilateral upper extremities and venous stasis of the lower extremities noted Musculoskeletal: No Tenderness to Palpation of Joints or Extremities Lymphatic: No Cervical, Supraclavicular, or Inguinal Adenopathy Neurological: Cranial nerves II-XII grossly intact, Neuro grossly intact Psych/Mental Status: Alert and oriented to time, place, person, mood and affect Microbiology Past 72 Hours 08/22/20 10:49 Blood Culture (Wb) - Right Hand Blood Culture - Preliminary No growth in 48 hours. 08/22/20 10:42 Blood Culture (Wb) - Anticubital Left Blood Culture - Preliminary No growth in 48 hours. Laboratory Results 08/26/20 05:20: WBC 4.4, RBC 4.70, Hgb 14.2, Hct 44.8, MCV 95.3 H, MCH 30.2, MCHC 31.7 L, RDW Std Deviation 49.6 H, RDW Coeff of Leigh 14.0, Plt Count 148 L, MPV 9.8 08/26/20 05:20: Sodium 139, Potassium 3.9, Chloride 103, Carbon Dioxide 30.0, Anion Gap 6, BUN 30 H, Creatinine 0.81, Estim Creat Clear Calc 86.79, Est GFR (MDRD) Af Amer 123, Est GFR (MDRD) Non-Af 102, BUN/Creatinine Ratio 37.2 H, Glucose 84, Calcium 8.3 L, Total Bilirubin 0.70, AST 37, ALT 60, Alkaline Phosphatase 79, Total Protein 6.5, Albumin 2.6 L, Globulin 3.9, Albumin/Globulin Ratio 0.7 L Current Medications Acetaminophen (Acetaminophen 325 Mg Tablet) 650 mg PO Q6H PRN PRN PRN Reason: Pain Score 1-10/Temp > 100.7 F Al Hydroxide/Mg Hydroxide (Mag Hydrox/Al Hydrox/Simeth 30 Ml Udc) 30 ml PO Q6H PRN PRN PRN Reason: Gastric Burning Albuterol Sulfate (Albuterol Sulfate 8 Gm Inhaler (60 Puffs)) 2 puff INHALATION Q2H PRN PRN PRN Reason: Shortness of Breath/Wheezing Last Admin: 08/24/20 04:04 Dose: 2 puff Documented by: Amitriptyline HCl (Amitriptyline 25 Mg Tablet) 50 mg PO QHS [facility] Last Admin: 08/25/20 21:04 Dose: 50 mg Documented by: Amlodipine Besylate (Amlodipine 5 Mg Tablet) 5 mg PO DAILY [facility] Last Admin: 08/26/20 11:27 Dose: 5 mg Documented by: Aspirin (Aspirin 81 Mg Tab.Chew) 81 mg PO DAILY [facility] Last Admin: 08/26/20 11:27 Dose: 81 mg Documented by: Azelastine HCl (Azelastine Hcl Nasal.Sry) 2 spray NASAL BID [facility] Last Admin: 08/26/20 11:29 Dose: 2 spray Documented by: Budesonide (Budesonide Respules 0.5 Mg/2 Ml Ampul.Neb.) 0.5 mg INHALATION Q12H.RT [facility] Last Admin: 08/26/20 07:16 Dose: 0.5 mg Documented by: Buspirone HCl (Buspirone 15 Mg Tablet) 15 mg PO BID [facility] Last Admin: 08/26/20 11:28 Dose: 15 mg Documented by: Carvedilol (Carvedilol 3.125 Mg Tablet) 3.125 mg PO BID [facility] Last Admin: 08/26/20 11:28 Dose: 3.125 mg Documented by: Chlordiazepoxide (Chlordiazepoxide 25 Mg Capsule) 25 mg PO 4X/DAY PRN PRN PRN Reason: ANXIETY/AGITATION Last Admin: 08/25/20 21:03 Dose: 25 mg Documented by: Citalopram Hydrobromide (Citalopram 20 Mg Tablet) 20 mg PO QHS [facility] Last Admin: 08/25/20 21:04 Dose: 20 mg Documented by: Dexamethasone (Dexamethasone 4 Mg Tablet) 6 mg PO DAILY [facility] Stop: 08/31/20 10:01 Last Admin: 08/26/20 11:28 Dose: 6 mg Documented by: Enoxaparin Sodium (Enoxaparin 120 Mg/0.8 Ml Syringe) 120 mg SC BID [facility] Last Admin: 08/26/20 11:27 Dose: 120 mg Documented by: Fluticasone Propionate (Fluticasone 0.05% 1 [place] Nasal.Sry) 2 spray NASAL QHS [facility] Last Admin: 08/25/20 21:05 Dose: 2 spray Documented by: Furosemide (Furosemide 20 Mg Tablet) 20 mg PO DAILY [facility] Last Admin: 08/26/20 11:28 Dose: 20 mg Documented by: Guaifenesin (Guaifenesin 10 Ml Udc (200mg/10ml)) 20 ml PO Q4H PRN PRN PRN Reason: COUGH Melatonin (Melatonin 3 Mg Tablet) 3 mg PO QHS PRN PRN PRN Reason: INSOMNIA Montelukast Sodium (Montelukast 10 Mg Tablet) 10 mg PO QHS [facility] Last Admin: 08/25/20 21:04 Dose: 10 mg Documented by: Nitroglycerin (Nitroglycerin (Inpatient Use) 0.4 Mg Tab.Subl) 0.4 mg SUBLINGUAL Q5M PRN PRN Reason: CARDIAC/CHEST PAIN Ondansetron HCl (Ondansetron 4 Mg/2 Ml Vial) 4 mg IV Q8H PRN PRN PRN Reason: NAUSEA/VOMITING Oxycodone HCl (Oxycodone 5 Mg Tablet) 5 mg PO Q4H PRN PRN PRN Reason: Pain Score 4-5 Oxycodone HCl (Oxycodone 5 Mg Tablet) 10 mg PO Q4H PRN PRN PRN Reason: Pain Score 6-10 Pravastatin Sodium (Pravastatin 40 Mg Tablet) 40 mg PO DAILY [facility] Last Admin: 08/26/20 11:29 Dose: 40 mg Documented by: Senna/Docusate Sodium (Senna/Docusate Sodium 1 Tablet) 2 tablet PO BID PRN PRN PRN Reason: Constipation Sodium Chloride (0.9% Saline Lock 10 Ml Syringe) 10 - 40 ml IV UD PRN PRN Reason: SALINE FLUSH Last Admin: 08/26/20 11:28 Dose: 10 ml Documented by: Medical Necessity - Tobacco Use Smoking Status: Former smoker Assessment/Plan All Active Problems (Last Reviewed 08/22/20 @ 14:[address] Joaquin Mccall MD) Pleural effusion, right (Acute) COVID-19 (Acute) Pneumonia (Acute) Dyspnea on exertion (Acute) H/O umbilical hernia repair (Resolved 12/11/09) Presence of cardiac pacemaker (Resolved 04/30/16) Syncope (Resolved) RECOMMENDATIONS: 1. Continue Decadron 6 mg daily x10 days. 2. Continue remdesivir and monitor liver/renal function accordingly. 3. Continue nocturnal CPAP therapy per home regimen. 4. Continue therapeutic Lovenox given pulmonary emboli noted on CTA chest. 5. Wean supplemental oxygen to maintain saturations at or above 90%. 6. Encourage incentive spirometer use and mobilize patient as tolerated. 7. Attempt gentle diuresis as tolerated by hemodynamics and renal function. IMPRESSIONS: 1. Acute on chronic hypoxemic respiratory failure secondary to COVID-19 pneumonia/pulmonary emboli The patient presented to the hospital with Covid-like symptoms of approximately 1 weeks duration. He just recently tested positive for coronavirus infection. He does have a baseline supplemental oxygen requirement of 2 L/min. The patient received convalescent plasma with initiation of Decadron and remdesivir. The patient did have small pulmonary emboli noted on CTA chest, for which he will be continued on therapeutic Lovenox. Plan to continue nocturnal Pap therapy per home regimen. Wean supplemental oxygen to maintain saturations at or above 90%. Encourage incentive spirometer use and mobilize patient as tolerated. Diurese as patient tolerates 2. History of asthma/COPD overlap syndrome/obstructive sleep apnea Continue bronchodilator therapy per home regimen. Continue nocturnal CPAP therapy per home regimen as well. 3. Obesity/hypertension/hyperlipidemia Complicates care, management, recovery and prognosis. Continue home medications as indicated. Inpatient E&M: 03265 Subs Hosp L2
--- NOTE | 2020-08-26 16:46 | CASEMGMT ---
RN CM Note. Attempted to call to room, but patient did not answer. Call to who was able to assist with clarifying home oxygen. Patient has oxygen @ home through [facility]. states he only wore it intermittently. Patient also has a Bipap for at night. Discussed plan for homegoing when his oxygen is stable with ambulation. is able to assist patient once home. -Call to [facility]- script is for 2L with exertion. If patient requires more than this, will need new prescription. Ritika BARTH RN ACM
[2020-08-26 17:09] LABS: Creatinine, Serum 0.75 mg/dL (0.70-1.30); EST Glomerular Filtration Rate 111 mL/min (>60); Est Glom Filt Rate - Afr Amer 135 mL/min (>60)
[2020-08-26] MEDS: chlordiazePOXIDE 25 MG Capsule PO (18:52)
--- NOTE | 2020-08-26 20:38 | PN.ID_ITS ---
Patient Problems: Active and Suspected Problems (Last Reviewed 08/22/20 @ 14:[address] Joaquin Mccall MD) Pleural effusion, right (Acute) COVID-19 (Acute) Pneumonia (Acute) Dyspnea on exertion (Acute) Subjective: Feeling much better, on 6L this afternoon, no fever, no n/v/d. - Physical Exam Vitals/I&O's: Vital Signs Temp Pulse Resp BP Pulse Ox 98.3 F 80 18 104/60 92 08/26/20 18:52 08/26/20 20:20 08/26/20 20:20 08/26/20 18:52 08/26/20 20:20 Oxygen Flow Rate (L/min) 5 Oxygen Delivery Method Nasal Cannula Weight: 117.934 kg Body Mass Index (BMI) 39.5 Intake and Output for Last 24 Hours 08/24/20 08/25/20 08/26/20 23:59 23:59 23:59 Intake Total 1530 / 1530 1000 / 1200 2079 Output Total 500 / 500 300 / 300 Balance 1030 / 1030 700 / 900 2079 General: Alert, Cooperative, No apparent distress Lungs: Diminished Cardiovascular: Regular rate, Regular Rhythm Abdomen: Soft, Non Tender, Non-Distended Skin: No rashes Microbiology Past 72 Hours 08/22/20 10:49 Blood Culture (Wb) - Right Hand Blood Culture - Preliminary No growth in 48 hours. 08/22/20 10:42 Blood Culture (Wb) - Anticubital Left Blood Culture - Preliminary No growth in 48 hours. Laboratory Results 08/26/20 05:20: WBC 4.4, RBC 4.70, Hgb 14.2, Hct 44.8, MCV 95.3 H, MCH 30.2, MCHC 31.7 L, RDW Std Deviation 49.6 H, RDW Coeff of Leigh 14.0, Plt Count 148 L, MPV 9.8 08/26/20 05:20: Sodium 139, Potassium 3.9, Chloride 103, Carbon Dioxide 30.0, Anion Gap 6, BUN 30 H, Creatinine 0.75, Estim Creat Clear Calc 70.30, Est GFR (MDRD) Af Amer 135, Est GFR (MDRD) Non-Af 111, BUN/Creatinine Ratio 40.0 H, Glucose 84, Calcium 8.3 L, Total Bilirubin 0.70, AST 37, ALT 60, Alkaline Phosphatase 79, Total Protein 6.5, Albumin 2.6 L, Globulin 3.9, Albumin/Globulin Ratio 0.7 L Current Medications Acetaminophen (Acetaminophen 325 Mg Tablet) 650 mg PO Q6H PRN PRN PRN Reason: Pain Score 1-10/Temp > 100.7 F Al Hydroxide/Mg Hydroxide (Mag Hydrox/Al Hydrox/Simeth 30 Ml Udc) 30 ml PO Q6H PRN PRN PRN Reason: Gastric Burning Albuterol Sulfate (Albuterol Sulfate 8 Gm Inhaler (60 Puffs)) 2 puff INHALATION Q2H PRN PRN PRN Reason: Shortness of Breath/Wheezing Last Admin: 08/24/20 04:04 Dose: 2 puff Documented by: Amitriptyline HCl (Amitriptyline 25 Mg Tablet) 50 mg PO QHS [facility] Last Admin: 08/25/20 21:04 Dose: 50 mg Documented by: Amlodipine Besylate (Amlodipine 5 Mg Tablet) 5 mg PO DAILY [facility] Last Admin: 08/26/20 11:27 Dose: 5 mg Documented by: Aspirin (Aspirin 81 Mg Tab.Chew) 81 mg PO DAILY [facility] Last Admin: 08/26/20 11:27 Dose: 81 mg Documented by: Azelastine HCl (Azelastine Hcl Nasal.Sry) 2 spray NASAL BID [facility] Last Admin: 08/26/20 11:29 Dose: 2 spray Documented by: Budesonide (Budesonide Respules 0.5 Mg/2 Ml Ampul.Neb.) 0.5 mg INHALATION Q12H.RT [facility] Last Admin: 08/26/20 20:20 Dose: 0.5 mg Documented by: Buspirone HCl (Buspirone 15 Mg Tablet) 15 mg PO BID [facility] Last Admin: 08/26/20 11:28 Dose: 15 mg Documented by: Carvedilol (Carvedilol 3.125 Mg Tablet) 3.125 mg PO BID [facility] Last Admin: 08/26/20 11:28 Dose: 3.125 mg Documented by: Chlordiazepoxide (Chlordiazepoxide 25 Mg Capsule) 25 mg PO 4X/DAY PRN PRN PRN Reason: ANXIETY/AGITATION Last Admin: 08/26/20 18:52 Dose: 25 mg Documented by: Citalopram Hydrobromide (Citalopram 20 Mg Tablet) 20 mg PO QHS [facility] Last Admin: 08/25/20 21:04 Dose: 20 mg Documented by: Dexamethasone (Dexamethasone 4 Mg Tablet) 6 mg PO DAILY [facility] Stop: 08/31/20 10:01 Last Admin: 08/26/20 11:28 Dose: 6 mg Documented by: Enoxaparin Sodium (Enoxaparin 120 Mg/0.8 Ml Syringe) 120 mg SC BID [facility] Last Admin: 08/26/20 11:27 Dose: 120 mg Documented by: Fluticasone Propionate (Fluticasone 0.05% 1 [place] Nasal.Sry) 2 spray NASAL QHS [facility] Last Admin: 08/25/20 21:05 Dose: 2 spray Documented by: Furosemide (Furosemide 20 Mg Tablet) 20 mg PO DAILY [facility] Last Admin: 08/26/20 11:28 Dose: 20 mg Documented by: Guaifenesin (Guaifenesin 10 Ml Udc (200mg/10ml)) 20 ml PO Q4H PRN PRN PRN Reason: COUGH Melatonin (Melatonin 3 Mg Tablet) 3 mg PO QHS PRN PRN PRN Reason: INSOMNIA Montelukast Sodium (Montelukast 10 Mg Tablet) 10 mg PO QHS [facility] Last Admin: 08/25/20 21:04 Dose: 10 mg Documented by: Nitroglycerin (Nitroglycerin (Inpatient Use) 0.4 Mg Tab.Subl) 0.4 mg SUBLINGUAL Q5M PRN PRN Reason: CARDIAC/CHEST PAIN Ondansetron HCl (Ondansetron 4 Mg/2 Ml Vial) 4 mg IV Q8H PRN PRN PRN Reason: NAUSEA/VOMITING Oxycodone HCl (Oxycodone 5 Mg Tablet) 5 mg PO Q4H PRN PRN PRN Reason: Pain Score 4-5 Oxycodone HCl (Oxycodone 5 Mg Tablet) 10 mg PO Q4H PRN PRN PRN Reason: Pain Score 6-10 Pravastatin Sodium (Pravastatin 40 Mg Tablet) 40 mg PO DAILY [facility] Last Admin: 08/26/20 11:29 Dose: 40 mg Documented by: Senna/Docusate Sodium (Senna/Docusate Sodium 1 Tablet) 2 tablet PO BID PRN PRN PRN Reason: Constipation Sodium Chloride (0.9% Saline Lock 10 Ml Syringe) 10 - 40 ml IV UD PRN PRN Reason: SALINE FLUSH Last Admin: 08/26/20 11:28 Dose: 10 ml Documented by: Medical Necessity - Tobacco Use Smoking Status: Former smoker Route of nutrition/ use of supplements: [] Nutritional Intake: [] IV Site: [] [place] Catheter: [] - Assessment/Plan Antibiotics: [] Assessment/Plan: [] Active and Suspected Problems (Last Reviewed 08/22/20 @ 14:[address] Joaquin Mccall MD) Pleural effusion, right (Acute) COVID-19 (Acute) Pneumonia (Acute) Dyspnea on exertion (Acute) covid with hypoxia and PEs - sx started around 08/13, has been sick, recovering. On dex, completed remdesivir, on full dose lovenox. Got plasma 08/24. Feeling better, still on 6L. Will follow
[2020-08-26] MEDS: Montelukast 10 MG Tablet PO (21:43)
[2020-08-26] MEDS: Citalopram 20 MG Tablet PO (21:43)
[2020-08-26] MEDS: Amitriptyline 25 MG Tablet 50 MG PO (21:45)
[2020-08-26] MEDS: Fluticasone 0.05% 1 SPRAY NASAL.SRY 2 SPRAY NASAL (21:48)
[2020-08-27] VITALS (13 sets, daily range): BP systolic 109–138; BP diastolic 70–82; PULSE 68–91; RESP 12–20; TEMP 36.3–36.7; O2SAT 74–96
[2020-08-27 06:57] LABS: Hematocrit 43.8 % (40-54); Hemoglobin 13.7 g/dL (13.0-16.5); Mean Corp Hgb Conc 31.3 g/dL (32-36); Mean Corpuscular Hgb 29.8 pg (27.0-32.0); Mean Corpuscular Volume 95.4 fL (80-94); Mean Platelet Vol. 9.6 fl (6.2-12.0); Platelet Count 174 K/mm3 (150-450); RBC Distribution Width SD 49.1 fl (35.1-43.9); Red Blood Count 4.59 M/mm3 (4.6-6.2); White Blood Count 5.5 K/mm3 (4.4-11.0)
[2020-08-27 07:23] LABS: ALB/GLOB Ratio 0.6 RATIO (0.9-2.4); AST(SGOT) 30 U/L (15-37); Alanine Aminotransfer ALT/SGPT 62 U/L (16-61); Albumin, Serum 2.6 g/dL (3.2-5.0); Alkaline Phosphatase 76 U/L (45-117); Anion Gap 2 (5-15); BUN 22 mg/dL (7-18); BUN/Creat Ratio 27.5 RATIO (10-20); Calcium,Total 8.4 mg/dL (8.5-10.1); Chloride 103 mmol/L (98-107); EST Glomerular Filtration Rate 103 mL/min (>60); Est Glom Filt Rate - Afr Amer 124 mL/min (>60); Estimated Creatinine Clearance 87.88 ml/min; Globulin 4.1 g/dL (2.2-4.2); Glucose 94 mg/dL (74-106); Potassium 4.5 mmol/L (3.5-5.1); Protein, Total 6.7 g/dL (6.4-8.2); Sodium Level 138 mmol/L (136-145)
[2020-08-27] MEDS: Budesonide Respules 0.5 MG/2 ML AMPUL.NEB. INHALATION ×2 (07:26→19:58)
--- NOTE | 2020-08-27 08:49 | PCM.PN.PUL ---
Patient Problems: Active and Suspected Problems (Last Reviewed 08/22/20 @ 14:[address] Joaquin Mccall MD) Pleural effusion, right (Acute) COVID-19 (Acute) Pneumonia (Acute) Dyspnea on exertion (Acute) Subjective: Patient did well overnight. Patient is reporting he feels significantly improved compared to yesterday. Patient has been using his home BiPAP unit with sleep and tolerating this well. Patient has not been up moving around much today to know how his exertional tolerance is compared to yesterday. - Physical Exam Vitals/I&O's: Vital Signs Temp Pulse Resp BP Pulse Ox 36.3 C L 70 12 109/70 94 08/27/20 03:40 08/27/20 07:29 08/27/20 07:29 08/27/20 03:40 08/27/20 07:29 Oxygen Flow Rate (L/min) 5 Oxygen Delivery Method Nasal Cannula Weight: 117.934 kg Body Mass Index (BMI) 39.5 Intake and Output for Last 24 Hours 08/25/20 08/26/20 08/27/20 23:59 23:59 23:59 Intake Total 1000 / 1200 2079 Output Total 300 / 300 Balance 700 / 900 2079 General: Alert, Oriented x3, Cooperative, No apparent distress, - - Appears older than stated age. Morbidly obese. HEENT: Atraumatic, PERRLA, EOMI, Normocephalic, - - No scleral icterus or injection noted Oral: Moist Mucosa, No Gingival or Mucosal Lesions/ Ulcerations, - - Carotid posterior pharynx Neck: Supple, No Nodes, Trachea Midline, JVD, Right Lungs: No rhonchi, No wheeze, No rales, Diminished, - - Symmetric expansion. Cardiovascular: Regular rate, Regular Rhythm, Normal S1, Normal S2, No murmurs, No rub noted, No Gallop Abdomen: Bowel Sounds Present, Soft, Non Tender, Non-Distended, Obese Extremities: No clubbing, No cyanosis, Edema Skin: - - No change from previous Musculoskeletal: No Tenderness to Palpation of Joints or Extremities Lymphatic: No Cervical, Supraclavicular, or Inguinal Adenopathy Neurological: Cranial nerves II-XII grossly intact, Neuro grossly intact, Motor Exam 5/5 strength throughout Psych/Mental Status: Alert and oriented to time, place, person, mood and affect Microbiology Past 72 Hours 08/22/20 10:49 Blood Culture (Wb) - Right Hand Blood Culture - Preliminary No growth in 48 hours. 08/22/20 10:42 Blood Culture (Wb) - Anticubital Left Blood Culture - Preliminary No growth in 48 hours. Laboratory Results 08/26/20 05:20: Creatinine 0.75, Estim Creat Clear Calc 70.30, Est GFR (MDRD) Af Amer 135, Est GFR (MDRD) Non-Af 111, BUN/Creatinine Ratio 40.0 H 08/27/20 06:40: WBC 5.5, RBC 4.59 L, Hgb 13.7, Hct 43.8, MCV 95.4 H, MCH 29.8, MCHC 31.3 L, RDW Std Deviation 49.1 H, RDW Coeff of Leigh 14.0, Plt Count 174, MPV 9.6 08/27/20 06:40: Sodium 138, Potassium 4.5, Chloride 103, Carbon Dioxide 33.0 H, Anion Gap 2 L, BUN 22 H, Creatinine 0.80, Estim Creat Clear Calc 87.88, Est GFR (MDRD) Af Amer 124, Est GFR (MDRD) Non-Af 103, BUN/Creatinine Ratio 27.5 H, Glucose 94, Calcium 8.4 L, Total Bilirubin 0.70, AST 30, ALT 62 H, Alkaline Phosphatase 76, Total Protein 6.7, Albumin 2.6 L, Globulin 4.1, Albumin/Globulin Ratio 0.6 L Current Medications Acetaminophen (Acetaminophen 325 Mg Tablet) 650 mg PO Q6H PRN PRN PRN Reason: Pain Score 1-10/Temp > 100.7 F Al Hydroxide/Mg Hydroxide (Mag Hydrox/Al Hydrox/Simeth 30 Ml Udc) 30 ml PO Q6H PRN PRN PRN Reason: Gastric Burning Albuterol Sulfate (Albuterol Sulfate 8 Gm Inhaler (60 Puffs)) 2 puff INHALATION Q2H PRN PRN PRN Reason: Shortness of Breath/Wheezing Last Admin: 08/24/20 04:04 Dose: 2 puff Documented by: Amitriptyline HCl (Amitriptyline 25 Mg Tablet) 50 mg PO QHS [facility] Last Admin: 08/26/20 21:45 Dose: 50 mg Documented by: Amlodipine Besylate (Amlodipine 5 Mg Tablet) 5 mg PO DAILY [facility] Last Admin: 08/26/20 11:27 Dose: 5 mg Documented by: Aspirin (Aspirin 81 Mg Tab.Chew) 81 mg PO DAILY [facility] Last Admin: 08/26/20 11:27 Dose: 81 mg Documented by: Azelastine HCl (Azelastine Hcl Nasal.Sry) 2 spray NASAL BID [facility] Last Admin: 08/26/20 21:47 Dose: 2 spray Documented by: Budesonide (Budesonide Respules 0.5 Mg/2 Ml Ampul.Neb.) 0.5 mg INHALATION Q12H.RT [facility] Last Admin: 08/27/20 07:26 Dose: 0.5 mg Documented by: Buspirone HCl (Buspirone 15 Mg Tablet) 15 mg PO BID [facility] Last Admin: 08/26/20 21:44 Dose: 15 mg Documented by: Carvedilol (Carvedilol 3.125 Mg Tablet) 3.125 mg PO BID [facility] Last Admin: 08/26/20 21:44 Dose: 3.125 mg Documented by: Chlordiazepoxide (Chlordiazepoxide 25 Mg Capsule) 25 mg PO 4X/DAY PRN PRN PRN Reason: ANXIETY/AGITATION Last Admin: 08/26/20 18:52 Dose: 25 mg Documented by: Citalopram Hydrobromide (Citalopram 20 Mg Tablet) 20 mg PO QHS [facility] Last Admin: 08/26/20 21:43 Dose: 20 mg Documented by: Dexamethasone (Dexamethasone 4 Mg Tablet) 6 mg PO DAILY [facility] Stop: 08/31/20 10:01 Last Admin: 08/26/20 11:28 Dose: 6 mg Documented by: Enoxaparin Sodium (Enoxaparin 120 Mg/0.8 Ml Syringe) 120 mg SC BID [facility] Last Admin: 08/26/20 21:52 Dose: 120 mg Documented by: Fluticasone Propionate (Fluticasone 0.05% 1 [place] Nasal.Sry) 2 spray NASAL QHS [facility] Last Admin: 08/26/20 21:48 Dose: 2 spray Documented by: Furosemide (Furosemide 20 Mg Tablet) 20 mg PO DAILY [facility] Last Admin: 08/26/20 11:28 Dose: 20 mg Documented by: Guaifenesin (Guaifenesin 10 Ml Udc (200mg/10ml)) 20 ml PO Q4H PRN PRN PRN Reason: COUGH Melatonin (Melatonin 3 Mg Tablet) 3 mg PO QHS PRN PRN PRN Reason: INSOMNIA Montelukast Sodium (Montelukast 10 Mg Tablet) 10 mg PO QHS [facility] Last Admin: 08/26/20 21:43 Dose: 10 mg Documented by: Nitroglycerin (Nitroglycerin (Inpatient Use) 0.4 Mg Tab.Subl) 0.4 mg SUBLINGUAL Q5M PRN PRN Reason: CARDIAC/CHEST PAIN Ondansetron HCl (Ondansetron 4 Mg/2 Ml Vial) 4 mg IV Q8H PRN PRN PRN Reason: NAUSEA/VOMITING Oxycodone HCl (Oxycodone 5 Mg Tablet) 5 mg PO Q4H PRN PRN PRN Reason: Pain Score 4-5 Oxycodone HCl (Oxycodone 5 Mg Tablet) 10 mg PO Q4H PRN PRN PRN Reason: Pain Score 6-10 Pravastatin Sodium (Pravastatin 40 Mg Tablet) 40 mg PO DAILY [facility] Last Admin: 08/26/20 11:29 Dose: 40 mg Documented by: Senna/Docusate Sodium (Senna/Docusate Sodium 1 Tablet) 2 tablet PO BID PRN PRN PRN Reason: Constipation Sodium Chloride (0.9% Saline Lock 10 Ml Syringe) 10 - 40 ml IV UD PRN PRN Reason: SALINE FLUSH Last Admin: 08/26/20 21:52 Dose: 10 ml Documented by: Medical Necessity - Tobacco Use Smoking Status: Former smoker Assessment/Plan All Active Problems (Last Reviewed 08/22/20 @ 14:[address] Joaquin Mccall MD) Pleural effusion, right (Acute) COVID-19 (Acute) Pneumonia (Acute) Dyspnea on exertion (Acute) H/O umbilical hernia repair (Resolved 12/11/09) Presence of cardiac pacemaker (Resolved 04/30/16) Syncope (Resolved) RECOMMENDATIONS: 1. Continue Decadron 6 mg daily x10 days. Completed remdesivir 2. Attempt walking oximetry 3. Continue nocturnal CPAP therapy per home regimen. 4. Continue therapeutic Lovenox given pulmonary emboli noted on CTA chest. 5. Wean supplemental oxygen to maintain saturations at or above 90%. 6. Encourage incentive spirometer use and mobilize patient as tolerated. 7. Diuretic challenge. IMPRESSIONS: 1. Acute on chronic hypoxemic respiratory failure secondary to COVID-19 pneumonia/pulmonary emboli The patient presented to the hospital with Covid-like symptoms of approximately 1 weeks duration. He just recently tested positive for coronavirus infection. He does have a baseline supplemental oxygen requirement of 2 L/min. The patient received convalescent plasma with initiation of Decadron and has now completed remdesivir. The patient did have small pulmonary emboli noted on CTA chest, for which he will be continued on therapeutic Lovenox. Plan to continue nocturnal Pap therapy per home regimen. Wean supplemental oxygen to maintain saturations at or above 90%. Encourage incentive spirometer use and mobilize patient as tolerated. Diurese as patient tolerates. Anticipate discharge when patient is able to ambulate on 6 L or less. 2. History of asthma/COPD overlap syndrome/obstructive sleep apnea Continue bronchodilator therapy per home regimen. Continue nocturnal CPAP therapy per home regimen as well. 3. Obesity/hypertension/hyperlipidemia Complicates care, management, recovery and prognosis. Continue home medications as indicated. Inpatient E&M: 359[address] [facility] Hosp L2
[2020-08-27] MEDS: Pravastatin 40 MG Tablet PO (10:43)
[2020-08-27] MEDS: amLODIPine 5 MG Tablet PO (10:43)
[2020-08-27] MEDS: Carvedilol 3.125 MG TABLET PO ×2 (10:43→19:58)
[2020-08-27] MEDS: busPIRone 15 MG TABLET PO ×2 (10:43→19:58)
[2020-08-27] MEDS: Furosemide 20 MG Tablet PO (10:43)
[2020-08-27] MEDS: dexAMETHasone 4 MG Tablet 6 MG PO (10:43)
[2020-08-27] MEDS: Aspirin 81 MG TAB.CHEW PO (10:43)
[2020-08-27] MEDS: Azelastine HCl NASAL.SRY 2 SPRAY NASAL ×2 (10:44→20:00)
[2020-08-27] MEDS: Enoxaparin 120 MG/0.8 ML Syringe SC ×2 (10:44→19:59)
[2020-08-27] MEDS: Albuterol Sulfate 8 gm Inhaler (60 puffs) 2 PUFF INHALATION (10:45)
[2020-08-27] MEDS: chlordiazePOXIDE 25 MG Capsule PO ×2 (10:53→19:02)
--- NOTE | 2020-08-27 13:57 | PN_ITS ---
Patient Problems: Active and Suspected Problems (Last Reviewed 08/22/20 @ 14:[address] Joaquin Mccall MD) Pleural effusion, right (Acute) COVID-19 (Acute) Pneumonia (Acute) Dyspnea on exertion (Acute) Reason for Visit: Follow-up on acute COVID-19 pneumonia/hypoxia Subjective: Patient was seen and examined. He remains on 5 L of oxygen at rest. He desaturates to 74% on room air, requiring 15 L of oxygen to bounce back. He otherwise denies fever or chills. No acute events overnight. Objective: Physical exam: General: Alert, Oriented x3, Cooperative, No apparent distress HEENT: Atraumatic, PERRLA, EOMI, Normocephalic Oral: Moist Mucosa Neck: Supple, No JVD Lungs: No rhonchi, No wheeze, Diminished, no rales Cardiovascular: Regular rate, Regular Rhythm, Normal S1, Normal S2, No murmurs Abdomen: Soft, Non Tender, Non-Distended, No Hepato-splenomegaly Extremities: No edema, Capillary Refill Less than 3 Seconds Skin: No rashes, No breakdown Neurological: Neuro grossly intact, Sensory exam intact to light touch and pain Psych/Mental Status: Normal Affect, Appropriate Vitals/I&O's: Vital Signs Temp Pulse Resp BP Pulse Ox 97.5 F L 75 20 H 138/82 H 87 08/27/20 11:00 08/27/20 11:00 08/27/20 11:00 08/27/20 11:00 08/27/20 11:00 Oxygen Flow Rate (L/min) [ 15 AMBULATION with Oxygen] Oxygen Flow Rate (L/min) 5 Oxygen Delivery Method Nasal Cannula Weight: 117.934 kg Body Mass Index (BMI) 39.5 Intake and Output for Last 24 Hours 08/25/20 08/26/20 08/27/20 23:59 23:59 23:59 Intake Total 1000 / 1200 2079 Output Total 300 / 300 Balance 700 / 900 2079 Microbiology Past 72 Hours 08/22/20 10:49 Blood Culture (Wb) - Right Hand Blood Culture - Final No growth in 5 days. 08/22/20 10:42 Blood Culture (Wb) - Anticubital Left Blood Culture - Final No growth in 5 days. Laboratory Results 08/26/20 05:20: Creatinine 0.75, Estim Creat Clear Calc 70.30, Est GFR (MDRD) Af Amer 135, Est GFR (MDRD) Non-Af 111, BUN/Creatinine Ratio 40.0 H 08/27/20 06:40: WBC 5.5, RBC 4.59 L, Hgb 13.7, Hct 43.8, MCV 95.4 H, MCH 29.8, MCHC 31.3 L, RDW Std Deviation 49.1 H, RDW Coeff of Leigh 14.0, Plt Count 174, MPV 9.6 08/27/20 06:40: Sodium 138, Potassium 4.5, Chloride 103, Carbon Dioxide 33.0 H, Anion Gap 2 L, BUN 22 H, Creatinine 0.80, Estim Creat Clear Calc 87.88, Est GFR (MDRD) Af Amer 124, Est GFR (MDRD) Non-Af 103, BUN/Creatinine Ratio 27.5 H, Glucose 94, Calcium 8.4 L, Total Bilirubin 0.70, AST 30, ALT 62 H, Alkaline Phosphatase 76, Total Protein 6.7, Albumin 2.6 L, Globulin 4.1, Albumin/Globulin Ratio 0.6 L Current Medications Acetaminophen (Acetaminophen 325 Mg Tablet) 650 mg PO Q6H PRN PRN PRN Reason: Pain Score 1-10/Temp > 100.7 F Al Hydroxide/Mg Hydroxide (Mag Hydrox/Al Hydrox/Simeth 30 Ml Udc) 30 ml PO Q6H PRN PRN PRN Reason: Gastric Burning Albuterol Sulfate (Albuterol Sulfate 8 Gm Inhaler (60 Puffs)) 2 puff INHALATION Q2H PRN PRN PRN Reason: Shortness of Breath/Wheezing Last Admin: 08/27/20 10:45 Dose: 2 puff Documented by: Amitriptyline HCl (Amitriptyline 25 Mg Tablet) 50 mg PO QHS [facility] Last Admin: 08/26/20 21:45 Dose: 50 mg Documented by: Amlodipine Besylate (Amlodipine 5 Mg Tablet) 5 mg PO DAILY [facility] Last Admin: 08/27/20 10:43 Dose: 5 mg Documented by: Aspirin (Aspirin 81 Mg Tab.Chew) 81 mg PO DAILY [facility] Last Admin: 08/27/20 10:43 Dose: 81 mg Documented by: Azelastine HCl (Azelastine Hcl Nasal.Sry) 2 spray NASAL BID [facility] Last Admin: 08/27/20 10:44 Dose: 2 spray Documented by: Budesonide (Budesonide Respules 0.5 Mg/2 Ml Ampul.Neb.) 0.5 mg INHALATION Q12H.RT [facility] Last Admin: 08/27/20 07:26 Dose: 0.5 mg Documented by: Buspirone HCl (Buspirone 15 Mg Tablet) 15 mg PO BID [facility] Last Admin: 08/27/20 10:43 Dose: 15 mg Documented by: Carvedilol (Carvedilol 3.125 Mg Tablet) 3.125 mg PO BID [facility] Last Admin: 08/27/20 10:43 Dose: 3.125 mg Documented by: Chlordiazepoxide (Chlordiazepoxide 25 Mg Capsule) 25 mg PO 4X/DAY PRN PRN PRN Reason: ANXIETY/AGITATION Last Admin: 08/27/20 10:53 Dose: 25 mg Documented by: Citalopram Hydrobromide (Citalopram 20 Mg Tablet) 20 mg PO QHS [facility] Last Admin: 08/26/20 21:43 Dose: 20 mg Documented by: Dexamethasone (Dexamethasone 4 Mg Tablet) 6 mg PO DAILY [facility] Stop: 08/31/20 10:01 Last Admin: 08/27/20 10:43 Dose: 6 mg Documented by: Enoxaparin Sodium (Enoxaparin 120 Mg/0.8 Ml Syringe) 120 mg SC BID [facility] Last Admin: 08/27/20 10:44 Dose: 120 mg Documented by: Fluticasone Propionate (Fluticasone 0.05% 1 [place] Nasal.Sry) 2 spray NASAL QHS [facility] Last Admin: 08/26/20 21:48 Dose: 2 spray Documented by: Furosemide (Furosemide 20 Mg Tablet) 20 mg PO DAILY [facility] Last Admin: 08/27/20 10:43 Dose: 20 mg Documented by: Guaifenesin (Guaifenesin 10 Ml Udc (200mg/10ml)) 20 ml PO Q4H PRN PRN PRN Reason: COUGH Melatonin (Melatonin 3 Mg Tablet) 3 mg PO QHS PRN PRN PRN Reason: INSOMNIA Montelukast Sodium (Montelukast 10 Mg Tablet) 10 mg PO QHS [facility] Last Admin: 08/26/20 21:43 Dose: 10 mg Documented by: Nitroglycerin (Nitroglycerin (Inpatient Use) 0.4 Mg Tab.Subl) 0.4 mg SUBLINGUAL Q5M PRN PRN Reason: CARDIAC/CHEST PAIN Ondansetron HCl (Ondansetron 4 Mg/2 Ml Vial) 4 mg IV Q8H PRN PRN PRN Reason: NAUSEA/VOMITING Oxycodone HCl (Oxycodone 5 Mg Tablet) 5 mg PO Q4H PRN PRN PRN Reason: Pain Score 4-5 Oxycodone HCl (Oxycodone 5 Mg Tablet) 10 mg PO Q4H PRN PRN PRN Reason: Pain Score 6-10 Pravastatin Sodium (Pravastatin 40 Mg Tablet) 40 mg PO DAILY [facility] Last Admin: 08/27/20 10:43 Dose: 40 mg Documented by: Senna/Docusate Sodium (Senna/Docusate Sodium 1 Tablet) 2 tablet PO BID PRN PRN PRN Reason: Constipation Sodium Chloride (0.9% Saline Lock 10 Ml Syringe) 10 - 40 ml IV UD PRN PRN Reason: SALINE FLUSH Last Admin: 08/26/20 21:52 Dose: 10 ml Documented by: STROKE Vital Signs/Narrative: Vital Signs Temp Pulse Resp BP Pulse Ox Pulse Ox Pulse Ox 08/27/20 11:00 97.5 F L 75 20 H 138/82 H 92 74 92 08/27/20 10:00 20 H 92 Pulse Ox 08/27/20 11:00 87 08/27/20 10:00 Medical Necessity - Tobacco Use Smoking Status: Former smoker Assessment/Plan All Active Problems (Last Reviewed 08/22/20 @ 14:[address] Joaquin Mccall MD) Pleural effusion, right (Acute) COVID-19 (Acute) Pneumonia (Acute) Dyspnea on exertion (Acute) H/O umbilical hernia repair (Resolved 12/11/09) Presence of cardiac pacemaker (Resolved 04/30/16) Syncope (Resolved) 1. Acute hypoxic respiratory failure secondary to acute COVID-19 pneumonia/PE Patient still requires high amounts of oxygen Continue with breathing treatments, PO steroids, encourage use of incentive spirometer. Wean off oxygen for SPO2 more than 94% 2. Acute COVID-19 pneumonia with hypoxia Continue on p.o. Decadron, patient completed remdesivir 3. Acute PE secondary to COVID-19 Continue on Lovenox subcu therapeutic dosing 3. Hypertension, controlled, Continue on Norvasc, Coreg, Lasix 4. Status post pacemaker for sick sinus syndrome, bradycardia stable 5. Anxiety/depression, stable, continue on amitriptyline, Celexa, Librium as needed 6. DVT prophylaxis?on therapeutic Lovenox Inpatient E&M: 78889 Subs Hosp L2
--- NOTE | 2020-08-27 19:56 | NURSING ---
turn 02 to 4 lnc
[2020-08-27] MEDS: Amitriptyline 25 MG Tablet 50 MG PO (19:58)
[2020-08-27] MEDS: Fluticasone 0.05% 1 SPRAY NASAL.SRY 2 SPRAY NASAL (19:59)
[2020-08-27] MEDS: Citalopram 20 MG Tablet PO (19:59)
[2020-08-27] MEDS: Montelukast 10 MG Tablet PO (19:59)
[2020-08-28] VITALS (11 sets, daily range): BP systolic 114–131; BP diastolic 56–86; PULSE 70–102; RESP 18; TEMP 36.6–37; O2SAT 82–95
[2020-08-28] MEDS: Budesonide Respules 0.5 MG/2 ML AMPUL.NEB. INHALATION (07:45)
[2020-08-28] MEDS: Azelastine HCl NASAL.SRY 2 SPRAY NASAL (07:51)
[2020-08-28] MEDS: Pravastatin 40 MG Tablet PO (07:51)
[2020-08-28] MEDS: Carvedilol 3.125 MG TABLET PO (07:52)
[2020-08-28] MEDS: Furosemide 20 MG Tablet PO (07:52)
[2020-08-28] MEDS: busPIRone 15 MG TABLET PO (07:52)
[2020-08-28] MEDS: Aspirin 81 MG TAB.CHEW PO (07:52)
[2020-08-28] MEDS: amLODIPine 5 MG Tablet PO (07:53)
[2020-08-28] MEDS: Enoxaparin 120 MG/0.8 ML Syringe SC (07:53)
[2020-08-28] MEDS: dexAMETHasone 4 MG Tablet 6 MG PO (07:53)
--- NOTE | 2020-08-28 09:20 | PCM.PN.PUL ---
Patient Problems: Active and Suspected Problems (Last Reviewed 08/22/20 @ 14:[address] Joaquin Mccall MD) Pleural effusion, right (Acute) COVID-19 (Acute) Pneumonia (Acute) Dyspnea on exertion (Acute) Subjective: Patient feels subjectively improved compared to yesterday. Patient states his cough is significantly improved, along with chest discomfort. Patient continues to report some dyspnea on exertion. Objective: Patient was unable to tolerate ambulation with up to 12 L yesterday. - Physical Exam Vitals/I&O's: Vital Signs Temp Pulse Resp BP Pulse Ox 36.6 C 74 18 120/74 94 08/28/20 07:39 08/28/20 07:39 08/28/20 07:39 08/28/20 07:39 08/28/20 07:39 Oxygen Flow Rate (L/min) [ 15 AMBULATION with Oxygen] Oxygen Flow Rate (L/min) 4 Oxygen Delivery Method Nasal Cannula Weight: 117.934 kg Body Mass Index (BMI) 39.5 Intake and Output for Last 24 Hours 08/26/20 08/27/20 08/28/20 23:59 23:59 23:59 Intake Total 2079 640 / 640 120 / 120 Balance 2079 640 / 640 120 / 120 General: Alert, Oriented x3, Cooperative, No apparent distress - While resting in the chair, - - Obese. No conversational dyspnea. HEENT: Atraumatic, PERRLA, EOMI, Normocephalic, - - Glasses in place. Oral: Moist Mucosa, No Gingival or Mucosal Lesions/ Ulcerations Neck: Supple, No JVD, No Nodes, Trachea Midline Lungs: No rhonchi, No wheeze, No rales, Diminished, - - Symmetric expansion. Cardiovascular: Regular rate, Regular Rhythm, Normal S1, Normal S2, No murmurs, No rub noted, No Gallop Abdomen: Bowel Sounds Present, Soft, Non Tender, Non-Distended, Obese Extremities: No cyanosis, Edema Skin: - - No change from previous Musculoskeletal: No Tenderness to Palpation of Joints or Extremities Lymphatic: No Cervical, Supraclavicular, or Inguinal Adenopathy Neurological: Cranial nerves II-XII grossly intact, Neuro grossly intact, Motor Exam 5/5 strength throughout Psych/Mental Status: Alert and oriented to time, place, person, mood and affect Microbiology Past 72 Hours 08/22/20 10:49 Blood Culture (Wb) - Right Hand Blood Culture - Final No growth in 5 days. 08/22/20 10:42 Blood Culture (Wb) - Anticubital Left Blood Culture - Final No growth in 5 days. Current Medications Acetaminophen (Acetaminophen 325 Mg Tablet) 650 mg PO Q6H PRN PRN PRN Reason: Pain Score 1-10/Temp > 100.7 F Al Hydroxide/Mg Hydroxide (Mag Hydrox/Al Hydrox/Simeth 30 Ml Udc) 30 ml PO Q6H PRN PRN PRN Reason: Gastric Burning Albuterol Sulfate (Albuterol Sulfate 8 Gm Inhaler (60 Puffs)) 2 puff INHALATION Q2H PRN PRN PRN Reason: Shortness of Breath/Wheezing Last Admin: 08/27/20 10:45 Dose: 2 puff Documented by: Amitriptyline HCl (Amitriptyline 25 Mg Tablet) 50 mg PO QHS [facility] Last Admin: 08/27/20 19:58 Dose: 50 mg Documented by: Amlodipine Besylate (Amlodipine 5 Mg Tablet) 5 mg PO DAILY [facility] Last Admin: 08/28/20 07:53 Dose: 5 mg Documented by: Aspirin (Aspirin 81 Mg Tab.Chew) 81 mg PO DAILY [facility] Last Admin: 08/28/20 07:52 Dose: 81 mg Documented by: Azelastine HCl (Azelastine Hcl Nasal.Sry) 2 spray NASAL BID [facility] Last Admin: 08/28/20 07:51 Dose: 2 spray Documented by: Budesonide (Budesonide Respules 0.5 Mg/2 Ml Ampul.Neb.) 0.5 mg INHALATION Q12H.RT [facility] Last Admin: 08/27/20 19:58 Dose: 0.5 mg Documented by: Buspirone HCl (Buspirone 15 Mg Tablet) 15 mg PO BID [facility] Last Admin: 08/28/20 07:52 Dose: 15 mg Documented by: Carvedilol (Carvedilol 3.125 Mg Tablet) 3.125 mg PO BID [facility] Last Admin: 08/28/20 07:52 Dose: 3.125 mg Documented by: Chlordiazepoxide (Chlordiazepoxide 25 Mg Capsule) 25 mg PO 4X/DAY PRN PRN PRN Reason: ANXIETY/AGITATION Last Admin: 08/27/20 19:02 Dose: 25 mg Documented by: Citalopram Hydrobromide (Citalopram 20 Mg Tablet) 20 mg PO QHS [facility] Last Admin: 08/27/20 19:59 Dose: 20 mg Documented by: Dexamethasone (Dexamethasone 4 Mg Tablet) 6 mg PO DAILY [facility] Stop: 08/31/20 10:01 Last Admin: 08/28/20 07:53 Dose: 6 mg Documented by: Enoxaparin Sodium (Enoxaparin 120 Mg/0.8 Ml Syringe) 120 mg SC BID [facility] Last Admin: 08/28/20 07:53 Dose: 120 mg Documented by: Fluticasone Propionate (Fluticasone 0.05% 1 [place] Nasal.Sry) 2 spray NASAL QHS [facility] Last Admin: 08/27/20 19:59 Dose: 2 spray Documented by: Furosemide (Furosemide 20 Mg Tablet) 20 mg PO DAILY [facility] Last Admin: 08/28/20 07:52 Dose: 20 mg Documented by: Guaifenesin (Guaifenesin 10 Ml Udc (200mg/10ml)) 20 ml PO Q4H PRN PRN PRN Reason: COUGH Melatonin (Melatonin 3 Mg Tablet) 3 mg PO QHS PRN PRN PRN Reason: INSOMNIA Montelukast Sodium (Montelukast 10 Mg Tablet) 10 mg PO QHS [facility] Last Admin: 08/27/20 19:59 Dose: 10 mg Documented by: Nitroglycerin (Nitroglycerin (Inpatient Use) 0.4 Mg Tab.Subl) 0.4 mg SUBLINGUAL Q5M PRN PRN Reason: CARDIAC/CHEST PAIN Ondansetron HCl (Ondansetron 4 Mg/2 Ml Vial) 4 mg IV Q8H PRN PRN PRN Reason: NAUSEA/VOMITING Oxycodone HCl (Oxycodone 5 Mg Tablet) 5 mg PO Q4H PRN PRN PRN Reason: Pain Score 4-5 Oxycodone HCl (Oxycodone 5 Mg Tablet) 10 mg PO Q4H PRN PRN PRN Reason: Pain Score 6-10 Pravastatin Sodium (Pravastatin 40 Mg Tablet) 40 mg PO DAILY [facility] Last Admin: 08/28/20 07:51 Dose: 40 mg Documented by: Senna/Docusate Sodium (Senna/Docusate Sodium 1 Tablet) 2 tablet PO BID PRN PRN PRN Reason: Constipation Sodium Chloride (0.9% Saline Lock 10 Ml Syringe) 10 - 40 ml IV UD PRN PRN Reason: SALINE FLUSH Last Admin: 08/26/20 21:52 Dose: 10 ml Documented by: Medical Necessity - Tobacco Use Smoking Status: Former smoker Assessment/Plan All Active Problems (Last Reviewed 08/22/20 @ 14:[address] Joaquin Mccall MD) Pleural effusion, right (Acute) COVID-19 (Acute) Pneumonia (Acute) Dyspnea on exertion (Acute) H/O umbilical hernia repair (Resolved 12/11/09) Presence of cardiac pacemaker (Resolved 04/30/16) Syncope (Resolved) RECOMMENDATIONS: 1. Continue Decadron 6 mg daily x10 days. Completed remdesivir 2. Attempt walking oximetry daily 3. Continue nocturnal CPAP therapy per home regimen. 4. Continue therapeutic Lovenox given pulmonary emboli noted on CTA chest. Consider transition to 10 a inhibitor 5. Wean supplemental oxygen to maintain saturations at or above 90%. 6. Encourage incentive spirometer use and mobilize patient as tolerated. 7. Diuretic challenge this evening. IMPRESSIONS: 1. Acute on chronic hypoxemic respiratory failure secondary to COVID-19 pneumonia/pulmonary emboli The patient presented to the hospital with Covid-like symptoms of approximately 1 weeks duration. He just recently tested positive for coronavirus infection. He does have a baseline supplemental oxygen requirement of 2 L/min. The patient received convalescent plasma with initiation of Decadron and has now completed remdesivir. The patient did have small pulmonary emboli noted on CTA chest, for which he will be continued on therapeutic anticoagulation. Plan to continue nocturnal Pap therapy per home regimen. Wean supplemental oxygen to maintain saturations at or above 90%. Diuretic challenge today. Could consider transition to a 10 a inhibitor to avoid complications with rectal sheath hematoma. Continue walking oximetry's on a daily basis to evaluate for discharge criteria. 2. History of asthma/COPD overlap syndrome/obstructive sleep apnea Continue bronchodilator therapy per home regimen. Continue nocturnal CPAP therapy per home regimen as well. 3. Obesity/hypertension/hyperlipidemia Complicates care, management, recovery and prognosis. Continue home medications as indicated. Inpatient E&M: 12193 [facility] Hosp L2
[2020-08-28] MEDS: chlordiazePOXIDE 25 MG Capsule PO (09:50)
[2020-08-28] MEDS: Furosemide 40 MG/4 ML Vial IV (12:20)
[2020-08-28] MEDS: 0.9% Saline Lock 10 ML Syringe IV (12:20)
--- NOTE | 2020-08-28 14:54 | PCM.DC ---
- Discharge Diagnoses Current Active Problems: Current Active and Chronic Problems (Last Reviewed 08/22/20 @ 14:[address] Joaquin Mccall MD) Pleural effusion, right (Acute) COVID-19 (Acute) Pneumonia (Acute) Atherosclerosis of [place] coronary artery of [place] heart without angina pectoris (Chronic) Nonobstructive in November 2019; BMI 38.0-38.9,adult (Chronic) History of right and left heart catheterization (Chronic 11/29/19) Non obstructive coronary arteries; Global LV systolic dysfunction- Mild LVEF: by LV gram 45-50 %; Normal Left Ventricular End Diastolic Pressure The patient has pulmonary hypertension which is mild. Pt's SERRANO is most likely predominantly from pulmonary component False positive stress test. 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 History of incision and drainage (Chronic 06/07/12) right knee, septic Dysmetabolic syndrome X (Chronic) Panic disorder without agoraphobia (Chronic) Generalized anxiety disorder (Chronic) Obesity (Chronic) Obstructive sleep apnea (Chronic) COPD with asthma (Chronic) Sick sinus syndrome (Chronic) Hypertension (Chronic) COPD (chronic obstructive pulmonary disease) (Chronic) History of rotator cuff tear (Chronic) Hyperlipidemia (Chronic) History of DVT (deep vein thrombosis) (Chronic 06/2012) right, peroneal soleal-provoked- admission for septic knee Reason(s) for Visit for Discharge Instructions: Acute COVID-19 pneumonia/Acute PE You will use the following diet at home:: Cardiac Your food should be the consistency of: Regular Your liquids should be the consistency of: Regular/Thin Discharge Activity: Return to Normal Activity Additional Instructions: You are being discharged with oxygen. Continue to use your oxygen all the time. Be careful of going near open flames whilst on oxygen. Continue to use your incentive spirometer. Continue to remain active and eat healthy. Let your doctor know if you develop fever >101.3F or have progressive worsening shortness of breath. Follow-up with your primary care doctor and also with pulmonology to have your continued oxygen use reevaluated. Complete your oral Decadron as prescribed. Allergies/Adverse Reactions: Allergies ibuprofen Allergy (Severe, Verified 08/22/20 10:16) ANAPHYLAXIS isosorbide Adverse Reaction (Intermediate, Verified 08/22/20 10:16) severe headaches/migraine Medications to take at Discharge Amitriptyline HCl 50 mg PO DAILY 04/28/16 Aspirin [Aspirin, Baby] 81 mg PO DAILY@0800 04/28/16 Citalopram Hydrobromide [Citalopram HBr] 20 mg PO DAILY 04/28/16 Nitroglycerin (INPATIENT USE) [Nitrostat] 0.4 mg SUBLINGUAL Q5M PRN 04/28/16 [place]-3 Fatty Acids/Dha/Epa [[place]vega-3 Softgel] 1 ea PO DAILY 04/28/16 Pravastatin [Pravachol] 40 mg PO DAILY 04/28/16 montelukast 10 mg tablet 10 mg PO DAILY 10/11/18 carvedilol 3.125 mg tablet 3.125 mg PO BID #60 tab 11/29/19 budesonide-formoterol HFA 160 mcg-4.5 mcg/actuation aerosol inhaler 2 puff INHALATION BID #3 ea 12/26/19 azelastine 137 mcg (0.1 %) nasal spray aerosol 2 spray INTRANASAL BID #30 ml 03/26/20 fluticasone propionate 50 mcg/actuation nasal spray,suspension 2 spray INTRANASAL QDAY #1 ea 03/26/20 albuterol sulfate 2.5 mg INHALATION Q6H PRN #3 ml 06/19/20 albuterol sulfate 90 mcg/actuation aerosol inhaler 1 - 2 puff INHALATION Q6H PRN #18 g 06/24/20 amlodipine 5 mg tablet 5 mg PO DAILY tab 06/27/20 buspirone 30 mg tablet 15 mg PO BID tab 06/27/20 Budesonide/Formoterol Fumarate [Symbicort 160-4.5 Mcg Inhaler] 08/22/20 Apixaban [Eliquis] 5 mg PO BID 30 Days #60 tab.ds.pk 08/28/20 Dexamethasone [Decadron] 6 mg PO DAILY 3 Days #3 tab 08/28/20 Furosemide [Lasix] 40 mg PO BID 30 Days #60 tab 08/28/20 The following prescriptions were given: Dexamethasone [Decadron] 6 mg PO DAILY 3 Days #3 tab Transmission Status: Pending to [id number] Apixaban [Eliquis] 5 mg PO BID 30 Days #60 tab.ds.pk Transmission Status: Pending to [id number] Primary Care Physician: Bipin Sanchez MD [Primary Care Provider] - Please follow up with your Primary Care Physician in: within 1-2 weeks Test Results: Test results from this visit will be discussed in further detail at your follow-up appointment, if applicable. Please Follow Up With: Wesley Gupta MD When: within 2 weeks Proposed Discharge Date: 08/28/20
--- NOTE | 2020-08-28 15:05 | PCM.DC.SUM ---
Discharge Date and Diagnosis - Problem List Patient Problems: Active and Suspected Problems (Last Reviewed 08/22/20 @ 14:[address] Joaquin Mccall MD) Pleural effusion, right (Acute) COVID-19 (Acute) Pneumonia (Acute) Dyspnea on exertion (Acute) Date of Admission: 08/22/20 Date of Discharge: 08/28/20 - Primary Discharge Diagnosis Acute Problems: Active Problems (Last Reviewed 08/22/20 @ 14:[address] Joaquin Mccall MD) Acute hypoxic respiratory failure secondary to acute COVID-19 pneumonia Acute PE Acute COVID-19 pneumonia - Secondary Discharge Diagnosis Chronic Problems: Chronic Problems (Last Reviewed 08/22/20 @ 14:[address] Joaquin Mccall MD) Atherosclerosis of [place] coronary artery of [place] heart without angina pectoris (Chronic) Nonobstructive in November 2019; BMI 38.0-38.9,adult (Chronic) History of right and left heart catheterization (Chronic 11/29/19) Non obstructive coronary arteries; Global LV systolic dysfunction- Mild LVEF: by LV gram 45-50 %; Normal Left Ventricular End Diastolic Pressure The patient has pulmonary hypertension which is mild. Pt's SERRANO is most likely predominantly from pulmonary component False positive stress test. 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 History of incision and drainage (Chronic 06/07/12) right knee, septic Dysmetabolic syndrome X (Chronic) Panic disorder without agoraphobia (Chronic) Generalized anxiety disorder (Chronic) Obesity (Chronic) Obstructive sleep apnea (Chronic) COPD with asthma (Chronic) Sick sinus syndrome (Chronic) Hypertension (Chronic) COPD (chronic obstructive pulmonary disease) (Chronic) History of rotator cuff tear (Chronic) Hyperlipidemia (Chronic) History of DVT (deep vein thrombosis) (Chronic 06/2012) right, peroneal soleal-provoked- admission for septic knee Hospital Course and Treatment Imaging Results: Clinical Impression(s) from Imaging Studies Chest X-Ray 08/22/20 10:37 IMPRESSION: Atelectasis and/or infiltrate at the right lung base with blunting of the right costophrenic angle. Findings suggestive of early left perihilar infiltrate and left upper lobe. Follow-up is recommended. Electronically Signed: Felipe Workman, at 11:28 EST , Service support , Chest CTA 08/22/20 14:43 IMPRESSION: Emboli in branches on the right and left upper lobe pulmonary artery. Bilateral pulmonary infiltrates worse in the right lower lobe. Shrunken lobular liver with cirrhosis. Marked degree of splenomegaly. Electronically Signed: Felipe Workman, at 15:08 EST , Service support , Infectious disease Pulmonology Operations: None Procedures: None Summary of Care Provided: The patient is a 65 year old M with past medical history of obesity, CAD, GENE/severe pulmonary hypertension who presented with progressive shortness of breath. Patient was diagnosed with COVID-19 infection on 08/16/20. He was managed at home on oxygen. He however was having progressive hypoxia and his oxygen saturations was in 70s. In the ED, his CXR showed atelectasis with infiltrate in the right lung base as well as a left perihilar infiltrate left upper lobe. His D-dimer was elevated at 2.72. CTA of the chest showed acute PE in the right and left upper lobe as well as lateral pulmonary infiltrates, worse in the right lower lobe. Patient was admitted to the Covid cohort unit. He was managed on Decadron, remdesivir, Lovenox. Received convalescent plasma on 08/24/20. Patient continued to require high amounts of oxygen. He was evaluated for ambulatory oxygen and discharged on liters of oxygen at rest and 6 L of oxygen with ambulation. Follow-up with his primary care doctor as well as with pulmonology in the outpatient. Patient Problems: Active and Suspected Problems (Last Reviewed 08/22/20 @ 14:[address] Joaquin Mccall MD) Pleural effusion, right (Acute) COVID-19 (Acute) Pneumonia (Acute) Dyspnea on exertion (Acute) Subjective: On the day of discharge, patient was seen and examined. Denied any new complaints. Objective: Physical exam: General: Alert, Oriented x3, Cooperative, No apparent distress HEENT: Atraumatic, PERRLA, EOMI, Normocephalic Oral: Moist Mucosa Neck: Supple, No JVD Lungs: No rhonchi, No wheeze, Diminished, no rales Cardiovascular: Regular rate, Regular Rhythm, Normal S1, Normal S2, No murmurs Abdomen: Soft, Non Tender, Non-Distended, No Hepato-splenomegaly Extremities: No edema, Capillary Refill Less than 3 Seconds Skin: No rashes, No breakdown Neurological: Neuro grossly intact, Sensory exam intact to light touch and pain Psych/Mental Status: Normal Affect, Appropriate - Physical Exam Vitals/I&O's: Vital Signs Temp Pulse Resp BP Pulse Ox 98.6 F 74 18 114/56 L 92 08/28/20 14:57 08/28/20 14:57 08/28/20 14:57 08/28/20 14:57 08/28/20 14:57 Oxygen Flow Rate (L/min) [ 6 AMBULATION with Oxygen] Oxygen Flow Rate (L/min) [ 2 AMBULATING on Room Air] Oxygen Flow Rate (L/min) [At 2 REST on Room Air] Oxygen Flow Rate (L/min) 4 Oxygen Delivery Method Nasal Cannula Weight: 117.934 kg Body Mass Index (BMI) 39.5 Intake and Output for Last 24 Hours 08/26/20 08/27/20 08/28/20 23:59 23:59 23:59 Intake Total 2079 640 / 640 120 / 120 Balance 2079 640 / 640 120 / 120 Microbiology Past 72 Hours 08/22/20 10:49 Blood Culture (Wb) - Right Hand Blood Culture - Final No growth in 5 days. 08/22/20 10:42 Blood Culture (Wb) - Anticubital Left Blood Culture - Final No growth in 5 days. Laboratory Results 08/23/20 05:29: Blood Type A POSITIVE Current Medications Acetaminophen (Acetaminophen 325 Mg Tablet) 650 mg PO Q6H PRN PRN PRN Reason: Pain Score 1-10/Temp > 100.7 F Al Hydroxide/Mg Hydroxide (Mag Hydrox/Al Hydrox/Simeth 30 Ml Udc) 30 ml PO Q6H PRN PRN PRN Reason: Gastric Burning Albuterol Sulfate (Albuterol Sulfate 8 Gm Inhaler (60 Puffs)) 2 puff INHALATION Q2H PRN PRN PRN Reason: Shortness of Breath/Wheezing Last Admin: 08/27/20 10:45 Dose: 2 puff Documented by: Amitriptyline HCl (Amitriptyline 25 Mg Tablet) 50 mg PO QHS [facility] Last Admin: 08/27/20 19:58 Dose: 50 mg Documented by: Amlodipine Besylate (Amlodipine 5 Mg Tablet) 5 mg PO DAILY [facility] Last Admin: 08/28/20 07:53 Dose: 5 mg Documented by: Aspirin (Aspirin 81 Mg Tab.Chew) 81 mg PO DAILY [facility] Last Admin: 08/28/20 07:52 Dose: 81 mg Documented by: Azelastine HCl (Azelastine Hcl Nasal.Sry) 2 spray NASAL BID [facility] Last Admin: 08/28/20 07:51 Dose: 2 spray Documented by: Budesonide (Budesonide Respules 0.5 Mg/2 Ml Ampul.Neb.) 0.5 mg INHALATION Q12H.RT [facility] Last Admin: 08/28/20 07:45 Dose: 0.5 mg Documented by: Buspirone HCl (Buspirone 15 Mg Tablet) 15 mg PO BID [facility] Last Admin: 08/28/20 07:52 Dose: 15 mg Documented by: Carvedilol (Carvedilol 3.125 Mg Tablet) 3.125 mg PO BID [facility] Last Admin: 08/28/20 07:52 Dose: 3.125 mg Documented by: Chlordiazepoxide (Chlordiazepoxide 25 Mg Capsule) 25 mg PO 4X/DAY PRN PRN PRN Reason: ANXIETY/AGITATION Last Admin: 08/28/20 09:50 Dose: 25 mg Documented by: Citalopram Hydrobromide (Citalopram 20 Mg Tablet) 20 mg PO QHS [facility] Last Admin: 08/27/20 19:59 Dose: 20 mg Documented by: Dexamethasone (Dexamethasone 4 Mg Tablet) 6 mg PO DAILY [facility] Stop: 08/31/20 10:01 Last Admin: 08/28/20 07:53 Dose: 6 mg Documented by: Enoxaparin Sodium (Enoxaparin 120 Mg/0.8 Ml Syringe) 120 mg SC BID [facility] Last Admin: 08/28/20 07:53 Dose: 120 mg Documented by: Fluticasone Propionate (Fluticasone 0.05% 1 [place] Nasal.Sry) 2 spray NASAL QHS [facility] Last Admin: 08/27/20 19:59 Dose: 2 spray Documented by: Furosemide (Furosemide 20 Mg Tablet) 20 mg PO DAILY [facility] Last Admin: 08/28/20 07:52 Dose: 20 mg Documented by: Furosemide (Furosemide 40 Mg/4 Ml Vial) 40 mg IV X1 ONE Stop: 08/28/20 18:01 Guaifenesin (Guaifenesin 10 Ml Udc (200mg/10ml)) 20 ml PO Q4H PRN PRN PRN Reason: COUGH Melatonin (Melatonin 3 Mg Tablet) 3 mg PO QHS PRN PRN PRN Reason: INSOMNIA Montelukast Sodium (Montelukast 10 Mg Tablet) 10 mg PO QHS [facility] Last Admin: 08/27/20 19:59 Dose: 10 mg Documented by: Nitroglycerin (Nitroglycerin (Inpatient Use) 0.4 Mg Tab.Subl) 0.4 mg SUBLINGUAL Q5M PRN PRN Reason: CARDIAC/CHEST PAIN Ondansetron HCl (Ondansetron 4 Mg/2 Ml Vial) 4 mg IV Q8H PRN PRN PRN Reason: NAUSEA/VOMITING Oxycodone HCl (Oxycodone 5 Mg Tablet) 5 mg PO Q4H PRN PRN PRN Reason: Pain Score 4-5 Oxycodone HCl (Oxycodone 5 Mg Tablet) 10 mg PO Q4H PRN PRN PRN Reason: Pain Score 6-10 Pravastatin Sodium (Pravastatin 40 Mg Tablet) 40 mg PO DAILY [facility] Last Admin: 08/28/20 07:51 Dose: 40 mg Documented by: Senna/Docusate Sodium (Senna/Docusate Sodium 1 Tablet) 2 tablet PO BID PRN PRN PRN Reason: Constipation Sodium Chloride (0.9% Saline Lock 10 Ml Syringe) 10 - 40 ml IV UD PRN PRN Reason: SALINE FLUSH Last Admin: 08/28/20 12:20 Dose: 10 ml Documented by: Discharge Diet: Low fat/ Low Cholesterol, 2000 mg Sodium Diet Discharge Activity: Return to Normal Activity Home Medications: Medications to take at Discharge Amitriptyline HCl 50 mg PO DAILY 04/28/16 Aspirin [Aspirin, Baby] 81 mg PO DAILY@0800 04/28/16 Citalopram Hydrobromide [Citalopram HBr] 20 mg PO DAILY 04/28/16 Nitroglycerin (INPATIENT USE) [Nitrostat] 0.4 mg SUBLINGUAL Q5M PRN 04/28/16 [place]-3 Fatty Acids/Dha/Epa [[place]ve[place]-3 Softgel] 1 ea PO DAILY 04/28/16 Pravastatin [Pravachol] 40 mg PO DAILY 04/28/16 montelukast 10 mg tablet 10 mg PO DAILY 10/11/18 carvedilol 3.125 mg tablet 3.125 mg PO BID #60 tab 11/29/19 budesonide-formoterol HFA 160 mcg-4.5 mcg/actuation aerosol inhaler 2 puff INHALATION BID #3 ea 12/26/19 azelastine 137 mcg (0.1 %) nasal spray aerosol 2 spray INTRANASAL BID #30 ml 03/26/20 fluticasone propionate 50 mcg/actuation nasal spray,suspension 2 spray INTRANASAL QDAY #1 ea 03/26/20 albuterol sulfate 2.5 mg INHALATION Q6H PRN #3 ml 06/19/20 albuterol sulfate 90 mcg/actuation aerosol inhaler 1 - 2 puff INHALATION Q6H PRN #18 g 06/24/20 amlodipine 5 mg tablet 5 mg PO DAILY tab 06/27/20 buspirone 30 mg tablet 15 mg PO BID tab 06/27/20 Budesonide/Formoterol Fumarate [Symbicort 160-4.5 Mcg Inhaler] 08/22/20 Apixaban [Eliquis] 5 mg PO BID 30 Days #60 tab.ds.pk 08/28/20 Furosemide [Lasix] 40 mg PO BID 30 Days #60 tab 08/28/20 Following Prescriptions Were Given to Patient: Apixaban [Eliquis] 5 mg PO BID 30 Days #60 tab.ds.pk Transmission Status: Received by [id number] Furosemide [Lasix] 40 mg PO BID 30 Days #60 tab [facility] Primary Care Physician: Bipin Sanchez MD [Primary Care Provider] - Please follow up with your Primary Care Physician in: within 1-2 weeks Please Follow Up With: Wesley Gupta MD When: within 2 weeks Disposition: Home Minutes spent on discharge:: 50 Patient Condition:: Stable Medical Necessity - Tobacco Use Smoking Status: Former smoker Tobacco Use: Non-smoker Meaningful Use Info Meaningful Use Diagnoses (Choose all that apply): None applicable Inpatient E&M: 64177 Disch Hosp
--- NOTE | 2020-08-28 15:30 | CASEMGMT ---
RN CM Note: Patient will dc today. oxygen testing redone this afternoon and pt will need 6L with ambulation. Call to [employer]- pt's home concentrator only goes to 5L so new concentrator will need to be brought out. Portable tank will also be brought to hospital to allow for 6L with for ride home if needed. Updated script faxed to [employer]. -Call to to explain new concentrator will need to be brought to house. Patient can use current concentrator while resting @ home until new one is delivered. Explained that pt will need O2 level @ 6L when ambulating and not to go without oxygen while walking at home. has a pulse ox and will assist patient. -[employer] to deliver portable tank to hospital. Ritika GARRISONN RN ACM
--- NOTE | 2020-08-30 16:54 | CASEMGMT ---
Addendum entered by Sabra Barger 08/31/20 16:33: ERIC GORMAN message from patient. ERIC GORMAN returned call. Patient states he is doing well and breathing better. Continues to wear his oxygen. Patient had no questions regarding discharge instructions. Patient filled prescriptions without any issues. Patient instructed to call PCPs office Wednesday to schedule follow-up appt. Patient had no further questions or concerns. Original Note: ERIC GORMAN Discharge Follow-up Phone Call: MARSHA: Keegan Strata:3 Call Date:08/30/20 Discharge Date: 08/28/20 Time of Call: [id number] Duration: Admitting Diagnosis: covid ERIC GORMAN attempted to complete follow-up phone after recent hospitalization. No answer, voice message left with return contact information. Patient was discharge on home oxygen.
== END 2020-08-28 19:33 | disposition home or self-care (01) | DRG 177 ==
LOC: ED 11:00 → MS2 12:06
PROVIDERS: Family Medicine; Internal Medicine Infectious Disease; Admitting Provider Internal Medicine; Emergency Provider Emergency Medicine; PCP Internal Medicine; Visit Provider Internal Medicine
DX: U07.1 COVID-19 (principal); J12.89 Other viral pneumonia; J96.21 Acute and chronic respiratory failure with hypoxia; I26.99 Other pulmonary embolism without acute cor pulmonale; J90 Pleural effusion, not elsewhere classified; J44.0 Chronic obstructive pulmonary disease with (acute) lower respiratory infection; M35.1 Other overlap syndromes; J98.11 Atelectasis; I25.10 Atherosclerotic heart disease of native coronary artery without angina pectoris; J45.40 Moderate persistent asthma, uncomplicated; I10 Essential (primary) hypertension; E78.5 Hyperlipidemia, unspecified; Z95.0 Presence of cardiac pacemaker; G47.33 Obstructive sleep apnea (adult) (pediatric); E66.9 Obesity, unspecified; I36.1 Nonrheumatic tricuspid (valve) insufficiency; Z68.39 Body mass index [BMI] 39.0-39.9, adult; Z79.01 Long term (current) use of anticoagulants; Z87.891 Personal history of nicotine dependence; F32.9 Major depressive disorder, single episode, unspecified; F41.9 Anxiety disorder, unspecified; Z79.51 Long term (current) use of inhaled steroids; Z82.3 Family history of stroke; Z82.49 Family history of ischemic heart disease and other diseases of the circulatory system; Z86.718 Personal history of other venous thrombosis and embolism; I27.29 Other secondary pulmonary hypertension; E88.81 Metabolic syndrome and other insulin resistance; F41.1 Generalized anxiety disorder
CPT/HCPCS: 36415; 71045; 71275; 80048; 80053; 80076; 83605; 83615; 83735; 83880; 84100; 84145; 84484; 85025; 85027; 85379; 85384; 85610; 86140; 86900; 86901; 87040; 87449; 93005; 94640; 99251; 99285; J7040; J7050; Q9967; A4216; G0463; J1940

== ENCOUNTER 2020-10-27 09:46 | Observation (INO) | payer MEDICARE, OTHER, SELFPAY ==
[2020-08-22 12:51] VITALS: BMI 39.5
[2020-10-27] VITALS (12 sets, daily range): BP systolic 113–148; BP diastolic 54–81; PULSE 64–85; RESP 16–31; TEMP 36.2–37.4; O2SAT 94–99; BMI 39.5
--- NOTE | 2020-10-27 10:07 | RAD_ITS ---
STUDY: X-RAY CHEST REASON FOR EXAM: Male, 65 years old. LEG SWELLING, REDNESS, DIFFICULTY BREATHING TECHNIQUE: Single AP portable view of the chest. COMPARISON: 08/22/2020 FINDINGS: Left subclavian dual-lead pacemaker which is unchanged. The lungs are clear and expanded. Elevated right hemidiaphragm which is unchanged. There is moderate cardiac enlargement. Normal mediastinum and mario. Normal visualized pulmonary arteries. Normal visualized aortic arch and descending thoracic aorta. Normal visualized thoracic spine. Normal visualized ribs, clavicles, and shoulders. There is no demonstrated abnormality of the visualized soft tissue structures of the upper abdomen. RAD/Chest 1 View (Portable) IMPRESSION: No active disease. Electronically Signed: Yakov Bhatt MD at 10:49 EST Tel , Service support ,
--- NOTE | 2020-10-27 10:08 | EKG12_ITS ---
Test Reason : CELLULITIS Blood Pressure : / mmHG Vent. Rate : 072 BPM Atrial Rate : 072 BPM P-R Int : 264 ms QRS Dur : 198 ms QT Int : 438 ms P-R-T Axes : 024 -60 063 degrees QTc Int : 479 ms Sinus rhythm with 1st degree A-V block Right bundle branch block Left anterior fascicular block Bifascicular block Abnormal ECG Confirmed by JUSTICE HONG, MELISA ([id number]), film editor supervisor DARRIAN KIM ([id number]) on 10/30/2020 10:55:37 AM Referred By: Confirmed By:MELISA RENDON MD
--- NOTE | 2020-10-27 10:09 | VDLE_ITS ---
Reason For Study: Pain Procedure LEFT Exam performed portable in ED. GSV is normal. A preliminary report was called and/or faxed CFV is compressible, spontaneous, phasic, to Dr. Baptiste. competent, and demonstrates normal augmentation. FV is compressible, spontaneous, phasic, competent and demonstrates normal augmentation. POP V is compressible, spontaneous, phasic, competent and demonstrates normal augmentation. T/P Trunk is compressible. PTV is compressible. LT PerV is compressible. Difficult to visualize Lt PTV and Lt PeroV due to edema. Interpretation Summary Deep veins of the left lower extremity are patent and compressible segmentally. There is no evidence of left lower extremity deep vein thrombosis. Valvular competence appears intact within the proximal deep venous system on the left . The left great saphenous vein appears patent and compressible segmentally. Ordering Physician: Lauren Baptiste Referring Physician: Bipin Sanchez Performed By: Nel Lopez RDCS, RVT
--- NOTE | 2020-10-27 10:12 | ED.VISSUMM ---
- ER Visit Summary Date of Service: 10/27/20 Chief Complaint: Left lower extremity redness History of Present Illness: The patient is a 65 M presenting with left lower extremity redness which started 2 days ago. He states he had a temperature up to 101 yesterday. He has had chills. He states his legs are typically swollen but the redness started 2 days ago. He is on home O2 chronically. He states he has needed to increase this recently. He had Covid in August. He states since that time he sometimes requires more oxygen. He is on Eliquis for history of PE. He is not a smoker. Physical Examination: Vitals are stable. Patient is afebrile. Alert no acute distress. HEENT exam is unremarkable. Neck is supple. Lungs are clear and equal bilaterally. Heart is regular rate and rhythm. Abdomen is soft nontender nondistended. Extremities bilateral LE edema, LLE erythema to mid thigh, normal distal pulses Skin is warm and dry. No focal neurologic deficit. Remainder of exam is unremarkable. Emergency Department Course and Treatment: CBC, chemistries unremarkable other than sodium 131. Troponin is negative. Lactic acid is normal. Chest x-ray shows no acute process. EKG is sinus rhythm with bifascicular block, unchanged from previous. Venous Doppler shows no evidence of DVT. He was given vancomycin IV. Discussed with hospitalist for admission. Disposition: Admission Impression: Left lower extremity cellulitis This note was generated with [employer] dictation software. It may contain incorrect words, spelling, and punctuation that were not noted in review of the chart prior to signing ED Disposition - Plan for ED Patient: Referrals: Bipin Sanchez MD [Primary Care Provider] -
[2020-10-27 10:21] LABS: Absolute Lymphocyte Count 0.63 X10^3/uL (0.83-4.51); Absolute Neutrophil Count 7.4 X10^3/uL (2.0-7.7); Basophil# 0.01 X10^3/uL; Basophil% 0.1 % (0-1); Eosinophil# 0.02 X10^3/uL; Eosinophils% 0.2 % (0-5); Hematocrit 38.1 % (40-54); Hemoglobin 12.1 g/dL (13.0-16.5); Lymphocyte # 0.63 X10^3/ul (4.0); Lymphocyte % 7.2 % (19-41); Mean Corp Hgb Conc 31.8 g/dL (32-36); Mean Corpuscular Hgb 29.6 pg (27.0-32.0); Mean Corpuscular Volume 93.2 fL (80-94); Mean Platelet Vol. 10.3 fl (6.2-12.0); Monocyte# 0.59 X10^3/uL; Monocyte% 6.8 % (0-10); NRBC Flagged by Analyzer 0 % (0-5); Neutrophil # 7.44 X10^3/uL (2.7-7.7); Neutrophil % 85.2 % (47-70); Platelet Count 143 K/mm3 (150-450); RBC Distribution Width CV 16.6 % (11.6-14.6); RBC Distribution Width SD 56.5 fl (35.1-43.9); Red Blood Count 4.09 M/mm3 (4.6-6.2); White Blood Count 8.7 K/mm3 (4.4-11.0)
[2020-10-27 10:35] LABS: ALB/GLOB Ratio 0.7 RATIO (0.9-2.4); AST(SGOT) 38 U/L (15-37); Alanine Aminotransfer ALT/SGPT 40 U/L (16-61); Alkaline Phosphatase 88 U/L (45-117); Anion Gap 3 (5-15); BUN 24 mg/dL (7-18); BUN/Creat Ratio 22.4 RATIO (10-20); Calcium,Total 8.9 mg/dL (8.5-10.1); Chloride 96 mmol/L (98-107); Creatinine, Serum 1.07 mg/dL (0.70-1.30); EST Glomerular Filtration Rate 73 mL/min (>60); Est Glom Filt Rate - Afr Amer 89 mL/min (>60); Globulin 4.6 g/dL (2.2-4.2); Glucose 114 mg/dL (74-106); Potassium 3.9 mmol/L (3.5-5.1); Protein, Total 7.6 g/dL (6.4-8.2); Sodium Level 131 mmol/L (136-145)
[2020-10-27 10:41] LABS: Lactic Acid 1.4 mmol/L (0.4-1.9)
[2020-10-27 10:53] LABS: Mucous, Urine 0 SEEN /hpf (<or=2+); Squamous Epithelial Cells - UA 0 SEEN /hpf (0-5)
[2020-10-27 11:06] LABS: Color, Urine Yellow (Yellow); Glucose, Dipstick Normal (Normal); Ketone-Dipstick Negative (Negative); Leukocyte Esterase-Dipstick 25 /ul (Negative); Nitrite-Dipstick Negative (Negative); Occult Blood-Urine 10 /ul (Negative); Protein-Dipstick 15 mg/dl (Negative); Urine Bilirubin Dipstick Negative (Negative); Urine Clarity Clear (Clear); Urine Urobilinogen 1 mg/dl (Normal); Urine pH 6.5 (5.0 - 8.0)
[2020-10-27 11:13] LABS: Bacteria RARE /hpf (None Seen); Red Blood Cells-Urine 0-5 SEEN /hpf (0-5); White Blood Cells 0-5 SEEN /hpf (0-5)
--- NOTE | 2020-10-27 14:10 | HP.PCM_ITS ---
Problem List (1) Cellulitis of left leg Status: Acute (2) Pleural effusion, right Status: Inactive (3) COVID-19 Status: Inactive (4) Pneumonia Status: Inactive (5) Atherosclerosis of [place] coronary artery of [place] heart without angina pectoris Status: Chronic Comment: Nonobstructive in November 2019; (6) BMI 38.0-38.9,adult Status: Chronic (7) History of right and left heart catheterization Status: Chronic Comment: Non obstructive coronary arteries; Global LV systolic dysfunction- Mild LVEF: by LV gram 45-50 %; Normal Left Ventricular End Diastolic Pressure The patient has pulmonary hypertension which is mild. Pt's SERRANO is most likely predominantly from pulmonary component False positive stress test. 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 (17) History of incision and drainage Status: Chronic Comment: right knee, septic (18) H/O umbilical hernia repair Status: Resolved (19) Dysmetabolic syndrome X Status: Chronic (20) Panic disorder without agoraphobia Status: Chronic (21) Generalized anxiety disorder Status: Chronic (22) Obesity Status: Chronic (23) Obstructive sleep apnea Status: Chronic (24) COPD with asthma Status: Chronic (25) Sick sinus syndrome Status: Chronic (26) Presence of cardiac pacemaker Status: Resolved Comment: [employer] model L101 Robinson CALERO, serial number [id number] (27) Hypertension Status: Chronic Qualifiers: (28) COPD (chronic obstructive pulmonary disease) Status: Chronic (29) History of rotator cuff tear Status: Chronic (30) Hyperlipidemia Status: Chronic Qualifiers: (31) History of DVT (deep vein thrombosis) Status: Chronic Comment: right, peroneal soleal-provoked- admission for septic knee History of Present Illness Date of Admission: 10/27/20 Chief Complaint: malaise. redness LLE. The patient is a 65 year old M who on Wednesday just started not feeling well was of some general malaise and subjective complaints. Yesterday, patient noted redness on his left lower extremity that was more distal. Today it has progressed. Patient had some areas that were weeping. Patient presented to the emergency room and was found to have left lower extremity cellulitis. Patient will be receiving vancomycin for the infection. He denies any history of cellulitis. Patient states that also he has recently increase his oxygen because been difficult for him to breathe. Patient was admitted in August for COVID-19 pneumonia and pulmonary emboli. Patient was discharged with apixaban. Patient has been on oxygen for years which he states he only uses with activity and this tells me has no reason for be on oxygen but upon further query states that he has history of asthma. But has recently increase his oxygen over the past couple days. He denies any cough, states that his smell and taste which were more adversely affected after COVID-19 are gradually coming back but is no new issues with. I advised the emergency room physician just to recheck his COVID-19 and if negative then he can go to the medical surgical floor. If positive then we will need to check a PCR to verify. [] Past Medical History Past Medical History (Chronic Problems): Chronic Problems (Last Reviewed 10/02/20 @ 08:34 by Annia Gao POND TENDER, POND TENDER-C) Atherosclerosis of [place] coronary artery of [place] heart without angina pectoris (Chronic) Nonobstructive in November 2019; BMI 38.0-38.9,adult (Chronic) History of right and left heart catheterization (Chronic 11/29/19) Non obstructive coronary arteries; Global LV systolic dysfunction- Mild LVEF: by LV gram 45-50 %; Normal Left Ventricular End Diastolic Pressure The patient has pulmonary hypertension which is mild. Pt's SERRANO is most likely predominantly from pulmonary component False positive stress test. Per R&LHC done 11/29/2019 per [facility] @ [facility] CHD (coronary heart disease) (Chronic) Asthma (Chronic) 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) Bilateral enlargement of atria (Chronic) Per echo Oct 2018 Nonrheumatic tricuspid (valve) insufficiency (Chronic) Mild (1+) per echo Oct 2018 Secondary pulmonary hypertension (Chronic) RVSP went from 30 to 45 mm hg per echo Oct 2018 History of syncope (Chronic) Pt discovered to have complete heart block and pacemaker was placed. History of incision and drainage (Chronic 06/07/12) right knee, septic Dysmetabolic syndrome X (Chronic) Panic disorder without agoraphobia (Chronic) Generalized anxiety disorder (Chronic) Obesity (Chronic) Obstructive sleep apnea (Chronic) COPD with asthma (Chronic) Sick sinus syndrome (Chronic) Hypertension (Chronic) COPD (chronic obstructive pulmonary disease) (Chronic) History of rotator cuff tear (Chronic) Hyperlipidemia (Chronic) History of DVT (deep vein thrombosis) (Chronic 06/2012) right, peroneal soleal-provoked- admission for septic knee Medical History: Medical History (Last Reviewed 10/27/20 @ 14:[address] Dejon Villa, DO) 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) H57.04 Dyspnea on exertion (Acute) R06.09 Abnormal stress echo (Inactive) R94.39 Bilateral enlargement of atria (Chronic) I51.7 Per echo Oct 2018 Nonrheumatic tricuspid (valve) insufficiency (Chronic) I36.1 Mild (1+) per echo Oct 2018 Secondary pulmonary hypertension (Chronic) RVSP went from 30 to 45 mm hg per echo Oct 2018 History of syncope (Chronic) Z87.898 Pt discovered to have complete heart block and pacemaker was placed. Obstructive sleep apnea (Chronic) G47.33 COPD with asthma (Chronic) J44.9 Sick sinus syndrome (Chronic) I49.5 Hypertension (Chronic) I10 Hyperlipidemia (Chronic) E78.5 History of DVT (deep vein thrombosis) (Chronic) Onset Date: 06/2012 Z86.718 right, peroneal soleal-provoked- admission for septic knee Syncope (Resolved) R55 Allergies ibuprofen Allergy (Severe, Verified 10/27/20 09:49) ANAPHYLAXIS isosorbide Adverse Reaction (Intermediate, Verified 10/27/20 09:49) severe headaches/migraine Home Medications: Ambulatory Orders Medication Instructions Recorded Amitriptyline HCl 50 mg PO QHS 04/28/16 Aspirin [Aspirin, Baby] 81 mg PO QHS 04/28/16 Citalopram Hydrobromide 20 mg PO QHS 04/28/16 [Citalopram HBr] Nitroglycerin (INPATIENT USE) 0.4 mg SUBLINGUAL Q5M PRN 04/28/16 [Nitrostat] [place]-3 Fatty Acids/Dha/Epa 1 ea PO BID 04/28/16 [[place]-3 Softgel] Pravastatin [Pravachol] 40 mg PO QHS 04/28/16 montelukast 10 mg tablet 10 mg PO QHS 10/11/18 budesonide-formoterol HFA 160 2 puff INHALATION BID #3 ea 12/26/19 mcg-4.5 mcg/actuation aerosol inhaler azelastine 137 mcg (0.1 %) nasal 2 spray INTRANASAL BID #30 ml 03/26/20 spray aerosol fluticasone propionate 50 2 spray INTRANASAL QDAY #1 ea 03/26/20 mcg/actuation nasal spray,suspension albuterol sulfate 90 mcg/actuation 1 - 2 puff INHALATION Q6H PRN #18 g 06/24/20 aerosol inhaler amlodipine 5 mg tablet 5 mg PO DAILY tab 06/27/20 buspirone 30 mg tablet 15 mg PO BID tab 06/27/20 carvedilol 3.125 mg tablet 3.125 mg PO BID #180 tab 09/20/20 albuterol sulfate 2.5 mg INHALATION Q6H PRN #3 ml 10/02/20 apixaban 5 mg tablet 5 mg PO BID #60 tab 10/02/20 Lorazepam 1 mg PO DAILY PRN 10/27/20 Surgical History: Surgical History (Last Reviewed 10/27/20 @ 14:[address] Dejon Villa, DO) History of right and left heart catheterization (Chronic) Onset Date: 11/29/19 Z98.890 Non obstructive coronary arteries; Global LV systolic dysfunction- Mild LVEF: by LV gram 45-50 %; Normal Left Ventricular End Diastolic Pressure The patient has pulmonary hypertension which is mild. Pt's SERRANO is most likely predominantly from pulmonary component False positive stress test. Per R&LHC done 11/29/2019 per [facility]N @ [facility] H/O umbilical hernia repair (Resolved) Onset Date: 12/11/09 Z98.890, Z87.19 Presence of cardiac pacemaker (Resolved) Onset Date: 04/30/16 Z95.0 [employer] model L101 Robinson CALERO, serial number [id number] Surgical History: - - hernia surgery Smoking Status: Former smoker - *Family History Maternal Family History: Family History (Last Reviewed 10/27/20 @ 14:[address] Dejon Villa DO) Mother CVA (cerebral vascular accident), Onset Age: 65 Anxiety Father CAD (coronary artery disease), Onset Age: 61 Myocardial infarction Brother CAD (coronary artery disease) Obesity History Items: Stroke Paternal Family History: Family History (Last Reviewed 10/27/20 @ 14:[address] Dejon Villa DO) Mother CVA (cerebral vascular accident), Onset Age: 65 Anxiety Father CAD (coronary artery disease), Onset Age: 61 Myocardial infarction Brother CAD (coronary artery disease) Obesity History Items: Heart Disease Review of Systems Constitutional: Reports: Chills, Malaise. Denies: Anorexia, Fever, Night Sweats Eyes: Denies: Blurred vision, Double vision HEENT: Denies: Head Aches, Sinus Congestion, Sinus Drainage Cardiovascular: Denies: Chest Pain, Palpitations Respiratory: Reports: Pleuritic Pain, Shortness of Breath Gastrointestinal: Reports: Constipation. Denies: Abdominal Pain, Diarrhea, Dyspepsia Genitourinary: Denies: Dysuria, Frequency, Hematuria Musculoskeletal: Reports: Leg Pain. Denies: Arm Pain, Back Pain, Foot Pain, Hand Pain Skin: Reports: Rash Hematologic/ Lymphatic: Reports: Hx of blood clot Comment: All review of systems were negative except as mentioned above in the history of present illness and the other review of systems. VTE Information - Inpt Only VTE Present on Admission: No VTE Mechan Device Prophylaxis: None VTE Pharm Prophylaxis ordered?: No Reason prophylaxis not ordered:: Treatment Not Indicated - Physical Exam Vitals/I&O's: Vital Signs Temp Pulse Resp BP Pulse Ox 36.9 C 83 21 H 116/61 97 10/27/20 13:58 10/27/20 13:58 10/27/20 13:58 10/27/20 13:58 10/27/20 13:58 Oxygen Flow Rate (L/min) 3.5 Oxygen Delivery Method Nasal Cannula Weight: 117.934 kg Body Mass Index (BMI) 39.5 Intake and Output for Last 24 Hours 10/25/20 10/26/20 10/27/20 23:59 23:59 23:59 Intake Total 500 / 500 Balance 500 / 500 General: Alert, Cooperative, No apparent distress HEENT: Atraumatic, Normocephalic Oral: Moist Mucosa, No Gingival or Mucosal Lesions/ Ulcerations Neck: No Nodes, Thyroid Normal Size and Texture Lungs: Clear to auscultation, Normal air movement, No rhonchi, No wheeze, No rales Cardiovascular: Regular rate, Regular Rhythm, Normal S1, Normal S2, No murmurs Abdomen: Bowel Sounds Present, Soft, Non Tender, Non-Distended, No Hepato- splenomegaly Extremities: Capillary Refill Less than 3 Seconds, Edema Skin: - - Patient has erythema extending from the dorsum of his left foot up to his medial thigh. Some slightly raised area on his anterior bowie. No induration, fluctuance noted. No interdigital lesions noted on his left foot. Musculoskeletal: No Tenderness to Palpation of Joints or Extremities, No Muscle Wasting Psych/Mental Status: Normal Affect, Appropriate Laboratory Results 10/27/20 10:05: WBC 8.7, RBC 4.09 L, Hgb 12.1 L, Hct 38.1 L, MCV 93.2, MCH 29.6, MCHC 31.8 L, RDW Std Deviation 56.5 H, RDW Coeff of Leigh 16.6 H, Plt Count 143 L , MPV 10.3, Immature Gran % (Auto) 0.500, Neut % (Auto) 85.2 H, Lymph % (Auto) 7.2 L, [place] % (Auto) 6.8, Eos % (Auto) 0.2, Baso % (Auto) 0.1, Absolute Neuts (auto) 7.4, Absolute Lymphs (auto) 0.63 L, Nucleated RBC % 0 10/27/20 10:05: Sodium 131 L, Potassium 3.9, Chloride 96 L, Carbon Dioxide 32.0, Anion Gap 3 L, BUN 24 H, Creatinine 1.07, Estim Creat Clear Calc 65.70, Est GFR (MDRD) Af Amer 89, Est GFR (MDRD) Non-Af 73, BUN/Creatinine Ratio 22.4 H, Glucose 114 H, Calcium 8.9, Total Bilirubin 1.50 H, AST 38 H, ALT 40, Alkaline Phosphatase 88, Troponin I < 0.015, Total Protein 7.6, Albumin 3.0 L, Globulin 4.6 H, Albumin/Globulin Ratio 0.7 L 10/27/20 10:05: Lactic Acid 1.4 10/27/20 10:48: Urine Color Yellow, Urine Clarity Clear, Urine pH 6.5, Ur Specific [place] 1.010, Urine Protein 15 H, Urine Glucose (UA) Normal, Urine Ketones Negative, Urine Occult Blood 10 H, Urine Nitrite Negative, Urine Bilirubin Negative, Urine Urobilinogen 1 H, Ur Leukocyte Esterase 25 H, Urine RBC 0-5 SEEN, Urine WBC 0-5 SEEN, Ur Squamous Epith Cells 0 SEEN, Urine Bacteria RARE, Urine Mucus 0 SEEN Current Medications Vancomycin HCl 1,750 mg/ (Sodium Chloride) 535 mls @ 250 mls/hr IV X1 ONE Stop: 10/27/20 16:38 Assessment/Plan All Active Problems (Last Reviewed 10/02/20 @ 08:34 by Annia Gao POND TENDER, POND TENDER- C) Cellulitis of left leg (Acute) Dyspnea on exertion (Acute) H/O umbilical hernia repair (Resolved 12/11/09) Presence of cardiac pacemaker (Resolved 04/30/16) Syncope (Resolved) 1. Left lower extremity cellulitis: Rapid onset. Concern would be for MRSA. Check a swab of some the weeping lesions on his anterior bowie. Continue with vancomycin and adjust antibiotics accordingly. I am not concerned for necrotizi ng fasciitis at this point in time. 2. Chronic respiratory failure: Patient has COPD with asthma but recently complicated by COVID-19 back in August but also pulmonary emboli. Additionally has obstructive sleep apnea. Patient stated he had a recently go up on his oxygen but I could not get a good sense as to why that was so have asked the emergency room to recheck his COVID-19. If that is negative then I would be sure that this is not a recurrent COVID-19 infection. In light of his acute left lower extremity cellulitis. It also. The patient may also have a elevated right hemidiaphragm which certainly complicates his respiratory issues. 3. Recent pulmonary emboli: Continue with apixaban 4. COPD: Does not appear to be in exacerbation at this time. Would hold off on any steroids. Continue with his bronchodilators. 5. Coronary artery disease: Stable. Continue with aspirin, carvedilol 6. VTE prophylaxis: Not indicated as he is already anticoagulated. 7. Advanced care planning: Discussed with the patient. Patient unsure. Informed him we will leave him at full CODE STATUS at this time. OBSV E&M: [id number] Initial observation care L2
--- NOTE | 2020-10-27 14:45 | ED.RN ---
vancomycin sent to medsurg 3, pt is okay to go upstairs, pt sent upstairs, medsurg 3 aware that he needs to be started on vancomycin.
[2020-10-27] MEDS: 0.9% Saline Lock 10 ML Syringe IV ×3 (15:51→22:11)
--- NOTE | 2020-10-27 15:58 | PCM.RX.CS ---
Consult Pharmacy has been consulted to manage selected antiobiotic: Vancomycin Type of Consult: New start Prior Doses of Antibiotics Received/Current Regimen: Medications Discontinued Medications Vancomycin HCl 1,750 mg/ (Sodium Chloride) 535 mls @ 250 mls/hr IV X1 ONE Stop: 10/27/20 16:38 Last Admin: 10/27/20 15:50 Dose: 250 mls/hr Documented by: Labs: Sodium 131 mmol/L (136-145) L 10/27/20 10:05 Potassium 3.9 mmol/L (3.5-5.1) 10/27/20 10:05 Chloride 96 mmol/L (98-107) L 10/27/20 10:05 Carbon Dioxide 32.0 mmol/L (21.0-32.0) 10/27/20 10:05 Anion Gap 3 (5-15) L 10/27/20 10:05 BUN 24 mg/dL (7-18) H 10/27/20 10:05 Creatinine 1.07 mg/dL (0.70-1.30) 10/27/20 10:05 Est GFR (MDRD) Af Amer 89 mL/min (>60) 10/27/20 10:05 Est GFR (MDRD) Non-Af 73 mL/min (>60) 10/27/20 10:05 BUN/Creatinine Ratio 22.4 RATIO (10-20) H 10/27/20 10:05 Glucose 114 mg/dL (74-106) H 10/27/20 10:05 Microbiology: Microbiology 10/27/20 14:05 Mucosa - Nose SARS-CoV-2 Antigen (Rapid) - Final Weight used for dosin kg Estimated Creatinine Clearance: 66 mL/min Goal Trough: 10-15 mcg/mL Pharmacy Plan for Drug Dosinmg IV given x1 in ED, continue 1000mg IV q12h with trough prior to 4th dose per policy. Pharmacy Service will continue to monitor and adjust dosing as required. Follow-Up Labs: Trough Vancomycin - 10/29 @ 3830
[2020-10-27] MEDS: Acetaminophen 325 MG Tablet 650 MG PO (16:10)
--- NOTE | 2020-10-27 17:10 | PCS.PANDOC ---
PANDEMIC DOCUMENTATION INITIATED: Date: 10/27/2020 Time: 4639
[2020-10-27 17:42] LABS: M R Staph aureus DNA By PCR Negative (Negative); Probe Check PASS; Specimen Processing Control PASS; Staph aureus DNA By PCR NEGATIVE (Negative)
[2020-10-27] MEDS: Budesonide Respules 0.5 MG/2 ML AMPUL.NEB. INHALATION (20:28)
[2020-10-27] MEDS: Albuterol 2.5 MG/3 ML VIAL.NEB. INHALATION (20:28)
[2020-10-27] MEDS: Azelastine HCl NASAL.SRY 2 SPRAY NASAL (21:55)
[2020-10-27] MEDS: Aspirin 81 MG TAB.CHEW PO (21:55)
[2020-10-27] MEDS: busPIRone 15 MG TABLET PO (21:56)
[2020-10-27] MEDS: Carvedilol 3.125 MG TABLET PO (21:56)
[2020-10-27] MEDS: Citalopram 20 MG Tablet PO (21:56)
[2020-10-27] MEDS: Pravastatin 40 MG Tablet PO (21:57)
[2020-10-27] MEDS: APIXABAN 5 MG TABLET PO (21:57)
[2020-10-27] MEDS: Montelukast 10 MG Tablet PO (21:58)
[2020-10-27] MEDS: Amitriptyline 100 MG Tablet 50 MG PO (21:58)
[2020-10-28 03:23] VITALS: BP 121/65; PULSE 86; RESP 20; TEMP 37; O2SAT 95
[2020-10-28 05:17] LABS: Absolute Lymphocyte Count 0.63 X10^3/uL (0.83-4.51); Absolute Neutrophil Count 5.6 X10^3/uL (2.0-7.7); Basophil# 0.01 X10^3/uL; Basophil% 0.1 % (0-1); Eosinophil# 0.02 X10^3/uL; Eosinophils% 0.3 % (0-5); Hematocrit 35.1 % (40-54); Hemoglobin 11.1 g/dL (13.0-16.5); Lymphocyte # 0.63 X10^3/ul (4.0); Lymphocyte % 9.3 % (19-41); Mean Corp Hgb Conc 31.6 g/dL (32-36); Mean Corpuscular Hgb 29.4 pg (27.0-32.0); Mean Corpuscular Volume 92.9 fL (80-94); Mean Platelet Vol. 9.5 fl (6.2-12.0); Monocyte# 0.52 X10^3/uL; Monocyte% 7.6 % (0-10); NRBC Flagged by Analyzer 0 % (0-5); Neutrophil % 82.4 % (47-70); Platelet Count 141 K/mm3 (150-450); RBC Distribution Width CV 16.4 % (11.6-14.6); RBC Distribution Width SD 55.9 fl (35.1-43.9); Red Blood Count 3.78 M/mm3 (4.6-6.2); White Blood Count 6.8 K/mm3 (4.4-11.0)
[2020-10-28 05:33] LABS: Anion Gap 6 (5-15); BUN 20 mg/dL (7-18); BUN/Creat Ratio 23.1 RATIO (10-20); Calcium,Total 8.5 mg/dL (8.5-10.1); Chloride 98 mmol/L (98-107); Creatinine, Serum 0.87 mg/dL (0.70-1.30); EST Glomerular Filtration Rate 94 mL/min (>60); Est Glom Filt Rate - Afr Amer 113 mL/min (>60); Glucose 85 mg/dL (74-106); Sodium Level 133 mmol/L (136-145)
[2020-10-28] MEDS: Vancomycin IV 1,000 MG/200 ML BAG 200 MG IV (05:38)
[2020-10-28 07:06] VITALS: PULSE 80; RESP 16; O2SAT 95
[2020-10-28] MEDS: Albuterol 2.5 MG/3 ML VIAL.NEB. INHALATION ×2 (07:06→13:40)
[2020-10-28] MEDS: Budesonide Respules 0.5 MG/2 ML AMPUL.NEB. INHALATION (07:06)
--- NOTE | 2020-10-28 08:03 | PN_ITS ---
Patient Problems: Active and Suspected Problems (Last Reviewed 10/27/20 @ 14:[address] Dejon Villa, DO) Cellulitis of left leg (Acute) Dyspnea on exertion (Acute) Vitals/I&O's: Vital Signs Temp Pulse Resp BP Pulse Ox 98.6 F 80 16 121/65 H 95 10/28/20 03:23 10/28/20 07:06 10/28/20 07:06 10/28/20 03:23 10/28/20 07:06 Oxygen Flow Rate (L/min) 2.5 Oxygen Delivery Method Nasal Cannula Weight: 260 lb Body Mass Index (BMI) 39.5 Intake and Output for Last 24 Hours 10/26/20 10/27/20 10/28/20 23:59 23:59 23:59 Intake Total 1036 / 1036 700 / 700 Balance 1036 / 1036 700 / 700 Microbiology Past 72 Hours 10/27/20 14:05 Mucosa - Nose SARS-CoV-2 Antigen (Rapid) - Final Laboratory Results 10/27/20 10:05: WBC 8.7, RBC 4.09 L, Hgb 12.1 L, Hct 38.1 L, MCV 93.2, MCH 29.6, MCHC 31.8 L, RDW Std Deviation 56.5 H, RDW Coeff of Leigh 16.6 H, Plt Count 143 L, MPV 10.3, Immature Gran % (Auto) 0.500, Neut % (Auto) 85.2 H, Lymph % (Auto) 7.2 L, [place] % (Auto) 6.8, Eos % (Auto) 0.2, Baso % (Auto) 0.1, Absolute Neuts (auto) 7.4, Absolute Lymphs (auto) 0.63 L, Nucleated RBC % 0 10/27/20 10:05: Sodium 131 L, Potassium 3.9, Chloride 96 L, Carbon Dioxide 32.0, Anion Gap 3 L, BUN 24 H, Creatinine 1.07, Estim Creat Clear Calc 65.70, Est GFR (MDRD) Af Amer 89, Est GFR (MDRD) Non-Af 73, BUN/Creatinine Ratio 22.4 H, Glucose 114 H, Calcium 8.9, Total Bilirubin 1.50 H, AST 38 H, ALT 40, Alkaline Phosphatase 88, Troponin I < 0.015, Total Protein 7.6, Albumin 3.0 L, Globulin 4.6 H, Albumin/Globulin Ratio 0.7 L 10/27/20 10:05: Lactic Acid 1.4 10/27/20 10:48: Urine Color Yellow, Urine Clarity Clear, Urine pH 6.5, Ur Specific [place] 1.010, Urine Protein 15 H, Urine Glucose (UA) Normal, Urine Ketones Negative, Urine Occult Blood 10 H, Urine Nitrite Negative, Urine Bilirubin Negative, Urine Urobilinogen 1 H, Ur Leukocyte Esterase 25 H, Urine RBC 0-5 SEEN, Urine WBC 0-5 SEEN, Ur Squamous Epith Cells 0 SEEN, Urine Bacteria RARE, Urine Mucus 0 SEEN 10/27/20 16:10: S.aureus Protein A PCR NEGATIVE, MRSA (PCR) Negative 10/28/20 04:40: WBC 6.8, RBC 3.78 L, Hgb 11.1 L, Hct 35.1 L, MCV 92.9, MCH 29.4, MCHC 31.6 L, RDW Std Deviation 55.9 H, RDW Coeff of Leigh 16.4 H, Plt Count 141 L, MPV 9.5, Immature Gran % (Auto) 0.300, Neut % (Auto) 82.4 H, Lymph % (Auto) 9.3 L, [place] % (Auto) 7.6, Eos % (Auto) 0.3, Baso % (Auto) 0.1, Absolute Neuts (auto) 5.6, Absolute Lymphs (auto) 0.63 L, Nucleated RBC % 0 10/28/20 04:40: Sodium 133 L, Potassium 4.0, Chloride 98, Carbon Dioxide 29.0, Anion Gap 6, BUN 20 H, Creatinine 0.87, Estim Creat Clear Calc 80.80, Est GFR (MDRD) Af Amer 113, Est GFR (MDRD) Non-Af 94, BUN/Creatinine Ratio 23.1 H, Glucose 85, Calcium 8.5 Current Medications Acetaminophen (Acetaminophen 325 Mg Tablet) 650 mg PO Q6H PRN PRN PRN Reason: Pain Score 1-10/Temp > 100.7 F Last Admin: 10/27/20 16:10 Dose: 650 mg Documented by: Albuterol Sulfate (Albuterol 2.5 Mg/3 Ml Vial.Neb.) 2.5 mg INHALATION Q6H PRN PRN Reason: SOB &/OR WHEEZING Albuterol Sulfate (Albuterol 2.5 Mg/3 Ml Vial.Neb.) 2.5 mg INHALATION Q6HWA.RT [facility] Last Admin: 10/28/20 07:06 Dose: 2.5 mg Documented by: Amitriptyline HCl (Amitriptyline 100 Mg Tablet) 50 mg PO QHS [facility] Last Admin: 10/27/20 21:58 Dose: 50 mg Documented by: Amlodipine Besylate (Amlodipine 5 Mg Tablet) 5 mg PO DAILY [facility] Apixaban (Apixaban 5 Mg Tablet) 5 mg PO BID [facility] Last Admin: 10/27/20 21:57 Dose: 5 mg Documented by: Aspirin (Aspirin 81 Mg Tab.Chew) 81 mg PO QHS [facility] Last Admin: 10/27/20 21:55 Dose: 81 mg Documented by: Azelastine HCl (Azelastine Hcl Nasal.Sry) 2 spray NASAL BID [facility] Last Admin: 10/27/20 21:55 Dose: 2 spray Documented by: Budesonide (Budesonide Respules 0.5 Mg/2 Ml Ampul.Neb.) 0.5 mg INHALATION Q12H.RT [facility] Last Admin: 10/28/20 07:06 Dose: 0.5 mg Documented by: Buspirone HCl (Buspirone 15 Mg Tablet) 15 mg PO BID [facility] Last Admin: 10/27/20 21:56 Dose: 15 mg Documented by: Carvedilol (Carvedilol 3.125 Mg Tablet) 3.125 mg PO BID [facility] Last Admin: 10/27/20 21:56 Dose: 3.125 mg Documented by: Citalopram Hydrobromide (Citalopram 20 Mg Tablet) 20 mg PO QHS [facility] Last Admin: 10/27/20 21:56 Dose: 20 mg Documented by: Fluticasone Propionate (Fluticasone 0.05% 1 [place] Nasal.Sry) 2 spray NASAL DAILY [facility] Vancomycin IV Pharmacy to Dose (1 ea/ Sodium Chloride) 500 mls @ 250 mls/hr IV X1 PRN; Protocol PRN Reason: Rx to Dose Sodium Chloride () 250 mls @ 15 mls/hr IV .[id number] PRN PRN Reason: Saline Flush Last Infusion: 10/27/20 15:55 Dose: 0 mls/hr Documented by: Vancomycin HCl (Vancomycin) 1,000 mg in 200 mls @ 200 mls/hr IV Q12H [facility] Last Admin: 10/28/20 05:38 Dose: 200 mls/hr Documented by: Lorazepam (Lorazepam 1 Mg Tablet) 1 mg PO DAILY PRN PRN Reason: ANXIETY Montelukast Sodium (Montelukast 10 Mg Tablet) 10 mg PO QHS [facility] Last Admin: 10/27/20 21:58 Dose: 10 mg Documented by: Nitroglycerin (Nitroglycerin (Inpatient Use) 0.4 Mg Tab.Subl) 0.4 mg SUBLINGUAL Q5M PRN PRN Reason: CHEST Oxycodone HCl (Oxycodone 5 Mg Tablet) 5 mg PO Q4H PRN PRN PRN Reason: Pain Score 6-10 Pravastatin Sodium (Pravastatin 40 Mg Tablet) 40 mg PO QHS [facility] Last Admin: 10/27/20 21:57 Dose: 40 mg Documented by: Sodium Chloride (0.9% Saline Lock 10 Ml Syringe) 10 - 40 ml IV UD PRN PRN Reason: SALINE FLUSH Last Admin: 10/27/20 22:11 Dose: 10 ml Documented by: STROKE Vital Signs/Narrative: Vital Signs Pulse Resp Pulse Ox 10/28/20 07:06 80 16 95 Medical Necessity - Tobacco Use Smoking Status: Former smoker Assessment/Plan All Active Problems (Last Reviewed 10/27/20 @ 14:[address] Dejon Villa, ) Cellulitis of left leg (Acute) Dyspnea on exertion (Acute) H/O umbilical hernia repair (Resolved 12/11/09) Presence of cardiac pacemaker (Resolved 04/30/16) Syncope (Resolved) 1. Left lower extremity cellulitis: Rapid onset. Concern would be for MRSA. Check a swab of some the weeping lesions on his anterior bowie. Continue with vancomycin and adjust antibiotics accordingly. I am not concerned for necrotizing fasciitis at this point in time. 2. Chronic respiratory failure: Patient has COPD with asthma but recently complicated by COVID-19 back in August but also pulmonary emboli. Additionally has obstructive sleep apnea. Patient stated he had a recently go up on his oxygen but I could not get a good sense as to why that was so have asked the emergency room to recheck his COVID-19. If that is negative then I would be sure that this is not a recurrent COVID-19 infection. In light of his acute left lower extremity cellulitis. It also. The patient may also have a elevated right hemidiaphragm which certainly complicates his respiratory issues. 3. Recent pulmonary emboli: Continue with apixaban 4. COPD: Does not appear to be in exacerbation at this time. Continue with his bronchodilators. 5. Coronary artery disease: Stable. Continue with aspirin, carvedilol 6. VTE prophylaxis: Not indicated as he is already anticoagulated.
--- NOTE | 2020-10-28 09:06 | PCM.DC ---
- Discharge Diagnoses Current Active Problems: Current Active and Chronic Problems (Last Reviewed 10/27/20 @ 14:[address] Dejon Villa, DO) Cellulitis of left leg (Acute) Atherosclerosis of [place] coronary artery of [place] heart without angina pectoris (Chronic) Nonobstructive in November 2019; BMI 38.0-38.9,adult (Chronic) History of right and left heart catheterization (Chronic 11/29/19) Non obstructive coronary arteries; Global LV systolic dysfunction- Mild LVEF: by LV gram 45-50 %; Normal Left Ventricular End Diastolic Pressure The patient has pulmonary hypertension which is mild. Pt's SERRANO is most likely predominantly from pulmonary component False positive stress test. 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 History of incision and drainage (Chronic 06/07/12) right knee, septic Dysmetabolic syndrome X (Chronic) Panic disorder without agoraphobia (Chronic) Generalized anxiety disorder (Chronic) Obesity (Chronic) Obstructive sleep apnea (Chronic) COPD with asthma (Chronic) Sick sinus syndrome (Chronic) Hypertension (Chronic) COPD (chronic obstructive pulmonary disease) (Chronic) History of rotator cuff tear (Chronic) Hyperlipidemia (Chronic) History of DVT (deep vein thrombosis) (Chronic 06/2012) right, peroneal soleal-provoked- admission for septic knee You will use the following diet at home:: Cardiac Your food should be the consistency of: Regular Discharge Activity: May Not Drive Weight Bearing Status: Weight bearing as tolerated Call your doctor if you observe: Fever of 101 or Higher, Coldness, Increased Pain, Numbness or Tingling, Change in Color, Inability to urinate, Inability to have a bowel movement, Shortness of breath, Dizziness, Fainting spells, Swelling in the ankles, Chest pain, Prolonged hiccoughing, Increased palpitations (irregular heartbeat), Calf discomfort, Uncontrolled pain Additional Instructions: Follow-up in the lymphedema clinic at [facility] every week. Allergies/Adverse Reactions: Allergies ibuprofen Allergy (Severe, Verified 10/27/20 09:49) ANAPHYLAXIS isosorbide Adverse Reaction (Intermediate, Verified 10/27/20 09:49) severe headaches/migraine Medications to take at Discharge Amitriptyline HCl 50 mg PO QHS 04/28/16 Aspirin [Aspirin, Baby] 81 mg PO QHS 04/28/16 Citalopram Hydrobromide [Citalopram HBr] 20 mg PO QHS 04/28/16 Nitroglycerin (INPATIENT USE) [Nitrostat] 0.4 mg SUBLINGUAL Q5M PRN 04/28/16 [place]-3 Fatty Acids/Dha/Epa [Ovega-3 Softgel] 1 ea PO BID 04/28/16 Pravastatin [Pravachol] 40 mg PO QHS 04/28/16 montelukast 10 mg tablet 10 mg PO QHS 10/11/18 budesonide-formoterol HFA 160 mcg-4.5 mcg/actuation aerosol inhaler 2 puff INHALATION BID #3 ea 12/26/19 azelastine 137 mcg (0.1 %) nasal spray aerosol 2 spray INTRANASAL BID #30 ml 03/26/20 fluticasone propionate 50 mcg/actuation nasal spray,suspension 2 spray INTRANASAL QDAY #1 ea 03/26/20 albuterol sulfate 90 mcg/actuation aerosol inhaler 1 - 2 puff INHALATION Q6H PRN #18 g 06/24/20 amlodipine 5 mg tablet 5 mg PO DAILY tab 06/27/20 buspirone 30 mg tablet 15 mg PO BID tab 06/27/20 carvedilol 3.125 mg tablet 3.125 mg PO BID #180 tab 09/20/20 albuterol sulfate 2.5 mg INHALATION Q6H PRN #3 ml 10/02/20 apixaban 5 mg tablet 5 mg PO BID #60 tab 10/02/20 Furosemide 40 mg PO BID 10/27/20 Lorazepam 1 mg PO BID PRN 10/27/20 Cefadroxil [Duricef] 500 mg PO BID #14 cap 10/28/20 The following prescriptions were given: Cefadroxil [Duricef] 500 mg PO BID #14 cap Transmission Status: Received by [id number] Primary Care Physician: Bipin Sanchez MD [Primary Care Provider] - Please follow up with your Primary Care Physician in: In 2 weeks Test Results: Test results from this visit will be discussed in further detail at your follow-up appointment, if applicable.
[2020-10-28 10:00] VITALS: RESP 20
[2020-10-28] MEDS: Furosemide 40 MG/4 ML Vial IV (10:38)
[2020-10-28] MEDS: 0.9% Saline Lock 10 ML Syringe IV (10:38)
[2020-10-28] MEDS: Azelastine HCl NASAL.SRY 2 SPRAY NASAL (10:38)
[2020-10-28] MEDS: busPIRone 15 MG TABLET PO (10:39)
[2020-10-28] MEDS: amLODIPine 5 MG Tablet PO (10:39)
[2020-10-28] MEDS: Carvedilol 3.125 MG TABLET PO (10:39)
[2020-10-28] MEDS: APIXABAN 5 MG TABLET PO (10:39)
--- NOTE | 2020-10-28 10:39 | PHA.DC.MC ---
Pharmacy Service has performed discharge medication reconciliation and counseling for this patient. The patient was counseled on the following discharge medications and changes in medications for homegoing were reviewed. 1. CEFADROXIL The Reason for Use, instructions for use, and potential side effects were reviewed for all new medications. The patient's questions regarding all of their medications were answered. The patient was able to verbally demonstrate an understanding of their discharge medications. Home Medications Amitriptyline HCl 50 mg PO QHS 04/28/16 Aspirin [Aspirin, Baby] 81 mg PO QHS 04/28/16 Citalopram Hydrobromide [Citalopram HBr] 20 mg PO QHS 04/28/16 Nitroglycerin (INPATIENT USE) [Nitrostat] 0.4 mg SUBLINGUAL Q5M PRN 04/28/16 [place]-3 Fatty Acids/Dha/Epa [Ovega-3 Softgel] 1 ea PO BID 04/28/16 Pravastatin [Pravachol] 40 mg PO QHS 04/28/16 montelukast 10 mg tablet 10 mg PO QHS 10/11/18 budesonide-formoterol HFA 160 mcg-4.5 mcg/actuation aerosol inhaler 2 puff INHALATION BID #3 ea 12/26/19 azelastine 137 mcg (0.1 %) nasal spray aerosol 2 spray INTRANASAL BID #30 ml 03/26/20 fluticasone propionate 50 mcg/actuation nasal spray,suspension 2 spray INTRANASAL QDAY #1 ea 03/26/20 albuterol sulfate 90 mcg/actuation aerosol inhaler 1 - 2 puff INHALATION Q6H PRN #18 g 06/24/20 amlodipine 5 mg tablet 5 mg PO DAILY tab 06/27/20 buspirone 30 mg tablet 15 mg PO BID tab 06/27/20 carvedilol 3.125 mg tablet 3.125 mg PO BID #180 tab 09/20/20 albuterol sulfate 2.5 mg INHALATION Q6H PRN #3 ml 10/02/20 apixaban 5 mg tablet 5 mg PO BID #60 tab 10/02/20 Furosemide 40 mg PO BID 10/27/20 Lorazepam 1 mg PO BID PRN 10/27/20 Cefadroxil [Duricef] 500 mg PO BID #14 cap 10/28/20 The patient's discharge medication list was reviewed for discrepancies and discrepancies were resolved.
--- NOTE | 2020-10-28 10:40 | CASEMGMT ---
RN CM Face to Face with patient for initial transition planning/care coordination assessment. RN CM introduced self and role at [facility]. Patient lying in bed, alert and oriented. Patient willing to participate in assessment and is able to answer all questions appropriately. Care providers, pharmacy, and demographics verified. Patient wishes to discharge home, denies need for home health at this time. Patient states he has no further needs or concerns at this time. CM to follow for discharge planning needs that may arise. PCP: Daniel Specialists: Tad, pulmonology; Crow, fire sprinkler service technician Preferred Pharmacy: [facility] Insurance: [employer] Prescription Benefit: yes Living Will/HPOA: yes, Alejandra Mcpherson LNOK: Living Arrangements: Patient lives with in a single story home with 11 steps to enter the home. Patient states he is independent at home. Transportation: self/ DME/HHC: Patient states he has cane, grab bars, bipap, nebulizer, home oxygen with portability through [employer]. Patient denies previous HHC. Disposition Plan: Patient to discharge home with family support and follow-up plans in place. Sabra BARTH, RN, CM
[2020-10-28 10:51] VITALS: BP 137/69; PULSE 77; RESP 18; TEMP 37.5; O2SAT 99
[2020-10-28] MEDS: Fluticasone 0.05% 1 SPRAY NASAL.SRY 2 SPRAY NASAL (11:27)
--- NOTE | 2020-10-28 12:57 | PCM.DC.SUM ---
Discharge Date and Diagnosis - Problem List Patient Problems: Active and Suspected Problems (Last Reviewed 10/27/20 @ 14:[address] Dejon Villa DO) Cellulitis of left leg (Acute) Dyspnea on exertion (Acute) Date of Admission: 10/27/20 Date of Discharge: 10/28/20 - Primary Discharge Diagnosis Acute Problems: Active Problems (Last Reviewed 10/27/20 @ 14:[address] Dejon Villa DO) Cellulitis of left leg (Acute) Dyspnea on exertion (Acute) - Secondary Discharge Diagnosis Chronic Problems: Chronic Problems (Last Reviewed 10/27/20 @ 14:[address] Dejon Villa DO) Atherosclerosis of [place] coronary artery of [place] heart without angina pectoris (Chronic) Nonobstructive in November 2019; BMI 38.0-38.9,adult (Chronic) History of right and left heart catheterization (Chronic 11/29/19) Non obstructive coronary arteries; Global LV systolic dysfunction- Mild LVEF: by LV gram 45-50 %; Normal Left Ventricular End Diastolic Pressure The patient has pulmonary hypertension which is mild. Pt's SERRANO is most likely predominantly from pulmonary component False positive stress test. 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 History of incision and drainage (Chronic 06/07/12) right knee, septic Dysmetabolic syndrome X (Chronic) Panic disorder without agoraphobia (Chronic) Generalized anxiety disorder (Chronic) Obesity (Chronic) Obstructive sleep apnea (Chronic) COPD with asthma (Chronic) Sick sinus syndrome (Chronic) Hypertension (Chronic) COPD (chronic obstructive pulmonary disease) (Chronic) History of rotator cuff tear (Chronic) Hyperlipidemia (Chronic) History of DVT (deep vein thrombosis) (Chronic 06/2012) right, peroneal soleal-provoked- admission for septic knee Hospital Course and Treatment Operations: None Summary of Care Provided: The patient is a 65 year old M was admitted with redness, swelling, some weeping over left lower leg along with fever and chills. Denies previous history of cellulitis. Patient was admitted in August for COVID-19 pneumonia with pulmonary emboli and is on Eliquis. 1. Left lower extremity cellulitis: Patient was admitted on the [facility] floor. MRSA nasal screen negative. Patient has weeping on the lateral aspect of left lower leg. Patient has significant left lower extremity edema and Lasix 40 mg IV 1 dose given. Patient initially started on vancomycin. Patient is discharged on 7 more days of cefadroxil. Patient is on furosemide 40 mg twice daily. Infection looks superficial and necrotizing fasciitis is not a concern. 2. Chronic respiratory failure due to recent COVID-19 pneumonia, COPD asthma overlap syndrome, obstructive sleep apnea and recent PE: Patient at home, on 2 to 3 L of oxygen. This happened during previous hospitalization in August for COVID-19 pneumonia. Patient also has COPD/asthma overlap syndrome along with obstructive sleep apnea. SARS-CoV-2 rapid antigen negative. Chest x-ray no active disease but chronic elevated right hemidiaphragm. Patient on apixaban. 3. Recent pulmonary emboli: Continue with apixaban 4. Coronary artery disease: Stable. Continue with aspirin, carvedilol Discharge medication reconciliation done. Discharge follow-up instructions completed. Discharge process discussed with the patient and all questions were answered to patient's satisfaction. Advised to follow-up in the lymphedema clinic at [facility] every week. Total time spent, exact 35 minutes on discharge meds reconciliation, examination, coordination of care with nurses and ancillary staff, review of imaging and blood test and discussion with the patient on follow-up instructions Patient Problems: Active and Suspected Problems (Last Reviewed 10/27/20 @ 14:[address] Dejon Villa, DO) Cellulitis of left leg (Acute) Dyspnea on exertion (Acute) Objective: No fever during hospital stay. Heart rate and blood pressure in normal range. Physical exam General: Alert, Oriented x3, Cooperative HEENT: Atraumatic, PERRLA, EOMI, Normocephalic Oral: No Gingival or Mucosal Lesions/ Ulcerations Neck: Supple, No JVD, Negative Carotid Bruits Lungs: Air entry diminished in bilateral lung bases. No crepitation/rhonchi. On 2 to 3 L of home oxygen Cardiovascular: Left subclavicular pacemaker. Regular rate, Regular Rhythm, Normal S1, Normal S2, No murmurs Abdomen: Bowel Sounds Present, Soft, Non Tender, Non-Distended : No renal angle tenderness. No suprapubic tenderness. Extremities: Left lower leg much more edematous than right leg., Capillary Refill Less than 3 Seconds Skin: Erythema, swelling present over left lower extremity up to mid thigh but improving. Musculoskeletal: No Tenderness to Palpation of Joints or Extremities Neurological: Cranial nerves II-XII grossly intact, Deep Tendon Reflexes 2+/4 and Symmetrical, Neuro grossly intact Psych/Mental Status: Normal Affect, Appropriate. - Physical Exam Vitals/I&O's: Vital Signs Temp Pulse Resp BP Pulse Ox 98.6 F 80 16 121/65 H 95 10/28/20 03:23 10/28/20 07:06 10/28/20 07:06 10/28/20 03:23 10/28/20 07:06 Oxygen Flow Rate (L/min) 2.5 Oxygen Delivery Method Nasal Cannula Weight: 260 lb Body Mass Index (BMI) 39.5 Intake and Output for Last 24 Hours 10/26/20 10/27/20 10/28/20 23:59 23:59 23:59 Intake Total 1036 / 1036 700 / 700 Balance 1036 / 1036 700 / 700 Microbiology Past 72 Hours 10/27/20 14:05 Mucosa - Nose SARS-CoV-2 Antigen (Rapid) - Final Laboratory Results 10/27/20 10:05: WBC 8.7, RBC 4.09 L, Hgb 12.1 L, Hct 38.1 L, MCV 93.2, MCH 29.6, MCHC 31.8 L, RDW Std Deviation 56.5 H, RDW Coeff of Leigh 16.6 H, Plt Count 143 L, MPV 10.3, Immature Gran % (Auto) 0.500, Neut % (Auto) 85.2 H, Lymph % (Auto) 7.2 L, [place] % (Auto) 6.8, Eos % (Auto) 0.2, Baso % (Auto) 0.1, Absolute Neuts (auto) 7.4, Absolute Lymphs (auto) 0.63 L, Nucleated RBC % 0 10/27/20 10:05: Sodium 131 L, Potassium 3.9, Chloride 96 L, Carbon Dioxide 32.0, Anion Gap 3 L, BUN 24 H, Creatinine 1.07, Estim Creat Clear Calc 65.70, Est GFR (MDRD) Af Amer 89, Est GFR (MDRD) Non-Af 73, BUN/Creatinine Ratio 22.4 H, Glucose 114 H, Calcium 8.9, Total Bilirubin 1.50 H, AST 38 H, ALT 40, Alkaline Phosphatase 88, Troponin I < 0.015, Total Protein 7.6, Albumin 3.0 L, Globulin 4.6 H, Albumin/Globulin Ratio 0.7 L 10/27/20 10:05: Lactic Acid 1.4 10/27/20 10:48: Urine Color Yellow, Urine Clarity Clear, Urine pH 6.5, Ur Specific [place] 1.010, Urine Protein 15 H, Urine Glucose (UA) Normal, Urine Ketones Negative, Urine Occult Blood 10 H, Urine Nitrite Negative, Urine Bilirubin Negative, Urine Urobilinogen 1 H, Ur Leukocyte Esterase 25 H, Urine RBC 0-5 SEEN, Urine WBC 0-5 SEEN, Ur Squamous Epith Cells 0 SEEN, Urine Bacteria RARE, Urine Mucus 0 SEEN 10/27/20 16:10: S.aureus Protein A PCR NEGATIVE, MRSA (PCR) Negative 10/28/20 04:40: WBC 6.8, RBC 3.78 L, Hgb 11.1 L, Hct 35.1 L, MCV 92.9, MCH 29.4, MCHC 31.6 L, RDW Std Deviation 55.9 H, RDW Coeff of Leigh 16.4 H, Plt Count 141 L, MPV 9.5, Immature Gran % (Auto) 0.300, Neut % (Auto) 82.4 H, Lymph % (Auto) 9.3 L, [place] % (Auto) 7.6, Eos % (Auto) 0.3, Baso % (Auto) 0.1, Absolute Neuts (auto) 5.6, Absolute Lymphs (auto) 0.63 L, Nucleated RBC % 0 10/28/20 04:40: Sodium 133 L, Potassium 4.0, Chloride 98, Carbon Dioxide 29.0, Anion Gap 6, BUN 20 H, Creatinine 0.87, Estim Creat Clear Calc 80.80, Est GFR (MDRD) Af Amer 113, Est GFR (MDRD) Non-Af 94, BUN/Creatinine Ratio 23.1 H, Glucose 85, Calcium 8.5 Current Medications Acetaminophen (Acetaminophen 325 Mg Tablet) 650 mg PO Q6H PRN PRN PRN Reason: Pain Score 1-10/Temp > 100.7 F Last Admin: 10/27/20 16:10 Dose: 650 mg Documented by: Albuterol Sulfate (Albuterol 2.5 Mg/3 Ml Vial.Neb.) 2.5 mg INHALATION Q6H PRN PRN Reason: SOB &/OR WHEEZING Albuterol Sulfate (Albuterol 2.5 Mg/3 Ml Vial.Neb.) 2.5 mg INHALATION Q6HWA.RT [facility] Last Admin: 10/28/20 07:06 Dose: 2.5 mg Documented by: Amitriptyline HCl (Amitriptyline 100 Mg Tablet) 50 mg PO QHS [facility] Last Admin: 10/27/20 21:58 Dose: 50 mg Documented by: Amlodipine Besylate (Amlodipine 5 Mg Tablet) 5 mg PO DAILY [facility] Apixaban (Apixaban 5 Mg Tablet) 5 mg PO BID [facility] Last Admin: 10/27/20 21:57 Dose: 5 mg Documented by: Aspirin (Aspirin 81 Mg Tab.Chew) 81 mg PO QHS [facility] Last Admin: 10/27/20 21:55 Dose: 81 mg Documented by: Azelastine HCl (Azelastine Hcl Nasal.Sry) 2 spray NASAL BID [facility] Last Admin: 10/27/20 21:55 Dose: 2 spray Documented by: Budesonide (Budesonide Respules 0.5 Mg/2 Ml Ampul.Neb.) 0.5 mg INHALATION Q12H.RT [facility] Last Admin: 10/28/20 07:06 Dose: 0.5 mg Documented by: Buspirone HCl (Buspirone 15 Mg Tablet) 15 mg PO BID [facility] Last Admin: 10/27/20 21:56 Dose: 15 mg Documented by: Carvedilol (Carvedilol 3.125 Mg Tablet) 3.125 mg PO BID [facility] Last Admin: 10/27/20 21:56 Dose: 3.125 mg Documented by: Citalopram Hydrobromide (Citalopram 20 Mg Tablet) 20 mg PO QHS [facility] Last Admin: 10/27/20 21:56 Dose: 20 mg Documented by: Fluticasone Propionate (Fluticasone 0.05% 1 [place] Nasal.Sry) 2 spray NASAL DAILY [facility] Vancomycin IV Pharmacy to Dose (1 ea/ Sodium Chloride) 500 mls @ 250 mls/hr IV X1 PRN; Protocol PRN Reason: Rx to Dose Sodium Chloride () 250 mls @ 15 mls/hr IV .[id number] PRN PRN Reason: Saline Flush Last Infusion: 10/27/20 15:55 Dose: 0 mls/hr Documented by: Vancomycin HCl (Vancomycin) 1,000 mg in 200 mls @ 200 mls/hr IV Q12H [facility] Last Admin: 10/28/20 05:38 Dose: 200 mls/hr Documented by: Lorazepam (Lorazepam 1 Mg Tablet) 1 mg PO DAILY PRN PRN Reason: ANXIETY Montelukast Sodium (Montelukast 10 Mg Tablet) 10 mg PO QHS [facility] Last Admin: 10/27/20 21:58 Dose: 10 mg Documented by: Nitroglycerin (Nitroglycerin (Inpatient Use) 0.4 Mg Tab.Subl) 0.4 mg SUBLINGUAL Q5M PRN PRN Reason: CHEST Oxycodone HCl (Oxycodone 5 Mg Tablet) 5 mg PO Q4H PRN PRN PRN Reason: Pain Score 6-10 Pravastatin Sodium (Pravastatin 40 Mg Tablet) 40 mg PO QHS [facility] Last Admin: 10/27/20 21:57 Dose: 40 mg Documented by: Sodium Chloride (0.9% Saline Lock 10 Ml Syringe) 10 - 40 ml IV UD PRN PRN Reason: SALINE FLUSH Last Admin: 10/27/20 22:11 Dose: 10 ml Documented by: Discharge Activity: May Not Drive Weight Bearing Status: Weight bearing as tolerated Home Medications: Medications to take at Discharge Amitriptyline HCl 50 mg PO QHS 04/28/16 Aspirin [Aspirin, Baby] 81 mg PO QHS 04/28/16 Citalopram Hydrobromide [Citalopram HBr] 20 mg PO QHS 04/28/16 Nitroglycerin (INPATIENT USE) [Nitrostat] 0.4 mg SUBLINGUAL Q5M PRN 04/28/16 [place]-3 Fatty Acids/Dha/Epa [Ovega-3 Softgel] 1 ea PO BID 04/28/16 Pravastatin [Pravachol] 40 mg PO QHS 04/28/16 montelukast 10 mg tablet 10 mg PO QHS 10/11/18 budesonide-formoterol HFA 160 mcg-4.5 mcg/actuation aerosol inhaler 2 puff INHALATION BID #3 ea 12/26/19 azelastine 137 mcg (0.1 %) nasal spray aerosol 2 spray INTRANASAL BID #30 ml 03/26/20 fluticasone propionate 50 mcg/actuation nasal spray,suspension 2 spray INTRANASAL QDAY #1 ea 03/26/20 albuterol sulfate 90 mcg/actuation aerosol inhaler 1 - 2 puff INHALATION Q6H PRN #18 g 06/24/20 amlodipine 5 mg tablet 5 mg PO DAILY tab 06/27/20 buspirone 30 mg tablet 15 mg PO BID tab 06/27/20 carvedilol 3.125 mg tablet 3.125 mg PO BID #180 tab 09/20/20 albuterol sulfate 2.5 mg INHALATION Q6H PRN #3 ml 10/02/20 apixaban 5 mg tablet 5 mg PO BID #60 tab 10/02/20 Furosemide 40 mg PO BID 10/27/20 Lorazepam 1 mg PO BID PRN 10/27/20 Cefadroxil [Duricef] 500 mg PO BID #14 cap 10/28/20 Following Prescriptions Were Given to Patient: Cefadroxil [Duricef] 500 mg PO BID #14 cap Transmission Status: Received by [id number] Primary Care Physician: Bipin Sanchez MD [Primary Care Provider] - Please follow up with your Primary Care Physician in: In 2 weeks Medical Necessity - Tobacco Use Smoking Status: Former smoker Meaningful Use Info Meaningful Use Diagnoses (Choose all that apply): None applicable OBSV E&M: 14775 Observation care discharge
[2020-10-28 13:40] VITALS: PULSE 74; RESP 20; O2SAT 96
[2020-10-28 14:00] VITALS: BP 107/56; PULSE 73; RESP 18; TEMP 37.1; O2SAT 98
== END 2020-10-28 14:30 | disposition home or self-care (01) ==
LOC: ED 10:28 → MS3 14:36
PROVIDERS: Emergency Provider Emergency Medicine; PCP Internal Medicine; Visit Provider Internal Medicine
DX: L03.116 Cellulitis of left lower limb (principal); I25.10 Atherosclerotic heart disease of native coronary artery without angina pectoris; I27.29 Other secondary pulmonary hypertension; E88.81 Metabolic syndrome and other insulin resistance; E66.9 Obesity, unspecified; G47.33 Obstructive sleep apnea (adult) (pediatric); J96.10 Chronic respiratory failure, unspecified whether with hypoxia or hypercapnia; I26.99 Other pulmonary embolism without acute cor pulmonale; F41.1 Generalized anxiety disorder; J44.9 Chronic obstructive pulmonary disease, unspecified; I10 Essential (primary) hypertension; E78.5 Hyperlipidemia, unspecified; Z86.718 Personal history of other venous thrombosis and embolism; Z79.01 Long term (current) use of anticoagulants; Z79.899 Other long term (current) drug therapy; Z79.82 Long term (current) use of aspirin; Z86.16 Personal history of COVID-19; Z95.0 Presence of cardiac pacemaker; Z87.891 Personal history of nicotine dependence
CPT/HCPCS: 36415; 71045; 80048; 80053; 81001; 83605; 84484; 85025; 87040; 87426; 87640; 93005; 93971; 94640; 96361; 96365; 96366; 96375; 99218; 99251; 99285; J7040; J7050; A4216; G0378; G0463; J1940

== ENCOUNTER 2020-12-05 12:16 | Outpatient (RCR) | payer MEDICARE, OTHER, SELFPAY ==
[2020-11-18 09:50] VITALS: BMI 41.0
[2020-12-05] MEDS: COVID-19 VACC, MRNA(PFIZER)/PF 30 MCG/0.3 ML SYRINGE IM (07:24)
[2020-12-26] MEDS: COVID-19 VACC, MRNA(PFIZER)/PF 30 MCG/0.3 ML SYRINGE IM (07:05)
== END 2020-12-05 23:59 ==
LOC: IMMUN 12:16
PROVIDERS: PCP Internal Medicine; Visit Provider Family Medicine
DX: Z23 Encounter for immunization (principal)
CPT/HCPCS: 0001A; 0002A

== ENCOUNTER → 2021-09-17 07:55 | Outpatient (CLI) | payer MEDICARE, OTHER, SELFPAY ==
[2021-09-17 09:27] LABS: Absolute Lymphocyte Count 1.26 X10^3/uL (0.83-4.51); Absolute Neutrophil Count 3.1 X10^3/uL (2.0-7.7); Basophil# 0.02 X10^3/uL; Basophil% 0.4 % (0-1); Hematocrit 42.1 % (40-54); Hemoglobin 13.1 g/dL (13.0-16.5); Lymphocyte # 1.26 X10^3/ul (0.83-4.51); Lymphocyte % 25.6 % (19-41); Mean Corp Hgb Conc 31.1 g/dL (32-36); Mean Corpuscular Hgb 30.8 pg (27.0-32.0); Mean Corpuscular Volume 98.8 fL (80-94); Mean Platelet Vol. 9.8 fl (6.2-12.0); Monocyte# 0.46 X10^3/uL; Monocyte% 9.3 % (0-10); NRBC Flagged by Analyzer 0 % (0-5); Neutrophil # 3.09 X10^3/uL (2.7-7.7); Neutrophil % 62.7 % (47-70); Platelet Count 129 K/mm3 (150-450); RBC Distribution Width CV 15.1 % (11.6-14.6); RBC Distribution Width SD 55.5 fl (35.1-43.9); Red Blood Count 4.26 M/mm3 (4.6-6.2); White Blood Count 4.9 K/mm3 (4.4-11.0)
[2021-09-17 09:45] LABS: BNP,B-Type NATRIURETIC PEPTIDE 51.3 pg/mL (0-100)
[2021-09-17 10:03] LABS: AST(SGOT) 31 U/L (15-37); Alanine Aminotransfer ALT/SGPT 31 U/L (16-61); Albumin, Serum 3.3 g/dL (3.2-5.0); Alkaline Phosphatase 83 U/L (45-117); Anion Gap 6 (5-15); BUN 21 mg/dL (7-18); BUN/Creat Ratio 18.9 RATIO (10-20); Bilirubin, Direct 0.22 mg/dL (0.00-0.30); Calcium,Total 8.7 mg/dL (8.5-10.1); Chloride 104 mmol/L (98-107); Cholesterol 145 mg/dL (200); Creatinine, Serum 1.11 mg/dL (0.70-1.30); EST Glomerular Filtration Rate 70 mL/min (>60); Est Glom Filt Rate - Afr Amer 85 mL/min (>60); Globulin 4.4 g/dL (2.2-4.2); Glucose 82 mg/dL (74-106); High Density Lipoprotein 71 mg/dL; Potassium 4.2 mmol/L (3.5-5.1); Protein, Total 7.7 g/dL (6.4-8.2); Sodium Level 139 mmol/L (136-145); T4 Free Direct 0.96 ng/dL (0.76-1.46); Thyroid Stim Hormone (TSH) 1.57 uIU/mL (0.358-3.74); Triglycerides 48 mg/dL; Very Low Density Lipoprotein 10 mg/dL (5-40)
== END ==
PROVIDERS: PCP Internal Medicine; Referring Provider Nurse Practitioner Family; Visit Provider Nurse Practitioner Family
DX: R53.83 Other fatigue (principal); R06.09 Other forms of dyspnea; Z95.0 Presence of cardiac pacemaker; I49.5 Sick sinus syndrome; I48.0 Paroxysmal atrial fibrillation; I10 Essential (primary) hypertension; E78.5 Hyperlipidemia, unspecified
CPT/HCPCS: 36415; 80048; 80061; 80076; 83880; 84439; 84443; 85025

== ENCOUNTER → 2022-08-03 | Outpatient (CLI) | payer MEDICARE, OTHER, SELFPAY | END | disposition home or self-care (01) | LOC: PSN 12:28 | PROVIDERS: PCP Internal Medicine; Referring Provider Internal Medicine Critical Care Medicine; Visit Provider Internal Medicine Critical Care Medicine | DX: J44.9 Chronic obstructive pulmonary disease, unspecified (principal) | CPT/HCPCS: 87635; C9803; U0003; U0005 ==

== ENCOUNTER 2022-08-04 14:26 | Outpatient (CLI) | payer MEDICARE, OTHER, SELFPAY ==
[2022-08-04 14:30] VITALS: BP 115/69; PULSE 77; RESP 18; TEMP 37.3; O2SAT 100; BMI 38.2
[2022-08-04] MEDS: 0.9% Saline Lock 10 ML Syringe IV ×3 (14:37→14:52)
[2022-08-04] MEDS: BEBTELOVIMAB 175 MG/2 ML VIAL IV (14:49)
[2022-08-04 15:13] VITALS: BP 93/41; PULSE 66; RESP 18; TEMP 37.3; O2SAT 96
[2022-08-04 15:45] VITALS: BP 93/61; PULSE 63; RESP 18; TEMP 36.8; O2SAT 97
== END 2022-08-04 15:49 | disposition home or self-care (01) ==
LOC: MS3OUT 14:28 → MS2 14:28
PROVIDERS: PCP Internal Medicine; Referring Provider Nurse Practitioner Acute Care; Visit Provider Nurse Practitioner Acute Care
DX: U07.1 COVID-19 (principal)
CPT/HCPCS: M0222; Q0222; A4216

== ENCOUNTER → 2023-01-19 | Outpatient (CLI) | payer MEDICARE, OTHER, SELFPAY | END | disposition home or self-care (01) | LOC: LABSPEC 09:03 | PROVIDERS: PCP Internal Medicine; Referring Provider Nurse Practitioner Acute Care; Visit Provider Nurse Practitioner Acute Care | DX: J44.9 Chronic obstructive pulmonary disease, unspecified (principal) | CPT/HCPCS: 87070; 87205 ==

== ENCOUNTER 2024-05-20 19:46 | Emergency (ER) | payer MEDICARE, OTHER, SELFPAY ==
[2024-05-20 19:48] VITALS: BP 206/116; PULSE 85; RESP 18; TEMP 36.6; O2SAT 96; BMI 41.2
--- NOTE | 2024-05-20 20:21 | ED.VIS.LOWEX ---
HPI History of Present Illness HPI Narrative: 68-year-old male on Eliquis prior history of DVT and PE. Was getting off his tractor today and he fell hitting his left lower leg against a tractor. He denies hitting his head. This occurred around 230 this afternoon. He has developed a hematoma to his left lower leg and bruising to his left lower thigh. Denies any headache or neck pain. Denies any other complaints. Denies any recent melena or gross hematuria. Chief Complaint: Lower Extremity Injury Informant: patient and spouse/S.O. Occured/Mechanism Mechanism/Context: Yes injury and Yes blunt trauma Onset/Context/Timing Onset: Today and Hours Context: Sudden Onset Timing: Continuous Quality of Pain: Dull and Aching Current Severity: Mild Maximum Severity: Mild Associated Symptoms Associated Symptoms: Negative for Parasthesia, Weakness or Loss of Funtion Narrative Narrative: 68-year-old male was getting off his tractor and injured his left lower leg against a tractor. He is on the blood thinner Eliquis. He is a hematoma. Denies any head injury, denies any head trauma. Denies any headache. Prior similar symptoms: No Recent Illness/Hospitalization: No PFSH PFS Medical History Pulmonary emboli (06/2020) Renal calculi Paroxysmal atrial fibrillation GENE treated with BiPAP Nonobstructive atherosclerosis of coronary artery Essential (primary) hypertension Respiratory failure with hypoxia Cellulitis of left leg Pneumonia COVID-19 Secondary pulmonary hypertension History of syncope Dysmetabolic syndrome X Panic disorder without agoraphobia Generalized anxiety disorder Obesity Fixed dilated pupil of left eye Sick sinus syndrome History of rotator cuff tear Syncope Hyperlipidemia History of DVT (deep vein thrombosis) (06/2012) Home Medications ?Medication ?Instructions ?Recorded ?Last Taken ?Type amitriptyline 50 mg tablet 50 mg PO QHS NERVES 04/28/16 10/26/20 History citalopram 20 mg tablet 20 mg PO QHS 04/28/16 10/26/20 History omega-3 fatty acids 500 mg-dha 270 1 ea PO BID 04/28/16 10/27/20 History mg-epa 135 mg capsule pravastatin 40 mg tablet 40 mg PO QHS 04/28/16 10/26/20 History montelukast 10 mg tablet 10 mg PO QHS 10/11/18 10/27/20 History buspirone 15 mg tablet 30 mg PO BID 09/16/21 Unknown History nitroglycerin 0.4 mg sublingual 0.4 mg sublingual Q5M PRN Chest 10/22/21 Unknown Rx tablet Pain #25 tabs finasteride 5 mg tablet 5 mg PO DAILY 06/09/22 Unknown History azelastine 137 mcg (0.1 %) nasal 2 spray intranasal BID #30 mL 08/07/22 Unknown Rx spray fluticasone propionate 50 2 spray intranasal QDAY #1 ea 08/07/22 Unknown Rx mcg/actuation nasal spray,suspension (Flonase Allergy Relief) albuterol sulfate 2.5 mg/3 mL 2.5 mg (3 mL) inhalation Q6H PRN 01/08/23 Unknown Rx (0.083 %) solution for nebulization Sob &/Or Wheezing #3 mL apixaban 5 mg tablet 5 mg PO BID #180 tabs 06/10/23 Unknown Rx albuterol sulfate 90 mcg/actuation 1 - 2 puff inhalation Q6H PRN Sob 12/21/23 Unknown Rx aerosol inhaler &/Or Wheezing #18 grams budesonide-formoterol HFA 160 2 puff inhalation BID #3 ea 02/22/24 Unknown Rx mcg-4.5 mcg/actuation aerosol inhaler (Symbicort) carvedilol 3.125 mg tablet (Coreg) 3.125 mg PO BID #180 tabs 03/06/24 Unknown Rx furosemide 20 mg tablet 20 mg PO DAILY #90 tabs 03/06/24 Unknown Rx nystatin 100,000 unit/mL oral 5 ml mucous membrane TID #250 mL 04/05/24 Unknown Rx suspension Allergy/AdvReac Type Severity Reaction Status Date / Time ibuprofen Allergy Severe ANAPHYLAXIS Verified 05/20/24 19:47 isosorbide AdvReac Intermediate severe Verified 05/20/24 19:47 headaches/migraine Family History Mother CVA (cerebral vascular accident), Onset Age: 65 Anxiety Father CAD (coronary artery disease), Onset Age: 61 Myocardial infarction Brother CAD (coronary artery disease) Obesity Surgical History History of right and left heart catheterization (11/29/19) H/O umbilical hernia repair (12/11/09) Presence of cardiac pacemaker (04/30/16) Social History Smoking Status: Former smoker quit date: 10/04/96 Tobacco: How many years used: 24 how long ago did patient quit smokin second hand exposure: Yes alcohol intake: current alcohol intake frequency: 0-2 drinks per day Alcohol type: beer substance use type: does not use caffeine: Yes Type: coffee Number of servings: 1 ROS ROS ED ROS Narrative Denies any recent illness. Constitutional Constitutional ED: Denies chills or fever(s) Eyes Eyes: Denies blurry vision ENT ENT ED: Denies ear pain Cardiovascular Cardiovascular: Denies chest pain Respiratory/Chest Respiratory/Chest: Denies cough Gastrointestinal Gastrointestinal: Denies abdominal pain Genitourinary Genitourinary ED: Denies dysuria Musculoskeletal Musculoskeletal: Denies arthralgias Integumentary Denies abscess Neurologic Neurologic: Denies headache(s) Psychiatric Psychiatric: Denies anxiety Endocrine Endocrinology: Denies polydipsia Hematologic/Lymphatic Hematologic/Lymphatic: Reports easy bleeding and easy bruising; Denies lymphadenopathy Allergic/Immunologic Allergic/Immunologic ED: Denies mouth swelling, tongue swelling or urticaria EXAM Physical Exam Narrative Exam Narrative: Well-appearing 68-year-old male. Vital signs are stable afebrile. HEENT exam pupils are round reactive light. His left pupil is bigger than his right that is chronic that is not new. There is no signs of facial trauma or tenderness. No scalp trauma or tenderness. No hematoma. Neck nontender. Back nontender. Lungs are clear. Heart regular rhythm rate about 80 no murmur. Chest wall and ribs nontender. Abdomen soft nontender. No bruising. Pelvic girdle intact. Moving all 4 extremities. Neurovascularly intact. Normal range of motion. He has a hematoma left lower leg on his proximal bowie laterally. About the size of a $0.50 piece. There is no laceration or active bleeding. Hematoma is not expanding. There is mild bruising on his distal thigh above his knee. He has full flexion-extension of both hips knees and ankles. Normal dorsi plantarflexion. Upper extremities are unremarkable. Back is nontender without bruising. He is awake and alert no focal motor deficits. Const Vital Signs: 05/20/24 19:48 Temperature 97.9 F Temperature Source Temporal Pulse Rate 85 Respiratory Rate 18 Blood Pressure 206/116 H Blood Pressure Mean 146 Pulse Ox 96 Oxygen Delivery Method Room Air Positive well nourished and well developed; Negative for cachectic, contractures or unkempt General Appearance ED: well developed and NAD; Negative for unkempt, cachectic or contractures Nutritional Appearance: Negative for cachectic HEENT Reports moist mucous membranes normocephalic and atraumatic; Negative for trauma or tenderness Eyes PERRL General Eye ED: Negative for other Neck full ROM and supple Lymph Lymphatic: Negative for other Chest Wall inspection of chest normal and palpation of chest normal Chest: Negative for other Resp normal respiratory effort, no retractions and clear to auscultation bilaterally Effort and Inspection: Negative for pain with movement Auscultation: Negative for rales, rhonchi, wheezes or diminished lung sounds Cardio regular rate, regular rhythm, S1 normal heart sound, S2 normal heart sound and no murmurs Rate: Negative for bradycardia or tachycardic Rhythm: Negative for abnormal rhythm GI non-tender, non-distended and no masses Inspection: Negative for abdominal distention Palpation: soft; Negative for tender, guarding or rebound tenderness present Back/Spine no CVA tenderness Extremity full ROM; Negative for normal to inspection Extremity Narrative: Left lower leg proximal lateral hematoma. Not expanding. No laceration. Mild bruising distal thigh above the knee. Normal flexion extension of the left hip, knee ankle and foot. No bony deformity or tenderness. General Extremety ED: Negative for cyanosis General Extremity: Negative for cyanosis Neuro oriented x3, CN's II-XII intact bilaterally and moves all extremities Sensorium / Orientation: alert, oriented to person, oriented to place and oriented to time; Negative for orientation impaired, confused, lethargic or stuporous Motor Exam: strength 5/5 throughout Psych mental status grossly normal Appearance: Negative for unkempt Speech: No other Mood & Affect: Negative for anxious Skin no wounds Skin Narrative: Bruising left lower leg. Left lower leg hematoma. Also left distal thigh. Lesions: no lesions Rashes: no rashes Trauma: Negative for abrasion or laceration MDM MDM MDM Narrative Medical decision making narrative: 68-year-old gentleman on Eliquis hit his leg on his tractor getting off of it. Has a hematoma left lower leg. Mild bruising. He does not need any x-rays. He did not hit his head. Ice and elevate. Hold his Eliquis tonight and all day tomorrow. Restart on Wednesday. Return if worse. Follow-up with not improving. History & Record Review Discussion w/independent historian: Patient and Family Additional record(s) reviewed:: Prior inpatient record, Prior outpatient record, Prior ED visit and Prior labs Discharge Plan Triage Chief Complaint: Lower Extremity Injury ED Provider: Tomas Greenwood Dx/Rx/DC Orders Clinical Impression: Hematoma of left lower leg, History of deep vein thrombosis, Chronic anticoagulation Instructions: ED Contusion, Lower Extremity Prescriptions: No Action buspirone 15 mg tablet 30 mg PO BID finasteride 5 mg tablet 5 mg PO DAILY apixaban 5 mg tablet 5 mg PO BID Qty: 180 3RF amitriptyline 50 MG tablet 50 mg PO QHS citalopram 20 MG tablet 20 mg PO QHS omega-3 fatty [id number] 1 EACH capsule 1 ea PO BID pravastatin 40 MG tablet 40 mg PO QHS montelukast 10 mg tablet 10 mg PO QHS nitroglycerin 0.4 mg tablet, sublingual 0.4 mg SUBLINGUAL Q5M PRN (Reason: Chest Pain) Qty: 25 3RF azelastine 137 mcg (0.1 %) aerosol,spray 2 spray INTRANASAL BID Qty: 30 6RF Rx Instructions: administer into each nostril fluticasone propionate [Flonase Allergy Relief] 50 mcg/actuation spray,suspension 2 spray INTRANASAL QDAY Qty: 1 6RF Rx Instructions: administer into each nostril albuterol sulfate 2.5 mg /3 mL (0.083 %) solution for nebulization 2.5 mg INHALATION Q6H PRN (Reason: Sob &/Or Wheezing) Qty: 3 6RF albuterol sulfate 90 mcg/actuation HFA aerosol inhaler 1 - 2 puff INHALATION Q6H PRN (Reason: Sob &/Or Wheezing) Qty: 18 6RF budesonide-formoterol [Symbicort] 160-4.5 mcg/actuation HFA aerosol inhaler 2 puff INHALATION BID Qty: 3 3RF Rx Instructions: administer with spacer, rinse mouth after each use furosemide 20 mg tablet 20 mg PO DAILY Qty: 90 3RF carvedilol [Coreg] 3.125 mg tablet 3.125 mg PO BID Qty: 180 3RF Rx Instructions: must administer with a meal/food nystatin 100,000 unit/mL suspension 5 ml mucous membrane TID Qty: 250 1RF Rx Instructions: swish and swallow 5 cc three times per day for 10 days Primary Care Provider: Bipin Sanchez Referrals: Bipin Sanchez MD [Primary Care Provider] - 1 Week if not improving Activity Restrictions/Additional Instructions: Soft tissue bruising of the left lower leg after hitting it on the tractor. Worse because you are on the blood thinner. Ice and elevate. Ice it 20 to 30 minutes at a time 4-5 times a day the next 2 to 3 days. Hold your Eliquis the blood thinner tonight and hold both dosages tomorrow. You can restarted on Wednesday. Follow-up with not improving. Return if it looks a lot worse. It may get a little bigger if it gets a lot bigger or you are feeling worse return. Print Language: [place] Disposition Disposition: Home, Self Care
== END 2024-05-20 20:32 | disposition home or self-care (01) ==
PROVIDERS: Emergency Provider Emergency Medicine; PCP Internal Medicine; Visit Provider Emergency Medicine
DX: S80.12XA Contusion of left lower leg, initial encounter (principal); I48.0 Paroxysmal atrial fibrillation; I25.10 Atherosclerotic heart disease of native coronary artery without angina pectoris; I10 Essential (primary) hypertension; Z87.891 Personal history of nicotine dependence; E78.5 Hyperlipidemia, unspecified; Z86.718 Personal history of other venous thrombosis and embolism; Z79.01 Long term (current) use of anticoagulants; G47.33 Obstructive sleep apnea (adult) (pediatric); Z99.81 Dependence on supplemental oxygen; Z79.899 Other long term (current) drug therapy; Z95.0 Presence of cardiac pacemaker; W17.89XA Other fall from one level to another, initial encounter
CPT/HCPCS: 99282

== ENCOUNTER → 2024-07-03 | Outpatient (CLI) | payer MEDICARE, OTHER, SELFPAY | END | disposition home or self-care (01) | LOC: PSN 08:11 | PROVIDERS: PCP Internal Medicine; Referring Provider Nurse Practitioner Acute Care; Visit Provider Nurse Practitioner Acute Care | DX: J44.9 Chronic obstructive pulmonary disease, unspecified (principal) | CPT/HCPCS: 94060; 94726; 94729 ==

== ENCOUNTER → 2024-07-20 | Outpatient (CLI) | payer MEDICARE, OTHER, SELFPAY ==
[2024-07-20 08:15] VITALS: PULSE 71; PULSE 75; PULSE 80; PULSE 81; PULSE 97; O2SAT 91; O2SAT 93; O2SAT 94; O2SAT 95; O2SAT 96
--- NOTE | 2024-08-02 17:32 | PCM.PSN.6M ---
PSN 6 Minute Walk Test 6 Minute Walk Test 6 Minute Walk Test: 6 Minute Walk Test PSN:6-Minute Walk Test Start: 07/20/24 08:41 Freq: Status: Active Protocol: RESP.6MINW Document 07/20/24 08:15 [facility] (Rec: 07/20/24 08:44 [facility] [id number]) 6 Minute Walk Test Date Performed 07/20/24 Time Performed 08:15 Height 5 ft 7 in Weight: 117.934 kg Weight in Pounds 260.[address]: Ryan Assistive device used: None Pre-test Oxygen Delivery Method Room Air Pulse Ox (%) 96 Pulse Rate (60-100 beats/min) 71 Dyspnea Whitney Scale (0-10) 0 Exertion Whitney Scale (6-20) 6 1st minute Oxygen Delivery Method Room Air Pulse Ox (%) 94 Pulse Rate (60-100 beats/min) 80 2nd minute Oxygen Delivery Method Room Air Pulse Ox (%) 93 Pulse Rate (60-100 beats/min) 80 3rd minute Oxygen Delivery Method Room Air Pulse Ox (%) 91 Pulse Rate (60-100 beats/min) 80 4th minute Oxygen Delivery Method Room Air Pulse Ox (%) 93 Pulse Rate (60-100 beats/min) 81 5th minute Oxygen Delivery Method Room Air Pulse Ox (%) 94 Pulse Rate (60-100 beats/min) 80 6th minute Oxygen Delivery Method Room Air Pulse Rate (60-100 beats/min) 97 Dyspnea Whitney Scale (0-10) 79 Post-test Oxygen Delivery Method Room Air Pulse Ox (%) 95 Pulse Rate (60-100 beats/min) 75 Dyspnea Whitney Scale (0-10) 0 Exertion Whitney Scale (6-20) 8 Full Laps Walked 11 Partial Lap, Number of Tiles Walked 0 Total Distance Walked (ft) 649 Interpretation Interpretation: The patient was able to ambulate 649 feet over the course of 6 minutes on room air with no assist devices or breaks. The patient did experience significant desaturation from a baseline of 96% to as low as 91%. No significant tachycardia was noted during testing. These findings are consistent with a respiratory limitation exercise tolerance. Recommendations Recommendations: No supplemental oxygen is indicated at this time. However, patient will need to be followed closely given level of desaturation.
--- NOTE | 2024-08-04 15:33 | WT_ITS ---
PSN 6 Minute Walk Test 6 Minute Walk Test 6 Minute Walk Test: 6 Minute Walk Test PSN:6-Minute Walk Test Start: 07/20/24 08:41 Freq: Status: Active Protocol: RESP.6MINW Document 07/20/24 08:15 [facility] (Rec: 07/20/24 08:44 [facility] [id number]) 6 Minute Walk Test Date Performed 07/20/24 Time Performed 08:15 Height 5 ft 7 in Weight: 117.934 kg Weight in Pounds 260.[address]: Ryan Assistive device used: None Pre-test Oxygen Delivery Method Room Air Pulse Ox (%) 96 Pulse Rate (60-100 beats/min) 71 Dyspnea Whitney Scale (0-10) 0 Exertion Whitney Scale (6-20) 6 1st minute Oxygen Delivery Method Room Air Pulse Ox (%) 94 Pulse Rate (60-100 beats/min) 80 2nd minute Oxygen Delivery Method Room Air Pulse Ox (%) 93 Pulse Rate (60-100 beats/min) 80 3rd minute Oxygen Delivery Method Room Air Pulse Ox (%) 91 Pulse Rate (60-100 beats/min) 80 4th minute Oxygen Delivery Method Room Air Pulse Ox (%) 93 Pulse Rate (60-100 beats/min) 81 5th minute Oxygen Delivery Method Room Air Pulse Ox (%) 94 Pulse Rate (60-100 beats/min) 80 6th minute Oxygen Delivery Method Room Air Pulse Rate (60-100 beats/min) 97 Dyspnea Whitney Scale (0-10) 79 Post-test Oxygen Delivery Method Room Air Pulse Ox (%) 95 Pulse Rate (60-100 beats/min) 75 Dyspnea Whitney Scale (0-10) 0 Exertion Whitney Scale (6-20) 8 Full Laps Walked 11 Partial Lap, Number of Tiles Walked 0 Total Distance Walked (ft) 649 Interpretation Interpretation: The patient was able to ambulate 649 feet over the course of 6 minutes on room air with no assist devices or breaks. The patient did experience significant desaturation from a baseline of 96% to as low as 91%. No significant tachycard ia was noted during testing. These findings are consistent with a respiratory limitation exercise tolerance. Recommendations Recommendations: No supplemental oxygen is indicated at this time. However, patient will need to be followed closely given level of desaturation.
== END | disposition home or self-care (01) ==
LOC: PSN 08:13
PROVIDERS: PCP Internal Medicine; Referring Provider Nurse Practitioner Acute Care; Visit Provider Nurse Practitioner Acute Care
DX: J44.9 Chronic obstructive pulmonary disease, unspecified (principal)
CPT/HCPCS: 94618

== ENCOUNTER → 2024-09-26 | Outpatient (CLI) | payer MEDICARE, OTHER, SELFPAY ==
--- NOTE | 2024-09-26 10:45 | RAD_ITS ---
STUDY: X-RAY CHEST REASON FOR EXAM: Male, 69 years old. For PPm generator change TECHNIQUE: PA and lateral views of the chest. COMPARISON: 10/27/2020 FINDINGS: Left subclavian pacemaker which is unchanged. Poor inspiration with some bibasilar atelectasis. There is no demonstrated pleural abnormality. Normal size heart. Normal mediastinum and mario. Normal visualized pulmonary arteries. Normal visualized aortic arch and descending thoracic aorta. Normal visualized thoracic spine. Normal visualized ribs, clavicles, and shoulders. There is no demonstrated abnormality of the visualized soft tissue structures of the upper abdomen. RAD/Chest PA and Lateral IMPRESSION: Poor inspiration with bibasilar atelectasis. Electronically Signed: Yakov Bhatt MD at 14:18 EST ,
== END | disposition home or self-care (01) ==
PROVIDERS: PCP Internal Medicine; Referring Provider Physician Assistant Medical; Visit Provider Physician Assistant Medical
DX: T82.111A Breakdown (mechanical) of cardiac pulse generator (battery), initial encounter (principal); Z95.0 Presence of cardiac pacemaker
CPT/HCPCS: 71046

== ENCOUNTER 2024-10-09 11:03 | Day surgery (SDC) | payer MEDICARE, OTHER, SELFPAY ==
[2024-09-26 11:04] LABS: Bacteria 0 SEEN /hpf (None Seen); Mucous, Urine 0 SEEN /hpf (<or=2+); Red Blood Cells-Urine 0 SEEN /hpf (0-5); Squamous Epithelial Cells - UA 0 SEEN /hpf (0-5); White Blood Cells 0 SEEN /hpf (0-5)
[2024-09-26 11:17] LABS: Color, Urine Yellow (Yellow); Glucose, Dipstick Normal (Normal); Ketone-Dipstick Negative (Negative); Leukocyte Esterase-Dipstick 25 /ul (Negative); Nitrite-Dipstick Negative (Negative); Occult Blood-Urine Negative /ul (Negative); Protein-Dipstick Negative (Negative); Urine Bilirubin Dipstick Negative (Negative); Urine Clarity Clear (Clear); Urine Urobilinogen Normal (Normal)
[2024-09-26 11:19] LABS: Hematocrit 44.9 % (40-54); Hemoglobin 14.4 g/dL (13.0-16.5); Mean Corp Hgb Conc 32.1 g/dL (32-36); Mean Corpuscular Hgb 31.1 pg (27.0-32.0); Mean Platelet Vol. 9.7 fl (6.2-12.0); Platelet Count 126 K/mm3 (150-450); RBC Distribution Width CV 16.4 % (11.6-14.6); RBC Distribution Width SD 58.8 fl (35.1-43.9); Red Blood Count 4.63 M/mm3 (4.6-6.2); White Blood Count 4.4 K/mm3 (4.4-11.0)
[2024-09-26 11:26] LABS: International Normalized Ratio 1.2; Prothrombin Time (Protime)PT. 14.9 SECONDS (11.7-14.9)
[2024-09-26 11:42] LABS: Anion Gap 1 (5-15); BNP,B-Type NATRIURETIC PEPTIDE 42.1 pg/mL (0-100); BUN 23 mg/dL (7-18); BUN/Creat Ratio 20.4 RATIO (10-20); Calcium,Total 8.9 mg/dL (8.5-10.1); Chloride 105 mmol/L (98-107); Creatinine, Serum 1.13 mg/dL (0.70-1.30); EST Glomerular Filtration Rate 68 mL/min (>60); Est Glom Filt Rate - Afr Amer 83 mL/min (>60); Glucose 89 mg/dL (74-106); Potassium 4.5 mmol/L (3.5-5.1); Sodium Level 138 mmol/L (136-145)
[2024-09-26 11:51] LABS: T4 Free Direct 1.05 ng/dL (0.76-1.46)
[2024-10-06 08:05] VITALS: BMI 41.3
--- NOTE | 2024-10-09 13:26 | CL.IE_ITS ---
Patient: AILYN BORGES Study Date: 10/09/2024 Performing: Fabrizio Maria MD : 1955 Age: 69 Gender: male PROCEDURES PERFORMED [id number])BATTERY REMOVAL+REPLACEMENT PACER-DUAL LEAD INDICATIONS End-of-life replacement indicator Sinoatrial node dysfunction/Sick sinus syndrome PROCEDURE DETAILS The patient was brought to the Catheterization Lab in the postabsorptive nonsedated state. Informed consent was obtained prior to the procedure. PPM generator was then interrogated by the sas clinical programmer. Local anesthetic was given subcutaneously to the left subclavian region with Lidocaine 2%. Incision was made to the left subclavicular area. PPM atrial lead (existing) was checked and tested. PPM ventricular lead (existing) was checked and tested. PPM generator was attached to the lead(s) and inserted into the pocket. Device pocket was irrigated with antibiotic. PPM generator was then interrogated by the sas clinical programmer. Subcutaneous closure was completed with 3-0 Vicryl. Skin closure was completed with 4-0 Vicryl. Instrument, sponge, and needle counts were noted to be normal. The patient tolerated the procedure well. Estimated Blood Loss: 15 ml's IMPLANTED / EX-PLANTED DEVICES EXPLANTED DEVICE(S): PPM Generator - Lock Setter: [employer], Model # [id number] , Serial # [id number] IMPLANTED DEVICE(S): PPM Generator - Lock Setter: [employer], Model # ESSENTIO MRI DC , Serial # [id number] DEVICE PARAMETERS ATRIAL LEAD PARAMETERS: P wave- 5.8 (mV) Current- 1.4 (mA) threshold- 0.4 (V) impedence- 502 (OHMS) VENTRICULAR LEAD PARAMETERS: R wave- 3.2 (mV) Current- 1.9 (mA) threshold- 0.8 (V) impedence- 418 (OHMS) DEVICE PARAMETERS: DDD Lower rate- 50 Upper rate- 130 CONCLUSIONS / RECOMMENDATIONS Device Conclusions: Successful implantation of a dual chamber pacemaker battery change and replacement Device Recommendations: Follow up with Primary Care Physician PROCEDURE MEDICATIONS Fentanyl 50 mcg IV Versed 1 mg IV Versed 1 mg IV Versed 1 mg IV Oxygen: 2 L/min via nasal cannula Antibiotic given in appropriate timeframe. Ancef 2 Gm IV @ 10/09/2024 12:26:04 Signed By Fabrizio Maria MD On 10/09/2024 13:25:52 Fabrizio Maria MD
== END 2024-10-09 14:33 | disposition home or self-care (01) ==
PROVIDERS: Nurse Practitioner Family; Physician Assistant Medical; PCP Internal Medicine; Referring Provider Internal Medicine Cardiovascular Disease; Visit Provider Internal Medicine Cardiovascular Disease
DX: I49.5 Sick sinus syndrome (principal); I48.0 Paroxysmal atrial fibrillation; Z95.0 Presence of cardiac pacemaker; Z86.16 Personal history of COVID-19; Z86.711 Personal history of pulmonary embolism; Z86.718 Personal history of other venous thrombosis and embolism; G47.33 Obstructive sleep apnea (adult) (pediatric); Z82.49 Family history of ischemic heart disease and other diseases of the circulatory system; Z87.891 Personal history of nicotine dependence; R53.83 Other fatigue; R06.02 Shortness of breath; T82.111A Breakdown (mechanical) of cardiac pulse generator (battery), initial encounter; I10 Essential (primary) hypertension
CPT/HCPCS: 33228; 36415; 80048; 81001; 83880; 84439; 84443; 85027; 85610; 99152; 99153